=== PATIENT | male | born 1990 | race Caucasian/White ===

== ENCOUNTER 2017-03-17 19:24 | Inpatient (IN) | payer OTHER ==
[~2017-03-17] VITALS: Ht 170.2 cm; Wt 64.8 kg
[2017-03-17] MEDS ORDERED: SOD CHLORIDE 0.9% 1,000 ML IV STA (19:55)
[2017-03-17 20:19] LABS: ADD SCAN DIFF NO
[2017-03-17 20:21] LABS: BASOPHILS % 0.6 % (0.0-2.0); EOSINOPHILS # 0.1 10^3/ul (0.0-0.5); EOSINOPHILS % 1.8 % (0.0-7.0); HEMATOCRIT 44.1 % (42.0-52.0); HEMOGLOBIN 15.2 g/dl (14.0-18.0); LYMPHOCYTES # 1.7 10^3/ul (0.8-2.9); LYMPHOCYTES % 33.3 % (15.0-51.0); MEAN CORPUSCULAR HEMOGLOBIN 29.7 pg (29.0-33.0); MEAN CORPUSCULAR HGB CONC 34.5 g/dl (32.0-37.0); MEAN CORPUSCULAR VOLUME 86.3 fl (82.0-101.0); MEAN PLATELET VOLUME 9.4 fl (7.4-10.4); MONOCYTE # 0.4 10^3/ul (0.3-0.9); MONOCYTES % 6.8 % (0.0-11.0); NEUTROPHIL # 2.9 10^3/ul (1.6-7.5); NEUTROPHILS % 57.3 % (39.0-77.0); PLATELET COUNT 199 10^3/UL (140-415); RED BLOOD COUNT 5.11 10^6/ul (4.70-6.10); RED CELL DISTRIBUTION WIDTH 12.4 % (11.5-14.5); WHITE BLOOD COUNT 5.1 10^3/ul (4.8-10.8)
[2017-03-17 20:44] LABS: ALBUMIN/GLOBULIN RATIO 1.61; BILIRUBIN,INDIRECT 0.2 mg/dl (0-1.1); BILIRUBIN,TOTAL 0.2 mg/dl (0.2-1.3); CALCIUM 9.8 mg/dl (8.4-10.2); CREATININE 1.12 mg/dl (0.61-1.24); POTASSIUM 4.3 mmol/L (3.5-5.1); TOTAL PROTEIN 8.1 g/dl (6.1-8.1)
[2017-03-17] MEDS ORDERED: SOD CHLORIDE 0.9% 1,000 ML IV SCH (20:55)
[2017-03-17] MEDS ORDERED: ONDANSETRON 4 MG INJ IV PRN ×2 (21:00→21:30)
[2017-03-17] MEDS ORDERED: ACETAMINOPHEN 325 MG TAB PO PRN (21:00)
--- NOTE | 2017-03-17 21:05 | ERA ---
ER Documentation Chief Complaint Date/Time DATE: 03/17/17 TIME: 21:00 Chief Complaint unable to swallow foods x 3 days ago, constipated, paraplegic HPI History obtained from patient's aunt who is at bedside as patient is unable to give a history secondary to his medical condition. This is a very pleasant 26- year-old male with a history of an unknown progressively worsening muscle degrading disease who presents to the emergency room due to the fact that he was recently moved from his facility in [place] to an independent living facility. This patient is unable to ambulate and has not been eating or drinking at the independent living facility. The patient's family members were at bedside are concerned because they did not feel this patient should be moved to the independent living facility. At the living facility has not been eating. This patient is having genetic testing done at [facility] and the results of his genetic testing for evaluation of this unknown progressively worsening myopathy are not going to be back until the end of March. Family members were obviously concerned about his not being able to take care of himself and brought the patient in for evaluation per ROS All systems reviewed and are negative except as per history of present illness. Allergies Allergies: Coded Allergies: No Known Allergy (Unverified , 03/17/17) PMhx/Soc History of Surgery: No Anesthesia Reaction: No Hx Neurological Disorder: Yes (unknown progressive deteriorating neuromuscular disease) Hx Respiratory Disorders: No Hx Cardiac Disorders: No Hx Psychiatric Problems: No Hx Miscellaneous Medical Probl: No Hx Alcohol Use: No Hx Substance Use: No Hx Tobacco Use: No Smoking Status: Never smoker Physical Exam Vitals Vital Signs Date Time Temp Pulse Resp B/P Pulse Ox O2 Delivery O2 Flow Rate FiO2 03/17/17 19:28 98.2 74 20 116/60 100 Physical Exam Const: No acute distress, tolerating secretions Head: Atraumatic Eyes: Normal Conjunctiva ENT: Normal External Ears, Nose and Mouth. Neck: Full range of motion..~ No meningismus. Resp: Clear to auscultation bilaterally Cardio: Regular rate and rhythm, no murmurs Abd: Soft, non tender, non distended. Normal bowel sounds Skin: No petechiae or rashes Back: No midline or flank tenderness Ext: No cyanosis, or edema Neur: Awake and alert Psych: Normal Mood and Affect Result Diagram: 03/17/17200603/17/172006 Results 24 hrs Laboratory Tests Test 03/17/17 20:07 White Blood Count 5.110^3/ul Red Blood Count 5.1110^6/ul Hemoglobin 15.2g/dl Hematocrit 44.1% Mean Corpuscular Volume 86.3fl Mean Corpuscular Hemoglobin 29.7pg Mean Corpuscular Hemoglobin Concent 34.5g/dl Red Cell Distribution Width 12.4% Platelet Count 77374^3/UL Mean Platelet Volume 9.4fl Neutrophils % 57.3% Lymphocytes % 33.3% Monocytes % 6.8% Eosinophils % 1.8% Basophils % 0.6% Nucleated Red Blood Cells % 0.0/100WBC Neutrophils # 2.910^3/ul Lymphocytes # 1.710^3/ul Monocytes # 0.410^3/ul Eosinophils # 0.110^3/ul Basophils # 0.010^3/ul Nucleated Red Blood Cells # 0.010^3/ul Sodium Level 142mmol/L Potassium Level 4.3mmol/L Chloride Level 104mmol/L Carbon Dioxide Level 28mmol/L Anion Gap 14 Blood Urea Nitrogen 13mg/dl Creatinine 1.12mg/dl Glucose Level 70mg/dl Calcium Level 9.8mg/dl Total Bilirubin 0.2mg/dl Direct Bilirubin 0.00mg/dl Indirect Bilirubin 0.2mg/dl Aspartate Amino Transf (AST/SGOT) 27IU/L Alanine Aminotransferase (ALT/SGPT) 33IU/L Alkaline Phosphatase 73IU/L Total Protein 8.1g/dl Albumin 5.0g/dl Globulin 3.10g/dl Albumin/Globulin Ratio 1.61 Lipase 90U/L Current Medications Medications (Trade) Dose Ordered Sig/Xiomara Route PRN Reason Start Time Stop Time Status Last Admin Dose Admin Sodium Chloride 1,000 ml @ 1,000 mls/hr Q1H STAT IV 03/17/17 19:55 03/17/17 20:54 DC 03/17/17 20:46 Sodium Chloride (NS) 1,000 ml @ 80 mls/hr [id number] IV 03/17/17 20:55 03/18/17 09:24 Ondansetron HCl (Zofran Inj) 4 mg BRIDGE ORDER PRN IV NAUSEA AND/OR VOMITING 03/17/17 21:00 03/18/17 20:59 Acetaminophen (Tylenol Tab) 650 mg ER BRIDGE PRN PO MILD PAIN/FEVER 03/17/17 21:00 03/18/17 20:59 Procedures/MDM This 26-year-old male presents to the emergency room for evaluation and admission for placement for a nursing facility. 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 This patient's sister has from the same disease. They are unsure if this patient has ALS. This patient was transferred to an independent living facility for an unknown reason in this patient is not independent as he is not able to walk or feed himself. He has not been eating for the past 3 days. The patient's family members were concerned and brought the patient to the emergency room. In the emergency room this patient does appear well hydrated however given his severity of disease this patient will be placed in for admission and for proper placement in a facility which can meet his demands for care. This patient did have a swallow screen done in the emergency room and will be placed on a soft diet this time. I have contacted our admitting physician Dr. Sequeira and the patient will be placed on the [facility] floor Chest X-ray 1V Interpreted by me: Soft Tissue: No acute abnormalities Bones: No acute abnormalities Mediastinum/Cardiac Silhouette/Lungs: [No acute abnormalities] Departure Diagnosis: Primary Impression: Muscle wasting Additional Impression: Inability to perform activities of daily living Condition: Stable UCRT CASEY DO Mar 17, 2017 21:05
[2017-03-17] MEDS ORDERED: DEXTROSE 5%-0.45% NACL 1,000 ML IV SCH (21:22)
[2017-03-17] MEDS ORDERED: ACETAMINOPHEN 650 MG SUPP PR PRN (21:30)
[2017-03-17] MEDS ORDERED: NACL 0.9% 3 ML SYG IV SCH (21:30)
[2017-03-17] MEDS ORDERED: morphine 2 MG INJ IV PRN (21:30)
[2017-03-17 21:32] VITALS: TEMP 98.2
[2017-03-17] MEDS ORDERED: BACL10TA PO (21:36)
--- NOTE | 2017-03-17 21:47 | RADRPT ---
PROCEDURE: XR Chest. CLINICAL INDICATION: Shortness of breath TECHNIQUE: Single frontal view of the chest was obtained COMPARISON: None FINDINGS: The heart and mediastinum are within normal limits. The lungs are clear. There is no pleural effusion or pneumothorax. The bones and soft tissue show no acute change. IMPRESSION: No definite abnormalities are identified. RPTAT:AAJJ dE Granados Physician Date Time Electronically viewed and signed by Ed Granados Physician on 03/17/2017 21:47 /
[2017-03-17 22:30] VITALS: BP 128/72; RESP 18
[2017-03-17] MEDS ORDERED: DEXTROSE 5%-0.45% NACL 500 ML IV SCH (23:00)
--- NOTE | 2017-03-17 23:02 | HP ---
Date/Time of Note Date/Time of Note DATE: 03/17/17 TIME: 23:02 Assessment/Plan VTE Prophylaxis VTE Prophylaxis Intervention: LMWH Assessment/Plan Chief Complaint/Hosp Course This is a pleasant 26-year-old male in a very unfortunate situation being admitted to the [facility] floor for: #1 progressively worsening function/ambulatory dysfunction: At the current time patient's current etiology of his genetic/neurologic disorder/myopathy is not known at this time. He is being worked up currently at [facility] and the results are apparently back on April 042016. His mom as well as his sister also have been diagnosed with disorders, with his sister passing away recently. Patient at the current time was placed in an independent living facility however patient's family did not feel that this facility was providing the adequate care for him as it is an independent living facility and based on the patient's current state he is not able to perform his daily activities of living by himself. At the current time we will obtain an official speech/ swallow evaluation to determine what kind of diet will be adequate for him. We will also consult physical therapy. And we will also consult case management to help us with placement in a facility where the patient can be properly taken care of. He did pass a bedside swallow eval in the ED so at time he will be started on a clear liquid diet, though we still will obtain an official speech evaluation. #2 Genetic/neurologic disorder/myopathy: Underlying etiology of this patient's disorder is unknown at this time. Further workup is being done at [facility]. Patient will follow up with them as indicated. Continue home baclofen. #3 DVT and GI prophylaxis: Lovenox, Protonix. Further treatment strategy will be implemented as per the clinical course Problems: HPI/ROS Admit Date/Time Admit Date/Time Mar 17, 2017 at 20:57 Hx of Present Illness Chief complaint: Ambulatory dysfunction This is a very pleasant 26-year-old male with a history of an unknown progressively worsening muscle/neurologic degrading disease who presents to the emergency room due to the fact that he was recently moved from his facility in [place] to an independent living facility. The following history was obtained via the ED physician documentation who received from the patient's and as the patient himself has difficulty speaking secondary to his unknown disease at this time. This patient is unable to ambulate and has not been eating or drinking at the independent living facility. The patient's family members were at bedside are concerned because they did not feel this patient should be moved to the independent living facility. At the living facility has not been eating. This patient is having genetic testing done at [facility] and the results of his genetic testing for evaluation of this unknown progressively worsening myopathy are not going to be back until the end of March. Family members were obviously concerned about his not being able to take care of himself and brought the patient in for evaluation. Patient does reports that he is able to use a walker to ambulate to the bathroom however at his facility that he was at did not provide him with a walker. His mom apparently has a similar disorder and the patient had a sister who recently after being diagnosed with a disorder as well I was very similar. As per the ED physician patient did have a bedside swallow eval done and was able to tolerate possibly soft diet. Allergies: NKDA Indications: See ARAVIND BECERRA Subjective hx not possible: other (Patient's verbal ability is limited secondary to his unknown disease process at this time.) PMH/Family/Social Past Medical History Unknown progressively worsening genetic/muscular disorder which is being worked up at [facility] at the current time. Past Surgical History Past Surgical Hx: appendectomy Social History Alcohol Use: none Smoking Status: Never smoker Drug Use: none Exam/Review of Systems Vital Signs Vitals Vital Signs Date Time Temp Pulse Resp B/P Pulse Ox O2 Delivery O2 Flow Rate FiO2 03/17/17 22:30 98.8 85 18 128/72 99 03/17/17 21:32 Room Air Exam Exam General: Patient is a pleasant well-developed male lying in bed in no acute distress. He is very smiley and upbeat. He has difficulty enunciating his words though some of his words are understandable. HEENT: Atraumatic, normocephalic. The pupils are equal, round and reactive. Extraocular motor are intact Neck: Supple with full range of motion. No rigidity or meningismus Chest: Nontender Lungs: Clear to auscultation bilaterally no crackles rales or wheezing Heart: Normal S1-S2, Regular rhythm and rate. No murmur, S3, or S4 Abdomen: Soft , nontender, nondistended , bowel sounds are present. No guarding no rebound tenderness , No masses or organomegaly. No costovertebral temporal angle mass Extremities: Normal to inspection, no edema no cyanosis Neurologic: Normal mental status, speech impediment, cranial nerves II through XII are intact, motor and sensory are intact, strength is 5 out of 5 in bilateral upper and lower extremities while patient is lying down. An ambulatory exam was not performed. The patient states that he can ambulate with the use of a rolling walker. Additional Comments PROCEDURE: XR Chest. CLINICAL INDICATION: Shortness of breath TECHNIQUE: Single frontal view of the chest was obtained COMPARISON: None FINDINGS: The heart and mediastinum are within normal limits. The lungs are clear. There is no pleural effusion or pneumothorax. The bones and soft tissue show no acute change. IMPRESSION: No definite abnormalities are identified. RPTAT:AAJJ Ed Granados Physician Date Time Electronically viewed and signed by Ed Granados Physician on 03/17/2017 21:47 Labs Result Diagram: 03/17/17200603/17/172006 Medications Medications Current Medications Ondansetron HCl (Zofran Inj) 4 mg Q6H PRN IV NAUSEA AND/OR VOMITING; Start 03/17 at 21:30 Acetaminophen (Tylenol Supp) 650 mg Q6H PRN [place] PAIN LEVEL 1-3 OR FEVER; Start 03/17/17 at 21:30 Morphine Sulfate (morphine) 2 mg Q4H PRN IV SEVERE PAIN LEVEL 7-10; Start at 21:30 Pantoprazole (Protonix Iv) 40 mg DAILY@06 IV ; Start 03/18/17 at 06:00 Enoxaparin Sodium 40 mg 40 mg DAILY SC ; Start 03/18/17 at 09:00 Dextrose/Sodium Chloride (D5-1/2ns) 500 ml @ 75 mls/hr Q6H40M IV Last administered on 03/17/17t 22:47; Admin Dose 75 MLS/HR; Start 03/17/17 at 23:00 RAPHAEL SINGH Mar 17, 2017 23:02
[2017-03-17 23:14] VITALS: Ht 170.2 cm; Wt 64.8 kg
[2017-03-18] MEDS ORDERED: DIPHENHYDRAMINE 50 MG INJ IV ONE (00:30)
[2017-03-18 05:43] LABS: ADD SCAN DIFF NO
[2017-03-18 05:48] LABS: BASOPHILS % 0.4 % (0.0-2.0); EOSINOPHILS # 0.1 10^3/ul (0.0-0.5); EOSINOPHILS % 1.3 % (0.0-7.0); HEMATOCRIT 42.3 % (42.0-52.0); HEMOGLOBIN 14.3 g/dl (14.0-18.0); LYMPHOCYTES % 39.3 % (15.0-51.0); MEAN CORPUSCULAR HEMOGLOBIN 29.1 pg (29.0-33.0); MEAN CORPUSCULAR HGB CONC 33.8 g/dl (32.0-37.0); MEAN CORPUSCULAR VOLUME 86.2 fl (82.0-101.0); MEAN PLATELET VOLUME 9.8 fl (7.4-10.4); MONOCYTE # 0.4 10^3/ul (0.3-0.9); MONOCYTES % 6.9 % (0.0-11.0); NEUTROPHIL # 2.7 10^3/ul (1.6-7.5); NEUTROPHILS % 51.9 % (39.0-77.0); PLATELET COUNT 180 10^3/UL (140-415); RED BLOOD COUNT 4.91 10^6/ul (4.70-6.10); RED CELL DISTRIBUTION WIDTH 12.7 % (11.5-14.5); WHITE BLOOD COUNT 5.2 10^3/ul (4.8-10.8)
[2017-03-18] MEDS: PANTOPRAZOLE 40 MG INJ IV SCH (05:55)
[2017-03-18 07:59] VITALS: BP 112/73; RESP 20
[2017-03-18] MEDS: BACLOFEN 10 MG TAB PO SCH ×3 (08:24→20:42)
[2017-03-18] MEDS: ENOXAPARIN 40 MG/0.4 ML SYG SC SCH (08:33)
--- NOTE | 2017-03-18 11:28 | PN ---
Date/Time of Note Date/Time of Note DATE: 03/18/17 TIME: 11:26 Assessment/Plan VTE Prophylaxis VTE Prophylaxis Intervention: LMWH Lines/Catheters IV [facility] Saline Lock Assessment/Plan Chief Complaint/Hosp Course A/P: 26-year-old male in a very unfortunate situation being admitted to the [facility] floor for: #1 progressively worsening function/ambulatory dysfunction: At the current time patient's current etiology of his genetic/neurologic disorder/myopathy is not known at this time. He is being worked up currently at [facility] and the results are apparently back on April 042016. His mom as well as his sister also have been diagnosed with disorders, with his sister passing away recently. Patient at the current time was placed in an independent living facility however patient's family did not feel that this facility was providing the adequate care for him as it is an independent living facility and based on the patient's current state he is not able to perform his daily activities of living by himself. - obtain an official speech/swallow evaluation to determine what kind of diet will be adequate for him. - consult physical therapy. - consult case management to help us with placement in a facility where the patient can be properly taken care of. He did pass a bedside swallow eval in the ED so at time he will be started on a clear liquid diet, though we still will obtain an official speech evaluation. #2 Genetic/neurologic disorder/myopathy: Underlying etiology of this patient's disorder is unknown at this time. - Further workup is being done at [facility]. Patient will follow up with them as indicated. - Continue home baclofen. #3 DVT and GI prophylaxis: Lovenox, Protonix. Further treatment strategy will be implemented as per the clinical course Problems: Subjective 24 Hr Interval Summary Free Text/Dictation Pt had no acute events overnight. Exam/Review of Systems Vital Signs Vitals Vital Signs Date Time Temp Pulse Resp B/P Pulse Ox O2 Delivery O2 Flow Rate FiO2 03/18/17 07:59 98.9 75 20 112/73 99 03/17/17 21:32 Room Air Intake and Output 03/17/17 03/17/17 03/18/17 15:00 23:00 07:00 Intake Total 1000 ml 475 ml Output Total 1400 ml Balance 1000 ml -925 ml Exam General: Patient is a pleasant well-developed male lying in bed in no acute distress. He has difficulty enunciating his words though some of his words are understandable. HEENT: Atraumatic, normocephalic. The pupils are equal, round and reactive. Extraocular motor are intact Neck: Supple with full range of motion. No rigidity or meningismus Chest: Nontender Lungs: Clear to auscultation bilaterally no crackles rales or wheezing Heart: Normal S1-S2, Regular rhythm and rate. No murmur, S3, or S4 Abdomen: Soft , nontender, nondistended , bowel sounds are present. No guarding no rebound tenderness , No masses or organomegaly. No costovertebral temporal angle mass Extremities: Normal to inspection, no edema no cyanosis Neurologic: Normal mental status, speech impediment, cranial nerves II through XII are intact, motor and sensory are intact, strength is 5 out of 5 in bilateral upper and lower extremities while patient is lying down. An ambulatory exam was not performed. The patient states that he can ambulate with the use of a rolling walker. Results Result Diagram: 03/18/1727 03/17/172006 Results 24 hrs Laboratory Tests Test 03/17/17 20:07 03/18/17 05:27 03/18/17 07:45 White Blood Count 5.1 5.2 Red Blood Count 5.11 4.91 Hemoglobin 15.2 14.3 Hematocrit 44.1 42.3 Mean Corpuscular Volume 86.3 86.2 Mean Corpuscular Hemoglobin 29.7 29.1 Mean Corpuscular Hemoglobin Concent 34.5 33.8 Red Cell Distribution Width 12.4 12.7 Platelet Count 199 180 Mean Platelet Volume 9.4 9.8 Neutrophils % 57.3 51.9 Lymphocytes % 33.3 39.3 Monocytes % 6.8 6.9 Eosinophils % 1.8 1.3 Basophils % 0.6 0.4 Nucleated Red Blood Cells % 0.0 0.0 Neutrophils # 2.9 2.7 Lymphocytes # 1.7 2.0 Monocytes # 0.4 0.4 Eosinophils # 0.1 0.1 Basophils # 0.0 0.0 Nucleated Red Blood Cells # 0.0 0.0 Sodium Level 142 Potassium Level 4.3 Chloride Level 104 Carbon Dioxide Level 28 Anion Gap 14 Blood Urea Nitrogen 13 Creatinine 1.12 Glucose Level 70 Calcium Level 9.8 Total Bilirubin 0.2 Direct Bilirubin 0.00 Indirect Bilirubin 0.2 Aspartate Amino Transf (AST/SGOT) 27 Alanine Aminotransferase (ALT/SGPT) 33 Alkaline Phosphatase 73 Total Protein 8.1 Albumin 5.0 H Globulin 3.10 Albumin/Globulin Ratio 1.61 Lipase 90 Hemoglobin A1c 5.2 Bedside Glucose 78 Medications Medications Current Medications Ondansetron HCl (Zofran Inj) 4 mg Q6H PRN IV NAUSEA AND/OR VOMITING; Start 03/17 at 21:30 Acetaminophen (Tylenol Supp) 650 mg Q6H PRN [place] PAIN LEVEL 1-3 OR FEVER; Start 03/17/17 at 21:30 Morphine Sulfate (morphine) 2 mg Q4H PRN IV SEVERE PAIN LEVEL 7-10; Start at 21:30 Pantoprazole (Protonix Iv) 40 mg DAILY@06 IV Last administered on 03/18/17 05: 55; Admin Dose 40 MG; Start 03/18/17 at 06:00 Enoxaparin Sodium (Lovenox) 40 mg DAILY SC Last administered on 03/18/17 08:33 ; Admin Dose 40 MG; Start 03/18/17 at 09:00 Baclofen (Lioresal) 10 mg TID PO Last administered on 03/18/17 08:24; Admin Dose 10 MG; Start 03/18/17 at 09:00 PHANI ANDERSON Mar 18, 2017 11:28
[2017-03-18 12:05] LABS: ALBUMIN 4.1 g/dl (3.3-4.9); ALBUMIN/GLOBULIN RATIO 1.64; BILIRUBIN,INDIRECT 0.4 mg/dl (0-1.1); BILIRUBIN,TOTAL 0.4 mg/dl (0.2-1.3); CALCIUM 10.2 mg/dl (8.4-10.2); CREATININE 1.05 mg/dl (0.61-1.24); POTASSIUM 4.7 mmol/L (3.5-5.1); TOTAL PROTEIN 6.6 g/dl (6.1-8.1)
[2017-03-18 12:24] LABS: T3 UPTAKE 38.2 % (23.5-40.5)
[2017-03-18 14:09] LABS: ADD UMIC NO; UR ASCORBIC ACID NEGATIVE (NEGATIVE); UR BILIRUBIN (Dip) NEGATIVE (NEGATIVE); UR BLOOD (Dip) NEGATIVE (NEGATIVE); UR CLARITY CLEAR (CLEAR); UR COLOR STRAW (YELLOW); UR GLUCOSE (Dip) NEGATIVE (NEGATIVE); UR KETONES (Dip) NEGATIVE (NEGATIVE); UR LEUKOCYTE ESTERASE (Dip) NEGATIVE Leu/ul (NEGATIVE); UR NITRITE (Dip) NEGATIVE (NEGATIVE); UR SPECIFIC GRAVITY (Dip) 1.005 (1.003-1.030); UR TOTAL PROTEIN (Dip) NEGATIVE (NEGATIVE); UR UROBILINOGEN (Dip) NEGATIVE (NEGATIVE)
[2017-03-18 20:15] VITALS: BP 115/66; RESP 18
[2017-03-19] MEDS: PANTOPRAZOLE 40 MG INJ IV SCH (05:48)
[2017-03-19 07:53] VITALS: BP 127/71; RESP 18
[2017-03-19] MEDS: BACLOFEN 10 MG TAB PO SCH ×3 (08:30→20:51)
[2017-03-19] MEDS: ENOXAPARIN 40 MG/0.4 ML SYG SC SCH (08:35)
--- NOTE | 2017-03-19 10:59 | PN ---
Date/Time of Note Date/Time of Note DATE: 03/19/17 TIME: 10:53 Assessment/Plan VTE Prophylaxis VTE Prophylaxis Intervention: LMWH Lines/Catheters IV [facility] Type (from [facility] Saline Lock Urinary Cath still in place: No Assessment/Plan Chief Complaint/Hosp Course A/P: 26-year-old male in a very unfortunate situation being admitted to the [facility] floor for: #1 progressively worsening function/ambulatory dysfunction: At the current time patient's current etiology of his genetic/neurologic disorder/myopathy is not known at this time. He is being worked up currently at [facility] and the results are apparently back on April 042016. His mom as well as his sister also have been diagnosed with disorders, with his sister passing away recently. Patient at the current time was placed in an independent living facility however patient's family did not feel that this facility was providing the adequate care for him as it is an independent living facility and based on the patient's current state he is not able to perform his daily activities of living by himself. - continue current modified diet, f/u speech/swallow rec's - consult physical therapy - will order - consult case management to help us with placement in a facility where the patient can be properly taken care of. #2 Genetic/neurologic disorder/myopathy: Underlying etiology of this patient's disorder is unknown at this time. - Further workup is being done at [facility]. Patient will follow up with them as indicated. - Continue home baclofen. #3 DVT and GI prophylaxis: Lovenox, Protonix. Further treatment strategy will be implemented as per the clinical course, and placement. Problems: Subjective 24 Hr Interval Summary Free Text/Dictation Pt seen by ST, tolerating modified diet. Exam/Review of Systems Vital Signs Vitals Vital Signs Date Time Temp Pulse Resp B/P Pulse Ox O2 Delivery O2 Flow Rate FiO2 03/19/17 07:53 98.6 85 18 127/71 100 03/17/17 21:32 Room Air Intake and Output 03/18/17 03/18/17 03/19/17 15:00 23:00 07:00 Intake Total 1440 ml 420 ml Output Total 1350 ml 975 ml Balance 90 ml -555 ml Exam General: Patient is a pleasant well-developed male lying in bed in no acute distress. He has difficulty enunciating his words though some of his words are understandable. HEENT: Atraumatic, normocephalic. The pupils are equal, round and reactive. Extraocular motor are intact Neck: Supple with full range of motion. No rigidity or meningismus Chest: Nontender Lungs: Clear to auscultation bilaterally no crackles rales or wheezing Heart: Normal S1-S2, Regular rhythm and rate. No murmur, S3, or S4 Abdomen: Soft , nontender, nondistended , bowel sounds are present. No guarding no rebound tenderness , No masses or organomegaly. No costovertebral temporal angle mass Extremities: Normal to inspection, no edema no cyanosis Neurologic: Normal mental status, speech impediment, cranial nerves II through XII are intact, motor and sensory are intact, strength is 5 out of 5 in bilateral upper and lower extremities while patient is lying down. An ambulatory exam was not performed. The patient states that he can ambulate with the use of a rolling walker. Results Result Diagram: 03/18/1752603/18/17526 Medications Medications Current Medications Ondansetron HCl (Zofran Inj) 4 mg Q6H PRN IV NAUSEA AND/OR VOMITING; Start 03/17 at 21:30 Acetaminophen (Tylenol Supp) 650 mg Q6H PRN [place] PAIN LEVEL 1-3 OR FEVER; Start 03/17/17 at 21:30 Morphine Sulfate (morphine) 2 mg Q4H PRN IV SEVERE PAIN LEVEL 7-10; Start at 21:30 Pantoprazole (Protonix Iv) 40 mg DAILY@06 IV Last administered on 03/19/17 05: 48; Admin Dose 40 MG; Start 03/18/17 at 06:00 Enoxaparin Sodium (Lovenox) 40 mg DAILY SC Last administered on 03/19/17 08:35 ; Admin Dose 40 MG; Start 03/18/17 at 09:00 Baclofen (Lioresal) 10 mg TID PO Last administered on 03/19/17 08:30; Admin Dose 10 MG; Start 03/18/17 at 09:00 PHANI ANDERSON Mar 19, 2017 10:59
[2017-03-19 19:27] VITALS: BP 121/69; RESP 20
[2017-03-20] MEDS: PANTOPRAZOLE (EC) 40 MG TAB PO SCH (06:00)
[2017-03-20 07:42] VITALS: BP 121/72; RESP 18
[2017-03-20] MEDS: BACLOFEN 10 MG TAB PO SCH ×3 (09:21→21:37)
[2017-03-20] MEDS: ENOXAPARIN 40 MG/0.4 ML SYG SC SCH (09:28)
[2017-03-20] MEDS: MUPIROCIN 2% 22 GM OINT TOP SCH ×2 (10:06→21:38)
--- NOTE | 2017-03-20 10:54 | PN ---
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 He is being worked up currently at [facility] and the results are apparently back on April [id number]. His mom as well as his sister also have been diagnosed with disorders, with his sister passing away recently. Patient at the current time was placed in an independent living facility however patient's family did not feel that this facility was providing the adequate care for him as it is an independent living facility and based on the patient's current state he is not able to perform his daily activities of living by himself. - continue current modified diet, f/u speech/swallow rec's - consult physical therapy - will order - consult case management to help us with placement in a facility where the patient can be properly taken care of. #2 Genetic/neurologic disorder/myopathy: Underlying etiology of this patient's disorder is unknown at this time. - Further workup is being done at [facility]. Patient will follow up with them as indicated. - Continue home baclofen. #3 DVT and GI prophylaxis: Lovenox, Protonix. Further treatment strategy will be implemented as per the clinical course, and placement. -Follow-up with case management on this as they are actively looking for placement. Problems: Subjective 24 Hr Interval Summary Free Text/Dictation Worked with PT yesterday. No acute events overnight. Exam/Review of Systems Vital Signs Vitals Vital Signs Date Time Temp Pulse Resp B/P Pulse Ox O2 Delivery O2 Flow Rate FiO2 03/20/17 07:42 98.1 81 18 121/72 99 03/17/17 21:32 Room Air Intake and Output 03/19/17 03/19/17 03/20/17 15:00 23:00 07:00 Intake Total 1120 ml 240 ml Output Total 1300 ml 300 ml Balance -180 ml -60 ml Exam General: Patient is a pleasant well-developed male lying in bed in no acute distress. He has difficulty enunciating his words though some of his words are understandable. HEENT: Atraumatic, normocephalic. The pupils are equal, round and reactive. Extraocular motor are intact Neck: Supple with full range of motion. No rigidity or meningismus Chest: Nontender Lungs: Clear to auscultation bilaterally no crackles rales or wheezing Heart: Normal S1-S2, Regular rhythm and rate. No murmur, S3, or S4 Abdomen: Soft , nontender, nondistended , bowel sounds are present. No guarding no rebound tenderness , No masses or organomegaly. No costovertebral temporal angle mass Extremities: Normal to inspection, no edema no cyanosis Neurologic: Normal mental status, speech impediment, cranial nerves II through XII are intact, motor and sensory are intact, strength is 5 out of 5 in bilateral upper and lower extremities while patient is lying down. An ambulatory exam was not performed. The patient states that he can ambulate with the use of a rolling walker. Results Result Diagram: 03/18/1752603/18/17526 Medications Medications Current Medications Ondansetron HCl (Zofran Inj) 4 mg Q6H PRN IV NAUSEA AND/OR VOMITING Last administered on 03/20/17 06:00; Admin Dose 4 MG; Start 03/17/17 at 21:30 Acetaminophen (Tylenol Supp) 650 mg Q6H PRN [place] PAIN LEVEL 1-3 OR FEVER; Start 03/17/17 at 21:30 Morphine Sulfate (morphine) 2 mg Q4H PRN IV SEVERE PAIN LEVEL 7-10; Start at 21:30 Enoxaparin Sodium (Lovenox) 40 mg DAILY SC Last administered on 03/20/17 09:28 ; Admin Dose 40 MG; Start 03/18/17 at 09:00 Baclofen (Lioresal) 10 mg TID PO Last administered on 03/20/17 09:21; Admin Dose 10 MG; Start 03/18/17 at 09:00 Pantoprazole (Protonix Tab) 40 mg DAILY@06 PO Last administered on 03/20/17 06: 00; Admin Dose 40 MG; Start 03/20/17 at 06:00 Mupirocin (Bactroban) 1 applic BID TOP Last administered on 03/20/17 10:06; Admin Dose 1 APPLIC; Start 03/20/17 at 09:30 PHANI ANDERSON Mar 20, 2017 10:53
[2017-03-20 19:22] VITALS: BP 118/66; RESP 20
[2017-03-21 02:13] VITALS: BP 119/61; RESP 18
[2017-03-21] MEDS: PANTOPRAZOLE (EC) 40 MG TAB PO SCH (05:27)
[2017-03-21] MEDS: BACLOFEN 10 MG TAB PO SCH ×3 (08:13→21:30)
[2017-03-21] MEDS: MUPIROCIN 2% 22 GM OINT TOP SCH ×2 (08:13→23:46)
[2017-03-21 08:18] VITALS: BP 113/72; RESP 18
[2017-03-21] MEDS: ENOXAPARIN 40 MG/0.4 ML SYG SC SCH (08:21)
--- NOTE | 2017-03-21 10:28 | PN ---
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 He is being worked up currently at [facility] and the results are apparently back on April 042016. His mom as well as his sister also have been diagnosed with disorders, with his sister passing away recently. Patient at the current time was placed in an independent living facility however patient's family did not feel that this facility was providing the adequate care for him as it is an independent living facility and based on the patient's current state he is not able to perform his daily activities of living by himself. - continue current modified diet, f/u speech/swallow rec's - consult physical therapy - will order - consult case management to help us with placement in a facility where the patient can be properly taken care of. #2 Genetic/neurologic disorder/myopathy: Underlying etiology of this patient's disorder is unknown at this time. - Further workup is being done at [facility]. Patient will follow up with them as indicated. - Continue home baclofen. #3 DVT and GI prophylaxis: Lovenox, Protonix. Further treatment strategy will be implemented as per the clinical course, and placement. -Follow-up with case management on this as they are actively looking for placement. Problems: Subjective 24 Hr Interval Summary Free Text/Dictation No acute events overnight. Exam/Review of Systems Vital Signs Vitals Vital Signs Date Time Temp Pulse Resp B/P Pulse Ox O2 Delivery O2 Flow Rate FiO2 03/21/17 08:18 98.2 71 18 113/72 98 03/17/17 21:32 Room Air Intake and Output 03/20/17 03/20/17 03/21/17 15:00 23:00 07:00 Intake Total 200 ml Output Total 600 ml Balance -400 ml Exam General: Patient is a pleasant well-developed male lying in bed in no acute distress. He has difficulty enunciating his words though some of his words are understandable. HEENT: Atraumatic, normocephalic. The pupils are equal, round and reactive. Extraocular motor are intact Neck: Supple with full range of motion. No rigidity or meningismus Chest: Nontender Lungs: Clear to auscultation bilaterally no crackles rales or wheezing Heart: Normal S1-S2, Regular rhythm and rate. No murmur, S3, or S4 Abdomen: Soft , nontender, nondistended , bowel sounds are present. No guarding no rebound tenderness , No masses or organomegaly. No costovertebral temporal angle mass Extremities: Normal to inspection, no edema no cyanosis Neurologic: Normal mental status, speech impediment, cranial nerves II through XII are intact, motor and sensory are intact, strength is 5 out of 5 in bilateral upper and lower extremities while patient is lying down. An ambulatory exam was not performed. The patient states that he can ambulate with the use of a rolling walker. Results Result Diagram: 03/18/1752603/18/17526 Medications Medications Current Medications Ondansetron HCl (Zofran Inj) 4 mg Q6H PRN IV NAUSEA AND/OR VOMITING Last administered on 03/20/17 06:00; Admin Dose 4 MG; Start 03/17/17 at 21:30 Acetaminophen (Tylenol Supp) 650 mg Q6H PRN [place] PAIN LEVEL 1-3 OR FEVER; Start 03/17/17 at 21:30 Morphine Sulfate (morphine) 2 mg Q4H PRN IV SEVERE PAIN LEVEL 7-10; Start at 21:30 Enoxaparin Sodium (Lovenox) 40 mg DAILY SC Last administered on 03/21/17 08:21 ; Admin Dose 40 MG; Start 03/18/17 at 09:00 Baclofen (Lioresal) 10 mg TID PO Last administered on 03/21/17 08:13; Admin Dose 10 MG; Start 03/18/17 at 09:00 Pantoprazole (Protonix Tab) 40 mg DAILY@06 PO Last administered on 03/21/17 05: 27; Admin Dose 40 MG; Start 03/20/17 at 06:00 Mupirocin (Bactroban) 1 applic BID TOP Last administered on 03/21/17 08:13; Admin Dose 1 APPLIC; Start 03/20/17 at 09:30 PHANI ANDERSON Mar 21, 2017 10:27
[2017-03-21 19:53] VITALS: BP 109/64; RESP 20
[2017-03-22 02:18] VITALS: BP 114/65; RESP 20
[2017-03-22] MEDS: PANTOPRAZOLE (EC) 40 MG TAB PO SCH (05:56)
[2017-03-22 07:58] VITALS: BP 110/59; RESP 20
[2017-03-22] MEDS: MUPIROCIN 2% 22 GM OINT TOP SCH ×2 (08:51→21:36)
[2017-03-22] MEDS: BACLOFEN 10 MG TAB PO SCH ×3 (08:51→21:36)
[2017-03-22] MEDS: ENOXAPARIN 40 MG/0.4 ML SYG SC SCH (09:01)
--- NOTE | 2017-03-22 16:46 | PN ---
Date/Time of Note Date/Time of Note DATE: 03/22/17 TIME: 16:43 Assessment/Plan VTE Prophylaxis VTE Prophylaxis Intervention: LMWH Lines/Catheters IV C[facility] Type (from [facility]): Saline Lock Urinary Cath still in place: No Assessment/Plan Chief Complaint/Hosp Course Subjective: No distress. Runny nose. No blood loss. No fever dyspnea. Ambulating somewhat. Tolerating diet safely at this time. Family at bedside and updated. He does have some spasticity. Objective: Vital signs stable Physical examination No pallor adenopathy Regular Clear Benign No edema Neuro potentially some hypotonia generalized. Assessment and plan 1. Failure to thrive. Stable pending disposition to [facility] for assistance in ADLs. 2. Subacute myopathy? Sp genetic testing [facility]. Results pending. Calorie count/ ST therapy as needed. Continue PT. Problems: Exam/Review of Systems Vital Signs Vitals Vital Signs Date Time Temp Pulse Resp B/P Pulse Ox O2 Delivery O2 Flow Rate FiO2 03/22/17 07:58 98.8 73 20 110/59 98 Intake and Output 03/21/17 03/21/17 03/22/17 15:00 23:00 07:00 Intake Total 940 ml 240 ml Output Total 350 ml Balance 940 ml -110 ml Results Result Diagram: 03/18/1727 03/18/17526 Medications Medications Current Medications Ondansetron HCl (Zofran Inj) 4 mg Q6H PRN IV NAUSEA AND/OR VOMITING Last administered on 03/20/17 06:00; Admin Dose 4 MG; Start 03/17/17 at 21:30 Acetaminophen (Tylenol Supp) 650 mg Q6H PRN [place] PAIN LEVEL 1-3 OR FEVER; Start 03/17/17 at 21:30 Morphine Sulfate (morphine) 2 mg Q4H PRN IV SEVERE PAIN LEVEL 7-10; Start at 21:30 Enoxaparin Sodium (Lovenox) 40 mg DAILY SC Last administered on 03/22/17 09:01 ; Admin Dose 40 MG; Start 03/18/17 at 09:00 Baclofen (Lioresal) 10 mg TID PO Last administered on 03/22/17 13:31; Admin Dose 10 MG; Start 03/18/17 at 09:00 Pantoprazole (Protonix Tab) 40 mg DAILY@06 PO Last administered on 03/22/17 05: 56; Admin Dose 40 MG; Start 03/20/17 at 06:00 Mupirocin (Bactroban) 1 applic BID TOP Last administered on 03/22/17 08:51; Admin Dose 1 APPLIC; Start 03/20/17 at 09:30 ANGELO CARRERA MD Mar 22, 2017 16:46
[2017-03-22] MEDS: LORATADINE 10 MG TAB PO SCH (18:30)
[2017-03-22 20:05] VITALS: BP 113/65; RESP 18
[2017-03-23 04:01] VITALS: BP 98/61; RESP 18
[2017-03-23] MEDS: PANTOPRAZOLE (EC) 40 MG TAB PO SCH (06:07)
[2017-03-23 06:23] LABS: ADD SCAN DIFF NO
[2017-03-23 06:26] LABS: BASOPHILS % 0.4 % (0.0-2.0); EOSINOPHILS # 0.1 10^3/ul (0.0-0.5); EOSINOPHILS % 1.7 % (0.0-7.0); HEMATOCRIT 41.6 % (42.0-52.0); HEMOGLOBIN 14.4 g/dl (14.0-18.0); LYMPHOCYTES # 1.7 10^3/ul (0.8-2.9); LYMPHOCYTES % 37.4 % (15.0-51.0); MEAN CORPUSCULAR HEMOGLOBIN 29.4 pg (29.0-33.0); MEAN CORPUSCULAR HGB CONC 34.6 g/dl (32.0-37.0); MEAN CORPUSCULAR VOLUME 84.9 fl (82.0-101.0); MEAN PLATELET VOLUME 9.6 fl (7.4-10.4); MONOCYTE # 0.4 10^3/ul (0.3-0.9); MONOCYTES % 7.6 % (0.0-11.0); NEUTROPHIL # 2.5 10^3/ul (1.6-7.5); NEUTROPHILS % 52.9 % (39.0-77.0); PLATELET COUNT 193 10^3/UL (140-415); RED CELL DISTRIBUTION WIDTH 12.3 % (11.5-14.5); WHITE BLOOD COUNT 4.6 10^3/ul (4.8-10.8)
[2017-03-23 06:46] LABS: INR 1.03; PROTIME 13.5 Sec (12.2-14.2); PT RATIO 1.1
[2017-03-23 06:53] LABS: CALCIUM 10.3 mg/dl (8.4-10.2); CREATININE 1.09 mg/dl (0.61-1.24); POTASSIUM 4.2 mmol/L (3.5-5.1)
[2017-03-23 06:55] LABS: CREATINE KINASE 48 IU/L (23-200)
[2017-03-23 06:56] LABS: C-REACTIVE PROTEIN < 0.5 mg/dl (0.0-0.9)
[2017-03-23 07:23] LABS: THYROID STIMULATING HORMONE 1.13 MIU/L (0.465-4.680)
[2017-03-23 07:30] LABS: CREATININE 1.12 mg/dl (0.61-1.24)
[2017-03-23 08:49] VITALS: BP 111/56; RESP 20
[2017-03-23] MEDS: MUPIROCIN 2% 22 GM OINT TOP SCH ×2 (09:56→20:40)
[2017-03-23] MEDS: BACLOFEN 10 MG TAB PO SCH ×3 (09:56→20:40)
[2017-03-23] MEDS: LORATADINE 10 MG TAB PO SCH (09:56)
[2017-03-23] MEDS: ENOXAPARIN 40 MG/0.4 ML SYG SC SCH (10:04)
--- NOTE | 2017-03-23 11:37 | PN ---
Date/Time of Note Date/Time of Note DATE: 03/23/17 TIME: 11:35 Assessment/Plan VTE Prophylaxis VTE Prophylaxis Intervention: LMWH Lines/Catheters IV C[facility]ter Type (from [facility] Saline Lock Urinary Cath still in place: No Assessment/Plan Chief Complaint/Hosp Course S: 03/22 no distress. Runny nose. No blood loss. No fever dyspnea. Ambulating somewhat. Tolerating diet safely at this time. Family at bedside and updated. He does have some spasticity. 03/22: Less nasal discomfort. No dyspnea. Pending placement. O: Vss PE No pallor Reg Clear Benign No edema Neuro potentially some hypotonia generalized. A/P 1. Failure to thrive. Stable pending disposition to [facility] for assistance in ADLs. 2. Subacute myopathy? Sp genetic testing [facility]- Results pending. Calorie count/ ST therapy as needed. Cont PT. 3. MRSA nares; colonized 2 wks of Bactroban Problems: Exam/Review of Systems Vital Signs Vitals Vital Signs Date Time Temp Pulse Resp B/P Pulse Ox O2 Delivery O2 Flow Rate FiO2 03/23/17 08:49 98.3 75 20 111/56 99 Intake and Output 03/22/17 03/22/17 03/23/17 15:00 23:00 07:00 Intake Total 1440 ml 200 ml Output Total 1525 ml 250 ml Balance -85 ml -50 ml Results Result Diagram: 03/23/1752103/23/17 0522 Results 24 hrs Laboratory Tests Test 03/23/17 05:22 White Blood Count 4.6 L Red Blood Count 4.90 Hemoglobin 14.4 Hematocrit 41.6 L Mean Corpuscular Volume 84.9 Mean Corpuscular Hemoglobin 29.4 Mean Corpuscular Hemoglobin Concent 34.6 Red Cell Distribution Width 12.3 Platelet Count 193 Mean Platelet Volume 9.6 Neutrophils % 52.9 Lymphocytes % 37.4 Monocytes % 7.6 Eosinophils % 1.7 Basophils % 0.4 Nucleated Red Blood Cells % 0.0 Neutrophils # 2.5 Lymphocytes # 1.7 Monocytes # 0.4 Eosinophils # 0.1 Basophils # 0.0 Nucleated Red Blood Cells # 0.0 Erythrocyte Sedimentation Rate 2 Prothrombin Time 13.5 Prothrombin Time Ratio 1.1 INR International Normalized Ratio 1.03 Sodium Level 143 Potassium Level 4.2 Chloride Level 100 Carbon Dioxide Level 28 Anion Gap 19 H Blood Urea Nitrogen 16 Creatinine 1.09 Glucose Level 80 Lactic Acid Level 1.0 Calcium Level 10.3 H Creatine Kinase 48 C-Reactive Protein < 0.5 Thyroid Stimulating Hormone (TSH) 1.130 Medications Medications Current Medications Ondansetron HCl (Zofran Inj) 4 mg Q6H PRN IV NAUSEA AND/OR VOMITING Last administered on 03/20/17 06:00; Admin Dose 4 MG; Start 03/17/17 at 21:30 Acetaminophen (Tylenol Supp) 650 mg Q6H PRN [place] PAIN LEVEL 1-3 OR FEVER; Start 03/17/17 at 21:30 Morphine Sulfate (morphine) 2 mg Q4H PRN IV SEVERE PAIN LEVEL 7-10; Start at 21:30 Enoxaparin Sodium (Lovenox) 40 mg DAILY SC Last administered on 03/23/17 10:04 ; Admin Dose 40 MG; Start 03/18/17 at 09:00 Baclofen (Lioresal) 10 mg TID PO Last administered on 03/23/17 09:56; Admin Dose 10 MG; Start 03/18/17 at 09:00 Pantoprazole (Protonix Tab) 40 mg DAILY@06 PO Last administered on 03/23/17 06: 07; Admin Dose 40 MG; Start 03/20/17 at 06:00 Mupirocin (Bactroban) 1 applic BID TOP Last administered on 03/23/17 09:56; Admin Dose 1 APPLIC; Start 03/20/17 at 09:30 Loratadine (Claritin) 10 mg DAILY PO Last administered on 03/23/17 09:56; Admin Dose 10 MG; Start 03/22/17 at 18:30 ANGELO CARRERA MD Mar 23, 2017 11:37
[2017-03-23 19:26] VITALS: BP 115/65; RESP 18
[2017-03-24 02:00] VITALS: BP 104/59; RESP 16
[2017-03-24] MEDS: PANTOPRAZOLE (EC) 40 MG TAB PO SCH (06:16)
[2017-03-24 08:01] VITALS: BP 102/56; RESP 20
[2017-03-24] MEDS: BACLOFEN 10 MG TAB PO SCH ×3 (09:19→21:01)
[2017-03-24] MEDS: LACTOBACILLUS RHAMNOSUS CAP PO SCH ×2 (09:19→21:01)
[2017-03-24] MEDS: LORATADINE 10 MG TAB PO SCH (09:19)
[2017-03-24] MEDS: MUPIROCIN 2% 22 GM OINT TOP SCH ×2 (09:19→21:01)
[2017-03-24] MEDS: ENOXAPARIN 40 MG/0.4 ML SYG SC SCH (10:05)
--- NOTE | 2017-03-24 15:31 | PN ---
Date/Time of Note Date/Time of Note DATE: 03/24/17 TIME: 15:29 Assessment/Plan VTE Prophylaxis VTE Prophylaxis Intervention: LMWH Lines/Catheters IV C[facility]ter Type ([facility] Saline Lock Urinary Cath still in place: No Assessment/Plan Chief Complaint/Hosp Course 1. Failure to thrive. Continue supportive care. Continue physical therapy. Continue dietary supplements. Awaiting placement for further assistance with ADLs. 2. Muscular dystrophy/myopathy. Continue supportive care. Continue baclofen. 3. MRSA colonization of the nares. Continue Bactroban. 4. DVT prophylaxis. Subcutaneous Lovenox. 5. Gastrointestinal prophylaxis. Proton pump inhibitors. 6. Fluids, electrolytes, and nutrition. Mechanical soft diet. 7. Plan. Await placement. Will obtain a chest x-ray because he was complaining of vague dyspnea. Case discussed with Dr. Pepe. Problems: Subjective 24 Hr Interval Summary Free Text/Dictation Complains of dyspnea. Denies any pain. Exam/Review of Systems Vital Signs Vitals Vital Signs Date Time Temp Pulse Resp B/P Pulse Ox O2 Delivery O2 Flow Rate FiO2 03/24/17 08:01 97.9 73 20 102/56 98 Intake and Output 03/23/17 03/23/17 03/24/17 15:00 23:00 07:00 Intake Total 600 ml 360 ml Output Total 420 ml Balance 180 ml 360 ml Exam General: Adequately build 26 year-old male lying in bed in no apparent distress. HEENT: Normocephalic, atraumatic. Eyes: Anicteric sclerae, conjunctivae clear. ENT: Nasal septum midline, oral mucosa moist. Neck supple, no JVD noticed. Respiratory: Bilaterally diminished breath sounds. No use of accessory muscles of respiration. No adventitious breath sounds. Cardiovascular: S1, S2 heard. No murmurs or gallops. Abdomen: Soft, nontender, and nondistended. Bowel sounds positive in all 4 quadrants. Genitourinary: Deferred. Extremities: No cyanosis, no clubbing, no edema. Peripheral pulses palpable. Neurologic: Slurred speech. Poor motor strength of bilateral upper and bilateral lower extremities. The patient is awake, alert, and oriented. Skin: Normal skin turgor. No skin rashes. Results Result Diagram: 03/23/1752103/23/17521 Medications Medications Current Medications Ondansetron HCl (Zofran Inj) 4 mg Q6H PRN IV NAUSEA AND/OR VOMITING Last administered on 03/20/17 06:00; Admin Dose 4 MG; Start 03/17/17 at 21:30 Acetaminophen (Tylenol Supp) 650 mg Q6H PRN [place] PAIN LEVEL 1-3 OR FEVER; Start 03/17/17 at 21:30 Morphine Sulfate (morphine) 2 mg Q4H PRN IV SEVERE PAIN LEVEL 7-10; Start at 21:30 Enoxaparin Sodium (Lovenox) 40 mg DAILY SC Last administered on 03/24/17 10:05 ; Admin Dose 40 MG; Start 03/18/17 at 09:00 Baclofen (Lioresal) 10 mg TID PO Last administered on 03/24/17 12:56; Admin Dose 10 MG; Start 03/18/17 at 09:00 Pantoprazole (Protonix Tab) 40 mg DAILY@06 PO Last administered on 03/24/17 06 :16; Admin Dose 40 MG; Start 03/20/17 at 06:00 Mupirocin (Bactroban) 1 applic BID TOP Last administered on 03/24/17 09:19; Admin Dose 1 APPLIC; Start 03/20/17 at 09:30; Stop 04/03/17 at 23:00 Loratadine (Claritin) 10 mg DAILY PO Last administered on 03/24/17 09:19; Admin Dose 10 MG; Start 03/22/17 at 18:30 Lactobacillus Acidophilus/ Rhamnosus (Culturelle) 1 cap BID PO Last administered on 03/24/17 09:19; Admin Dose 1 CAP; Start 03/24/17 at 09:00 MELANIE NEFF NP Mar 24, 2017 15:31
--- NOTE | 2017-03-24 17:27 | RADRPT ---
PROCEDURE: XR Chest. CLINICAL INDICATION: Shortness of breath. TECHNIQUE: Single frontal view. COMPARISON: 03/17/2017. FINDINGS: The lungs are clear. The heart size is normal. There is no pleural effusion. There is no pneumothorax. IMPRESSION: 1. Normal chest radiograph. 2. No change from 03/17/2017. RPTAT: QQ .Wilfredo Mix MD, MD Date Time Electronically viewed and signed by .Wilfredo Mix MD, MD on 03/24/2017 17:26 .R/
[2017-03-24 20:00] VITALS: BP 118/63; RESP 18
[2017-03-25 02:26] VITALS: BP 105/73; RESP 16
[2017-03-25] MEDS: PANTOPRAZOLE (EC) 40 MG TAB PO SCH (05:26)
[2017-03-25 08:18] VITALS: BP 114/70; RESP 18
[2017-03-25] MEDS: LACTOBACILLUS RHAMNOSUS CAP PO SCH ×2 (08:59→20:35)
[2017-03-25] MEDS: BACLOFEN 10 MG TAB PO SCH ×3 (08:59→20:35)
[2017-03-25] MEDS: LORATADINE 10 MG TAB PO SCH (08:59)
[2017-03-25] MEDS: MUPIROCIN 2% 22 GM OINT TOP SCH ×2 (08:59→20:35)
[2017-03-25] MEDS: ENOXAPARIN 40 MG/0.4 ML SYG SC SCH (09:10)
--- NOTE | 2017-03-25 11:12 | PN ---
Date/Time of Note Date/Time of Note DATE: 03/25/17 TIME: 11:11 Assessment/Plan VTE Prophylaxis VTE Prophylaxis Intervention: LMWH Lines/Catheters IV [facility] Type (from [facility]): Saline Lock Urinary Cath still in place: No Assessment/Plan Chief Complaint/Hosp Course 1. Failure to thrive. Continue supportive care. Continue physical therapy. Continue dietary supplements. Awaiting placement for further assistance with ADLs. 2. Muscular dystrophy/myopathy. Continue supportive care. Continue baclofen. 3. MRSA colonization of the nares. Continue Bactroban. 4. DVT prophylaxis. Subcutaneous Lovenox. 5. Gastrointestinal prophylaxis. Proton pump inhibitors. 6. Fluids, electrolytes, and nutrition. Mechanical soft diet. 7. Plan. Await placement. Case discussed with Dr. Pepe. Problems: Subjective 24 Hr Interval Summary Free Text/Dictation Vital signs stable. No changes in status. Complains of toothache. Exam/Review of Systems Vital Signs Vitals Vital Signs Date Time Temp Pulse Resp B/P Pulse Ox O2 Delivery O2 Flow Rate FiO2 03/25/17 08:18 97.7 71 18 114/70 98 Intake and Output 03/24/17 03/24/17 03/25/17 15:00 23:00 07:00 Intake Total 1200 ml 980 ml Output Total 600 ml Balance 600 ml 980 ml Exam General: Adequately build 26 year-old male lying in bed in no apparent distress. HEENT: Normocephalic, atraumatic. Eyes: Anicteric sclerae, conjunctivae clear. ENT: Nasal septum midline, oral mucosa moist. Neck supple, no JVD noticed. Respiratory: Bilaterally diminished breath sounds. No use of accessory muscles of respiration. No adventitious breath sounds. Cardiovascular: S1, S2 heard. No murmurs or gallops. Abdomen: Soft, nontender, and nondistended. Bowel sounds positive in all 4 quadrants. Genitourinary: Deferred. Extremities: No cyanosis, no clubbing, no edema. Peripheral pulses palpable. Neurologic: Slurred speech. Poor motor strength of bilateral upper and bilateral lower extremities. The patient is awake, alert, and oriented. Skin: Normal skin turgor. No skin rashes. Results Result Diagram: 03/23/1752103/23/17521 Medications Medications Current Medications Ondansetron HCl (Zofran Inj) 4 mg Q6H PRN IV NAUSEA AND/OR VOMITING Last administered on 03/20/17 06:00; Admin Dose 4 MG; Start 03/17/17 at 21:30 Acetaminophen (Tylenol Supp) 650 mg Q6H PRN [place] PAIN LEVEL 1-3 OR FEVER; Start 03/17/17 at 21:30 Morphine Sulfate (morphine) 2 mg Q4H PRN IV SEVERE PAIN LEVEL 7-10; Start at 21:30 Enoxaparin Sodium (Lovenox) 40 mg DAILY SC Last administered on 03/25/17 09:10 ; Admin Dose 40 MG; Start 03/18/17 at 09:00 Baclofen (Lioresal) 10 mg TID PO Last administered on 03/25/17 08:59; Admin Dose 10 MG; Start 03/18/17 at 09:00 Pantoprazole (Protonix Tab) 40 mg DAILY@06 PO Last administered on 03/25/17 05 :26; Admin Dose 40 MG; Start 03/20/17 at 06:00 Mupirocin (Bactroban) 1 applic BID TOP Last administered on 03/25/17 08:59; Admin Dose 1 APPLIC; Start 03/20/17 at 09:30; Stop 04/03/17 at 23:00 Loratadine (Claritin) 10 mg DAILY PO Last administered on 03/25/17 08:59; Admin Dose 10 MG; Start 03/22/17 at 18:30 Lactobacillus Acidophilus/ Rhamnosus (Culturelle) 1 cap BID PO Last administered on 03/25/17 08:59; Admin Dose 1 CAP; Start 03/24/17 at 09:00 MELANIE NEFF NP Mar 25, 2017 11:12
[2017-03-25] MEDS: HYDROCODONE/APAP (5/325) TAB PO PRN (13:13)
[2017-03-25 19:48] VITALS: BP 110/56; RESP 18
[2017-03-26] MEDS: PANTOPRAZOLE (EC) 40 MG TAB PO SCH (05:52)
[2017-03-26 07:41] VITALS: BP 110/64; RESP 20
[2017-03-26] MEDS: LORATADINE 10 MG TAB PO SCH (08:38)
[2017-03-26] MEDS: LACTOBACILLUS RHAMNOSUS CAP PO SCH ×2 (08:38→20:34)
[2017-03-26] MEDS: MUPIROCIN 2% 22 GM OINT TOP SCH ×2 (08:38→20:35)
[2017-03-26] MEDS: BACLOFEN 10 MG TAB PO SCH ×3 (08:38→20:34)
[2017-03-26] MEDS: ENOXAPARIN 40 MG/0.4 ML SYG SC SCH (08:56)
--- NOTE | 2017-03-26 14:16 | PN ---
Date/Time of Note Date/Time of Note DATE: 03/26/17 TIME: 14:15 Assessment/Plan VTE Prophylaxis VTE Prophylaxis Intervention: LMWH Lines/Catheters IV Catheter Type (from [facility]): Saline Lock Urinary Cath still in place: No Assessment/Plan Chief Complaint/Hosp Course 1. Failure to thrive. Continue supportive care. Continue physical therapy. Continue dietary supplements. Awaiting placement for further assistance with ADLs. 2. Muscular dystrophy/myopathy. Continue supportive care. Continue baclofen. 3. MRSA colonization of the nares. Continue Bactroban. 4. DVT prophylaxis. Subcutaneous Lovenox. 5. Gastrointestinal prophylaxis. Proton pump inhibitors. 6. Fluids, electrolytes, and nutrition. Mechanical soft diet. 7. Plan. Await placement. Case discussed with Dr. Pepe. Problems: Subjective 24 Hr Interval Summary Free Text/Dictation No changes in status. Exam/Review of Systems Vital Signs Vitals Vital Signs Date Time Temp Pulse Resp B/P Pulse Ox O2 Delivery O2 Flow Rate FiO2 03/26/17 07:41 98.0 64 20 110/64 99 Intake and Output 03/25/17 03/25/17 03/26/17 15:00 23:00 07:00 Intake Total 560 ml 500 ml Output Total 250 ml Balance 560 ml 250 ml Exam General: Adequately build 26 year-old male lying in bed in no apparent distress. HEENT: Normocephalic, atraumatic. Eyes: Anicteric sclerae, conjunctivae clear. ENT: Nasal septum midline, oral mucosa moist. Neck supple, no JVD noticed. Respiratory: Bilaterally diminished breath sounds. No use of accessory muscles of respiration. No adventitious breath sounds. Cardiovascular: S1, S2 heard. No murmurs or gallops. Abdomen: Soft, nontender, and nondistended. Bowel sounds positive in all 4 quadrants. Genitourinary: Deferred. Extremities: No cyanosis, no clubbing, no edema. Peripheral pulses palpable. Neurologic: Slurred speech. Poor motor strength of bilateral upper and bilateral lower extremities. The patient is awake, alert, and oriented. Skin: Normal skin turgor. No skin rashes. Results Result Diagram: 03/23/1752103/23/17521 Medications Medications Current Medications Ondansetron HCl (Zofran Inj) 4 mg Q6H PRN IV NAUSEA AND/OR VOMITING Last administered on 03/20/17 06:00; Admin Dose 4 MG; Start 03/17/17 at 21:30 Acetaminophen (Tylenol Supp) 650 mg Q6H PRN [place] PAIN LEVEL 1-3 OR FEVER; Start 03/17/17 at 21:30 Morphine Sulfate (morphine) 2 mg Q4H PRN IV SEVERE PAIN LEVEL 7-10; Start at 21:30 Enoxaparin Sodium (Lovenox) 40 mg DAILY SC Last administered on 03/26/17 08:56 ; Admin Dose 40 MG; Start 03/18/17 at 09:00 Baclofen (Lioresal) 10 mg TID PO Last administered on 03/26/17 12:03; Admin Dose 10 MG; Start 03/18/17 at 09:00 Pantoprazole (Protonix Tab) 40 mg DAILY@06 PO Last administered on 03/26/17 05 :52; Admin Dose 40 MG; Start 03/20/17 at 06:00 Mupirocin (Bactroban) 1 applic BID TOP Last administered on 03/26/17 08:38; Admin Dose 1 APPLIC; Start 03/20/17 at 09:30; Stop 04/03/17 at 23:00 Loratadine (Claritin) 10 mg DAILY PO Last administered on 03/26/17 08:38; Admin Dose 10 MG; Start 03/22/17 at 18:30 Lactobacillus Acidophilus/ Rhamnosus (Culturelle) 1 cap BID PO Last administered on 03/26/17 08:38; Admin Dose 1 CAP; Start 03/24/17 at 09:00 Acetaminophen/ Hydrocodone Bitart ([place] (5/325)) 1 tab Q6H PRN PO Pain Last administered on 03/25/17 13:13; Admin Dose 1 TAB; Start 03/25/17 at 13:00 MELANIE NEFF NP Mar 26, 2017 14:16
[2017-03-26 20:34] VITALS: BP 130/72; RESP 18
[2017-03-27 03:53] VITALS: BP 110/65; RESP 18
[2017-03-27] MEDS: PANTOPRAZOLE (EC) 40 MG TAB PO SCH (06:11)
[2017-03-27 08:11] VITALS: BP 106/60; RESP 18
[2017-03-27] MEDS: LACTOBACILLUS RHAMNOSUS CAP PO SCH ×2 (08:20→20:43)
[2017-03-27] MEDS: MUPIROCIN 2% 22 GM OINT TOP SCH ×2 (08:20→20:48)
[2017-03-27] MEDS: LORATADINE 10 MG TAB PO SCH (08:20)
[2017-03-27] MEDS: BACLOFEN 10 MG TAB PO SCH ×3 (08:20→20:43)
[2017-03-27] MEDS: ENOXAPARIN 40 MG/0.4 ML SYG SC SCH (08:49)
[2017-03-27] MEDS: HYDROCODONE/APAP (5/325) TAB PO PRN (12:42)
[2017-03-27 14:47] VITALS: BP 122/71; RESP 18
--- NOTE | 2017-03-27 15:01 | PN ---
Date/Time of Note Date/Time of Note DATE: 03/27/17 TIME: 15:00 Assessment/Plan VTE Prophylaxis VTE Prophylaxis Intervention: LMWH Lines/Catheters IV Catheter Type (from [facility]): Saline Lock Urinary Cath still in place: No Assessment/Plan Chief Complaint/Hosp Course 1. Failure to thrive. Continue supportive care. Continue physical therapy. Continue dietary supplements. Awaiting placement for further assistance with ADLs. 2. Muscular dystrophy/myopathy. Continue supportive care. Continue baclofen. 3. MRSA colonization of the nares. Continue Bactroban. 4. DVT prophylaxis. Subcutaneous Lovenox. 5. Gastrointestinal prophylaxis. Proton pump inhibitors. 6. Fluids, electrolytes, and nutrition. Mechanical soft diet. 7. Plan. Await placement. Case discussed with Dr. Pepe. Problems: Subjective 24 Hr Interval Summary Free Text/Dictation No changes in status. Remains afebrile. Exam/Review of Systems Vital Signs Vitals Vital Signs Date Time Temp Pulse Resp B/P Pulse Ox O2 Delivery O2 Flow Rate FiO2 03/27/17 14:47 98.4 70 18 122/71 98 Intake and Output 03/26/17 03/26/17 03/27/17 15:00 23:00 07:00 Intake Total 1000 ml 600 ml Output Total 600 ml 200 ml Balance 400 ml 400 ml Exam General: Adequately build 26 year-old male lying in bed in no apparent distress. HEENT: Normocephalic, atraumatic. Eyes: Anicteric sclerae, conjunctivae clear. ENT: Nasal septum midline, oral mucosa moist. Neck supple, no JVD noticed. Respiratory: Bilaterally diminished breath sounds. No use of accessory muscles of respiration. No adventitious breath sounds. Cardiovascular: S1, S2 heard. No murmurs or gallops. Abdomen: Soft, nontender, and nondistended. Bowel sounds positive in all 4 quadrants. Genitourinary: Deferred. Extremities: No cyanosis, no clubbing, no edema. Peripheral pulses palpable. Neurologic: Slurred speech. Poor motor strength of bilateral upper and bilateral lower extremities. The patient is awake, alert, and oriented. Skin: Normal skin turgor. No skin rashes. Results Result Diagram: 03/23/1752103/23/17521 Medications Medications Current Medications Ondansetron HCl (Zofran Inj) 4 mg Q6H PRN IV NAUSEA AND/OR VOMITING Last administered on 03/20/17 06:00; Admin Dose 4 MG; Start 03/17/17 at 21:30 Acetaminophen (Tylenol Supp) 650 mg Q6H PRN [place] PAIN LEVEL 1-3 OR FEVER; Start 03/17/17 at 21:30 Morphine Sulfate (morphine) 2 mg Q4H PRN IV SEVERE PAIN LEVEL 7-10; Start at 21:30 Enoxaparin Sodium (Lovenox) 40 mg DAILY SC Last administered on 03/27/17 08:49 ; Admin Dose 40 MG; Start 03/18/17 at 09:00 Baclofen (Lioresal) 10 mg TID PO Last administered on 03/27/17 12:20; Admin Dose 10 MG; Start 03/18/17 at 09:00 Pantoprazole (Protonix Tab) 40 mg DAILY@06 PO Last administered on 03/27/17 06 :11; Admin Dose 40 MG; Start 03/20/17 at 06:00 Mupirocin (Bactroban) 1 applic BID TOP Last administered on 03/27/17 08:20; Admin Dose 1 APPLIC; Start 03/20/17 at 09:30; Stop 04/03/17 at 23:00 Loratadine (Claritin) 10 mg DAILY PO Last administered on 03/27/17 08:20; Admin Dose 10 MG; Start 03/22/17 at 18:30 Lactobacillus Acidophilus/ Rhamnosus (Culturelle) 1 cap BID PO Last administered on 03/27/17 08:20; Admin Dose 1 CAP; Start 03/24/17 at 09:00 Acetaminophen/ Hydrocodone Bitart ([place] (5/325)) 1 tab Q6H PRN PO Pain Last administered on 03/27/17 12:42; Admin Dose 1 TAB; Start 03/25/17 at 13:00 MELANIE NEFF NP Mar 27, 2017 15:01
[2017-03-27 20:14] VITALS: BP 140/67; RESP 18
[2017-03-28 02:43] VITALS: BP 117/57; RESP 18
[2017-03-28] MEDS: PANTOPRAZOLE (EC) 40 MG TAB PO SCH (06:09)
[2017-03-28 08:08] VITALS: BP 111/65; RESP 16
[2017-03-28] MEDS: LACTOBACILLUS RHAMNOSUS CAP PO SCH ×2 (09:35→21:03)
[2017-03-28] MEDS: MUPIROCIN 2% 22 GM OINT TOP SCH ×2 (09:35→21:03)
[2017-03-28] MEDS: LORATADINE 10 MG TAB PO SCH (09:35)
[2017-03-28] MEDS: BACLOFEN 10 MG TAB PO SCH ×3 (09:35→21:03)
[2017-03-28] MEDS: ENOXAPARIN 40 MG/0.4 ML SYG SC SCH (09:41)
--- NOTE | 2017-03-28 10:17 | PN ---
Date/Time of Note Date/Time of Note DATE: 03/28/17 TIME: 10:16 Assessment/Plan VTE Prophylaxis VTE Prophylaxis Intervention: LMWH Lines/Catheters IV C[facility] Type (from [facility]): Saline Lock Urinary Cath still in place: No Assessment/Plan Chief Complaint/Hosp Course 1. Failure to thrive. Continue supportive care. Continue physical therapy. Continue dietary supplements. Awaiting placement for further assistance with ADLs. 2. Muscular dystrophy/myopathy. Continue supportive care. Continue baclofen. 3. MRSA colonization of the nares. Continue Bactroban. 4. DVT prophylaxis. Subcutaneous Lovenox. 5. Gastrointestinal prophylaxis. Proton pump inhibitors. 6. Fluids, electrolytes, and nutrition. Mechanical soft diet. 7. Plan. Await placement. Case discussed with Dr. Pepe. Problems: Subjective 24 Hr Interval Summary Free Text/Dictation No changes in status. Vital signs stable. Exam/Review of Systems Vital Signs Vitals Vital Signs Date Time Temp Pulse Resp B/P Pulse Ox O2 Delivery O2 Flow Rate FiO2 03/28/17 08:08 98.3 61 16 111/65 99 Intake and Output 03/27/17 03/27/17 03/28/17 15:00 23:00 07:00 Intake Total 1220 ml 300 ml Output Total 900 ml 600 ml Balance 320 ml -300 ml Exam General: Adequately build 26 year-old male lying in bed in no apparent distress. HEENT: Normocephalic, atraumatic. Eyes: Anicteric sclerae, conjunctivae clear. ENT: Nasal septum midline, oral mucosa moist. Neck supple, no JVD noticed. Respiratory: Bilaterally diminished breath sounds. No use of accessory muscles of respiration. No adventitious breath sounds. Cardiovascular: S1, S2 heard. No murmurs or gallops. Abdomen: Soft, nontender, and nondistended. Bowel sounds positive in all 4 quadrants. Genitourinary: Deferred. Extremities: No cyanosis, no clubbing, no edema. Peripheral pulses palpable. Neurologic: Slurred speech. Poor motor strength of bilateral upper and bilateral lower extremities. The patient is awake, alert, and oriented. Skin: Normal skin turgor. No skin rashes. Medications Medications Current Medications Ondansetron HCl (Zofran Inj) 4 mg Q6H PRN IV NAUSEA AND/OR VOMITING Last administered on 03/20/17 06:00; Admin Dose 4 MG; Start 7/3/17 at 21:30 Acetaminophen (Tylenol Supp) 650 mg Q6H PRN [place] PAIN LEVEL 1-3 OR FEVER; Start 03/17/17 at 21:30 Morphine Sulfate (morphine) 2 mg Q4H PRN IV SEVERE PAIN LEVEL 7-10; Start at 21:30 Enoxaparin Sodium (Lovenox) 40 mg DAILY SC Last administered on 03/28/17 09:41 ; Admin Dose 40 MG; Start 03/18/17 at 09:00 Baclofen (Lioresal) 10 mg TID PO Last administered on 03/28/17 09:35; Admin Dose 10 MG; Start 03/18/17 at 09:00 Pantoprazole (Protonix Tab) 40 mg DAILY@06 PO Last administered on 03/28/17 06 :09; Admin Dose 40 MG; Start 03/20/17 at 06:00 Mupirocin (Bactroban) 1 applic BID TOP Last administered on 03/28/17 09:35; Admin Dose 1 APPLIC; Start 03/20/17 at 09:30; Stop 04/03/17 at 23:00 Loratadine (Claritin) 10 mg DAILY PO Last administered on 03/28/17 09:35; Admin Dose 10 MG; Start 03/22/17 at 18:30 Lactobacillus Acidophilus/ Rhamnosus (Culturelle) 1 cap BID PO Last administered on 03/28/17 09:35; Admin Dose 1 CAP; Start 03/24/17 at 09:00 Acetaminophen/ Hydrocodone Bitart ([place] (5/325)) 1 tab Q6H PRN PO Pain Last administered on 03/27/17 12:42; Admin Dose 1 TAB; Start 03/25/17 at 13:00 MELANIE NEFF NP Mar 28, 2017 10:17
[2017-03-28 15:22] VITALS: BP 115/73; RESP 16
[2017-03-28 20:31] VITALS: BP 113/69; RESP 17
[2017-03-29 02:00] VITALS: BP 113/64; RESP 20
[2017-03-29] MEDS: PANTOPRAZOLE (EC) 40 MG TAB PO SCH (06:22)
[2017-03-29 08:34] VITALS: BP 116/62; RESP 16
[2017-03-29] MEDS: MUPIROCIN 2% 22 GM OINT TOP SCH ×2 (09:16→20:29)
[2017-03-29] MEDS: LORATADINE 10 MG TAB PO SCH (09:16)
[2017-03-29] MEDS: BACLOFEN 10 MG TAB PO SCH ×3 (09:16→20:29)
[2017-03-29] MEDS: LACTOBACILLUS RHAMNOSUS CAP PO SCH ×2 (09:16→20:29)
[2017-03-29] MEDS: ENOXAPARIN 40 MG/0.4 ML SYG SC SCH (09:25)
--- NOTE | 2017-03-29 13:41 | PN ---
Date/Time of Note Date/Time of Note DATE: 03/29/17 TIME: 13:40 Assessment/Plan VTE Prophylaxis VTE Prophylaxis Intervention: LMWH Lines/Catheters IV Catheter Type (from [facility]): Saline Lock Urinary Cath still in place: No Assessment/Plan Chief Complaint/Hosp Course 1. Failure to thrive. Continue supportive care. Continue physical therapy. Continue dietary supplements. Awaiting placement for further assistance with ADLs. 2. Muscular dystrophy/myopathy. Continue supportive care. Continue baclofen. 3. MRSA colonization of the nares. Continue Bactroban. 4. DVT prophylaxis. Subcutaneous Lovenox. 5. Gastrointestinal prophylaxis. Proton pump inhibitors. 6. Fluids, electrolytes, and nutrition. Mechanical soft diet. 7. Plan. Await placement. Case discussed with Dr. Pepe. Problems: Subjective 24 Hr Interval Summary Free Text/Dictation No changes in status. Vital signs stable. Exam/Review of Systems Vital Signs Vitals Vital Signs Date Time Temp Pulse Resp B/P Pulse Ox O2 Delivery O2 Flow Rate FiO2 03/29/17 08:34 98.3 80 16 116/62 98 Intake and Output 03/28/17 03/28/17 03/29/17 15:00 23:00 07:00 Intake Total 1440 ml 1000 ml Output Total 850 ml 600 ml Balance 590 ml 400 ml Exam General: Adequately build 26 year-old male lying in bed in no apparent distress. HEENT: Normocephalic, atraumatic. Eyes: Anicteric sclerae, conjunctivae clear. ENT: Nasal septum midline, oral mucosa moist. Neck supple, no JVD noticed. Respiratory: Bilaterally diminished breath sounds. No use of accessory muscles of respiration. No adventitious breath sounds. Cardiovascular: S1, S2 heard. No murmurs or gallops. Abdomen: Soft, nontender, and nondistended. Bowel sounds positive in all 4 quadrants. Genitourinary: Deferred. Extremities: No cyanosis, no clubbing, no edema. Peripheral pulses palpable. Neurologic: Slurred speech. Poor motor strength of bilateral upper and bilateral lower extremities. The patient is awake, alert, and oriented. Skin: Normal skin turgor. No skin rashes. Medications Medications Current Medications Ondansetron HCl (Zofran Inj) 4 mg Q6H PRN IV NAUSEA AND/OR VOMITING Last administered on 03/20/17 06:00; Admin Dose 4 MG; Start 03/17/17 at 21:30 Acetaminophen (Tylenol Supp) 650 mg Q6H PRN [place] PAIN LEVEL 1-3 OR FEVER; Start 03/17/17 at 21:30 Morphine Sulfate (morphine) 2 mg Q4H PRN IV SEVERE PAIN LEVEL 7-10; Start at 21:30 Enoxaparin Sodium (Lovenox) 40 mg DAILY SC Last administered on 03/29/17 09:25 ; Admin Dose 40 MG; Start 03/18/17 at 09:00 Baclofen (Lioresal) 10 mg TID PO Last administered on 03/29/17 13:29; Admin Dose 10 MG; Start 03/18/17 at 09:00 Pantoprazole (Protonix Tab) 40 mg DAILY@06 PO Last administered on 03/29/17 06 :22; Admin Dose 40 MG; Start 03/20/17 at 06:00 Mupirocin (Bactroban) 1 applic BID TOP Last administered on 03/29/17 09:16; Admin Dose 1 APPLIC; Start 03/20/17 at 09:30; Stop 04/03/17 at 23:00 Loratadine (Claritin) 10 mg DAILY PO Last administered on 03/29/17 09:16; Admin Dose 10 MG; Start 03/22/17 at 18:30 Lactobacillus Acidophilus/ Rhamnosus (Culturelle) 1 cap BID PO Last administered on 03/29/17 09:16; Admin Dose 1 CAP; Start 03/24/17 at 09:00 Acetaminophen/ Hydrocodone Bitart ([place] (5/325)) 1 tab Q6H PRN PO Pain Last administered on 03/27/17 12:42; Admin Dose 1 TAB; Start 03/25/17 at 13:00 MELANIE NEFF NP Mar 29, 2017 13:41
[2017-03-29 16:38] VITALS: BP 114/71; RESP 16
[2017-03-29 20:10] VITALS: BP 113/61; RESP 16
[2017-03-30 02:41] VITALS: BP 110/63; RESP 16
[2017-03-30] MEDS: PANTOPRAZOLE (EC) 40 MG TAB PO SCH (05:27)
[2017-03-30 08:02] VITALS: BP 115/66; RESP 18
[2017-03-30] MEDS: LORATADINE 10 MG TAB PO SCH (09:01)
[2017-03-30] MEDS: BACLOFEN 10 MG TAB PO SCH ×3 (09:01→20:43)
[2017-03-30] MEDS: LACTOBACILLUS RHAMNOSUS CAP PO SCH ×2 (09:01→20:43)
[2017-03-30] MEDS: MUPIROCIN 2% 22 GM OINT TOP SCH ×2 (09:02→20:43)
[2017-03-30] MEDS: ENOXAPARIN 40 MG/0.4 ML SYG SC SCH (09:09)
--- NOTE | 2017-03-30 14:09 | PN ---
Date/Time of Note Date/Time of Note DATE: 03/30/17 TIME: 14:08 Assessment/Plan VTE Prophylaxis VTE Prophylaxis Intervention: LMWH Lines/Catheters IV Catheter Type (from [facility]): Saline Lock Urinary Cath still in place: No Assessment/Plan Chief Complaint/Hosp Course 1. Failure to thrive. Continue supportive care. Continue physical therapy. Continue dietary supplements. Awaiting placement for further assistance with ADLs. 2. Muscular dystrophy/myopathy. Continue supportive care. Continue baclofen. 3. MRSA colonization of the nares. Continue Bactroban. 4. DVT prophylaxis. Subcutaneous Lovenox. 5. Gastrointestinal prophylaxis. Proton pump inhibitors. 6. Fluids, electrolytes, and nutrition. Mechanical soft diet. 7. Plan. Await placement. Case discussed with Dr. Pepe. Problems: Subjective 24 Hr Interval Summary Free Text/Dictation No changes in status. Exam/Review of Systems Vital Signs Vitals Vital Signs Date Time Temp Pulse Resp B/P Pulse Ox O2 Delivery O2 Flow Rate FiO2 03/30/17 08:02 98.2 67 18 115/66 99 Intake and Output 03/29/17 03/29/17 03/30/17 15:00 23:00 07:00 Intake Total 1560 ml Output Total 750 ml Balance 810 ml Exam General: Adequately build 26 year-old male lying in bed in no apparent distress. HEENT: Normocephalic, atraumatic. Eyes: Anicteric sclerae, conjunctivae clear. ENT: Nasal septum midline, oral mucosa moist. Neck supple, no JVD noticed. Respiratory: Bilaterally diminished breath sounds. No use of accessory muscles of respiration. No adventitious breath sounds. Cardiovascular: S1, S2 heard. No murmurs or gallops. Abdomen: Soft, nontender, and nondistended. Bowel sounds positive in all 4 quadrants. Genitourinary: Deferred. Extremities: No cyanosis, no clubbing, no edema. Peripheral pulses palpable. Neurologic: Slurred speech. Poor motor strength of bilateral upper and bilateral lower extremities. The patient is awake, alert, and oriented. Skin: Normal skin turgor. No skin rashes. Medications Medications Current Medications Ondansetron HCl (Zofran Inj) 4 mg Q6H PRN IV NAUSEA AND/OR VOMITING Last administered on 03/20/17 06:00; Admin Dose 4 MG; Start 03/17/17 at 21:30 Acetaminophen (Tylenol Supp) 650 mg Q6H PRN [place] PAIN LEVEL 1-3 OR FEVER; Start 03/17/17 at 21:30 Morphine Sulfate (morphine) 2 mg Q4H PRN IV SEVERE PAIN LEVEL 7-10; Start at 21:30 Enoxaparin Sodium (Lovenox) 40 mg DAILY SC Last administered on 03/30/17 09:09 ; Admin Dose 40 MG; Start 03/18/17 at 09:00 Baclofen (Lioresal) 10 mg TID PO Last administered on 03/30/17 13:57; Admin Dose 10 MG; Start 03/18/17 at 09:00 Pantoprazole (Protonix Tab) 40 mg DAILY@06 PO Last administered on 03/30/17 05 :27; Admin Dose 40 MG; Start 03/20/17 at 06:00 Mupirocin (Bactroban) 1 applic BID TOP Last administered on 03/30/17 09:02; Admin Dose 1 APPLIC; Start 03/20/17 at 09:30; Stop 04/03/17 at 23:00 Loratadine (Claritin) 10 mg DAILY PO Last administered on 03/30/17 09:01; Admin Dose 10 MG; Start 03/22/17 at 18:30 Lactobacillus Acidophilus/ Rhamnosus (Culturelle) 1 cap BID PO Last administered on 03/30/17 09:01; Admin Dose 1 CAP; Start 03/24/17 at 09:00 Acetaminophen/ Hydrocodone Bitart ([place] (5/325)) 1 tab Q6H PRN PO Pain Last administered on 03/27/17 12:42; Admin Dose 1 TAB; Start 03/25/17 at 13:00 MELANIE NEFF NP Mar 30, 2017 14:08
[2017-03-30 14:38] VITALS: BP 118/67; RESP 20
[2017-03-30 19:35] VITALS: BP 118/65; RESP 20
[2017-03-31 02:00] VITALS: BP 109/62; RESP 20
[2017-03-31] MEDS: PANTOPRAZOLE (EC) 40 MG TAB PO SCH (05:58)
[2017-03-31 07:38] VITALS: BP 112/62; RESP 18
[2017-03-31] MEDS: MUPIROCIN 2% 22 GM OINT TOP SCH ×2 (08:12→21:55)
[2017-03-31] MEDS: BACLOFEN 10 MG TAB PO SCH ×3 (08:12→21:55)
[2017-03-31] MEDS: LACTOBACILLUS RHAMNOSUS CAP PO SCH ×2 (08:12→21:55)
[2017-03-31] MEDS: LORATADINE 10 MG TAB PO SCH (08:12)
[2017-03-31] MEDS: ENOXAPARIN 40 MG/0.4 ML SYG SC SCH (08:17)
--- NOTE | 2017-03-31 14:52 | PN ---
Date/Time of Note Date/Time of Note DATE: 03/31/17 TIME: 14:49 Assessment/Plan VTE Prophylaxis VTE Prophylaxis Intervention: LMWH Lines/Catheters IV Catheter Type (from [facility]): Saline Lock Urinary Cath still in place: No Assessment/Plan Chief Complaint/Hosp Course Assessment and plan 1. Failure to thrive. Continue with physical therapy. Continue with supplements. Awaiting for patient placement 2. Muscular dystrophy/myopathy. Continue on baclofen. Continue with physical therapy measures 3. MRSA colonization of the nares. Continue on Bactroban DVT prophylaxis: Lovenox Disposition and plan: Awaiting placement at this time. Continue with physical therapy Discussed plan of care with Dr. Recinos Problems: Subjective 24 Hr Interval Summary Free Text/Dictation Resting at this time. Blood present. RN at bedside Exam/Review of Systems Vital Signs Vitals Vital Signs Date Time Temp Pulse Resp B/P Pulse Ox O2 Delivery O2 Flow Rate FiO2 03/31/17 07:38 98.4 69 18 112/62 99 Intake and Output 03/30/17 03/30/17 03/31/17 15:00 23:00 07:00 Intake Total 1380 ml 240 ml Output Total 700 ml Balance 1380 ml -460 ml Exam Constitutional: alert, oriented Head: normocephalic Neck: supple, No jvd Musculoskeletal: No muscle tone, No nl extremities to inspection, No nl gait and stance Neurological: nl mental status, No nl speech Medications Medications Current Medications Ondansetron HCl (Zofran Inj) 4 mg Q6H PRN IV NAUSEA AND/OR VOMITING Last administered on 03/20/17 06:00; Admin Dose 4 MG; Start 03/17/17 at 21:30 Acetaminophen (Tylenol Supp) 650 mg Q6H PRN [place] PAIN LEVEL 1-3 OR FEVER; Start 03/17/17 at 21:30 Morphine Sulfate (morphine) 2 mg Q4H PRN IV SEVERE PAIN LEVEL 7-10; Start at 21:30 Enoxaparin Sodium (Lovenox) 40 mg DAILY SC Last administered on 03/31/17 08:17 ; Admin Dose 40 MG; Start 03/18/17 at 09:00 Baclofen (Lioresal) 10 mg TID PO Last administered on 03/31/17 13:10; Admin Dose 10 MG; Start 03/18/17 at 09:00 Pantoprazole (Protonix Tab) 40 mg DAILY@06 PO Last administered on 03/31/17 05 :58; Admin Dose 40 MG; Start 03/20/17 at 06:00 Mupirocin (Bactroban) 1 applic BID TOP Last administered on 03/31/17 08:12; Admin Dose 1 APPLIC; Start 03/20/17 at 09:30; Stop 04/03/17 at 23:00 Loratadine (Claritin) 10 mg DAILY PO Last administered on 03/31/17 08:12; Admin Dose 10 MG; Start 03/22/17 at 18:30 Lactobacillus Acidophilus/ Rhamnosus (Culturelle) 1 cap BID PO Last administered on 03/31/17 08:12; Admin Dose 1 CAP; Start 03/24/17 at 09:00 Acetaminophen/ Hydrocodone Bitart ([place] (5/325)) 1 tab Q6H PRN PO Pain Last administered on 03/27/17 12:42; Admin Dose 1 TAB; Start 03/25/17 at 13:00 RICH MCCARTY Mar 31, 2017 14:52
[2017-03-31 19:43] VITALS: BP 117/64; RESP 18
[2017-04-01 02:00] VITALS: BP 111/58; RESP 18
[2017-04-01 06:23] LABS: ADD SCAN DIFF NO
[2017-04-01 06:35] LABS: BASOPHILS % 0.5 % (0.0-2.0); EOSINOPHILS # 0.2 10^3/ul (0.0-0.5); EOSINOPHILS % 2.7 % (0.0-7.0); HEMATOCRIT 42.5 % (42.0-52.0); HEMOGLOBIN 14.1 g/dl (14.0-18.0); LYMPHOCYTES # 1.5 10^3/ul (0.8-2.9); MEAN CORPUSCULAR HEMOGLOBIN 28.8 pg (29.0-33.0); MEAN CORPUSCULAR HGB CONC 33.2 g/dl (32.0-37.0); MEAN CORPUSCULAR VOLUME 86.7 fl (82.0-101.0); MEAN PLATELET VOLUME 9.3 fl (7.4-10.4); MONOCYTE # 0.5 10^3/ul (0.3-0.9); NEUTROPHIL # 4.1 10^3/ul (1.6-7.5); NEUTROPHILS % 64.6 % (39.0-77.0); PLATELET COUNT 197 10^3/UL (140-415); RED CELL DISTRIBUTION WIDTH 12.4 % (11.5-14.5); WHITE BLOOD COUNT 6.4 10^3/ul (4.8-10.8)
[2017-04-01 06:56] LABS: CALCIUM 9.9 mg/dl (8.4-10.2); CREATININE 1.26 mg/dl (0.61-1.24); POTASSIUM 4.6 mmol/L (3.5-5.1)
[2017-04-01] MEDS: PANTOPRAZOLE (EC) 40 MG TAB PO SCH (06:58)
[2017-04-01] MEDS: BACLOFEN 10 MG TAB PO SCH ×3 (08:06→21:24)
[2017-04-01] MEDS: LACTOBACILLUS RHAMNOSUS CAP PO SCH ×2 (08:06→21:24)
[2017-04-01] MEDS: MUPIROCIN 2% 22 GM OINT TOP SCH ×2 (08:06→21:25)
[2017-04-01] MEDS: LORATADINE 10 MG TAB PO SCH (08:06)
[2017-04-01 08:07] VITALS: BP 109/57; RESP 16
[2017-04-01] MEDS: ENOXAPARIN 40 MG/0.4 ML SYG SC SCH (08:12)
--- NOTE | 2017-04-01 10:14 | PN ---
Date/Time of Note Date/Time of Note DATE: 04/01/17 TIME: 10:11 Assessment/Plan VTE Prophylaxis VTE Prophylaxis Intervention: LMWH Lines/Catheters IV C[facility]ter Type (from [facility]): Saline Lock Urinary Cath still in place: No Assessment/Plan Chief Complaint/Hosp Course Assessment and plan 1. Failure to thrive. Continue with physical therapy. Continue with supplements. Awaiting for patient placement 2. Muscular dystrophy/myopathy. Continue on baclofen. Continue with physical therapy measures. continue with aspiration precautions 3. MRSA colonization of the nares. Continue on Bactroban DVT prophylaxis: Lovenox Disposition and plan: Awaiting placement at this time. Continue with physical therapy. continue supportive care Discussed plan of care with Dr. Recinos Problems: Subjective 24 Hr Interval Summary Free Text/Dictation no s/s of distress. resting at this time. Exam/Review of Systems Vital Signs Vitals Vital Signs Date Time Temp Pulse Resp B/P Pulse Ox O2 Delivery O2 Flow Rate FiO2 04/01/17 08:07 98.5 70 16 109/57 99 Intake and Output 03/31/17 03/31/17 04/01/17 15:00 23:00 07:00 Intake Total 1080 ml 200 ml Output Total 1100 ml 200 ml Balance -20 ml 0 ml Exam Constitutional: alert Psych: No anxiety Head: normocephalic Respiratory: clear to auscultation Cardiovascular: other (regular rate ) Gastrointestinal: non-tender, soft Musculoskeletal: muscle weakness, No nl gait and stance Neurological: nl mental status, No nl speech Results Result Diagram: 04/01/17 0549 04/01/17 0549 Results 24 hrs Laboratory Tests Test 04/01/17 05:49 White Blood Count 6.4 # Red Blood Count 4.90 Hemoglobin 14.1 Hematocrit 42.5 Mean Corpuscular Volume 86.7 Mean Corpuscular Hemoglobin 28.8 L Mean Corpuscular Hemoglobin Concent 33.2 Red Cell Distribution Width 12.4 Platelet Count 197 Mean Platelet Volume 9.3 Neutrophils % 64.6 Lymphocytes % 24.0 Monocytes % 8.0 Eosinophils % 2.7 Basophils % 0.5 Nucleated Red Blood Cells % 0.0 Neutrophils # 4.1 Lymphocytes # 1.5 Monocytes # 0.5 Eosinophils # 0.2 Basophils # 0.0 Nucleated Red Blood Cells # 0.0 Sodium Level 147 H Potassium Level 4.6 Chloride Level 104 Carbon Dioxide Level 28 Anion Gap 20 H Blood Urea Nitrogen 15 Creatinine 1.26 H Glucose Level 89 Calcium Level 9.9 Medications Medications Current Medications Ondansetron HCl (Zofran Inj) 4 mg Q6H PRN IV NAUSEA AND/OR VOMITING Last administered on 03/20/17 06:00; Admin Dose 4 MG; Start 03/17/17 at 21:30 Acetaminophen (Tylenol Supp) 650 mg Q6H PRN [place] PAIN LEVEL 1-3 OR FEVER; Start 03/17/17 at 21:30 Morphine Sulfate (morphine) 2 mg Q4H PRN IV SEVERE PAIN LEVEL 7-10; Start at 21:30 Enoxaparin Sodium (Lovenox) 40 mg DAILY SC Last administered on 04/01/17 08:12 ; Admin Dose 40 MG; Start 03/18/17 at 09:00 Baclofen (Lioresal) 10 mg TID PO Last administered on 04/01/17 08:06; Admin Dose 10 MG; Start 03/18/17 at 09:00 Pantoprazole (Protonix Tab) 40 mg DAILY@06 PO Last administered on 04/01/17 06 :58; Admin Dose 40 MG; Start 03/20/17 at 06:00 Mupirocin (Bactroban) 1 applic BID TOP Last administered on 04/01/17 08:06; Admin Dose 1 APPLIC; Start 03/20/17 at 09:30; Stop 04/03/17 at 23:00 Loratadine (Claritin) 10 mg DAILY PO Last administered on 04/01/17 08:06; Admin Dose 10 MG; Start 03/22/17 at 18:30 Lactobacillus Acidophilus/ Rhamnosus (Culturelle) 1 cap BID PO Last administered on 04/01/17 08:06; Admin Dose 1 CAP; Start 03/24/17 at 09:00 Acetaminophen/ Hydrocodone Bitart ([place] (5/325)) 1 tab Q6H PRN PO Pain Last administered on 03/27/17 12:42; Admin Dose 1 TAB; Start 03/25/17 at 13:00 RICH MCCARTY Apr 01, 2017 10:14
[2017-04-01] MEDS: HYDROCODONE/APAP (5/325) TAB PO PRN (12:28)
[2017-04-01 14:14] VITALS: BP 114/56; RESP 16
[2017-04-01 20:00] VITALS: BP 113/65; RESP 18
[2017-04-02 02:00] VITALS: BP 108/57; RESP 20
[2017-04-02] MEDS: PANTOPRAZOLE (EC) 40 MG TAB PO SCH (05:44)
[2017-04-02] MEDS: HYDROCODONE/APAP (5/325) TAB PO PRN (05:59)
[2017-04-02 08:27] VITALS: BP 97/53; RESP 16
[2017-04-02] MEDS: LORATADINE 10 MG TAB PO SCH (10:08)
[2017-04-02] MEDS: BACLOFEN 10 MG TAB PO SCH ×3 (10:08→20:21)
[2017-04-02] MEDS: LACTOBACILLUS RHAMNOSUS CAP PO SCH ×2 (10:08→20:21)
[2017-04-02] MEDS: ENOXAPARIN 40 MG/0.4 ML SYG SC SCH (10:16)
[2017-04-02] MEDS: MUPIROCIN 2% 22 GM OINT TOP SCH ×2 (10:27→20:22)
--- NOTE | 2017-04-02 16:53 | PN ---
Date/Time of Note Date/Time of Note DATE: 04/02/17 TIME: 16:51 Assessment/Plan VTE Prophylaxis VTE Prophylaxis Intervention: LMWH Lines/Catheters IV Catheter Type (from [facility]): Saline Lock Urinary Cath still in place: No Assessment/Plan Chief Complaint/Hosp Course Assessment and plan 1. Failure to thrive. Continue with physical therapy. Continue with supplements. Awaiting for patient placement 2. Muscular dystrophy/myopathy. Continue on baclofen. Continue with physical therapy measures. continue with aspiration precautions 3. MRSA colonization of the nares. Continue on Bactroban DVT prophylaxis: Lovenox Disposition and plan: Continue with physical therapy. continue supportive care . still awaiting placement Discussed plan of care with Dr. Recinos Problems: Subjective 24 Hr Interval Summary Free Text/Dictation No apparent distress seen. Comfortable at present. Exam/Review of Systems Vital Signs Vitals Vital Signs Date Time Temp Pulse Resp B/P Pulse Ox O2 Delivery O2 Flow Rate FiO2 04/02/17 08:27 98.3 73 16 97/53 97 Intake and Output 04/01/17 04/01/17 04/02/17 14:59 22:59 06:59 Intake Total 1080 ml 400 ml Output Total 750 ml 350 ml Balance 330 ml 50 ml Exam Constitutional: alert, oriented Psych: no complaints Neck: supple, No jvd Respiratory: clear to auscultation Cardiovascular: regular rate and rhythm Gastrointestinal: non-tender, soft Musculoskeletal: No nl gait and stance Neurological: nl mental status, No nl speech Results Result Diagram: 04/01/17 0549 04/01/17 0549 Medications Medications Current Medications Ondansetron HCl (Zofran Inj) 4 mg Q6H PRN IV NAUSEA AND/OR VOMITING Last administered on 03/20/17 06:00; Admin Dose 4 MG; Start 03/17/17 at 21:30 Acetaminophen (Tylenol Supp) 650 mg Q6H PRN [place] PAIN LEVEL 1-3 OR FEVER; Start 03/17/17 at 21:30 Morphine Sulfate (morphine) 2 mg Q4H PRN IV SEVERE PAIN LEVEL 7-10; Start at 21:30 Enoxaparin Sodium (Lovenox) 40 mg DAILY SC Last administered on 04/02/17 10:16 ; Admin Dose 40 MG; Start 03/18/17 at 09:00 Baclofen (Lioresal) 10 mg TID PO Last administered on 04/02/17 13:24; Admin Dose 10 MG; Start 03/18/17 at 09:00 Pantoprazole (Protonix Tab) 40 mg DAILY@06 PO Last administered on 04/02/17 05 :44; Admin Dose 40 MG; Start 03/20/17 at 06:00 Mupirocin (Bactroban) 1 applic BID TOP Last administered on 04/02/17 10:27; Admin Dose 1 APPLIC; Start 03/20/17 at 09:30; Stop 04/03/17 at 23:00 Loratadine (Claritin) 10 mg DAILY PO Last administered on 04/02/17 10:08; Admin Dose 10 MG; Start 03/22/17 at 18:30 Lactobacillus Acidophilus/ Rhamnosus (Culturelle) 1 cap BID PO Last administered on 04/02/17 10:08; Admin Dose 1 CAP; Start 03/24/17 at 09:00 Acetaminophen/ Hydrocodone Bitart ([place] (5/325)) 1 tab Q6H PRN PO Pain Last administered on 04/02/17 05:59; Admin Dose 1 TAB; Start 03/25/17 at 13:00 RICH MCCARTY Apr 02, 2017 16:53
[2017-04-02 20:21] VITALS: BP 102/54; RESP 16
[2017-04-03 02:51] VITALS: BP 97/65; RESP 16
[2017-04-03] MEDS: PANTOPRAZOLE (EC) 40 MG TAB PO SCH (05:56)
[2017-04-03 07:24] VITALS: BP 111/65; RESP 20
[2017-04-03] MEDS: LORATADINE 10 MG TAB PO SCH (08:53)
[2017-04-03] MEDS: LACTOBACILLUS RHAMNOSUS CAP PO SCH ×2 (08:53→21:02)
[2017-04-03] MEDS: BACLOFEN 10 MG TAB PO SCH ×3 (08:53→21:02)
[2017-04-03] MEDS: MUPIROCIN 2% 22 GM OINT TOP SCH ×2 (08:53→21:02)
[2017-04-03] MEDS: ENOXAPARIN 40 MG/0.4 ML SYG SC SCH (08:58)
[2017-04-03 12:54] LABS: CALCIUM 9.9 mg/dl (8.4-10.2); CREATININE 1.14 mg/dl (0.61-1.24); POTASSIUM 4.1 mmol/L (3.5-5.1)
[2017-04-03 13:08] VITALS: BP 109/59; RESP 18
--- NOTE | 2017-04-03 18:06 | PN ---
Date/Time of Note Date/Time of Note DATE: 04/03/17 TIME: 18:04 Assessment/Plan VTE Prophylaxis VTE Prophylaxis Intervention: LMWH Lines/Catheters IV Catheter Type (from Nrs): Saline Lock Urinary Cath still in place: No Assessment/Plan Chief Complaint/Hosp Course Assessment and plan 1. Failure to thrive. Continue with physical therapy. Continue with supplements. Awaiting for patient placement 2. Muscular dystrophy/myopathy. Continue on baclofen. Continue with physical therapy measures. continue with aspiration precautions 3. MRSA colonization of the nares. Continue on Bactroban DVT prophylaxis: Lovenox Disposition and plan: cont ot/pt. awaiting patient placement still. f/u case management Discussed plan of care with Dr. Recinos Problems: Subjective 24 Hr Interval Summary Free Text/Dictation no s/s of distress. no specific complaints Exam/Review of Systems Vital Signs Vitals Vital Signs Date Time Temp Pulse Resp B/P Pulse Ox O2 Delivery O2 Flow Rate FiO2 04/03/17 13:08 98.2 80 18 109/59 98 Intake and Output 04/02/17 04/02/17 04/03/17 14:59 22:59 06:59 Intake Total 1240 ml 220 ml Output Total 975 ml Balance 265 ml 220 ml Exam Constitutional: alert, oriented Psych: no complaints Neck: supple, No jvd Respiratory: clear to auscultation Cardiovascular: regular rate and rhythm Gastrointestinal: non-tender, soft Musculoskeletal: No nl gait and stance Neurological: nl mental status, No nl speech Results Result Diagram: 04/01/17 0549 04/03/17 1224 Results 24 hrs Laboratory Tests Test 04/03/17 12:24 Sodium Level 144 Potassium Level 4.1 Chloride Level 101 Carbon Dioxide Level 26 Anion Gap 21 H Blood Urea Nitrogen 13 Creatinine 1.14 Glucose Level 84 Calcium Level 9.9 Medications Medications Current Medications Ondansetron HCl (Zofran Inj) 4 mg Q6H PRN IV NAUSEA AND/OR VOMITING Last administered on 03/20/17t 06:00; Admin Dose 4 MG; Start 03/17/17 at 21:30 Acetaminophen (Tylenol Supp) 650 mg Q6H PRN [place] PAIN LEVEL 1-3 OR FEVER; Start 03/17/17 at 21:30 Morphine Sulfate (morphine) 2 mg Q4H PRN IV SEVERE PAIN LEVEL 7-10; Start at 21:30 Enoxaparin Sodium (Lovenox) 40 mg DAILY SC Last administered on 04/03/17 08:58 ; Admin Dose 40 MG; Start 03/18/17 at 09:00 Baclofen (Lioresal) 10 mg TID PO Last administered on 04/03/17 12:59; Admin Dose 10 MG; Start 03/18/17 at 09:00 Pantoprazole (Protonix Tab) 40 mg DAILY@06 PO Last administered on 04/03/17 05 :56; Admin Dose 40 MG; Start 03/20/17 at 06:00 Mupirocin (Bactroban) 1 applic BID TOP Last administered on 04/03/17 08:53; Admin Dose 1 APPLIC; Start 03/20/17 at 09:30; Stop 04/03/17 at 23:00 Loratadine (Claritin) 10 mg DAILY PO Last administered on 04/03/17 08:53; Admin Dose 10 MG; Start 03/22/17 at 18:30 Lactobacillus Acidophilus/ Rhamnosus (Culturelle) 1 cap BID PO Last administered on 04/03/17 08:53; Admin Dose 1 CAP; Start 03/24/17 at 09:00 Acetaminophen/ Hydrocodone Bitart ([place] (5/325)) 1 tab Q6H PRN PO Pain Last administered on 04/02/17 05:59; Admin Dose 1 TAB; Start 03/25/17 at 13:00 RICH MCCARTY Apr 03, 2017 18:06
[2017-04-03 20:38] VITALS: BP 114/61; RESP 20
[2017-04-04 02:00] VITALS: BP 116/68; RESP 20
[2017-04-04] MEDS: PANTOPRAZOLE (EC) 40 MG TAB PO SCH (06:31)
[2017-04-04 07:32] VITALS: BP 103/65; RESP 16
[2017-04-04] MEDS: LACTOBACILLUS RHAMNOSUS CAP PO SCH ×2 (08:53→21:27)
[2017-04-04] MEDS: BACLOFEN 10 MG TAB PO SCH ×3 (08:53→21:27)
[2017-04-04] MEDS: LORATADINE 10 MG TAB PO SCH (08:53)
[2017-04-04] MEDS: ENOXAPARIN 40 MG/0.4 ML SYG SC SCH (08:59)
--- NOTE | 2017-04-04 09:26 | PN ---
Date/Time of Note Date/Time of Note DATE: 04/04/17 TIME: 09:23 Assessment/Plan VTE Prophylaxis VTE Prophylaxis Intervention: LMWH Lines/Catheters IV Catheter Type (from Nrs): Saline Lock Urinary Cath still in place: No Assessment/Plan Chief Complaint/Hosp Course Assessment and plan 1. Failure to thrive. Continue with physical therapy. Continue with supplements. Awaiting for patient placement stable at present 2. Muscular dystrophy/myopathy. Continue on baclofen. Continue with physical therapy measures. continue with aspiration precautions 3. MRSA colonization of the nares. Continue on Bactroban DVT prophylaxis: Lovenox Disposition and plan: Still awaiting accepting facility. Is difficult placement due to patient age/insurance. Will follow up. Continue supportive measures and physical therapy Discussed plan of care with Dr. Recinos Problems: Subjective 24 Hr Interval Summary Free Text/Dictation Comfortable at present. No specific complaints. Exam/Review of Systems Vital Signs Vitals Vital Signs Date Time Temp Pulse Resp B/P Pulse Ox O2 Delivery O2 Flow Rate FiO2 04/04/17 07:32 98.1 77 16 103/65 97 Intake and Output 04/03/17 04/03/17 04/04/17 15:00 23:00 07:00 Intake Total 960 ml Output Total 275 ml Balance 685 ml Exam Constitutional: alert, oriented Psych: no complaints Head: normocephalic Respiratory: normal air movement Gastrointestinal: non-tender, soft Musculoskeletal: muscle weakness, No nl gait and stance Neurological: nl mental status, No nl speech Results Result Diagram: 04/01/17 0549 04/03/17 1224 Results 24 hrs Laboratory Tests Test 04/03/17 12:24 Sodium Level 144 Potassium Level 4.1 Chloride Level 101 Carbon Dioxide Level 26 Anion Gap 21 H Blood Urea Nitrogen 13 Creatinine 1.14 Glucose Level 84 Calcium Level 9.9 Medications Medications Current Medications Ondansetron HCl (Zofran Inj) 4 mg Q6H PRN IV NAUSEA AND/OR VOMITING Last administered on 03/20/17 06:00; Admin Dose 4 MG; Start 03/17/17 at 21:30 Acetaminophen (Tylenol Supp) 650 mg Q6H PRN [place] PAIN LEVEL 1-3 OR FEVER; Start 03/17/17 at 21:30 Morphine Sulfate (morphine) 2 mg Q4H PRN IV SEVERE PAIN LEVEL 7-10; Start at 21:30 Enoxaparin Sodium (Lovenox) 40 mg DAILY SC Last administered on 04/04/17 08:59 ; Admin Dose 40 MG; Start 03/18/17 at 09:00 Baclofen (Lioresal) 10 mg TID PO Last administered on 04/04/17 08:53; Admin Dose 10 MG; Start 03/18/17 at 09:00 Pantoprazole (Protonix Tab) 40 mg DAILY@06 PO Last administered on 04/04/17 06 :31; Admin Dose 40 MG; Start 03/20/17 at 06:00 Loratadine (Claritin) 10 mg DAILY PO Last administered on 04/04/17 08:53; Admin Dose 10 MG; Start 03/22/17 at 18:30 Lactobacillus Acidophilus/ Rhamnosus (Culturelle) 1 cap BID PO Last administered on 04/04/17 08:53; Admin Dose 1 CAP; Start 03/24/17 at 09:00 Acetaminophen/ Hydrocodone Bitart ([place] (5/325)) 1 tab Q6H PRN PO Pain Last administered on 04/02/17 05:59; Admin Dose 1 TAB; Start 03/25/17 at 13:00 RICH MCCARTY Apr 04, 2017 09:25
[2017-04-04 19:23] VITALS: BP 113/68; RESP 18
[2017-04-05] MEDS: PANTOPRAZOLE (EC) 40 MG TAB PO SCH (06:15)
[2017-04-05 08:10] VITALS: BP 123/62; RESP 18
[2017-04-05] MEDS: LORATADINE 10 MG TAB PO SCH (09:28)
[2017-04-05] MEDS: LACTOBACILLUS RHAMNOSUS CAP PO SCH ×2 (09:28→22:02)
[2017-04-05] MEDS: BACLOFEN 10 MG TAB PO SCH ×3 (09:28→22:03)
[2017-04-05] MEDS: ENOXAPARIN 40 MG/0.4 ML SYG SC SCH (10:32)
--- NOTE | 2017-04-05 13:25 | PN ---
Date/Time of Note Date/Time of Note DATE: 04/05/17 TIME: 13:21 Assessment/Plan VTE Prophylaxis VTE Prophylaxis Intervention: LMWH Lines/Catheters IV Catheter Type (from Nrs): Saline Lock Urinary Cath still in place: No Assessment/Plan Chief Complaint/Hosp Course Assessment and plan 1. Failure to thrive. Continue with physical therapy. Continue with supplements. Awaiting for patient placement . remains stable at present 2. Muscular dystrophy/myopathy. Continue on baclofen. Continue with physical therapy measures. continue with aspiration precautions 3. MRSA colonization of the nares. Continue on Bactroban DVT prophylaxis: Lovenox Disposition and plan: Still awaiting accepting facility. Is difficult placement due to patient age/insurance. continue PT Discussed plan of care with Dr. Recinos Problems: Subjective 24 Hr Interval Summary Free Text/Dictation Resting at this time. No specific complaints. Exam/Review of Systems Vital Signs Vitals Vital Signs Date Time Temp Pulse Resp B/P Pulse Ox O2 Delivery O2 Flow Rate FiO2 04/05/17 08:10 97.9 67 18 123/62 97 Intake and Output 04/04/17 04/04/17 04/05/17 14:59 22:59 06:59 Intake Total 800 ml 1620 ml 200 ml Output Total 875 ml 1200 ml 400 ml Balance -75 ml 420 ml -200 ml Exam Constitutional: alert, oriented Psych: no complaints Head: normocephalic Respiratory: normal air movement Gastrointestinal: non-tender, soft Musculoskeletal: muscle weakness, No nl gait and stance Neurological: nl mental status, No nl speech Results Result Diagram: 04/01/17 0549 04/03/17 1224 Medications Medications Current Medications Ondansetron HCl (Zofran Inj) 4 mg Q6H PRN IV NAUSEA AND/OR VOMITING Last administered on 03/20/17 06:00; Admin Dose 4 MG; Start 03/17/17 at 21:30 Acetaminophen (Tylenol Supp) 650 mg Q6H PRN [place] PAIN LEVEL 1-3 OR FEVER; Start 03/17/17 at 21:30 Morphine Sulfate (morphine) 2 mg Q4H PRN IV SEVERE PAIN LEVEL 7-10; Start at 21:30 Enoxaparin Sodium (Lovenox) 40 mg DAILY SC Last administered on 04/05/17 10:32 ; Admin Dose 40 MG; Start 03/18/17 at 09:00 Baclofen (Lioresal) 10 mg TID PO Last administered on 04/05/17 09:28; Admin Dose 10 MG; Start 03/18/17 at 09:00 Pantoprazole (Protonix Tab) 40 mg DAILY@06 PO Last administered on 04/05/17 06 :15; Admin Dose 40 MG; Start 03/20/17 at 06:00 Loratadine (Claritin) 10 mg DAILY PO Last administered on 04/05/17 09:28; Admin Dose 10 MG; Start 03/22/17 at 18:30 Lactobacillus Acidophilus/ Rhamnosus (Culturelle) 1 cap BID PO Last administered on 04/05/17 09:28; Admin Dose 1 CAP; Start 03/24/17 at 09:00 Acetaminophen/ Hydrocodone Bitart ([place] (5/325)) 1 tab Q6H PRN PO Pain Last administered on 04/02/17 05:59; Admin Dose 1 TAB; Start 03/25/17 at 13:00 RICH MCCARTY Apr 05, 2017 13:25
[2017-04-05 13:38] VITALS: BP 110/61; RESP 18
[2017-04-05 19:57] VITALS: BP 107/70; RESP 18
[2017-04-06 01:59] VITALS: BP 104/56; RESP 18
[2017-04-06] MEDS: PANTOPRAZOLE (EC) 40 MG TAB PO SCH (06:18)
[2017-04-06 07:52] VITALS: BP 115/68; RESP 20
[2017-04-06] MEDS: LACTOBACILLUS RHAMNOSUS CAP PO SCH ×2 (09:22→21:28)
[2017-04-06] MEDS: BACLOFEN 10 MG TAB PO SCH ×3 (09:22→21:28)
[2017-04-06] MEDS: LORATADINE 10 MG TAB PO SCH (09:22)
[2017-04-06] MEDS: ENOXAPARIN 40 MG/0.4 ML SYG SC SCH (09:27)
--- NOTE | 2017-04-06 14:10 | PN ---
Date/Time of Note Date/Time of Note DATE: 04/06/17 TIME: 14:08 Assessment/Plan VTE Prophylaxis VTE Prophylaxis Intervention: SCD's Lines/Catheters IV Catheter Type (from Nrs): Saline Lock Urinary Cath still in place: No Assessment/Plan Chief Complaint/Hosp Course Assessment and plan 1. Failure to thrive. Continue with physical therapy. Continue with supplements. Awaiting for patient placement . remains stable at present 2. Muscular dystrophy/myopathy. Continue on baclofen. Continue with physical therapy measures. continue with aspiration precautions 3. MRSA colonization of the nares. Continue on Bactroban DVT prophylaxis: Lovenox Disposition and plan: Still awaiting accepting facility. Is difficult placement due to patient age/insurance. continue PT. Awaiting follow up with case management Discussed plan of care with Dr. Recinos Problems: Subjective 24 Hr Interval Summary Free Text/Dictation No specific complaints at this time. Comfortable at present. Exam/Review of Systems Vital Signs Vitals Vital Signs Date Time Temp Pulse Resp B/P Pulse Ox O2 Delivery O2 Flow Rate FiO2 04/06/17 07:52 98.0 67 20 115/68 98 Intake and Output 04/05/17 04/05/17 04/06/17 15:00 23:00 07:00 Intake Total 460 ml Balance 460 ml Exam Constitutional: alert, oriented Psych: no complaints Head: normocephalic Respiratory: normal air movement Gastrointestinal: non-tender, soft Musculoskeletal: muscle weakness, No nl gait and stance Neurological: nl mental status, No nl speech Results Result Diagram: 04/03/17 1224 Medications Medications Current Medications Ondansetron HCl (Zofran Inj) 4 mg Q6H PRN IV NAUSEA AND/OR VOMITING Last administered on 03/20/17 06:00; Admin Dose 4 MG; Start 03/17/17 at 21:30 Acetaminophen (Tylenol Supp) 650 mg Q6H PRN [place] PAIN LEVEL 1-3 OR FEVER; Start 03/17/17 at 21:30 Morphine Sulfate (morphine) 2 mg Q4H PRN IV SEVERE PAIN LEVEL 7-10; Start at 21:30 Enoxaparin Sodium (Lovenox) 40 mg DAILY SC Last administered on 04/06/17 09:27 ; Admin Dose 40 MG; Start 03/18/17 at 09:00 Baclofen (Lioresal) 10 mg TID PO Last administered on 04/06/17 13:22; Admin Dose 10 MG; Start 03/18/17 at 09:00 Pantoprazole (Protonix Tab) 40 mg DAILY@06 PO Last administered on 04/06/17 06 :18; Admin Dose 40 MG; Start 03/20/17 at 06:00 Loratadine (Claritin) 10 mg DAILY PO Last administered on 04/06/17 09:22; Admin Dose 10 MG; Start 03/22/17 at 18:30 Lactobacillus Acidophilus/ Rhamnosus (Culturelle) 1 cap BID PO Last administered on 04/06/17 09:22; Admin Dose 1 CAP; Start 03/24/17 at 09:00 Acetaminophen/ Hydrocodone Bitart ([place] (5/325)) 1 tab Q6H PRN PO Pain Last administered on 04/02/17 05:59; Admin Dose 1 TAB; Start 03/25/17 at 13:00 RICH MCCARTY Apr 06, 2017 14:10
[2017-04-06 14:39] VITALS: BP 121/71; RESP 20
[2017-04-06 14:44] VITALS: BP 109/55; RESP 20
[2017-04-06 19:18] VITALS: BP 114/64; RESP 18
[2017-04-07] MEDS: PANTOPRAZOLE (EC) 40 MG TAB PO SCH (05:59)
[2017-04-07 07:50] VITALS: BP 107/67; RESP 20
[2017-04-07] MEDS: BACLOFEN 10 MG TAB PO SCH ×3 (09:02→21:00)
[2017-04-07] MEDS: LACTOBACILLUS RHAMNOSUS CAP PO SCH ×2 (09:02→21:00)
[2017-04-07] MEDS: LORATADINE 10 MG TAB PO SCH (09:02)
[2017-04-07] MEDS: ENOXAPARIN 40 MG/0.4 ML SYG SC SCH (09:13)
[2017-04-07 14:45] VITALS: BP 123/80; RESP 20
--- NOTE | 2017-04-07 14:58 | PN ---
Date/Time of Note Date/Time of Note DATE: 04/07/17 TIME: 14:57 Assessment/Plan VTE Prophylaxis VTE Prophylaxis Intervention: LMWH Lines/Catheters IV Catheter Type (from Nrs): Saline Lock Urinary Cath still in place: No Assessment/Plan Chief Complaint/Hosp Course Assessment and plan 1. Failure to thrive. Continue with physical therapy. Continue with supplements. Awaiting for patient placement . remains stable at present 2. Muscular dystrophy/myopathy. Continue on baclofen. Continue with physical therapy measures. continue with aspiration precautions 3. MRSA colonization of the nares. Continue on Bactroban DVT prophylaxis: Lovenox Disposition and plan: Still awaiting accepting facility. Is difficult placement due to patient age/insurance. continue PT/ot Discussed plan of care with Dr. Mackenzie Problems: Subjective 24 Hr Interval Summary Free Text/Dictation No apparent distress. Comfortable at present. Exam/Review of Systems Vital Signs Vitals Vital Signs Date Time Temp Pulse Resp B/P Pulse Ox O2 Delivery O2 Flow Rate FiO2 04/07/17 14:45 98.0 64 20 123/80 98 Intake and Output 04/06/17 04/06/17 04/07/17 15:00 23:00 07:00 Intake Total 1140 ml 360 ml Output Total 1300 ml 600 ml Balance -160 ml -240 ml Exam Constitutional: alert, oriented Psych: no complaints Head: normocephalic Respiratory: normal air movement Gastrointestinal: non-tender, soft Musculoskeletal: muscle weakness, No nl gait and stance Neurological: nl mental status, No nl speech Results Result Diagram: 04/03/17 1224 Medications Medications Current Medications Ondansetron HCl (Zofran Inj) 4 mg Q6H PRN IV NAUSEA AND/OR VOMITING Last administered on 03/20/17 06:00; Admin Dose 4 MG; Start 03/17/17 at 21:30 Acetaminophen (Tylenol Supp) 650 mg Q6H PRN [place] PAIN LEVEL 1-3 OR FEVER; Start 03/17/17 at 21:30 Morphine Sulfate (morphine) 2 mg Q4H PRN IV SEVERE PAIN LEVEL 7-10; Start at 21:30 Enoxaparin Sodium (Lovenox) 40 mg DAILY SC Last administered on 04/07/17 09:13 ; Admin Dose 40 MG; Start 03/18/17 at 09:00 Baclofen (Lioresal) 10 mg TID PO Last administered on 04/07/17 12:28; Admin Dose 10 MG; Start 03/18/17 at 09:00 Pantoprazole (Protonix Tab) 40 mg DAILY@06 PO Last administered on 04/07/17 05 :59; Admin Dose 40 MG; Start 03/20/17 at 06:00 Loratadine (Claritin) 10 mg DAILY PO Last administered on 04/07/17 09:02; Admin Dose 10 MG; Start 03/22/17 at 18:30 Lactobacillus Acidophilus/ Rhamnosus (Culturelle) 1 cap BID PO Last administered on 04/07/17 09:02; Admin Dose 1 CAP; Start 03/24/17 at 09:00 Acetaminophen/ Hydrocodone Bitart ([place] (5/325)) 1 tab Q6H PRN PO Pain Last administered on 04/02/17 05:59; Admin Dose 1 TAB; Start 03/25/17 at 13:00 RICH MCCARTY Apr 07, 2017 14:58
[2017-04-07 19:39] VITALS: BP 112/65; RESP 20
[2017-04-08 02:00] VITALS: BP 110/63; RESP 18
[2017-04-08] MEDS: PANTOPRAZOLE (EC) 40 MG TAB PO SCH (06:00)
[2017-04-08 07:46] VITALS: BP 116/66; RESP 20
[2017-04-08] MEDS: LACTOBACILLUS RHAMNOSUS CAP PO SCH ×2 (10:25→21:09)
[2017-04-08] MEDS: BACLOFEN 10 MG TAB PO SCH ×3 (10:25→21:09)
[2017-04-08] MEDS: LORATADINE 10 MG TAB PO SCH (10:25)
[2017-04-08] MEDS: ENOXAPARIN 40 MG/0.4 ML SYG SC SCH (10:55)
[2017-04-08 14:28] VITALS: BP 107/56; RESP 20
--- NOTE | 2017-04-08 15:37 | PN ---
Date/Time of Note Date/Time of Note DATE: 04/08/17 TIME: 15:35 Assessment/Plan VTE Prophylaxis VTE Prophylaxis Intervention: SCD's Lines/Catheters IV [facility] Type [facility] Saline Lock Urinary Cath still in place: No Assessment/Plan Assessment/Plan 1. Failure to thrive. Continue with physical therapy. Continue with supplements. Awaiting for patient placement . remains stable at present 2. Muscular dystrophy/myopathy. Continue on baclofen. Continue with physical therapy measures. continue with aspiration precautions 3. MRSA colonization of the nares. Continue on Bactroban DVT prophylaxis: Lovenox Subjective 24 Hr Interval Summary Free Text/Dictation no event Exam/Review of Systems Vital Signs Vitals Vital Signs Date Time Temp Pulse Resp B/P Pulse Ox O2 Delivery O2 Flow Rate FiO2 04/08/17 14:28 98.5 69 20 107/56 98 Intake and Output 04/07/17 04/07/17 04/08/17 15:00 23:00 07:00 Intake Total 1200 ml 720 ml Output Total 1600 ml 800 ml Balance -400 ml -80 ml Exam Constitutional: alert, well developed Head: atraumatic, normocephalic Eyes: EOMI, nl conjunctiva, nl lids ENMT: nl external ears & nose, nl lips & teeth, nl nasal mucosa & septum Neck: non-tender, supple Respiratory: clear to auscultation, normal air movement, No congested cough, No crackles/rales, No diminished breath sounds, No intercostal retraction, No labored breathing, No other, No respirations, No tactile fremitus, No wheezing Cardiovascular: nl pulses, regular rate and rhythm, No S3, No S4, No bruits, No diastolic murmur, No edema, No gallop, No irregular rhythm, No jugular venous distention (JVD), No murmurs/extra sounds, No other, No rub, No systolic murmur Gastrointestinal: nl liver, spleen, non-tender, soft Musculoskeletal: nl extremities to inspection Extremities: normal pulses, No calf tenderness, No clubbing, No cyanosis, No edema, No other, No palpable cord, No pitting pedal edema, No tenderness Neurological: ENGAGEMENT MGR II-XII intact Skin: nl turgor Medications Medications Current Medications Ondansetron HCl (Zofran Inj) 4 mg Q6H PRN IV NAUSEA AND/OR VOMITING Last administered on 7/6/17at 06:00; Admin Dose 4 MG; Start 03/17/17 at 21:30 Acetaminophen (Tylenol Supp) 650 mg Q6H PRN [place] PAIN LEVEL 1-3 OR FEVER; Start 03/17/17 at 21:30 Morphine Sulfate (morphine) 2 mg Q4H PRN IV SEVERE PAIN LEVEL 7-10; Start at 21:30 Enoxaparin Sodium (Lovenox) 40 mg DAILY SC Last administered on 04/08/17 10:55 ; Admin Dose 40 MG; Start 03/18/17 at 09:00 Baclofen (Lioresal) 10 mg TID PO Last administered on 04/08/17 14:38; Admin Dose 10 MG; Start 03/18/17 at 09:00 Pantoprazole (Protonix Tab) 40 mg DAILY@06 PO Last administered on 04/08/17 06 :00; Admin Dose 40 MG; Start 03/20/17 at 06:00 Loratadine (Claritin) 10 mg DAILY PO Last administered on 04/08/17 10:25; Admin Dose 10 MG; Start 03/22/17 at 18:30 Lactobacillus Acidophilus/ Rhamnosus (Culturelle) 1 cap BID PO Last administered on 04/08/17 10:25; Admin Dose 1 CAP; Start 03/24/17 at 09:00 Acetaminophen/ Hydrocodone Bitart ([place] (5/325)) 1 tab Q6H PRN PO Pain Last administered on 04/02/17 05:59; Admin Dose 1 TAB; Start 03/25/17 at 13:00 KASIA QURESHI MD Apr 08, 2017 15:37
[2017-04-09 02:25] VITALS: BP 106/67; RESP 16
[2017-04-09] MEDS: PANTOPRAZOLE (EC) 40 MG TAB PO SCH (06:36)
[2017-04-09 07:52] VITALS: BP 109/64; RESP 18
[2017-04-09] MEDS: BACLOFEN 10 MG TAB PO SCH ×3 (08:37→22:25)
[2017-04-09] MEDS: LACTOBACILLUS RHAMNOSUS CAP PO SCH ×2 (08:37→22:25)
[2017-04-09] MEDS: LORATADINE 10 MG TAB PO SCH (08:37)
[2017-04-09] MEDS: ENOXAPARIN 40 MG/0.4 ML SYG SC SCH (08:42)
[2017-04-09 13:49] VITALS: BP 129/69; RESP 18
--- NOTE | 2017-04-09 15:34 | PN ---
Date/Time of Note Date/Time of Note DATE: 04/09/17 TIME: 15:32 Assessment/Plan VTE Prophylaxis VTE Prophylaxis Intervention: LMWH Lines/Catheters [facility] Saline Lock Urinary Cath still in place: No Assessment/Plan Assessment/Plan 1. Failure to thrive. Continue with physical therapy. Continue with supplements. Awaiting for patient placement . remains stable at present 2. Muscular dystrophy/myopathy. Continue on baclofen. Continue with physical therapy measures. continue with aspiration precautions 3. MRSA colonization of the nares. Continue on Bactroban DVT prophylaxis: Lovenox Subjective 24 Hr Interval Summary Free Text/Dictation sitting in the chair Exam/Review of Systems Vital Signs Vitals Vital Signs Date Time Temp Pulse Resp B/P Pulse Ox O2 Delivery O2 Flow Rate FiO2 04/09/17 13:49 97.9 85 18 129/69 98 Intake and Output 04/08/17 04/08/17 04/09/17 15:00 23:00 07:00 Intake Total 1480 ml Output Total 1650 ml Balance -170 ml Exam Constitutional: alert, oriented Head: atraumatic, normocephalic Eyes: EOMI, PERRL, nl conjunctiva, nl lids, nl sclera ENMT: nl external ears & nose, nl lips & teeth, nl nasal mucosa & septum Neck: non-tender, supple Respiratory: clear to auscultation, No congested cough, No crackles/rales, No diminished breath sounds, No intercostal retraction, No labored breathing, No normal air movement, No other, No respirations, No tactile fremitus, No wheezing Cardiovascular: nl pulses, regular rate and rhythm, No S3, No S4, No bruits, No diastolic murmur, No edema, No gallop, No irregular rhythm, No jugular venous distention (JVD), No murmurs/extra sounds, No other, No rub, No systolic murmur Gastrointestinal: nl liver, spleen, non-tender, soft, No ascites, No bowel sounds, No distended, No firm, No hepatomegaly, No mass , No other, No rebound or guarding, No splenomegaly, No surgical scars, No tender Musculoskeletal: nl extremities to inspection Extremities: normal pulses, No calf tenderness, No clubbing, No cyanosis, No edema, No other, No palpable cord, No pitting pedal edema, No tenderness Neurological: PLEAT PATTERNMAKER II-XII intact, nl mental status, other (generalized muscle weakness and stiffness) Medications Medications Current Medications Ondansetron HCl (Zofran Inj) 4 mg Q6H PRN IV NAUSEA AND/OR VOMITING Last administered on 03/20/17 06:00; Admin Dose 4 MG; Start 03/17/17 at 21:30 Acetaminophen (Tylenol Supp) 650 mg Q6H PRN [place] PAIN LEVEL 1-3 OR FEVER; Start 03/17/17 at 21:30 Morphine Sulfate (morphine) 2 mg Q4H PRN [place] SEVERE PAIN LEVEL 7-10; Start at 21:30 Enoxaparin Sodium (Lovenox) 40 mg DAILY SC Last administered on 04/09/17 08:42 ; Admin Dose 40 MG; Start 03/18/17 at 09:00 Baclofen (Lioresal) 10 mg TID PO Last administered on 04/09/17 13:00; Admin Dose 10 MG; Start 03/18/17 at 09:00 Pantoprazole (Protonix Tab) 40 mg DAILY@06 PO Last administered on 04/09/17 06 :36; Admin Dose 40 MG; Start 03/20/17 at 06:00 Loratadine (Claritin) 10 mg DAILY PO Last administered on 04/09/17 08:37; Admin Dose 10 MG; Start 03/22/17 at 18:30 Lactobacillus Acidophilus/ Rhamnosus (Culturelle) 1 cap BID PO Last administered on 04/09/17 08:37; Admin Dose 1 CAP; Start 03/24/17 at 09:00 Acetaminophen/ Hydrocodone Bitart ([place] (5/325)) 1 tab Q6H PRN PO Pain Last administered on 04/02/17 05:59; Admin Dose 1 TAB; Start 03/25/17 at 13:00 KASIA QURESHI MD Apr 09, 2017 15:34
[2017-04-09 20:02] VITALS: BP 116/71; RESP 18
[2017-04-10 01:57] VITALS: BP 109/60; RESP 16
[2017-04-10] MEDS: PANTOPRAZOLE (EC) 40 MG TAB PO SCH (06:34)
[2017-04-10 08:24] VITALS: BP 101/58; RESP 16
[2017-04-10] MEDS: LORATADINE 10 MG TAB PO SCH (08:45)
[2017-04-10] MEDS: LACTOBACILLUS RHAMNOSUS CAP PO SCH ×2 (08:45→21:05)
[2017-04-10] MEDS: BACLOFEN 10 MG TAB PO SCH ×3 (08:46→21:05)
[2017-04-10] MEDS: ENOXAPARIN 40 MG/0.4 ML SYG SC SCH (08:50)
[2017-04-10 15:03] VITALS: BP 104/58; RESP 16
--- NOTE | 2017-04-10 17:16 | PN ---
Date/Time of Note Date/Time of Note DATE: 04/10/17 TIME: 17:15 Assessment/Plan VTE Prophylaxis VTE Prophylaxis Intervention: LMWH Lines/Catheters IV C[facility] Type ([facility] Saline Lock Urinary Cath still in place: No Assessment/Plan Chief Complaint/Hosp Course 1. Failure to thrive. Continue with physical therapy. Continue with supplements. Awaiting for patient placement . remains stable at present 2. Muscular dystrophy/myopathy. Continue on baclofen. Continue with physical therapy measures. continue with aspiration precautions 3. MRSA colonization of the nares. Continue on Bactroban DVT prophylaxis: Lovenox Problems: Subjective 24 Hr Interval Summary Free Text/Dictation workign wtih PT appears very happy, jovial Exam/Review of Systems Vital Signs Vitals Vital Signs Date Time Temp Pulse Resp B/P Pulse Ox O2 Delivery O2 Flow Rate FiO2 04/10/17 15:03 98.8 75 16 104/58 98 Intake and Output 04/09/17 04/09/17 04/10/17 15:00 23:00 07:00 Intake Total 200 ml 240 ml Output Total 500 ml Balance -300 ml 240 ml Medications Medications Current Medications Ondansetron HCl (Zofran Inj) 4 mg Q6H PRN IV NAUSEA AND/OR VOMITING Last administered on 03/20/17 06:00; Admin Dose 4 MG; Start 03/17/17 at 21:30 Acetaminophen (Tylenol Supp) 650 mg Q6H PRN [place] PAIN LEVEL 1-3 OR FEVER; Start 03/17/17 at 21:30 Morphine Sulfate (morphine) 2 mg Q4H PRN IV SEVERE PAIN LEVEL 7-10; Start at 21:30 Enoxaparin Sodium (Lovenox) 40 mg DAILY SC Last administered on 04/10/17 08:50 ; Admin Dose 40 MG; Start 03/18/17 at 09:00 Baclofen (Lioresal) 10 mg TID PO Last administered on 04/10/17 12:42; Admin Dose 10 MG; Start 03/18/17 at 09:00 Pantoprazole (Protonix Tab) 40 mg DAILY@06 PO Last administered on 04/10/17 06 :34; Admin Dose 40 MG; Start 03/20/17 at 06:00 Loratadine (Claritin) 10 mg DAILY PO Last administered on 04/10/17 08:45; Admin Dose 10 MG; Start 03/22/17 at 18:30 Lactobacillus Acidophilus/ Rhamnosus (Culturelle) 1 cap BID PO Last administered on 04/10/17 08:45; Admin Dose 1 CAP; Start 03/24/17 at 09:00 Acetaminophen/ Hydrocodone Bitart ([place] (5/325)) 1 tab Q6H PRN PO Pain Last administered on 04/02/17 05:59; Admin Dose 1 TAB; Start 03/25/17 at 13:00 PEG PEPE MD Apr 10, 2017 17:16
[2017-04-10 20:11] VITALS: BP 115/66; RESP 16
[2017-04-11 02:00] VITALS: BP 110/60; RESP 16
[2017-04-11] MEDS: PANTOPRAZOLE (EC) 40 MG TAB PO SCH (05:33)
[2017-04-11 07:56] VITALS: BP 101/55; RESP 18
[2017-04-11] MEDS: LACTOBACILLUS RHAMNOSUS CAP PO SCH ×2 (08:41→20:55)
[2017-04-11] MEDS: LORATADINE 10 MG TAB PO SCH (08:41)
[2017-04-11] MEDS: BACLOFEN 10 MG TAB PO SCH ×3 (08:41→20:55)
[2017-04-11] MEDS: ENOXAPARIN 40 MG/0.4 ML SYG SC SCH (08:49)
[2017-04-11 15:02] VITALS: BP 121/70; RESP 16
--- NOTE | 2017-04-11 17:42 | PN ---
Date/Time of Note Date/Time of Note DATE: 04/11/17 TIME: 17:41 Assessment/Plan VTE Prophylaxis VTE Prophylaxis Intervention: LMWH Lines/Catheters IV Catheter Type (from Nrs): Saline Lock Urinary Cath still in place: No Assessment/Plan Chief Complaint/Hosp Course 26 yo male wtih diffuse weakness 2/2 unclear muscular disorder admitted for inability to care for self 1. Failure to thrive. Continue with physical therapy. Continue with supplements. Awaiting for patient placement . remains stable at present 2. Muscular dystrophy/myopathy. Continue on baclofen. Continue with physical therapy measures. continue with aspiration precautions 3. MRSA colonization of the nares. Continue on Bactroban DVT prophylaxis: Lovenox Problems: Subjective 24 Hr Interval Summary Free Text/Dictation No events Working with PT Exam/Review of Systems Vital Signs Vitals Vital Signs Date Time Temp Pulse Resp B/P Pulse Ox O2 Delivery O2 Flow Rate FiO2 04/11/17 15:02 97.5 76 16 121/70 100 Intake and Output 04/10/17 04/10/17 04/11/17 15:00 23:00 07:00 Intake Total 1320 ml 350 ml Output Total 900 ml Balance 420 ml 350 ml Medications Medications Current Medications Ondansetron HCl (Zofran Inj) 4 mg Q6H PRN IV NAUSEA AND/OR VOMITING Last administered on 03/20/17 06:00; Admin Dose 4 MG; Start 03/17/17 at 21:30 Acetaminophen (Tylenol Supp) 650 mg Q6H PRN [place] PAIN LEVEL 1-3 OR FEVER; Start 03/17/17 at 21:30 Morphine Sulfate (morphine) 2 mg Q4H PRN IV SEVERE PAIN LEVEL 7-10; Start at 21:30 Enoxaparin Sodium (Lovenox) 40 mg DAILY SC Last administered on 04/11/17 08:49 ; Admin Dose 40 MG; Start 03/18/17 at 09:00 Baclofen (Lioresal) 10 mg TID PO Last administered on 04/11/17 12:14; Admin Dose 10 MG; Start 03/18/17 at 09:00 Pantoprazole (Protonix Tab) 40 mg DAILY@06 PO Last administered on 04/11/17 05 :33; Admin Dose 40 MG; Start 03/20/17 at 06:00 Loratadine (Claritin) 10 mg DAILY PO Last administered on 04/11/17 08:41; Admin Dose 10 MG; Start 03/22/17 at 18:30 Lactobacillus Acidophilus/ Rhamnosus (Culturelle) 1 cap BID PO Last administered on 04/11/17 08:41; Admin Dose 1 CAP; Start 03/24/17 at 09:00 Acetaminophen/ Hydrocodone Bitart ([place] (5/325)) 1 tab Q6H PRN PO Pain Last administered on 04/02/17 05:59; Admin Dose 1 TAB; Start 03/25/17 at 13:00 PEG PEPE MD Apr 11, 2017 17:42
[2017-04-11 20:18] VITALS: BP 119/69; RESP 18
[2017-04-12 02:00] VITALS: BP 106/61; RESP 20
[2017-04-12] MEDS: PANTOPRAZOLE (EC) 40 MG TAB PO SCH (05:38)
[2017-04-12 08:05] VITALS: BP 110/55; RESP 18
[2017-04-12] MEDS: LORATADINE 10 MG TAB PO SCH (08:50)
[2017-04-12] MEDS: LACTOBACILLUS RHAMNOSUS CAP PO SCH (08:50)
[2017-04-12] MEDS: BACLOFEN 10 MG TAB PO SCH ×3 (08:50→21:07)
[2017-04-12] MEDS: ENOXAPARIN 40 MG/0.4 ML SYG SC SCH (09:29)
--- NOTE | 2017-04-12 13:26 | PN ---
Date/Time of Note Date/Time of Note DATE: 04/12/17 TIME: 13:25 Assessment/Plan VTE Prophylaxis VTE Prophylaxis Intervention: LMWH Lines/Catheters IV Catheter Type (from Nrs): Saline Lock Urinary Cath still in place: No Assessment/Plan Chief Complaint/Hosp Course 26 yo male wtih diffuse weakness 2/2 unclear muscular disorder admitted for inability to care for self 1. Failure to thrive. Continue with physical therapy. Continue with supplements. Awaiting for patient placement . remains stable at present 2. Muscular dystrophy/myopathy. Continue on baclofen. Continue with physical therapy measures. continue with aspiration precautions DVT prophylaxis: Lovenox Problems: Subjective 24 Hr Interval Summary Free Text/Dictation No change to clinical status Comfortable, no complaints Working with PT/OT Exam/Review of Systems Vital Signs Vitals Vital Signs Date Time Temp Pulse Resp B/P Pulse Ox O2 Delivery O2 Flow Rate FiO2 04/12/17 08:05 97.9 67 18 110/55 100 Intake and Output 04/11/17 04/11/17 04/12/17 15:00 23:00 07:00 Intake Total 1420 ml 370 ml Output Total 900 ml 400 ml Balance 520 ml -30 ml Medications Medications Current Medications Ondansetron HCl (Zofran Inj) 4 mg Q6H PRN IV NAUSEA AND/OR VOMITING Last administered on 03/20/17 06:00; Admin Dose 4 MG; Start 03/17/17 at 21:30 Acetaminophen (Tylenol Supp) 650 mg Q6H PRN [place] PAIN LEVEL 1-3 OR FEVER; Start 03/17/17 at 21:30 Morphine Sulfate (morphine) 2 mg Q4H PRN IV SEVERE PAIN LEVEL 7-10; Start at 21:30 Enoxaparin Sodium (Lovenox) 40 mg DAILY SC Last administered on 04/12/17 09:29 ; Admin Dose 40 MG; Start 03/18/17 at 09:00 Baclofen (Lioresal) 10 mg TID PO Last administered on 04/12/17 12:56; Admin Dose 10 MG; Start 03/18/17 at 09:00 Pantoprazole (Protonix Tab) 40 mg DAILY@06 PO Last administered on 04/12/17 05 :38; Admin Dose 40 MG; Start 03/20/17 at 06:00 Loratadine (Claritin) 10 mg DAILY PO Last administered on 04/12/17 08:50; Admin Dose 10 MG; Start 03/22/17 at 18:30 Lactobacillus Acidophilus/ Rhamnosus (Culturelle) 1 cap BID PO Last administered on 04/12/17 08:50; Admin Dose 1 CAP; Start 03/24/17 at 09:00 Acetaminophen/ Hydrocodone Bitart ([place] (5/325)) 1 tab Q6H PRN PO Pain Last administered on 04/02/17 05:59; Admin Dose 1 TAB; Start 03/25/17 at 13:00 PEG PEPE MD Apr 12, 2017 13:26
[2017-04-12 13:35] VITALS: BP 112/57; RESP 19
[2017-04-12 19:49] VITALS: BP 121/75; RESP 20
[2017-04-13 02:22] VITALS: BP 104/64; RESP 20
[2017-04-13 07:47] VITALS: BP 116/60; RESP 18
[2017-04-13] MEDS: BACLOFEN 10 MG TAB PO SCH ×3 (09:30→21:26)
[2017-04-13] MEDS: ENOXAPARIN 40 MG/0.4 ML SYG SC SCH (09:38)
[2017-04-13 14:39] VITALS: BP 111/71; RESP 16
--- NOTE | 2017-04-13 15:33 | PN ---
Date/Time of Note Date/Time of Note DATE: 04/13/17 TIME: 15:32 Assessment/Plan VTE Prophylaxis VTE Prophylaxis Intervention: LMWH Lines/Catheters IV Catheter Type (from Nrsg): Saline Lock Urinary Cath still in place: No Assessment/Plan Chief Complaint/Hosp Course 26 yo male wtih diffuse weakness 2/2 unclear systemic muscular disorder leading to diffuse weakness, dysarthria chronically who has been admitted for inability to care for self - Continue with physical therapy. - Awaiting for patient placement . remains stable at present DVT prophylaxis: Lovenox Problems: Subjective 24 Hr Interval Summary Free Text/Dictation No change to status Happy, feels well Excited to be working w PT Awaiting placement Exam/Review of Systems Vital Signs Vitals Vital Signs Date Time Temp Pulse Resp B/P Pulse Ox O2 Delivery O2 Flow Rate FiO2 04/13/17 14:39 97.6 81 16 111/71 99 Medications Medications Current Medications Ondansetron HCl (Zofran Inj) 4 mg Q6H PRN IV NAUSEA AND/OR VOMITING Last administered on 03/20/17 06:00; Admin Dose 4 MG; Start 03/17/17 at 21:30 Acetaminophen (Tylenol Supp) 650 mg Q6H PRN [place] PAIN LEVEL 1-3 OR FEVER; Start 03/17/17 at 21:30 Morphine Sulfate (morphine) 2 mg Q4H PRN IV SEVERE PAIN LEVEL 7-10; Start at 21:30 Enoxaparin Sodium (Lovenox) 40 mg DAILY SC Last administered on 04/13/17 09:38 ; Admin Dose 40 MG; Start 03/18/17 at 09:00 Baclofen (Lioresal) 10 mg TID PO Last administered on 04/13/17 13:46; Admin Dose 10 MG; Start 03/18/17 at 09:00 Acetaminophen/ Hydrocodone Bitart ([place] (5/325)) 1 tab Q6H PRN PO Pain Last administered on 04/02/17 05:59; Admin Dose 1 TAB; Start 03/25/17 at 13:00 PEG PEPE MD Apr 13, 2017 15:33
[2017-04-13] MEDS: DOCUSATE SODIUM 100 MG CAP PO PRN (18:05)
[2017-04-13 19:43] VITALS: BP 114/66; RESP 20
[2017-04-14 02:00] VITALS: BP 94/52; RESP 18
[2017-04-14] MEDS: DOCUSATE SODIUM 100 MG CAP PO PRN (05:28)
[2017-04-14 08:25] VITALS: BP 112/64; RESP 16
[2017-04-14] MEDS: BACLOFEN 10 MG TAB PO SCH ×3 (08:28→21:47)
[2017-04-14] MEDS: ENOXAPARIN 40 MG/0.4 ML SYG SC SCH (08:33)
[2017-04-14] MEDS ORDERED: morphine 4 MG/ML VIAL IV PRN (14:00)
[2017-04-14 14:21] VITALS: BP 108/67; RESP 16
--- NOTE | 2017-04-14 14:51 | PN ---
Date/Time of Note Date/Time of Note DATE: 04/14/17 TIME: 14:50 Assessment/Plan VTE Prophylaxis VTE Prophylaxis Intervention: LMWH Lines/Catheters IV [facility] Type (from [facility]): Saline Lock Urinary Cath still in place: No Assessment/Plan Chief Complaint/Hosp Course 1. Diffuse weakness 2/2 unclear systemic muscular disorder leading to diffuse weakness, dysarthria chronically who has been admitted for inability to care for self - Continue with physical therapy. - Awaiting for patient placement . remains stable at present DVT prophylaxis: Lovenox Problems: Subjective 24 Hr Interval Summary Constitutional: no complaints Exam/Review of Systems Vital Signs Vitals Vital Signs Date Time Temp Pulse Resp B/P Pulse Ox O2 Delivery O2 Flow Rate FiO2 04/14/17 14:21 97.3 74 16 108/67 98 Intake and Output 04/13/17 04/13/17 04/14/17 15:00 23:00 07:00 Intake Total 600 ml 1060 ml 120 ml Output Total 1300 ml 1100 ml 750 ml Balance -700 ml -40 ml -630 ml Exam Constitutional: alert, oriented Respiratory: clear to auscultation Cardiovascular: regular rate and rhythm Gastrointestinal: soft, No distended Musculoskeletal: nl extremities to inspection Medications Medications Current Medications Ondansetron HCl (Zofran Inj) 4 mg Q6H PRN IV NAUSEA AND/OR VOMITING Last administered on 03/20/17 06:00; Admin Dose 4 MG; Start 03/17/17 at 21:30 Acetaminophen (Tylenol Supp) 650 mg Q6H PRN [place] PAIN LEVEL 1-3 OR FEVER; Start 03/17/17 at 21:30 Enoxaparin Sodium (Lovenox) 40 mg DAILY SC Last administered on 04/14/17 08:33 ; Admin Dose 40 MG; Start 03/18/17 at 09:00 Baclofen (Lioresal) 10 mg TID PO Last administered on 04/14/17 12:37; Admin Dose 10 MG; Start 03/18/17 at 09:00 Acetaminophen/ Hydrocodone Bitart ([place] (5/325)) 1 tab Q6H PRN PO Pain Last administered on 04/02/17 05:59; Admin Dose 1 TAB; Start 03/25/17 at 13:00 Docusate Sodium (Colace) 100 mg TID PRN PO CONSTIPATION Last administered on 7/ 31/17at 05:28; Admin Dose 100 MG; Start 04/13/17 at 17:30 Morphine Sulfate (morphine) 2 mg Q4H PRN IV SEVERE PAIN LEVEL 7-10; Start 04/14 at 14:00 GEORGINA ZEPEDA Apr 14, 2017 14:50
[2017-04-14 20:00] VITALS: BP 126/85; PULSE 74; RESP 22
[2017-04-15 02:00] VITALS: BP 104/50; PULSE 59; RESP 18
[2017-04-15 07:37] VITALS: BP 105/64; RESP 16
[2017-04-15] MEDS: BACLOFEN 10 MG TAB PO SCH ×3 (09:40→20:37)
[2017-04-15] MEDS: ENOXAPARIN 40 MG/0.4 ML SYG SC SCH (09:47)
[2017-04-15 13:53] VITALS: BP 119/67; RESP 18
--- NOTE | 2017-04-15 16:17 | PN ---
Date/Time of Note Date/Time of Note DATE: 04/15/17 TIME: 16:16 Assessment/Plan VTE Prophylaxis VTE Prophylaxis Intervention: LMWH Lines/Catheters IV Catheter Type (from Nrs): Saline Lock Urinary Cath still in place: No Assessment/Plan Chief Complaint/Hosp Course 1. Diffuse weakness 2/2 unclear systemic muscular disorder leading to diffuse weakness, dysarthria chronically who has been admitted for inability to care for self - Continue with physical therapy. - Awaiting for patient placement . remains stable at present DVT prophylaxis: Lovenox Problems: Subjective 24 Hr Interval Summary Constitutional: no complaints Exam/Review of Systems Vital Signs Vitals Vital Signs Date Time Temp Pulse Resp B/P Pulse Ox O2 Delivery O2 Flow Rate FiO2 04/15/17 13:53 98.0 80 18 119/67 98 04/15/17 02:00 Room Air Intake and Output 04/14/17 04/14/17 04/15/17 15:00 23:00 07:00 Intake Total 1260 ml 300 ml Output Total 700 ml 400 ml Balance 560 ml -100 ml Exam Constitutional: alert Respiratory: clear to auscultation Cardiovascular: regular rate and rhythm Gastrointestinal: soft, No distended Musculoskeletal: nl extremities to inspection Medications Medications Current Medications Ondansetron HCl (Zofran Inj) 4 mg Q6H PRN IV NAUSEA AND/OR VOMITING Last administered on 03/20/17 06:00; Admin Dose 4 MG; Start 03/17/17 at 21:30 Acetaminophen (Tylenol Supp) 650 mg Q6H PRN [place] PAIN LEVEL 1-3 OR FEVER; Start 03/17/17 at 21:30 Enoxaparin Sodium (Lovenox) 40 mg DAILY SC Last administered on 04/15/17 09:47 ; Admin Dose 40 MG; Start 03/18/17 at 09:00 Baclofen (Lioresal) 10 mg TID PO Last administered on 04/15/17 14:05; Admin Dose 10 MG; Start 03/18/17 at 09:00 Acetaminophen/ Hydrocodone Bitart ([place] (5/325)) 1 tab Q6H PRN PO Pain Last administered on 04/02/17 05:59; Admin Dose 1 TAB; Start 03/25/17 at 13:00 Docusate Sodium (Colace) 100 mg TID PRN PO CONSTIPATION Last administered on 7/ 31/17at 05:28; Admin Dose 100 MG; Start 04/13/17 at 17:30 Morphine Sulfate (morphine) 2 mg Q4H PRN IV SEVERE PAIN LEVEL 7-10; Start 04/14 at 14:00 GEORGINA ZEPEDA Apr 15, 2017 16:17
[2017-04-15] MEDS: HYDROCODONE/APAP (5/325) TAB PO PRN (18:28)
[2017-04-15 20:28] VITALS: BP 121/64; RESP 18
[2017-04-16 02:00] VITALS: BP 116/62; RESP 20
[2017-04-16 07:46] VITALS: BP 116/65; RESP 18
[2017-04-16] MEDS: BACLOFEN 10 MG TAB PO SCH ×3 (09:37→21:07)
[2017-04-16] MEDS: ENOXAPARIN 40 MG/0.4 ML SYG SC SCH (10:32)
[2017-04-16 13:56] VITALS: BP 113/64; RESP 18
--- NOTE | 2017-04-16 14:34 | PN ---
Date/Time of Note Date/Time of Note DATE: 04/16/17 TIME: 14:34 Assessment/Plan VTE Prophylaxis VTE Prophylaxis Intervention: LMWH Lines/Catheters IV Catheter Type (from Nrs): Saline Lock Urinary Cath still in place: No Assessment/Plan Chief Complaint/Hosp Course 1. Diffuse weakness 2/2 unclear systemic muscular disorder leading to diffuse weakness, dysarthria chronically who has been admitted for inability to care for self - Continue with physical therapy. - Awaiting for patient placement . remains stable at present DVT prophylaxis: Lovenox Problems: Subjective 24 Hr Interval Summary Constitutional: no complaints Exam/Review of Systems Vital Signs Vitals Vital Signs Date Time Temp Pulse Resp B/P Pulse Ox O2 Delivery O2 Flow Rate FiO2 04/16/17 13:56 98.3 73 18 113/64 98 04/15/17 02:00 Room Air Intake and Output 04/15/17 04/15/17 04/16/17 15:00 23:00 07:00 Intake Total 1040 ml 400 ml Output Total 700 ml Balance 1040 ml -300 ml Exam Constitutional: alert, oriented Respiratory: clear to auscultation Cardiovascular: regular rate and rhythm Gastrointestinal: soft, No distended Musculoskeletal: nl extremities to inspection Medications Medications Current Medications Ondansetron HCl (Zofran Inj) 4 mg Q6H PRN IV NAUSEA AND/OR VOMITING Last administered on 03/20/17 06:00; Admin Dose 4 MG; Start 03/17/17 at 21:30 Acetaminophen (Tylenol Supp) 650 mg Q6H PRN [place] PAIN LEVEL 1-3 OR FEVER; Start 03/17/17 at 21:30 Enoxaparin Sodium (Lovenox) 40 mg DAILY SC Last administered on 04/16/17 10:32 ; Admin Dose 40 MG; Start 03/18/17 at 09:00 Baclofen (Lioresal) 10 mg TID PO Last administered on 04/16/17 14:20; Admin Dose 10 MG; Start 03/18/17 at 09:00 Acetaminophen/ Hydrocodone Bitart ([place] (5/325)) 1 tab Q6H PRN PO Pain Last administered on 04/15/17 18:28; Admin Dose 1 TAB; Start 03/25/17 at 13:00 Docusate Sodium (Colace) 100 mg TID PRN PO CONSTIPATION Last administered on 7/ 31/17at 05:28; Admin Dose 100 MG; Start 04/13/17 at 17:30 Morphine Sulfate (morphine) 2 mg Q4H PRN IV SEVERE PAIN LEVEL 7-10; Start 04/14 at 14:00 GEORGINA ZEPEDA Apr 16, 2017 14:34
[2017-04-16] MEDS: LIDOCAINE 2% VISC 15 ML CUP PO PRN (18:45)
[2017-04-16] MEDS: HYDROCODONE/APAP (5/325) TAB PO PRN (18:49)
[2017-04-16 19:23] VITALS: BP 129/82; RESP 18
[2017-04-17] MEDS: HYDROCODONE/APAP (5/325) TAB PO PRN (04:54)
[2017-04-17 07:52] VITALS: BP 128/80; RESP 18
[2017-04-17] MEDS: BACLOFEN 10 MG TAB PO SCH ×3 (08:46→20:29)
[2017-04-17] MEDS: ENOXAPARIN 40 MG/0.4 ML SYG SC SCH (08:56)
[2017-04-17] MEDS: LIDOCAINE 2% VISC 15 ML CUP PO PRN (08:58)
[2017-04-17] MEDS ORDERED: MAGNESIUM HYDROXIDE 30ML CUP PO PRN (14:00)
[2017-04-17] MEDS: SENNA TAB PO SCH ×2 (14:20→20:29)
[2017-04-17 15:04] VITALS: BP 134/88; RESP 18
--- NOTE | 2017-04-17 15:06 | PN ---
Date/Time of Note Date/Time of Note DATE: 04/17/17 TIME: 15:06 Assessment/Plan VTE Prophylaxis VTE Prophylaxis Intervention: LMWH Lines/Catheters IV Catheter Type (from Nrs): Saline Lock Urinary Cath still in place: No Assessment/Plan Chief Complaint/Hosp Course 1. Diffuse weakness 2/2 unclear systemic muscular disorder leading to diffuse weakness, dysarthria chronically who has been admitted for inability to care for self - Continue with physical therapy. - Awaiting for patient placement . remains stable at present DVT prophylaxis: Lovenox Problems: Subjective 24 Hr Interval Summary Constitutional: no complaints Exam/Review of Systems Vital Signs Vitals Vital Signs Date Time Temp Pulse Resp B/P Pulse Ox O2 Delivery O2 Flow Rate FiO2 04/17/17 15:04 98.0 74 18 134/88 98 04/15/17 02:00 Room Air Intake and Output 04/16/17 04/16/17 04/17/17 15:00 23:00 07:00 Intake Total 840 ml Output Total 400 ml Balance 440 ml Exam Constitutional: alert Respiratory: clear to auscultation Cardiovascular: regular rate and rhythm Gastrointestinal: soft, No distended Musculoskeletal: nl extremities to inspection Medications Medications Current Medications Ondansetron HCl (Zofran Inj) 4 mg Q6H PRN IV NAUSEA AND/OR VOMITING Last administered on 03/20/17 06:00; Admin Dose 4 MG; Start 03/17/17 at 21:30 Acetaminophen (Tylenol Supp) 650 mg Q6H PRN [place] PAIN LEVEL 1-3 OR FEVER; Start 03/17/17 at 21:30 Enoxaparin Sodium (Lovenox) 40 mg DAILY SC Last administered on 04/17/17 08:56 ; Admin Dose 40 MG; Start 03/18/17 at 09:00 Baclofen (Lioresal) 10 mg TID PO Last administered on 04/17/17 14:21; Admin Dose 10 MG; Start 03/18/17 at 09:00 Acetaminophen/ Hydrocodone Bitart ([place] (5/325)) 1 tab Q6H PRN PO Pain Last administered on 04/17/17 04:54; Admin Dose 1 TAB; Start 03/25/17 at 13:00 Docusate Sodium (Colace) 100 mg TID PRN PO CONSTIPATION Last administered on 7/ 31/17at 05:28; Admin Dose 100 MG; Start 04/13/17 at 17:30 Morphine Sulfate (morphine) 2 mg Q4H PRN IV SEVERE PAIN LEVEL 7-10; Start 04/14 at 14:00 Lidocaine (Xylocaine (Viscous)) 15 ml QID PRN PO PAIN AND/OR INFLAMMATION Last administered on 04/17/17 08:58; Admin Dose 15 ML; Start 04/16/17 at 18:00 Senna (Senokot) 1 tab BID PO Last administered on 04/17/17 14:20; Admin Dose 1 TAB; Start 04/17/17 at 14:00 Magnesium Hydroxide (Milk Of Mag) 30 ml DAILY PRN PO CONSTIPATION; Start at 14:00 GEORGINA ZEPEDA Apr 17, 2017 15:06
[2017-04-17 20:15] VITALS: BP 119/75; RESP 18
[2017-04-18 02:02] VITALS: BP 146/85; RESP 18
[2017-04-18 08:17] VITALS: BP 132/81; RESP 18
[2017-04-18] MEDS: BACLOFEN 10 MG TAB PO SCH ×3 (08:31→20:27)
[2017-04-18] MEDS: SENNA TAB PO SCH ×2 (08:31→20:27)
[2017-04-18] MEDS: ENOXAPARIN 40 MG/0.4 ML SYG SC SCH (08:48)
[2017-04-18 16:04] VITALS: BP 124/79; RESP 20
--- NOTE | 2017-04-18 18:33 | PN ---
Date/Time of Note Date/Time of Note DATE: 04/18/17 TIME: 18:32 Assessment/Plan VTE Prophylaxis VTE Prophylaxis Intervention: LMWH Lines/Catheters IV Catheter Type (from Nrs): Saline Lock Urinary Cath still in place: No Assessment/Plan Chief Complaint/Hosp Course 1. Diffuse weakness 2/2 unclear systemic muscular disorder leading to diffuse weakness, dysarthria chronically who has been admitted for inability to care for self - Continue with physical therapy. - Awaiting for patient placement . remains stable at present DVT prophylaxis: Lovenox Problems: Subjective 24 Hr Interval Summary Constitutional: no complaints Exam/Review of Systems Vital Signs Vitals Vital Signs Date Time Temp Pulse Resp B/P Pulse Ox O2 Delivery O2 Flow Rate FiO2 04/18/17 16:04 98.4 88 20 124/79 97 04/15/17 02:00 Room Air Intake and Output 04/17/17 04/17/17 04/18/17 15:00 23:00 07:00 Intake Total 720 ml 400 ml Output Total 600 ml 600 ml Balance 120 ml -200 ml Exam Constitutional: alert Respiratory: clear to auscultation Cardiovascular: regular rate and rhythm Gastrointestinal: soft, No distended Musculoskeletal: nl extremities to inspection Medications Medications Current Medications Ondansetron HCl (Zofran Inj) 4 mg Q6H PRN IV NAUSEA AND/OR VOMITING Last administered on 03/20/17 06:00; Admin Dose 4 MG; Start 03/17/17 at 21:30 Acetaminophen (Tylenol Supp) 650 mg Q6H PRN [place] PAIN LEVEL 1-3 OR FEVER; Start 03/17/17 at 21:30 Enoxaparin Sodium (Lovenox) 40 mg DAILY SC Last administered on 04/18/17 08:48 ; Admin Dose 40 MG; Start 03/18/17 at 09:00 Baclofen (Lioresal) 10 mg TID PO Last administered on 04/18/17 13:18; Admin Dose 10 MG; Start 03/18/17 at 09:00 Acetaminophen/ Hydrocodone Bitart ([place] (5/325)) 1 tab Q6H PRN PO Pain Last administered on 04/17/17 04:54; Admin Dose 1 TAB; Start 03/25/17 at 13:00 Docusate Sodium (Colace) 100 mg TID PRN PO CONSTIPATION Last administered on 05:28; Admin Dose 100 MG; Start 04/13/17 at 17:30 Morphine Sulfate (morphine) 2 mg Q4H PRN IV SEVERE PAIN LEVEL 7-10; Start 04/14 at 14:00 Lidocaine (Xylocaine (Viscous)) 15 ml QID PRN PO PAIN AND/OR INFLAMMATION Last administered on 04/17/17 08:58; Admin Dose 15 ML; Start 04/16/17 at 18:00 Senna (Senokot) 1 tab BID PO Last administered on 04/18/17 08:31; Admin Dose 1 TAB; Start 04/17/17 at 14:00 Magnesium Hydroxide (Milk Of Mag) 30 ml DAILY PRN PO CONSTIPATION Last administered on 04/17/17 20:29; Admin Dose 30 ML; Start 04/17/17 at 14:00 GEORGINA ZEPEDA Apr 18, 2017 18:33
[2017-04-18 20:19] VITALS: BP 124/89; RESP 18
[2017-04-19 03:07] VITALS: BP 128/76; RESP 19
[2017-04-19 07:54] VITALS: BP 121/79; RESP 18
[2017-04-19] MEDS: BACLOFEN 10 MG TAB PO SCH ×3 (09:00→21:03)
[2017-04-19] MEDS: SENNA TAB PO SCH ×2 (09:00→21:03)
[2017-04-19] MEDS: ENOXAPARIN 40 MG/0.4 ML SYG SC SCH (09:28)
[2017-04-19] MEDS ORDERED: morphine 2 MG INJ IV PRN (10:30)
--- NOTE | 2017-04-19 13:26 | PN ---
Date/Time of Note Date/Time of Note DATE: 04/19/17 TIME: 13:25 Assessment/Plan VTE Prophylaxis VTE Prophylaxis Intervention: LMWH Lines/Catheters IV Catheter Type (from Nrs): Saline Lock Urinary Cath still in place: No Assessment/Plan Chief Complaint/Hosp Course 1. Diffuse weakness 2/2 unclear systemic muscular disorder leading to diffuse weakness, dysarthria chronically who has been admitted for inability to care for self - Continue with physical therapy. - Awaiting for patient placement . remains stable at present DVT prophylaxis: Lovenox Problems: Subjective 24 Hr Interval Summary Constitutional: no complaints Exam/Review of Systems Vital Signs Vitals Vital Signs Date Time Temp Pulse Resp B/P Pulse Ox O2 Delivery O2 Flow Rate FiO2 04/19/17 07:54 98.5 92 18 121/79 97 Intake and Output 04/18/17 04/18/17 04/19/17 15:00 23:00 07:00 Intake Total 720 ml 480 ml Output Total 900 ml 800 ml Balance -180 ml -320 ml Exam Constitutional: alert, oriented Respiratory: clear to auscultation Cardiovascular: regular rate and rhythm Gastrointestinal: soft, No distended Musculoskeletal: nl extremities to inspection Medications Medications Current Medications Ondansetron HCl (Zofran Inj) 4 mg Q6H PRN IV NAUSEA AND/OR VOMITING Last administered on 03/20/17 06:00; Admin Dose 4 MG; Start 03/17/17 at 21:30 Acetaminophen (Tylenol Supp) 650 mg Q6H PRN [place] PAIN LEVEL 1-3 OR FEVER; Start 03/17/17 at 21:30 Enoxaparin Sodium (Lovenox) 40 mg DAILY SC Last administered on 04/19/17 09:28 ; Admin Dose 40 MG; Start 03/18/17 at 09:00 Baclofen (Lioresal) 10 mg TID PO Last administered on 04/19/17 12:47; Admin Dose 10 MG; Start 03/18/17 at 09:00 Acetaminophen/ Hydrocodone Bitart ([place] (5/325)) 1 tab Q6H PRN PO Pain Last administered on 04/17/17 04:54; Admin Dose 1 TAB; Start 03/25/17 at 13:00 Docusate Sodium (Colace) 100 mg TID PRN PO CONSTIPATION Last administered on 05:28; Admin Dose 100 MG; Start 04/13/17 at 17:30 Lidocaine (Xylocaine (Viscous)) 15 ml QID PRN PO PAIN AND/OR INFLAMMATION Last administered on 04/17/17 08:58; Admin Dose 15 ML; Start 04/16/17 at 18:00 Senna (Senokot) 1 tab BID PO Last administered on 04/19/17 09:00; Admin Dose 1 TAB; Start 04/17/17 at 14:00 Magnesium Hydroxide (Milk Of Mag) 30 ml DAILY PRN PO CONSTIPATION Last administered on 04/17/17 20:29; Admin Dose 30 ML; Start 04/17/17 at 14:00 Morphine Sulfate (morphine) 2 mg Q4H PRN IV SEVERE PAIN LEVEL 7-10; Start at 10:30 GEORGINA ZEPEDA Apr 19, 2017 13:26
[2017-04-19 14:00] VITALS: BP 117/69; RESP 18
[2017-04-19 20:01] VITALS: BP 115/70; RESP 18
[2017-04-20 02:00] VITALS: BP 118/58; RESP 18
[2017-04-20 08:35] VITALS: BP 120/83; RESP 16
[2017-04-20] MEDS: BACLOFEN 10 MG TAB PO SCH ×3 (09:00→20:57)
[2017-04-20] MEDS: DOCUSATE SODIUM 100 MG CAP PO PRN (09:00)
[2017-04-20] MEDS: SENNA TAB PO SCH ×2 (09:00→20:57)
[2017-04-20] MEDS: ENOXAPARIN 40 MG/0.4 ML SYG SC SCH (09:15)
--- NOTE | 2017-04-20 12:18 | PN ---
Date/Time of Note Date/Time of Note DATE: 04/20/17 TIME: :17 Assessment/Plan VTE Prophylaxis VTE Prophylaxis Intervention: LMWH Lines/Catheters IV Catheter Type (from Nrs): Saline Lock Urinary Cath still in place: No Assessment/Plan Chief Complaint/Hosp Course 1. Diffuse weakness 2/2 unclear systemic muscular disorder leading to diffuse weakness, dysarthria chronically who has been admitted for inability to care for self - Continue with physical therapy. - Awaiting for patient placement . remains stable at present DVT prophylaxis: Lovenox Problems: Subjective 24 Hr Interval Summary Constitutional: no complaints Exam/Review of Systems Vital Signs Vitals Vital Signs Date Time Temp Pulse Resp B/P Pulse Ox O2 Delivery O2 Flow Rate FiO2 04/20/17 08:35 98.2 71 16 120/83 97 Intake and Output 04/19/17 04/19/17 04/20/17 15:00 23:00 07:00 Intake Total 800 ml 450 ml Output Total 500 ml 600 ml Balance 300 ml -150 ml Exam Constitutional: alert, oriented Respiratory: clear to auscultation Cardiovascular: regular rate and rhythm Gastrointestinal: soft, No distended Musculoskeletal: nl extremities to inspection Medications Medications Current Medications Ondansetron HCl (Zofran Inj) 4 mg Q6H PRN IV NAUSEA AND/OR VOMITING Last administered on 03/20/17 06:00; Admin Dose 4 MG; Start 03/17/17 at 21:30 Acetaminophen (Tylenol Supp) 650 mg Q6H PRN [place] PAIN LEVEL 1-3 OR FEVER; Start 03/17/17 at 21:30 Enoxaparin Sodium (Lovenox) 40 mg DAILY SC Last administered on 04/20/17 09:15 ; Admin Dose 40 MG; Start 03/18/17 at 09:00 Baclofen (Lioresal) 10 mg TID PO Last administered on 04/20/17 09:00; Admin Dose 10 MG; Start 03/18/17 at 09:00 Acetaminophen/ Hydrocodone Bitart ([place] (5/325)) 1 tab Q6H PRN PO Pain Last administered on 04/17/17 04:54; Admin Dose 1 TAB; Start 03/25/17 at 13:00 Docusate Sodium (Colace) 100 mg TID PRN PO CONSTIPATION Last administered on 09:00; Admin Dose 100 MG; Start 04/13/17 at 17:30 Lidocaine (Xylocaine (Viscous)) 15 ml QID PRN PO PAIN AND/OR INFLAMMATION Last administered on 04/17/17 08:58; Admin Dose 15 ML; Start 04/16/17 at 18:00 Senna (Senokot) 1 tab BID PO Last administered on 04/20/17 09:00; Admin Dose 1 TAB; Start 04/17/17 at 14:00 Magnesium Hydroxide (Milk Of Mag) 30 ml DAILY PRN PO CONSTIPATION Last administered on 04/17/17 20:29; Admin Dose 30 ML; Start 04/17/17 at 14:00 Morphine Sulfate (morphine) 2 mg Q4H PRN IV SEVERE PAIN LEVEL 7-10; Start at 10:30 GEORGINA ZEPEDA Apr 20, 2017 12:18
[2017-04-20 14:00] VITALS: BP 122/78; RESP 18
[2017-04-20 20:00] VITALS: BP 125/78; RESP 18
[2017-04-21 02:45] VITALS: BP 110/67; RESP 16
[2017-04-21 08:01] VITALS: BP 132/82; RESP 18
[2017-04-21] MEDS: SENNA TAB PO SCH ×2 (08:40→20:47)
[2017-04-21] MEDS: BACLOFEN 10 MG TAB PO SCH ×3 (08:40→20:47)
[2017-04-21] MEDS: ENOXAPARIN 40 MG/0.4 ML SYG SC SCH (08:44)
[2017-04-21] MEDS: HYDROCODONE/APAP (5/325) TAB PO PRN (11:59)
[2017-04-21] MEDS: LIDOCAINE 2% VISC 15 ML CUP PO PRN (11:59)
[2017-04-21 13:51] VITALS: BP 136/85; RESP 18
--- NOTE | 2017-04-21 18:16 | PN ---
Date/Time of Note Date/Time of Note DATE: 04/21/17 TIME: 18:15 Assessment/Plan VTE Prophylaxis VTE Prophylaxis Intervention: LMWH Lines/Catheters IV Catheter Type (from Nrsg): Saline Lock Urinary Cath still in place: No Assessment/Plan Chief Complaint/Hosp Course 26 yo male wtih diffuse weakness 2/2 unclear systemic muscular disorder leading to diffuse weakness, dysarthria chronically who has been admitted for inability to care for self - Continue with physical therapy - Will try to have dentist evaluate pt for his tooth pain. Nothing visible there on exam beside old filling - Awaiting for patient placement . remains stable at present DVT prophylaxis: Lovenox Problems: Subjective 24 Hr Interval Summary Free Text/Dictation Complains of pain in L lower molars, seems to have been present for weeks Exam/Review of Systems Vital Signs Vitals Vital Signs Date Time Temp Pulse Resp B/P Pulse Ox O2 Delivery O2 Flow Rate FiO2 04/21/17 13:51 97.5 94 18 136/85 97 Intake and Output 04/20/17 04/20/17 04/21/17 15:00 23:00 07:00 Intake Total 480 ml Balance 480 ml Exam Well appearing Dysarthria No localizing lesion or signs of infection at site of oral pain Medications Medications Current Medications Ondansetron HCl (Zofran Inj) 4 mg Q6H PRN IV NAUSEA AND/OR VOMITING Last administered on 03/20/17 06:00; Admin Dose 4 MG; Start 03/17/17 at 21:30 Acetaminophen (Tylenol Supp) 650 mg Q6H PRN [place] PAIN LEVEL 1-3 OR FEVER; Start 03/17/17 at 21:30 Enoxaparin Sodium (Lovenox) 40 mg DAILY SC Last administered on 04/21/17 08:44 ; Admin Dose 40 MG; Start 03/18/17 at 09:00 Baclofen (Lioresal) 10 mg TID PO Last administered on 04/21/17 12:25; Admin Dose 10 MG; Start 03/18/17 at 09:00 Acetaminophen/ Hydrocodone Bitart ([place] (5/325)) 1 tab Q6H PRN PO Pain Last administered on 04/21/17 11:59; Admin Dose 1 TAB; Start 03/25/17 at 13:00 Docusate Sodium (Colace) 100 mg TID PRN PO CONSTIPATION Last administered on 09:00; Admin Dose 100 MG; Start 04/13/17 at 17:30 Lidocaine (Xylocaine (Viscous)) 15 ml QID PRN PO PAIN AND/OR INFLAMMATION Last administered on 04/21/17 11:59; Admin Dose 15 ML; Start 04/16/17 at 18:00 Senna (Senokot) 1 tab BID PO Last administered on 04/21/17 08:40; Admin Dose 1 TAB; Start 04/17/17 at 14:00 Magnesium Hydroxide (Milk Of Mag) 30 ml DAILY PRN PO CONSTIPATION Last administered on 04/17/17 20:29; Admin Dose 30 ML; Start 04/17/17 at 14:00 Morphine Sulfate (morphine) 2 mg Q4H PRN IV SEVERE PAIN LEVEL 7-10; Start at 10:30 PEG PEPE MD Apr 21, 2017 18:16
[2017-04-21 20:20] VITALS: BP 133/88; RESP 20
[2017-04-22 02:36] VITALS: BP 135/84; RESP 18
[2017-04-22 07:52] VITALS: BP 116/85; RESP 19
[2017-04-22] MEDS: SENNA TAB PO SCH ×2 (09:20→21:05)
[2017-04-22] MEDS: BACLOFEN 10 MG TAB PO SCH ×3 (09:21→21:05)
[2017-04-22] MEDS: ENOXAPARIN 40 MG/0.4 ML SYG SC SCH (09:28)
[2017-04-22 14:05] VITALS: BP 124/73; RESP 18
--- NOTE | 2017-04-22 18:44 | PN ---
Date/Time of Note Date/Time of Note DATE: 04/22/17 TIME: 18:43 Assessment/Plan VTE Prophylaxis VTE Prophylaxis Intervention: LMWH Lines/Catheters IV Catheter Type (from Nrsg): Saline Lock Urinary Cath still in place: No Assessment/Plan Chief Complaint/Hosp Course 26 yo male wtih diffuse weakness 2/2 unclear systemic muscular disorder leading to diffuse weakness, dysarthria chronically who has been admitted for inability to care for self - Continue with physical therapy - Will try to have dentist evaluate pt for his tooth pain. Nothing visible there on exam beside old filling - Awaiting for patient placement . remains stable at present DVT prophylaxis: Lovenox Problems: Subjective 24 Hr Interval Summary Free Text/Dictation Feels well, no complaints Exam/Review of Systems Vital Signs Vitals Vital Signs Date Time Temp Pulse Resp B/P Pulse Ox O2 Delivery O2 Flow Rate FiO2 04/22/17 14:05 98.2 86 18 124/73 99 Intake and Output 04/21/17 04/21/17 04/22/17 14:59 22:59 06:59 Intake Total 480 ml Output Total 550 ml Balance -70 ml Medications Medications Current Medications Ondansetron HCl (Zofran Inj) 4 mg Q6H PRN IV NAUSEA AND/OR VOMITING Last administered on 03/20/17 06:00; Admin Dose 4 MG; Start 03/17/17 at 21:30 Acetaminophen (Tylenol Supp) 650 mg Q6H PRN [place] PAIN LEVEL 1-3 OR FEVER; Start 03/17/17 at 21:30 Enoxaparin Sodium (Lovenox) 40 mg DAILY SC Last administered on 04/22/17 09:28 ; Admin Dose 40 MG; Start 03/18/17 at 09:00 Baclofen (Lioresal) 10 mg TID PO Last administered on 04/22/17 14:02; Admin Dose 10 MG; Start 03/18/17 at 09:00 Acetaminophen/ Hydrocodone Bitart ([place] (5/325)) 1 tab Q6H PRN PO Pain Last administered on 04/21/17 11:59; Admin Dose 1 TAB; Start 03/25/17 at 13:00 Docusate Sodium (Colace) 100 mg TID PRN PO CONSTIPATION Last administered on 09:00; Admin Dose 100 MG; Start 04/13/17 at 17:30 Lidocaine (Xylocaine (Viscous)) 15 ml QID PRN PO PAIN AND/OR INFLAMMATION Last administered on 04/21/17 11:59; Admin Dose 15 ML; Start 04/16/17 at 18:00 Senna (Senokot) 1 tab BID PO Last administered on 04/22/17 09:20; Admin Dose 1 TAB; Start 04/17/17 at 14:00 Magnesium Hydroxide (Milk Of Mag) 30 ml DAILY PRN PO CONSTIPATION Last administered on 04/17/17 20:29; Admin Dose 30 ML; Start 04/17/17 at 14:00 Morphine Sulfate (morphine) 2 mg Q4H PRN IV SEVERE PAIN LEVEL 7-10; Start at 10:30 PEG PEPE MD Apr 22, 2017 18:44
[2017-04-22 20:26] VITALS: BP 127/79; RESP 20
[2017-04-23 02:33] VITALS: BP 132/76; RESP 20
[2017-04-23 08:03] VITALS: BP 121/76; RESP 18
[2017-04-23] MEDS: BACLOFEN 10 MG TAB PO SCH ×3 (08:55→20:58)
[2017-04-23] MEDS: SENNA TAB PO SCH ×2 (08:56→20:58)
[2017-04-23] MEDS: ENOXAPARIN 40 MG/0.4 ML SYG SC SCH (09:00)
[2017-04-23 14:19] VITALS: BP 129/73; RESP 18
--- NOTE | 2017-04-23 17:35 | PN ---
Date/Time of Note Date/Time of Note DATE: 04/23/17 TIME: 17:35 Assessment/Plan VTE Prophylaxis VTE Prophylaxis Intervention: LMWH Lines/Catheters IV Catheter Type (from Nrsg): Saline Lock Urinary Cath still in place: No Assessment/Plan Chief Complaint/Hosp Course 26 yo male wtih diffuse weakness 2/2 unclear systemic muscular disorder leading to diffuse weakness, dysarthria chronically who has been admitted for inability to care for self - Continue with physical therapy - Awaiting patient placement - No acute medical issues DVT prophylaxis: Lovenox Problems: Subjective 24 Hr Interval Summary Free Text/Dictation Tooth pain seems to have resolved happy, no complaints Exam/Review of Systems Vital Signs Vitals Vital Signs Date Time Temp Pulse Resp B/P Pulse Ox O2 Delivery O2 Flow Rate FiO2 04/23/17 14:19 98.5 83 18 129/73 98 Intake and Output 04/22/17 04/22/17 04/23/17 15:00 23:00 07:00 Intake Total 300 ml 840 ml 800 ml Output Total 600 ml 100 ml Balance -300 ml 840 ml 700 ml Medications Medications Current Medications Ondansetron HCl (Zofran Inj) 4 mg Q6H PRN IV NAUSEA AND/OR VOMITING Last administered on 03/20/17 06:00; Admin Dose 4 MG; Start 03/17/17 at 21:30 Acetaminophen (Tylenol Supp) 650 mg Q6H PRN [place] PAIN LEVEL 1-3 OR FEVER; Start 03/17/17 at 21:30 Enoxaparin Sodium (Lovenox) 40 mg DAILY SC Last administered on 04/23/17 09:00 ; Admin Dose 40 MG; Start 03/18/17 at 09:00 Baclofen (Lioresal) 10 mg TID PO Last administered on 04/23/17 13:32; Admin Dose 10 MG; Start 03/18/17 at 09:00 Acetaminophen/ Hydrocodone Bitart ([place] (5/325)) 1 tab Q6H PRN PO Pain Last administered on 04/21/17 11:59; Admin Dose 1 TAB; Start 03/25/17 at 13:00 Docusate Sodium (Colace) 100 mg TID PRN PO CONSTIPATION Last administered on 09:00; Admin Dose 100 MG; Start 04/13/17 at 17:30 Lidocaine (Xylocaine (Viscous)) 15 ml QID PRN PO PAIN AND/OR INFLAMMATION Last administered on 04/21/17 11:59; Admin Dose 15 ML; Start 04/16/17 at 18:00 Senna (Senokot) 1 tab BID PO Last administered on 04/23/17 08:56; Admin Dose 1 TAB; Start 04/17/17 at 14:00 Magnesium Hydroxide (Milk Of Mag) 30 ml DAILY PRN PO CONSTIPATION Last administered on 04/17/17 20:29; Admin Dose 30 ML; Start 04/17/17 at 14:00 Morphine Sulfate (morphine) 2 mg Q4H PRN IV SEVERE PAIN LEVEL 7-10; Start at 10:30 PEG PEPE MD Apr 23, 2017 17:35
[2017-04-23 19:56] VITALS: BP 137/78; RESP 18
[2017-04-24 02:49] VITALS: BP 118/76; RESP 16
[2017-04-24 08:42] VITALS: BP 113/68; RESP 16
[2017-04-24] MEDS: BACLOFEN 10 MG TAB PO SCH ×3 (09:22→21:13)
[2017-04-24] MEDS: SENNA TAB PO SCH ×2 (09:22→21:13)
[2017-04-24] MEDS: ENOXAPARIN 40 MG/0.4 ML SYG SC SCH (09:29)
[2017-04-24 14:00] VITALS: BP 114/70; RESP 16
--- NOTE | 2017-04-24 15:46 | PN ---
Date/Time of Note Date/Time of Note DATE: 04/24/17 TIME: 15:46 Assessment/Plan VTE Prophylaxis VTE Prophylaxis Intervention: LMWH Lines/Catheters IV Catheter Type (from Nrsg): Saline Lock Urinary Cath still in place: No Assessment/Plan Chief Complaint/Hosp Course 26 yo male wtih diffuse weakness 2/2 unclear systemic muscular disorder leading to diffuse weakness, dysarthria chronically who has been admitted for inability to care for self - Continue with physical therapy - Awaiting patient placement - No acute medical issues DVT prophylaxis: Lovenox Problems: Subjective 24 Hr Interval Summary Free Text/Dictation No change to clinical status or plan Exam/Review of Systems Vital Signs Vitals Vital Signs Date Time Temp Pulse Resp B/P Pulse Ox O2 Delivery O2 Flow Rate FiO2 04/24/17 08:42 98.0 69 16 113/68 97 Intake and Output 04/23/17 04/23/17 04/24/17 15:00 23:00 07:00 Intake Total 1040 ml Output Total 1100 ml Balance -60 ml Medications Medications Current Medications Ondansetron HCl (Zofran Inj) 4 mg Q6H PRN IV NAUSEA AND/OR VOMITING Last administered on 03/20/17 06:00; Admin Dose 4 MG; Start 03/17/17 at 21:30 Acetaminophen (Tylenol Supp) 650 mg Q6H PRN [place] PAIN LEVEL 1-3 OR FEVER; Start 03/17/17 at 21:30 Enoxaparin Sodium (Lovenox) 40 mg DAILY SC Last administered on 04/24/17 09:29 ; Admin Dose 40 MG; Start 03/18/17 at 09:00 Baclofen (Lioresal) 10 mg TID PO Last administered on 04/24/17 13:33; Admin Dose 10 MG; Start 03/18/17 at 09:00 Acetaminophen/ Hydrocodone Bitart ([place] (5/325)) 1 tab Q6H PRN PO Pain Last administered on 04/21/17 11:59; Admin Dose 1 TAB; Start 03/25/17 at 13:00 Docusate Sodium (Colace) 100 mg TID PRN PO CONSTIPATION Last administered on 09:00; Admin Dose 100 MG; Start 04/13/17 at 17:30 Lidocaine (Xylocaine (Viscous)) 15 ml QID PRN PO PAIN AND/OR INFLAMMATION Last administered on 04/21/17 11:59; Admin Dose 15 ML; Start 04/16/17 at 18:00 Senna (Senokot) 1 tab BID PO Last administered on 04/24/17 09:22; Admin Dose 1 TAB; Start 04/17/17 at 14:00 Magnesium Hydroxide (Milk Of Mag) 30 ml DAILY PRN PO CONSTIPATION Last administered on 04/17/17 20:29; Admin Dose 30 ML; Start 04/17/17 at 14:00 Morphine Sulfate (morphine) 2 mg Q4H PRN IV SEVERE PAIN LEVEL 7-10; Start at 10:30 PEG PEPE MD Apr 24, 2017 15:46
[2017-04-24 21:20] VITALS: BP 118/74; RESP 18
[2017-04-25 02:10] VITALS: BP 116/56; RESP 16
[2017-04-25 08:06] VITALS: BP 109/73; RESP 18
[2017-04-25] MEDS: SENNA TAB PO SCH ×2 (08:44→21:17)
[2017-04-25] MEDS: BACLOFEN 10 MG TAB PO SCH ×3 (08:44→21:17)
[2017-04-25] MEDS: ENOXAPARIN 40 MG/0.4 ML SYG SC SCH (08:51)
--- NOTE | 2017-04-25 15:58 | PN ---
Date/Time of Note Date/Time of Note DATE: 04/25/17 TIME: 15:58 Assessment/Plan VTE Prophylaxis VTE Prophylaxis Intervention: LMWH Lines/Catheters IV Catheter Type (from Nrsg): Saline Lock Urinary Cath still in place: No Assessment/Plan Chief Complaint/Hosp Course 26 yo male wtih diffuse weakness 2/2 unclear systemic muscular disorder leading to diffuse weakness, dysarthria chronically who has been admitted for inability to care for self - Continue with physical therapy - Awaiting patient placement - No acute medical issues DVT prophylaxis: Lovenox Problems: Subjective 24 Hr Interval Summary Free Text/Dictation Working with PT No change to clinical status Exam/Review of Systems Vital Signs Vitals Vital Signs Date Time Temp Pulse Resp B/P Pulse Ox O2 Delivery O2 Flow Rate FiO2 04/25/17 08:06 97.6 67 18 109/73 99 Intake and Output 04/24/17 04/24/17 04/25/17 15:00 23:00 07:00 Intake Total 500 ml 1200 ml 320 ml Output Total 600 ml 200 ml Balance -100 ml 1000 ml 320 ml Medications Medications Current Medications Ondansetron HCl (Zofran Inj) 4 mg Q6H PRN IV NAUSEA AND/OR VOMITING Last administered on 03/20/17 06:00; Admin Dose 4 MG; Start 03/17/17 at 21:30 Acetaminophen (Tylenol Supp) 650 mg Q6H PRN [place] PAIN LEVEL 1-3 OR FEVER; Start 03/17/17 at 21:30 Enoxaparin Sodium (Lovenox) 40 mg DAILY SC Last administered on 04/25/17 08:51 ; Admin Dose 40 MG; Start 03/18/17 at 09:00 Baclofen (Lioresal) 10 mg TID PO Last administered on 04/25/17 13:23; Admin Dose 10 MG; Start 03/18/17 at 09:00 Acetaminophen/ Hydrocodone Bitart ([place] (5/325)) 1 tab Q6H PRN PO Pain Last administered on 04/21/17 11:59; Admin Dose 1 TAB; Start 03/25/17 at 13:00 Docusate Sodium (Colace) 100 mg TID PRN PO CONSTIPATION Last administered on 09:00; Admin Dose 100 MG; Start 04/13/17 at 17:30 Lidocaine (Xylocaine (Viscous)) 15 ml QID PRN PO PAIN AND/OR INFLAMMATION Last administered on 04/21/17 11:59; Admin Dose 15 ML; Start 04/16/17 at 18:00 Senna (Senokot) 1 tab BID PO Last administered on 04/25/17 08:44; Admin Dose 1 TAB; Start 04/17/17 at 14:00 Magnesium Hydroxide (Milk Of Mag) 30 ml DAILY PRN PO CONSTIPATION Last administered on 04/17/17 20:29; Admin Dose 30 ML; Start 04/17/17 at 14:00 Morphine Sulfate (morphine) 2 mg Q4H PRN IV SEVERE PAIN LEVEL 7-10; Start at 10:30 PEG PEPE MD Apr 25, 2017 15:58
[2017-04-25 20:21] VITALS: BP 131/78; RESP 20
[2017-04-26 02:15] VITALS: BP 112/59; RESP 20
[2017-04-26 07:23] VITALS: BP 124/69; RESP 18
[2017-04-26] MEDS: SENNA TAB PO SCH ×2 (09:19→20:41)
[2017-04-26] MEDS: BACLOFEN 10 MG TAB PO SCH ×3 (09:19→20:41)
[2017-04-26] MEDS: ENOXAPARIN 40 MG/0.4 ML SYG SC SCH (09:27)
[2017-04-26 14:00] VITALS: BP 119/61; RESP 18
--- NOTE | 2017-04-26 18:37 | PN ---
Date/Time of Note Date/Time of Note DATE: 04/26/17 TIME: 18:37 Assessment/Plan VTE Prophylaxis VTE Prophylaxis Intervention: LMWH Lines/Catheters IV Catheter Type (from Nrsg): Saline Lock Urinary Cath still in place: No Assessment/Plan Chief Complaint/Hosp Course 26 yo male wtih diffuse weakness 2/2 unclear systemic muscular disorder leading to diffuse weakness, dysarthria chronically who has been admitted for inability to care for self - Continue with physical therapy - Awaiting patient placement - No acute medical issues DVT prophylaxis: Lovenox Problems: Subjective 24 Hr Interval Summary Free Text/Dictation Working with PT/OT Went outside today for therapy, happy about it Exam/Review of Systems Vital Signs Vitals Vital Signs Date Time Temp Pulse Resp B/P Pulse Ox O2 Delivery O2 Flow Rate FiO2 04/26/17 14:00 98.4 85 18 119/61 98 Intake and Output 04/25/17 04/25/17 04/26/17 15:00 23:00 07:00 Intake Total 360 ml Output Total 200 ml Balance 160 ml Medications Medications Current Medications Ondansetron HCl (Zofran Inj) 4 mg Q6H PRN IV NAUSEA AND/OR VOMITING Last administered on 03/20/17 06:00; Admin Dose 4 MG; Start 03/17/17 at 21:30 Acetaminophen (Tylenol Supp) 650 mg Q6H PRN [place] PAIN LEVEL 1-3 OR FEVER; Start 03/17/17 at 21:30 Enoxaparin Sodium (Lovenox) 40 mg DAILY SC Last administered on 04/26/17 09:27 ; Admin Dose 40 MG; Start 03/18/17 at 09:00 Baclofen (Lioresal) 10 mg TID PO Last administered on 04/26/17 13:23; Admin Dose 10 MG; Start 03/18/17 at 09:00 Acetaminophen/ Hydrocodone Bitart ([place] (5/325)) 1 tab Q6H PRN PO Pain Last administered on 04/21/17 11:59; Admin Dose 1 TAB; Start 03/25/17 at 13:00 Docusate Sodium (Colace) 100 mg TID PRN PO CONSTIPATION Last administered on 09:00; Admin Dose 100 MG; Start 04/13/17 at 17:30 Lidocaine (Xylocaine (Viscous)) 15 ml QID PRN PO PAIN AND/OR INFLAMMATION Last administered on 04/21/17 11:59; Admin Dose 15 ML; Start 04/16/17 at 18:00 Senna (Senokot) 1 tab BID PO Last administered on 04/26/17 09:19; Admin Dose 1 TAB; Start 04/17/17 at 14:00 Magnesium Hydroxide (Milk Of Mag) 30 ml DAILY PRN PO CONSTIPATION Last administered on 04/17/17 20:29; Admin Dose 30 ML; Start 04/17/17 at 14:00 Morphine Sulfate (morphine) 2 mg Q4H PRN IV SEVERE PAIN LEVEL 7-10; Start at 10:30 PEG PEPE MD Apr 26, 2017 18:37
[2017-04-26 20:14] VITALS: BP 118/67; RESP 18
[2017-04-27 02:02] VITALS: BP 114/64; RESP 18
[2017-04-27 08:08] VITALS: BP 103/64; RESP 18
[2017-04-27] MEDS: BACLOFEN 10 MG TAB PO SCH ×3 (09:47→20:19)
[2017-04-27] MEDS: SENNA TAB PO SCH ×2 (09:47→20:19)
[2017-04-27] MEDS: ENOXAPARIN 40 MG/0.4 ML SYG SC SCH (09:52)
[2017-04-27 15:32] VITALS: BP 108/62; PULSE 60; RESP 18
--- NOTE | 2017-04-27 17:50 | PN ---
Date/Time of Note Date/Time of Note DATE: 04/27/17 TIME: 17:50 Assessment/Plan VTE Prophylaxis VTE Prophylaxis Intervention: LMWH Lines/Catheters IV Catheter Type (from Nrsg): Saline Lock Urinary Cath still in place: No Assessment/Plan Chief Complaint/Hosp Course 26 yo male wtih diffuse weakness 2/2 unclear systemic muscular disorder leading to diffuse weakness, dysarthria chronically who has been admitted for inability to care for self - Continue with physical therapy - Awaiting patient placement - No acute medical issues DVT prophylaxis: Lovenox Problems: Subjective 24 Hr Interval Summary Free Text/Dictation No interval change to patient's status Exam/Review of Systems Vital Signs Vitals Vital Signs Date Time Temp Pulse Resp B/P Pulse Ox O2 Delivery O2 Flow Rate FiO2 04/27/17 15:32 98.1 60 18 108/62 98 Room Air Intake and Output 04/26/17 04/26/17 04/27/17 15:00 23:00 07:00 Intake Total 1220 ml 800 ml Output Total 1400 ml Balance -180 ml 800 ml Medications Medications Current Medications Ondansetron HCl (Zofran Inj) 4 mg Q6H PRN IV NAUSEA AND/OR VOMITING Last administered on 03/20/17 06:00; Admin Dose 4 MG; Start 03/17/17 at 21:30 Acetaminophen (Tylenol Supp) 650 mg Q6H PRN [place] PAIN LEVEL 1-3 OR FEVER; Start 03/17/17 at 21:30 Enoxaparin Sodium (Lovenox) 40 mg DAILY SC Last administered on 04/27/17 09:52 ; Admin Dose 40 MG; Start 03/18/17 at 09:00 Baclofen (Lioresal) 10 mg TID PO Last administered on 04/27/17 12:11; Admin Dose 10 MG; Start 03/18/17 at 09:00 Acetaminophen/ Hydrocodone Bitart ([place] (5/325)) 1 tab Q6H PRN PO Pain Last administered on 04/21/17 11:59; Admin Dose 1 TAB; Start 03/25/17 at 13:00 Docusate Sodium (Colace) 100 mg TID PRN PO CONSTIPATION Last administered on 09:00; Admin Dose 100 MG; Start 04/13/17 at 17:30 Lidocaine (Xylocaine (Viscous)) 15 ml QID PRN PO PAIN AND/OR INFLAMMATION Last administered on 04/21/17 11:59; Admin Dose 15 ML; Start 04/16/17 at 18:00 Senna (Senokot) 1 tab BID PO Last administered on 04/27/17 09:47; Admin Dose 1 TAB; Start 04/17/17 at 14:00 Magnesium Hydroxide (Milk Of Mag) 30 ml DAILY PRN PO CONSTIPATION Last administered on 04/17/17 20:29; Admin Dose 30 ML; Start 04/17/17 at 14:00 Morphine Sulfate (morphine) 2 mg Q4H PRN IV SEVERE PAIN LEVEL 7-10; Start at 10:30 PEG PEPE MD Apr 27, 2017 17:50
[2017-04-27 20:00] VITALS: BP 125/80; PULSE 73; RESP 18
[2017-04-28] MEDS: SENNA TAB PO SCH ×2 (08:21→20:38)
[2017-04-28] MEDS: BACLOFEN 10 MG TAB PO SCH ×3 (08:21→20:38)
[2017-04-28 08:27] VITALS: BP 103/64; RESP 16
[2017-04-28] MEDS: ENOXAPARIN 40 MG/0.4 ML SYG SC SCH (08:28)
[2017-04-28 14:49] VITALS: BP 105/60; RESP 16
--- NOTE | 2017-04-28 15:03 | PN ---
Date/Time of Note Date/Time of Note DATE: 04/28/17 TIME: 15:02 Assessment/Plan VTE Prophylaxis VTE Prophylaxis Intervention: LMWH Lines/Catheters IV Catheter Type (from Nrsg): Saline Lock Urinary Cath still in place: No Assessment/Plan Chief Complaint/Hosp Course 26 yo male wtih diffuse weakness 2/2 unclear systemic muscular disorder leading to diffuse weakness, dysarthria chronically who has been admitted for inability to care for self - Continue with physical therapy - Awaiting patient placement - No acute medical issues DVT prophylaxis: Lovenox Problems: Subjective 24 Hr Interval Summary Constitutional: no complaints Exam/Review of Systems Vital Signs Vitals Vital Signs Date Time Temp Pulse Resp B/P Pulse Ox O2 Delivery O2 Flow Rate FiO2 04/28/17 14:49 97.5 65 16 105/60 98 04/27/17 20:00 Room Air Intake and Output 04/27/17 04/27/17 04/28/17 15:00 23:00 07:00 Intake Total 210 ml Output Total 400 ml 380 ml Balance -190 ml -380 ml Exam Constitutional: alert Respiratory: clear to auscultation Cardiovascular: regular rate and rhythm Gastrointestinal: soft, No distended Musculoskeletal: nl extremities to inspection Medications Medications Current Medications Ondansetron HCl (Zofran Inj) 4 mg Q6H PRN IV NAUSEA AND/OR VOMITING Last administered on 03/20/17 06:00; Admin Dose 4 MG; Start 03/17/17 at 21:30 Acetaminophen (Tylenol Supp) 650 mg Q6H PRN [place] PAIN LEVEL 1-3 OR FEVER; Start 03/17/17 at 21:30 Enoxaparin Sodium (Lovenox) 40 mg DAILY SC Last administered on 04/28/17 08:28 ; Admin Dose 40 MG; Start 03/18/17 at 09:00 Baclofen (Lioresal) 10 mg TID PO Last administered on 04/28/17 08:21; Admin Dose 10 MG; Start 03/18/17 at 09:00 Acetaminophen/ Hydrocodone Bitart ([place] (5/325)) 1 tab Q6H PRN PO Pain Last administered on 04/21/17 11:59; Admin Dose 1 TAB; Start 03/25/17 at 13:00 Docusate Sodium (Colace) 100 mg TID PRN PO CONSTIPATION Last administered on 09:00; Admin Dose 100 MG; Start 04/13/17 at 17:30 Lidocaine (Xylocaine (Viscous)) 15 ml QID PRN PO PAIN AND/OR INFLAMMATION Last administered on 04/21/17 11:59; Admin Dose 15 ML; Start 04/16/17 at 18:00 Senna (Senokot) 1 tab BID PO Last administered on 04/28/17 08:21; Admin Dose 1 TAB; Start 04/17/17 at 14:00 Magnesium Hydroxide (Milk Of Mag) 30 ml DAILY PRN PO CONSTIPATION Last administered on 04/17/17 20:29; Admin Dose 30 ML; Start 04/17/17 at 14:00 Morphine Sulfate (morphine) 2 mg Q4H PRN IV SEVERE PAIN LEVEL 7-10; Start at 10:30 GEORGINA ZEPEDA Apr 28, 2017 15:03
[2017-04-28 19:49] VITALS: BP 116/71; RESP 18
[2017-04-29 02:25] VITALS: BP 114/76; RESP 16
[2017-04-29 07:28] VITALS: BP 102/62; RESP 16
[2017-04-29] MEDS: SENNA TAB PO SCH ×2 (09:08→22:49)
[2017-04-29] MEDS: BACLOFEN 10 MG TAB PO SCH ×3 (09:08→22:49)
[2017-04-29] MEDS: ENOXAPARIN 40 MG/0.4 ML SYG SC SCH (09:30)
[2017-04-29 14:19] VITALS: BP 111/62; RESP 16
--- NOTE | 2017-04-29 15:42 | PN ---
Date/Time of Note Date/Time of Note DATE: 04/29/17 TIME: 15:41 Assessment/Plan VTE Prophylaxis VTE Prophylaxis Intervention: LMWH Lines/Catheters IV Catheter Type (from Nrsg): Saline Lock Urinary Cath still in place: No Assessment/Plan Chief Complaint/Hosp Course 26 yo male wtih diffuse weakness 2/2 unclear systemic muscular disorder leading to diffuse weakness, dysarthria chronically who has been admitted for inability to care for self - Continue with physical therapy - Awaiting patient placement - No acute medical issues DVT prophylaxis: Lovenox Problems: Subjective 24 Hr Interval Summary Constitutional: no complaints Exam/Review of Systems Vital Signs Vitals Vital Signs Date Time Temp Pulse Resp B/P Pulse Ox O2 Delivery O2 Flow Rate FiO2 04/29/17 14:19 98.2 75 16 111/62 100 04/27/17 20:00 Room Air Intake and Output 04/28/17 04/28/17 04/29/17 15:00 23:00 07:00 Intake Total 920 ml 680 ml Output Total 550 ml 200 ml Balance 370 ml 480 ml Exam Constitutional: alert Respiratory: clear to auscultation Cardiovascular: regular rate and rhythm Gastrointestinal: soft, No distended Musculoskeletal: nl extremities to inspection Medications Medications Current Medications Ondansetron HCl (Zofran Inj) 4 mg Q6H PRN IV NAUSEA AND/OR VOMITING Last administered on 03/20/17 06:00; Admin Dose 4 MG; Start 03/17/17 at 21:30 Acetaminophen (Tylenol Supp) 650 mg Q6H PRN [place] PAIN LEVEL 1-3 OR FEVER; Start 03/17/17 at 21:30 Enoxaparin Sodium (Lovenox) 40 mg DAILY SC Last administered on 04/29/17 09:30 ; Admin Dose 40 MG; Start 03/18/17 at 09:00 Baclofen (Lioresal) 10 mg TID PO Last administered on 04/29/17 13:55; Admin Dose 10 MG; Start 03/18/17 at 09:00 Acetaminophen/ Hydrocodone Bitart ([place] (5/325)) 1 tab Q6H PRN PO Pain Last administered on 04/21/17 11:59; Admin Dose 1 TAB; Start 03/25/17 at 13:00 Docusate Sodium (Colace) 100 mg TID PRN PO CONSTIPATION Last administered on 09:00; Admin Dose 100 MG; Start 04/13/17 at 17:30 Lidocaine (Xylocaine (Viscous)) 15 ml QID PRN PO PAIN AND/OR INFLAMMATION Last administered on 04/21/17 11:59; Admin Dose 15 ML; Start 04/16/17 at 18:00 Senna (Senokot) 1 tab BID PO Last administered on 04/29/17 09:08; Admin Dose 1 TAB; Start 04/17/17 at 14:00 Magnesium Hydroxide (Milk Of Mag) 30 ml DAILY PRN PO CONSTIPATION Last administered on 04/17/17 20:29; Admin Dose 30 ML; Start 04/17/17 at 14:00 Morphine Sulfate (morphine) 2 mg Q4H PRN IV SEVERE PAIN LEVEL 7-10; Start at 10:30 GEORGINA ZEPEDA Apr 29, 2017 15:41
[2017-04-29 20:00] VITALS: BP 120/76; RESP 18
[2017-04-30] MEDS: HYDROCODONE/APAP (5/325) TAB PO PRN ×2 (00:09→14:53)
[2017-04-30] MEDS: LIDOCAINE 2% VISC 15 ML CUP PO PRN (01:04)
[2017-04-30 02:02] VITALS: BP 140/80; RESP 20
[2017-04-30 08:30] VITALS: BP 108/63; RESP 18
[2017-04-30] MEDS: BACLOFEN 10 MG TAB PO SCH ×3 (08:41→21:18)
[2017-04-30] MEDS: SENNA TAB PO SCH ×2 (08:42→21:18)
[2017-04-30] MEDS: ENOXAPARIN 40 MG/0.4 ML SYG SC SCH (08:58)
[2017-04-30 13:44] VITALS: BP 128/77; RESP 18
--- NOTE | 2017-04-30 19:20 | PN ---
Date/Time of Note Date/Time of Note DATE: 04/30/17 TIME: 19:20 Assessment/Plan VTE Prophylaxis VTE Prophylaxis Intervention: LMWH Lines/Catheters IV Catheter Type (from Nrsg): Saline Lock Urinary Cath still in place: No Assessment/Plan Chief Complaint/Hosp Course 26 yo male wtih diffuse weakness 2/2 unclear systemic muscular disorder leading to diffuse weakness, dysarthria chronically who has been admitted for inability to care for self - Continue with physical therapy - Awaiting patient placement - No acute medical issues, increased pain regimen as patient states that he still having pain DVT prophylaxis: Lovenox Problems: Subjective 24 Hr Interval Summary Musculoskeletal: bone/joint pain Exam/Review of Systems Vital Signs Vitals Vital Signs Date Time Temp Pulse Resp B/P Pulse Ox O2 Delivery O2 Flow Rate FiO2 04/30/17 13:44 98.0 92 18 128/77 99 04/29/17 20:00 Room Air Intake and Output 04/29/17 04/29/17 04/30/17 15:00 23:00 07:00 Intake Total 1140 ml Output Total 501 ml Balance 639 ml Exam Constitutional: alert Respiratory: clear to auscultation Cardiovascular: regular rate and rhythm Gastrointestinal: soft, No distended Musculoskeletal: nl extremities to inspection Medications Medications Current Medications Ondansetron HCl (Zofran Inj) 4 mg Q6H PRN IV NAUSEA AND/OR VOMITING Last administered on 03/20/17 06:00; Admin Dose 4 MG; Start 03/17/17 at 21:30 Acetaminophen (Tylenol Supp) 650 mg Q6H PRN [place] PAIN LEVEL 1-3 OR FEVER; Start 03/17/17 at 21:30 Enoxaparin Sodium (Lovenox) 40 mg DAILY SC Last administered on 04/30/17 08:58 ; Admin Dose 40 MG; Start 03/18/17 at 09:00 Baclofen (Lioresal) 10 mg TID PO Last administered on 04/30/17 12:24; Admin Dose 10 MG; Start 03/18/17 at 09:00 Docusate Sodium (Colace) 100 mg TID PRN PO CONSTIPATION Last administered on 09:00; Admin Dose 100 MG; Start 04/13/17 at 17:30 Lidocaine (Xylocaine (Viscous)) 15 ml QID PRN PO PAIN AND/OR INFLAMMATION Last administered on 04/30/17 01:04; Admin Dose 15 ML; Start 04/16/17 at 18:00 Senna (Senokot) 1 tab BID PO Last administered on 04/30/17 08:42; Admin Dose 1 TAB; Start 04/17/17 at 14:00 Magnesium Hydroxide (Milk Of Mag) 30 ml DAILY PRN PO CONSTIPATION Last administered on 04/17/17 20:29; Admin Dose 30 ML; Start 04/17/17 at 14:00 Morphine Sulfate (morphine) 2 mg Q4H PRN IV SEVERE PAIN LEVEL 7-10; Start at 10:30 Acetaminophen/ Hydrocodone Bitart ([place] (7.5-325)) 1 tab Q6H PRN PO pain; Start 04/30/17 at 16:00 GEORGINA ZEPEDA Apr 30, 2017 19:20
[2017-04-30 20:17] VITALS: BP 137/85; RESP 20
[2017-05-01 02:00] VITALS: BP_SYST 135; BP_SYST 140; BP_DIAS 60; BP_DIAS 80; RESP 20
[2017-05-01 07:18] VITALS: BP 125/76; RESP 16
[2017-05-01] MEDS: BACLOFEN 10 MG TAB PO SCH ×3 (09:26→21:27)
[2017-05-01] MEDS: SENNA TAB PO SCH ×2 (09:26→21:27)
[2017-05-01] MEDS: ENOXAPARIN 40 MG/0.4 ML SYG SC SCH (09:32)
--- NOTE | 2017-05-01 14:10 | PN ---
Date/Time of Note Date/Time of Note DATE: 05/01/17 TIME: 14:09 Assessment/Plan VTE Prophylaxis VTE Prophylaxis Intervention: LMWH Lines/Catheters IV Catheter Type (from Nrsg): Saline Lock Urinary Cath still in place: No Assessment/Plan Chief Complaint/Hosp Course 26 yo male wtih diffuse weakness 2/2 unclear systemic muscular disorder leading to diffuse weakness, dysarthria chronically who has been admitted for inability to care for self - Continue with physical therapy - Awaiting patient placement - No acute medical issues, increased pain regimen as patient states that he was having pain, pain now controlled DVT prophylaxis: Lovenox Problems: Subjective 24 Hr Interval Summary Constitutional: no complaints Exam/Review of Systems Vital Signs Vitals Vital Signs Date Time Temp Pulse Resp B/P Pulse Ox O2 Delivery O2 Flow Rate FiO2 05/01/17 07:18 98.3 72 16 125/76 100 04/29/17 20:00 Room Air Intake and Output 04/30/17 04/30/17 05/01/17 15:00 23:00 07:00 Intake Total 720 ml Output Total 800 ml Balance -80 ml Exam Constitutional: alert Respiratory: clear to auscultation Cardiovascular: regular rate and rhythm Gastrointestinal: soft, No distended Musculoskeletal: nl extremities to inspection Medications Medications Current Medications Ondansetron HCl (Zofran Inj) 4 mg Q6H PRN IV NAUSEA AND/OR VOMITING Last administered on 03/20/17 06:00; Admin Dose 4 MG; Start 03/17/17 at 21:30 Acetaminophen (Tylenol Supp) 650 mg Q6H PRN [place] PAIN LEVEL 1-3 OR FEVER; Start 03/17/17 at 21:30 Enoxaparin Sodium (Lovenox) 40 mg DAILY SC Last administered on 05/01/17 09:32 ; Admin Dose 40 MG; Start 03/18/17 at 09:00 Baclofen (Lioresal) 10 mg TID PO Last administered on 05/01/17 12:36; Admin Dose 10 MG; Start 03/18/17 at 09:00 Docusate Sodium (Colace) 100 mg TID PRN PO CONSTIPATION Last administered on 09:00; Admin Dose 100 MG; Start 04/13/17 at 17:30 Lidocaine (Xylocaine (Viscous)) 15 ml QID PRN PO PAIN AND/OR INFLAMMATION Last administered on 04/30/17 01:04; Admin Dose 15 ML; Start 04/16/17 at 18:00 Senna (Senokot) 1 tab BID PO Last administered on 05/01/17 09:26; Admin Dose 1 TAB; Start 04/17/17 at 14:00 Magnesium Hydroxide (Milk Of Mag) 30 ml DAILY PRN PO CONSTIPATION Last administered on 04/17/17 20:29; Admin Dose 30 ML; Start 04/17/17 at 14:00 Morphine Sulfate (morphine) 2 mg Q4H PRN IV SEVERE PAIN LEVEL 7-10; Start at 10:30 Acetaminophen/ Hydrocodone Bitart ([place] (7.5-325)) 1 tab Q6H PRN PO pain; Start 04/30/17 at 16:00 GEORGINA ZEPEDA May 01, 2017 14:10
[2017-05-01 20:00] VITALS: BP 110/65; RESP 18
[2017-05-02 02:12] VITALS: BP 130/56; RESP 18
[2017-05-02 08:19] VITALS: BP 108/68; RESP 18
[2017-05-02] MEDS: SENNA TAB PO SCH ×2 (08:42→20:46)
[2017-05-02] MEDS: BACLOFEN 10 MG TAB PO SCH ×3 (08:42→20:46)
[2017-05-02] MEDS: ENOXAPARIN 40 MG/0.4 ML SYG SC SCH (08:58)
--- NOTE | 2017-05-02 15:58 | PN ---
Date/Time of Note Date/Time of Note DATE: 05/02/17 TIME: 15:58 Assessment/Plan VTE Prophylaxis VTE Prophylaxis Intervention: LMWH Lines/Catheters IV Catheter Type (from Nrsg): Saline Lock Urinary Cath still in place: No Assessment/Plan Chief Complaint/Hosp Course 26 yo male wtih diffuse weakness 2/2 unclear systemic muscular disorder leading to diffuse weakness, dysarthria chronically who has been admitted for inability to care for self - Continue with physical therapy - Awaiting patient placement - No acute medical issues, increased pain regimen as patient states that he was having pain, pain now controlled DVT prophylaxis: Lovenox Problems: Subjective 24 Hr Interval Summary Constitutional: no complaints Exam/Review of Systems Vital Signs Vitals Vital Signs Date Time Temp Pulse Resp B/P Pulse Ox O2 Delivery O2 Flow Rate FiO2 05/02/17 08:19 98.0 65 18 108/68 97 04/29/17 20:00 Room Air Intake and Output 05/01/17 05/01/17 05/02/17 15:00 23:00 07:00 Intake Total 240 ml 600 ml 240 ml Output Total 800 ml 600 ml Balance 240 ml -200 ml -360 ml Exam Constitutional: alert Respiratory: clear to auscultation Cardiovascular: regular rate and rhythm Gastrointestinal: soft, No distended Musculoskeletal: nl extremities to inspection Medications Medications Current Medications Ondansetron HCl (Zofran Inj) 4 mg Q6H PRN IV NAUSEA AND/OR VOMITING Last administered on 03/20/17 06:00; Admin Dose 4 MG; Start 03/17/17 at 21:30 Acetaminophen (Tylenol Supp) 650 mg Q6H PRN [place] PAIN LEVEL 1-3 OR FEVER; Start 03/17/17 at 21:30 Enoxaparin Sodium (Lovenox) 40 mg DAILY SC Last administered on 05/02/17 08:58 ; Admin Dose 40 MG; Start 03/18/17 at 09:00 Baclofen (Lioresal) 10 mg TID PO Last administered on 05/02/17 12:21; Admin Dose 10 MG; Start 03/18/17 at 09:00 Docusate Sodium (Colace) 100 mg TID PRN PO CONSTIPATION Last administered on 09:00; Admin Dose 100 MG; Start 04/13/17 at 17:30 Lidocaine (Xylocaine (Viscous)) 15 ml QID PRN PO PAIN AND/OR INFLAMMATION Last administered on 04/30/17 01:04; Admin Dose 15 ML; Start 04/16/17 at 18:00 Senna (Senokot) 1 tab BID PO Last administered on 05/02/17 08:42; Admin Dose 1 TAB; Start 04/17/17 at 14:00 Magnesium Hydroxide (Milk Of Mag) 30 ml DAILY PRN PO CONSTIPATION Last administered on 04/17/17 20:29; Admin Dose 30 ML; Start 04/17/17 at 14:00 Morphine Sulfate (morphine) 2 mg Q4H PRN IV SEVERE PAIN LEVEL 7-10; Start at 10:30 Acetaminophen/ Hydrocodone Bitart ([place] (7.5-325)) 1 tab Q6H PRN PO pain; Start 04/30/17 at 16:00 GEORGINA ZEPEDA May 02, 2017 15:58
[2017-05-02 16:18] VITALS: BP 112/67; RESP 20
[2017-05-02 19:32] VITALS: BP 135/78; RESP 20
[2017-05-03 02:00] VITALS: BP 112/59; RESP 20
[2017-05-03 08:28] VITALS: BP 119/71; RESP 16
[2017-05-03] MEDS: BACLOFEN 10 MG TAB PO SCH ×3 (09:06→20:15)
[2017-05-03] MEDS: SENNA TAB PO SCH ×2 (09:06→20:15)
[2017-05-03] MEDS: ENOXAPARIN 40 MG/0.4 ML SYG SC SCH (09:14)
--- NOTE | 2017-05-03 11:10 | PN ---
Date/Time of Note Date/Time of Note DATE: 05/03/17 TIME: 11:10 Assessment/Plan VTE Prophylaxis VTE Prophylaxis Intervention: LMWH Lines/Catheters IV Catheter Type (from Nrsg): Saline Lock Urinary Cath still in place: No Assessment/Plan Chief Complaint/Hosp Course 26 yo male wtih diffuse weakness 2/2 unclear systemic muscular disorder leading to diffuse weakness, dysarthria chronically who has been admitted for inability to care for self - Continue with physical therapy - Awaiting patient placement - No acute medical issues, increased pain regimen as patient states that he was having pain, pain now controlled DVT prophylaxis: Lovenox Problems: Subjective 24 Hr Interval Summary Constitutional: no complaints Exam/Review of Systems Vital Signs Vitals Vital Signs Date Time Temp Pulse Resp B/P Pulse Ox O2 Delivery O2 Flow Rate FiO2 05/03/17 08:28 97.6 64 16 119/71 98 04/29/17 20:00 Room Air Intake and Output 05/02/17 05/02/17 05/03/17 15:00 23:00 07:00 Intake Total 1080 ml 120 ml Output Total 450 ml 500 ml Balance 630 ml -380 ml Exam Constitutional: alert, oriented Respiratory: clear to auscultation Cardiovascular: regular rate and rhythm Gastrointestinal: soft, No distended Musculoskeletal: nl extremities to inspection Medications Medications Current Medications Ondansetron HCl (Zofran Inj) 4 mg Q6H PRN IV NAUSEA AND/OR VOMITING Last administered on 03/20/17 06:00; Admin Dose 4 MG; Start 03/17/17 at 21:30 Acetaminophen (Tylenol Supp) 650 mg Q6H PRN [place] PAIN LEVEL 1-3 OR FEVER; Start 03/17/17 at 21:30 Enoxaparin Sodium (Lovenox) 40 mg DAILY SC Last administered on 05/03/17 09:14 ; Admin Dose 40 MG; Start 03/18/17 at 09:00 Baclofen (Lioresal) 10 mg TID PO Last administered on 05/03/17 09:06; Admin Dose 10 MG; Start 03/18/17 at 09:00 Docusate Sodium (Colace) 100 mg TID PRN PO CONSTIPATION Last administered on 09:00; Admin Dose 100 MG; Start 04/13/17 at 17:30 Lidocaine (Xylocaine (Viscous)) 15 ml QID PRN PO PAIN AND/OR INFLAMMATION Last administered on 04/30/17 01:04; Admin Dose 15 ML; Start 04/16/17 at 18:00 Senna (Senokot) 1 tab BID PO Last administered on 05/03/17 09:06; Admin Dose 1 TAB; Start 04/17/17 at 14:00 Magnesium Hydroxide (Milk Of Mag) 30 ml DAILY PRN PO CONSTIPATION Last administered on 04/17/17 20:29; Admin Dose 30 ML; Start 04/17/17 at 14:00 Morphine Sulfate (morphine) 2 mg Q4H PRN IV SEVERE PAIN LEVEL 7-10; Start at 10:30 Acetaminophen/ Hydrocodone Bitart ([place] (7.5-325)) 1 tab Q6H PRN PO pain; Start 04/30/17 at 16:00 GEORGINA ZEPEDA May 03, 2017 11:10
[2017-05-03 14:00] VITALS: BP 120/79; RESP 18
[2017-05-03 20:00] VITALS: BP 104/53; RESP 16
[2017-05-04 02:03] VITALS: BP 116/61; RESP 16
[2017-05-04 07:37] VITALS: BP 110/56; RESP 17
[2017-05-04] MEDS: SENNA TAB PO SCH ×2 (10:06→21:29)
[2017-05-04] MEDS: BACLOFEN 10 MG TAB PO SCH ×3 (10:06→21:28)
[2017-05-04] MEDS: ENOXAPARIN 40 MG/0.4 ML SYG SC SCH (10:07)
[2017-05-04 13:02] VITALS: BP 113/67; RESP 18
--- NOTE | 2017-05-04 18:40 | PN ---
Date/Time of Note Date/Time of Note DATE: 05/04/17 TIME: 18:39 Assessment/Plan VTE Prophylaxis VTE Prophylaxis Intervention: LMWH Lines/Catheters IV Catheter Type (from Nrsg): Saline Lock Urinary Cath still in place: No Assessment/Plan Chief Complaint/Hosp Course 26 yo male wtih diffuse weakness 2/2 unclear systemic muscular disorder leading to diffuse weakness, dysarthria chronically who has been admitted for inability to care for self - Continue with physical therapy - Awaiting patient placement - No acute medical issues, increased pain regimen as patient states that he was having pain, pain now controlled DVT prophylaxis: Lovenox Problems: Subjective 24 Hr Interval Summary Constitutional: no complaints Exam/Review of Systems Vital Signs Vitals Vital Signs Date Time Temp Pulse Resp B/P Pulse Ox O2 Delivery O2 Flow Rate FiO2 05/04/17 13:02 98.2 69 18 113/67 99 Intake and Output 05/03/17 05/03/17 05/04/17 15:00 23:00 07:00 Intake Total 1220 ml 480 ml Output Total 500 ml 400 ml Balance 720 ml 80 ml Exam Constitutional: alert, oriented Respiratory: clear to auscultation Cardiovascular: regular rate and rhythm Gastrointestinal: soft, No distended Musculoskeletal: nl extremities to inspection Medications Medications Current Medications Ondansetron HCl (Zofran Inj) 4 mg Q6H PRN IV NAUSEA AND/OR VOMITING Last administered on 03/20/17 06:00; Admin Dose 4 MG; Start 03/17/17 at 21:30 Acetaminophen (Tylenol Supp) 650 mg Q6H PRN [place] PAIN LEVEL 1-3 OR FEVER; Start 03/17/17 at 21:30 Enoxaparin Sodium (Lovenox) 40 mg DAILY SC Last administered on 05/04/17 10:07 ; Admin Dose 40 MG; Start 03/18/17 at 09:00 Baclofen (Lioresal) 10 mg TID PO Last administered on 05/04/17 10:06; Admin Dose 10 MG; Start 03/18/17 at 09:00 Docusate Sodium (Colace) 100 mg TID PRN PO CONSTIPATION Last administered on 09:00; Admin Dose 100 MG; Start 04/13/17 at 17:30 Lidocaine (Xylocaine (Viscous)) 15 ml QID PRN PO PAIN AND/OR INFLAMMATION Last administered on 04/30/17 01:04; Admin Dose 15 ML; Start 04/16/17 at 18:00 Senna (Senokot) 1 tab BID PO Last administered on 05/04/17 10:06; Admin Dose 1 TAB; Start 04/17/17 at 14:00 Magnesium Hydroxide (Milk Of Mag) 30 ml DAILY PRN PO CONSTIPATION Last administered on 04/17/17 20:29; Admin Dose 30 ML; Start 04/17/17 at 14:00 Morphine Sulfate (morphine) 2 mg Q4H PRN IV SEVERE PAIN LEVEL 7-10; Start at 10:30 Acetaminophen/ Hydrocodone Bitart ([place] (7.5-325)) 1 tab Q6H PRN PO pain; Start 04/30/17 at 16:00 GEORGINA ZEPEDA May 04, 2017 18:40
[2017-05-04 19:59] VITALS: BP 108/78; RESP 20
[2017-05-05 02:10] VITALS: BP 100/57; RESP 20
[2017-05-05 08:10] VITALS: BP 106/65; RESP 18
[2017-05-05] MEDS: SENNA TAB PO SCH ×2 (08:53→20:55)
[2017-05-05] MEDS: BACLOFEN 10 MG TAB PO SCH ×3 (08:53→20:55)
[2017-05-05] MEDS: ENOXAPARIN 40 MG/0.4 ML SYG SC SCH (09:02)
[2017-05-05 14:03] VITALS: BP 108/64; RESP 18
--- NOTE | 2017-05-05 18:25 | PN ---
Date/Time of Note Date/Time of Note DATE: 05/05/17 TIME: 18:25 Assessment/Plan VTE Prophylaxis VTE Prophylaxis Intervention: LMWH Lines/Catheters IV Catheter Type (from Nrs): Saline Lock Urinary Cath still in place: No Assessment/Plan Chief Complaint/Hosp Course 26 yo male wtih diffuse weakness 2/2 unclear systemic muscular disorder leading to diffuse weakness, dysarthria chronically who has been admitted for inability to care for self - Continue with physical therapy - Awaiting patient placement - No acute medical issues DVT prophylaxis: Lovenox Problems: Subjective 24 Hr Interval Summary Free Text/Dictation No change to clincial status Exam/Review of Systems Vital Signs Vitals Vital Signs Date Time Temp Pulse Resp B/P Pulse Ox O2 Delivery O2 Flow Rate FiO2 05/05/17 14:03 97.9 75 18 108/64 99 Intake and Output 05/04/17 05/04/17 05/05/17 15:00 23:00 07:00 Intake Total 600 ml 240 ml Output Total 200 ml Balance 600 ml 40 ml Medications Medications Current Medications Ondansetron HCl (Zofran Inj) 4 mg Q6H PRN IV NAUSEA AND/OR VOMITING Last administered on 03/20/17 06:00; Admin Dose 4 MG; Start 03/17/17 at 21:30 Acetaminophen (Tylenol Supp) 650 mg Q6H PRN [place] PAIN LEVEL 1-3 OR FEVER; Start 03/17/17 at 21:30 Enoxaparin Sodium (Lovenox) 40 mg DAILY SC Last administered on 05/05/17 09:02 ; Admin Dose 40 MG; Start 03/18/17 at 09:00 Baclofen (Lioresal) 10 mg TID PO Last administered on 05/05/17 13:38; Admin Dose 10 MG; Start 03/18/17 at 09:00 Docusate Sodium (Colace) 100 mg TID PRN PO CONSTIPATION Last administered on 09:00; Admin Dose 100 MG; Start 04/13/17 at 17:30 Lidocaine (Xylocaine (Viscous)) 15 ml QID PRN PO PAIN AND/OR INFLAMMATION Last administered on 04/30/17 01:04; Admin Dose 15 ML; Start 04/16/17 at 18:00 Senna (Senokot) 1 tab BID PO Last administered on 05/05/17 08:53; Admin Dose 1 TAB; Start 04/17/17 at 14:00 Magnesium Hydroxide (Milk Of Mag) 30 ml DAILY PRN PO CONSTIPATION Last administered on 04/17/17 20:29; Admin Dose 30 ML; Start 04/17/17 at 14:00 Morphine Sulfate (morphine) 2 mg Q4H PRN IV SEVERE PAIN LEVEL 7-10; Start at 10:30 Acetaminophen/ Hydrocodone Bitart ([place] (7.5-325)) 1 tab Q6H PRN PO pain; Start 04/30/17 at 16:00 PEG PEPE MD May 05, 2017 18:25
[2017-05-05 20:00] VITALS: BP 117/73; RESP 18
[2017-05-05] MEDS: HYDROCODONE/APAP (7.5/325) TAB PO PRN (22:29)
[2017-05-06 02:00] VITALS: BP 137/72; RESP 18
[2017-05-06 08:10] VITALS: BP 109/67; RESP 18
[2017-05-06] MEDS: SENNA TAB PO SCH ×2 (08:23→20:14)
[2017-05-06] MEDS: BACLOFEN 10 MG TAB PO SCH ×3 (08:24→20:14)
[2017-05-06] MEDS: ENOXAPARIN 40 MG/0.4 ML SYG SC SCH (08:33)
[2017-05-06 13:16] VITALS: BP 119/68; RESP 19
--- NOTE | 2017-05-06 16:30 | PN ---
Date/Time of Note Date/Time of Note DATE: 05/06/17 TIME: 16:30 Assessment/Plan VTE Prophylaxis VTE Prophylaxis Intervention: LMWH Lines/Catheters IV Catheter Type (from Nrsg): Saline Lock Urinary Cath still in place: No Assessment/Plan Chief Complaint/Hosp Course 26 yo male wtih diffuse weakness 2/2 unclear systemic muscular disorder leading to diffuse weakness, dysarthria chronically who has been admitted for inability to care for self - Continue with physical therapy - Awaiting patient placement - No acute medical issues DVT prophylaxis: Lovenox Problems: Subjective 24 Hr Interval Summary Free Text/Dictation No change to patien'ts clinical status Awaiting SNF placement Exam/Review of Systems Vital Signs Vitals Vital Signs Date Time Temp Pulse Resp B/P Pulse Ox O2 Delivery O2 Flow Rate FiO2 05/06/17 13:16 98.4 89 19 119/68 99 Intake and Output 05/05/17 05/05/17 05/06/17 15:00 23:00 07:00 Intake Total 640 ml 100 ml Output Total 500 ml Balance 140 ml 100 ml Medications Medications Current Medications Ondansetron HCl (Zofran Inj) 4 mg Q6H PRN IV NAUSEA AND/OR VOMITING Last administered on 03/20/17 06:00; Admin Dose 4 MG; Start 03/17/17 at 21:30 Acetaminophen (Tylenol Supp) 650 mg Q6H PRN [place] PAIN LEVEL 1-3 OR FEVER; Start 03/17/17 at 21:30 Enoxaparin Sodium (Lovenox) 40 mg DAILY SC Last administered on 05/06/17 08:33 ; Admin Dose 40 MG; Start 03/18/17 at 09:00 Baclofen (Lioresal) 10 mg TID PO Last administered on 05/06/17 14:26; Admin Dose 10 MG; Start 03/18/17 at 09:00 Docusate Sodium (Colace) 100 mg TID PRN PO CONSTIPATION Last administered on 09:00; Admin Dose 100 MG; Start 04/13/17 at 17:30 Lidocaine (Xylocaine (Viscous)) 15 ml QID PRN PO PAIN AND/OR INFLAMMATION Last administered on 04/30/17 01:04; Admin Dose 15 ML; Start 04/16/17 at 18:00 Senna (Senokot) 1 tab BID PO Last administered on 05/06/17 08:23; Admin Dose 1 TAB; Start 04/17/17 at 14:00 Magnesium Hydroxide (Milk Of Mag) 30 ml DAILY PRN PO CONSTIPATION Last administered on 04/17/17 20:29; Admin Dose 30 ML; Start 04/17/17 at 14:00 Morphine Sulfate (morphine) 2 mg Q4H PRN IV SEVERE PAIN LEVEL 7-10; Start at 10:30 Acetaminophen/ Hydrocodone Bitart ([place] (7.5-325)) 1 tab Q6H PRN PO pain Last administered on 05/05/17 22:29; Admin Dose 1 TAB; Start 04/30/17 at 16:00 PEG PEPE MD May 06, 2017 16:30
[2017-05-06 19:25] VITALS: BP 117/69; RESP 20
[2017-05-07 02:00] VITALS: BP 122/77; RESP 20
[2017-05-07 07:29] VITALS: BP 107/64; RESP 16
[2017-05-07] MEDS: BACLOFEN 10 MG TAB PO SCH ×3 (09:29→21:27)
[2017-05-07] MEDS: SENNA TAB PO SCH ×2 (09:29→21:28)
[2017-05-07] MEDS: ENOXAPARIN 40 MG/0.4 ML SYG SC SCH (09:46)
--- NOTE | 2017-05-07 12:03 | PN ---
Date/Time of Note Date/Time of Note DATE: 05/07/17 TIME: 12:02 Assessment/Plan VTE Prophylaxis VTE Prophylaxis Intervention: SCD's Lines/Catheters [facility] Saline Lock Urinary Cath still in place: No Assessment/Plan Assessment/Plan 1. Failure to thrive. Continue with physical therapy. Continue with supplements. Awaiting for patient placement . remains stable at present 2. Muscular dystrophy/myopathy. Continue on baclofen. Continue with physical therapy measures. continue with aspiration precautions Subjective 24 Hr Interval Summary Free Text/Dictation no event. Exam/Review of Systems Vital Signs Vitals Vital Signs Date Time Temp Pulse Resp B/P Pulse Ox O2 Delivery O2 Flow Rate FiO2 05/07/17 07:29 97.6 70 16 107/64 99 Intake and Output 05/06/17 05/06/17 05/07/17 15:00 23:00 07:00 Intake Total 560 ml Output Total 975 ml Balance -415 ml Exam Constitutional: alert, oriented, well developed Psych: nl mood/affect, no complaints Head: atraumatic, normocephalic Eyes: EOMI, PERRL, nl conjunctiva, nl lids ENMT: mucosa pink and moist, nl external ears & nose, nl lips & teeth, nl nasal mucosa & septum Neck: supple Respiratory: clear to auscultation, normal air movement, No congested cough, No crackles/rales, No diminished breath sounds, No intercostal retraction, No labored breathing, No other, No respirations, No tactile fremitus, No wheezing Cardiovascular: regular rate and rhythm, No S3, No S4, No bruits, No diastolic murmur, No edema, No gallop, No irregular rhythm, No jugular venous distention (JVD), No murmurs/extra sounds, No nl pulses, No other, No rub, No systolic murmur Gastrointestinal: nl liver, spleen, non-tender, soft, No ascites, No bowel sounds, No distended, No firm, No hepatomegaly, No mass , No other, No rebound or guarding, No splenomegaly, No surgical scars, No tender Musculoskeletal: nl extremities to inspection Extremities: normal pulses, No calf tenderness, No clubbing, No cyanosis, No edema, No other, No palpable cord, No pitting pedal edema, No tenderness Neurological: STUNT PERSON II-XII intact, nl mental status Medications Medications Current Medications Ondansetron HCl (Zofran Inj) 4 mg Q6H PRN IV NAUSEA AND/OR VOMITING Last administered on 03/20/17 06:00; Admin Dose 4 MG; Start 03/17/17 at 21:30 Acetaminophen (Tylenol Supp) 650 mg Q6H PRN [place] PAIN LEVEL 1-3 OR FEVER; Start 03/17/17 at 21:30 Enoxaparin Sodium (Lovenox) 40 mg DAILY SC Last administered on 05/07/17 09:46 ; Admin Dose 40 MG; Start 03/18/17 at 09:00 Baclofen (Lioresal) 10 mg TID PO Last administered on 05/07/17 09:29; Admin Dose 10 MG; Start 03/18/17 at 09:00 Docusate Sodium (Colace) 100 mg TID PRN PO CONSTIPATION Last administered on 09:00; Admin Dose 100 MG; Start 04/13/17 at 17:30 Lidocaine (Xylocaine (Viscous)) 15 ml QID PRN PO PAIN AND/OR INFLAMMATION Last administered on 04/30/17 01:04; Admin Dose 15 ML; Start 04/16/17 at 18:00 Senna (Senokot) 1 tab BID PO Last administered on 05/07/17 09:29; Admin Dose 1 TAB; Start 04/17/17 at 14:00 Magnesium Hydroxide (Milk Of Mag) 30 ml DAILY PRN PO CONSTIPATION Last administered on 04/17/17 20:29; Admin Dose 30 ML; Start 04/17/17 at 14:00 Morphine Sulfate (morphine) 2 mg Q4H PRN IV SEVERE PAIN LEVEL 7-10; Start at 10:30 Acetaminophen/ Hydrocodone Bitart ([place] (7.5-325)) 1 tab Q6H PRN PO pain Last administered on 05/05/17 22:29; Admin Dose 1 TAB; Start 04/30/17 at 16:00 KASIA QURESHI MD May 07, 2017 12:03
[2017-05-07 13:19] VITALS: BP 136/67; RESP 16
[2017-05-07] MEDS: HYDROCODONE/APAP (7.5/325) TAB PO PRN (14:32)
[2017-05-07 19:39] VITALS: BP 126/84; RESP 20
[2017-05-08 02:38] VITALS: BP 117/59; RESP 20
[2017-05-08 08:15] VITALS: BP 130/84; RESP 18
[2017-05-08] MEDS: SENNA TAB PO SCH ×2 (08:15→21:08)
[2017-05-08] MEDS: BACLOFEN 10 MG TAB PO SCH ×3 (08:15→21:08)
[2017-05-08] MEDS: ENOXAPARIN 40 MG/0.4 ML SYG SC SCH (08:20)
--- NOTE | 2017-05-08 14:05 | PN ---
Date/Time of Note Date/Time of Note DATE: 05/08/17 TIME: 14:03 Assessment/Plan VTE Prophylaxis VTE Prophylaxis Intervention: SCD's Lines/Catheters IV Catheter Type (from [facility]): [facility] [facility] Urinary Cath still in place: No Assessment/Plan Assessment/Plan 1. Failure to thrive. Continue with physical therapy. Continue with supplements. Awaiting for patient placement . remains stable at present 2. Muscular dystrophy/myopathy. Continue on baclofen. Continue with physical therapy measures. continue with aspiration precautions Subjective 24 Hr Interval Summary Free Text/Dictation working with PT. no event Exam/Review of Systems Vital Signs Vitals Vital Signs Date Time Temp Pulse Resp B/P Pulse Ox O2 Delivery O2 Flow Rate FiO2 05/08/17 08:15 97.9 76 18 130/84 97 Intake and Output 05/07/17 05/07/17 05/08/17 15:00 23:00 07:00 Intake Total 560 ml Output Total 400 ml Balance 160 ml Exam Constitutional: alert, oriented, well developed Psych: nl mood/affect, no complaints Head: atraumatic, normocephalic Eyes: EOMI, PERRL, nl conjunctiva, nl lids ENMT: nl external ears & nose, nl lips & teeth, nl nasal mucosa & septum Neck: non-tender, supple Respiratory: clear to auscultation, normal air movement, No congested cough, No crackles/rales, No diminished breath sounds, No intercostal retraction, No labored breathing, No other, No respirations, No tactile fremitus, No wheezing Cardiovascular: nl pulses, regular rate and rhythm, No S3, No S4, No bruits, No diastolic murmur, No edema, No gallop, No irregular rhythm, No jugular venous distention (JVD), No murmurs/extra sounds, No other, No rub, No systolic murmur Gastrointestinal: nl liver, spleen, non-tender, soft, No ascites, No bowel sounds, No distended, No firm, No hepatomegaly, No mass , No other, No rebound or guarding, No splenomegaly, No surgical scars, No tender Musculoskeletal: nl extremities to inspection Extremities: normal pulses, No calf tenderness, No clubbing, No cyanosis, No edema, No other, No palpable cord, No pitting pedal edema, No tenderness Neurological: 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, nl mental status, nl speech Skin: nl turgor Lymph: nl lymph nodes Medications Medications Current Medications Ondansetron HCl (Zofran Inj) 4 mg Q6H PRN IV NAUSEA AND/OR VOMITING Last administered on 03/20/17 06:00; Admin Dose 4 MG; Start 03/17/17 at 21:30 Acetaminophen (Tylenol Supp) 650 mg Q6H PRN [place] PAIN LEVEL 1-3 OR FEVER; Start 03/17/17 at 21:30 Enoxaparin Sodium (Lovenox) 40 mg DAILY SC Last administered on 05/08/17 08:20 ; Admin Dose 40 MG; Start 03/18/17 at 09:00 Baclofen (Lioresal) 10 mg TID PO Last administered on 05/08/17 13:08; Admin Dose 10 MG; Start 03/18/17 at 09:00 Docusate Sodium (Colace) 100 mg TID PRN PO CONSTIPATION Last administered on 09:00; Admin Dose 100 MG; Start 04/13/17 at 17:30 Lidocaine (Xylocaine (Viscous)) 15 ml QID PRN PO PAIN AND/OR INFLAMMATION Last administered on 04/30/17 01:04; Admin Dose 15 ML; Start 04/16/17 at 18:00 Senna (Senokot) 1 tab BID PO Last administered on 05/08/17 08:15; Admin Dose 1 TAB; Start 04/17/17 at 14:00 Magnesium Hydroxide (Milk Of Mag) 30 ml DAILY PRN PO CONSTIPATION Last administered on 04/17/17 20:29; Admin Dose 30 ML; Start 04/17/17 at 14:00 Morphine Sulfate (morphine) 2 mg Q4H PRN IV SEVERE PAIN LEVEL 7-10; Start at 10:30 Acetaminophen/ Hydrocodone Bitart ([place] (7.5-325)) 1 tab Q6H PRN PO pain Last administered on 05/07/17 14:32; Admin Dose 1 TAB; Start 04/30/17 at 16:00 KASIA QURESHI MD May 08, 2017 14:04
[2017-05-08 14:29] VITALS: BP 129/79; RESP 20
[2017-05-08 19:35] VITALS: BP 120/78; RESP 20
[2017-05-09 02:00] VITALS: BP 115/72; RESP 20
[2017-05-09 07:21] VITALS: BP 121/68; RESP 18
[2017-05-09] MEDS: SENNA TAB PO SCH ×2 (08:49→21:09)
[2017-05-09] MEDS: BACLOFEN 10 MG TAB PO SCH ×3 (08:49→21:10)
[2017-05-09] MEDS: ENOXAPARIN 40 MG/0.4 ML SYG SC SCH (08:56)
--- NOTE | 2017-05-09 13:48 | PN ---
Date/Time of Note Date/Time of Note DATE: 05/09/17 TIME: 13:46 Assessment/Plan VTE Prophylaxis VTE Prophylaxis Intervention: SCD's Lines/Catheters IV Catheter Type (from Nrs): NONE. Urinary Cath still in place: No Assessment/Plan Assessment/Plan 1. Muscular dystrophy/myopathy. Continue on baclofen. Continue with physical therapy measures. awaiting for placement Subjective 24 Hr Interval Summary Free Text/Dictation no event. no distress Exam/Review of Systems Vital Signs Vitals Vital Signs Date Time Temp Pulse Resp B/P Pulse Ox O2 Delivery O2 Flow Rate FiO2 05/09/17 07:21 98.6 63 18 121/68 96 Intake and Output 05/08/17 05/08/17 05/09/17 15:00 23:00 07:00 Intake Total 600 ml 1240 ml 120 ml Output Total 300 ml 1600 ml Balance 300 ml -360 ml 120 ml Exam Constitutional: alert, oriented, well developed Psych: nl mood/affect, no complaints Head: atraumatic, normocephalic Eyes: EOMI, PERRL, nl conjunctiva, nl lids ENMT: mucosa pink and moist, nl external ears & nose, nl lips & teeth, nl nasal mucosa & septum Neck: non-tender, supple Respiratory: clear to auscultation, normal air movement, No congested cough, No crackles/rales, No diminished breath sounds, No intercostal retraction, No labored breathing, No other, No respirations, No tactile fremitus, No wheezing Cardiovascular: nl pulses, regular rate and rhythm, No S3, No S4, No bruits, No diastolic murmur, No edema, No gallop, No irregular rhythm, No jugular venous distention (JVD), No murmurs/extra sounds, No other, No rub, No systolic murmur Gastrointestinal: nl liver, spleen, non-tender, soft, No ascites, No bowel sounds, No distended, No firm, No hepatomegaly, No mass , No other, No rebound or guarding, No splenomegaly, No surgical scars, No tender Musculoskeletal: nl extremities to inspection Extremities: normal pulses, No calf tenderness, No clubbing, No cyanosis, No edema, No other, No palpable cord, No pitting pedal edema, No tenderness 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, nl mental status Skin: nl turgor Lymph: nl lymph nodes Medications Medications Current Medications Ondansetron HCl (Zofran Inj) 4 mg Q6H PRN IV NAUSEA AND/OR VOMITING Last administered on 03/20/17 06:00; Admin Dose 4 MG; Start 03/17/17 at 21:30 Acetaminophen (Tylenol Supp) 650 mg Q6H PRN [place] PAIN LEVEL 1-3 OR FEVER; Start 03/17/17 at 21:30 Enoxaparin Sodium (Lovenox) 40 mg DAILY SC Last administered on 05/09/17 08:56 ; Admin Dose 40 MG; Start 03/18/17 at 09:00 Baclofen (Lioresal) 10 mg TID PO Last administered on 05/09/17 12:56; Admin Dose 10 MG; Start 03/18/17 at 09:00 Docusate Sodium (Colace) 100 mg TID PRN PO CONSTIPATION Last administered on 09:00; Admin Dose 100 MG; Start 04/13/17 at 17:30 Lidocaine (Xylocaine (Viscous)) 15 ml QID PRN PO PAIN AND/OR INFLAMMATION Last administered on 04/30/17 01:04; Admin Dose 15 ML; Start 04/16/17 at 18:00 Senna (Senokot) 1 tab BID PO Last administered on 05/09/17 08:49; Admin Dose 1 TAB; Start 04/17/17 at 14:00 Magnesium Hydroxide (Milk Of Mag) 30 ml DAILY PRN PO CONSTIPATION Last administered on 04/17/17 20:29; Admin Dose 30 ML; Start 04/17/17 at 14:00 Morphine Sulfate (morphine) 2 mg Q4H PRN IV SEVERE PAIN LEVEL 7-10; Start at 10:30 Acetaminophen/ Hydrocodone Bitart ([place] (7.5-325)) 1 tab Q6H PRN PO pain Last administered on 05/07/17 14:32; Admin Dose 1 TAB; Start 04/30/17 at 16:00 KASIA QURESHI MD May 09, 2017 13:48
[2017-05-09 14:23] VITALS: BP 112/69; RESP 18
[2017-05-09 19:18] VITALS: BP 116/69; RESP 20
[2017-05-10 06:19] VITALS: BP 107/58; RESP 19
[2017-05-10 08:45] VITALS: BP 126/71; RESP 16
[2017-05-10] MEDS: SENNA TAB PO SCH ×2 (09:27→21:28)
[2017-05-10] MEDS: BACLOFEN 10 MG TAB PO SCH ×3 (09:27→21:28)
[2017-05-10] MEDS: ENOXAPARIN 40 MG/0.4 ML SYG SC SCH (09:32)
[2017-05-10 14:49] VITALS: BP 129/70; RESP 22
--- NOTE | 2017-05-10 16:16 | PN ---
Date/Time of Note Date/Time of Note DATE: 05/10/17 TIME: 16:16 Assessment/Plan VTE Prophylaxis VTE Prophylaxis Intervention: LMWH Lines/Catheters IV Catheter Type (from Nrsg): none Urinary Cath still in place: No Assessment/Plan Chief Complaint/Hosp Course 26 yo male wtih diffuse weakness 2/2 unclear systemic muscular disorder leading to diffuse weakness, dysarthria chronically who has been admitted for inability to care for self - Continue with physical therapy - Awaiting patient placement - No acute medical issues DVT prophylaxis: Lovenox Problems: Subjective 24 Hr Interval Summary Free Text/Dictation Enrolled in [facility] genetic study No change to status Very happy No complaints Exam/Review of Systems Vital Signs Vitals Vital Signs Date Time Temp Pulse Resp B/P Pulse Ox O2 Delivery O2 Flow Rate FiO2 05/10/17 14:49 97.9 91 22 129/70 99 Intake and Output 05/09/17 05/09/17 05/10/17 15:00 23:00 07:00 Intake Total 980 ml Output Total 600 ml Balance 380 ml Medications Medications Current Medications Ondansetron HCl (Zofran Inj) 4 mg Q6H PRN IV NAUSEA AND/OR VOMITING Last administered on 03/20/17 06:00; Admin Dose 4 MG; Start 03/17/17 at 21:30 Acetaminophen (Tylenol Supp) 650 mg Q6H PRN [place] PAIN LEVEL 1-3 OR FEVER; Start 03/17/17 at 21:30 Enoxaparin Sodium (Lovenox) 40 mg DAILY SC Last administered on 05/10/17 09:32 ; Admin Dose 40 MG; Start 03/18/17 at 09:00 Baclofen (Lioresal) 10 mg TID PO Last administered on 05/10/17 12:38; Admin Dose 10 MG; Start 03/18/17 at 09:00 Docusate Sodium (Colace) 100 mg TID PRN PO CONSTIPATION Last administered on 09:00; Admin Dose 100 MG; Start 04/13/17 at 17:30 Lidocaine (Xylocaine (Viscous)) 15 ml QID PRN PO PAIN AND/OR INFLAMMATION Last administered on 04/30/17 01:04; Admin Dose 15 ML; Start 04/16/17 at 18:00 Senna (Senokot) 1 tab BID PO Last administered on 05/10/17 09:27; Admin Dose 1 TAB; Start 04/17/17 at 14:00 Magnesium Hydroxide (Milk Of Mag) 30 ml DAILY PRN PO CONSTIPATION Last administered on 04/17/17 20:29; Admin Dose 30 ML; Start 04/17/17 at 14:00 Morphine Sulfate (morphine) 2 mg Q4H PRN IV SEVERE PAIN LEVEL 7-10; Start at 10:30 Acetaminophen/ Hydrocodone Bitart ([place] (7.5-325)) 1 tab Q6H PRN PO pain Last administered on 05/07/17 14:32; Admin Dose 1 TAB; Start 04/30/17 at 16:00 PEG PEPE MD May 10, 2017 16:16
[2017-05-10 19:43] VITALS: BP 124/66; RESP 18
[2017-05-11 02:42] VITALS: BP 102/62; RESP 18
[2017-05-11 07:29] VITALS: BP 119/77; RESP 16
[2017-05-11] MEDS: SENNA TAB PO SCH ×2 (08:59→20:30)
[2017-05-11] MEDS: BACLOFEN 10 MG TAB PO SCH ×3 (08:59→20:30)
[2017-05-11] MEDS: ENOXAPARIN 40 MG/0.4 ML SYG SC SCH (09:02)
--- NOTE | 2017-05-11 11:14 | PN ---
Date/Time of Note Date/Time of Note DATE: 05/11/17 TIME: 11:12 Assessment/Plan VTE Prophylaxis VTE Prophylaxis Intervention: LMWH Lines/Catheters IV Catheter Type (from Nrsg): none Urinary Cath still in place: No Assessment/Plan Assessment/Plan 26 yo male wtih diffuse weakness 2/2 unclear systemic muscular disorder leading to diffuse weakness, dysarthria chronically who has been admitted for inability to care for self - Continue with physical therapy - Awaiting patient placement - No acute medical issues DVT prophylaxis: Lovenox Exam/Review of Systems Vital Signs Vitals Vital Signs Date Time Temp Pulse Resp B/P Pulse Ox O2 Delivery O2 Flow Rate FiO2 05/11/17 07:29 98.1 74 16 119/77 100 Intake and Output 05/10/17 05/10/17 05/11/17 15:00 23:00 07:00 Intake Total 480 ml 400 ml Output Total 600 ml 1200 ml Balance -120 ml -800 ml Exam Constitutional: alert Psych: no complaints Head: normocephalic Eyes: nl conjunctiva ENMT: nl external ears & nose Neck: supple Respiratory: clear to auscultation, diminished breath sounds, normal air movement Cardiovascular: nl pulses, regular rate and rhythm Gastrointestinal: non-tender, soft Musculoskeletal: nl extremities to inspection Neurological: 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-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 intact Medications Medications Current Medications Ondansetron HCl (Zofran Inj) 4 mg Q6H PRN IV NAUSEA AND/OR VOMITING Last administered on 03/20/17 06:00; Admin Dose 4 MG; Start 03/17/17 at 21:30 Acetaminophen (Tylenol Supp) 650 mg Q6H PRN [place] PAIN LEVEL 1-3 OR FEVER; Start 03/17/17 at 21:30 Enoxaparin Sodium (Lovenox) 40 mg DAILY SC Last administered on 05/11/17 09:02 ; Admin Dose 40 MG; Start 03/18/17 at 09:00 Baclofen (Lioresal) 10 mg TID PO Last administered on 05/11/17 08:59; Admin Dose 10 MG; Start 03/18/17 at 09:00 Docusate Sodium (Colace) 100 mg TID PRN PO CONSTIPATION Last administered on 09:00; Admin Dose 100 MG; Start 04/13/17 at 17:30 Lidocaine (Xylocaine (Viscous)) 15 ml QID PRN PO PAIN AND/OR INFLAMMATION Last administered on 04/30/17 01:04; Admin Dose 15 ML; Start 04/16/17 at 18:00 Senna (Senokot) 1 tab BID PO Last administered on 05/11/17 08:59; Admin Dose 1 TAB; Start 04/17/17 at 14:00 Magnesium Hydroxide (Milk Of Mag) 30 ml DAILY PRN PO CONSTIPATION Last administered on 04/17/17 20:29; Admin Dose 30 ML; Start 04/17/17 at 14:00 Morphine Sulfate (morphine) 2 mg Q4H PRN IV SEVERE PAIN LEVEL 7-10; Start at 10:30 Acetaminophen/ Hydrocodone Bitart ([place] (7.5-325)) 1 tab Q6H PRN PO pain Last administered on 05/07/17 14:32; Admin Dose 1 TAB; Start 04/30/17 at 16:00 DARION WILSON MD May 11, 2017 11:14
[2017-05-11 14:00] VITALS: BP 114/70; RESP 16
[2017-05-11 20:00] VITALS: BP 114/75; RESP 18
[2017-05-12 02:17] VITALS: BP 101/61; RESP 18
[2017-05-12 05:37] LABS: BASOPHILS % 0.6 % (0.0-2.0); EOSINOPHILS # 0.1 10^3/ul (0.0-0.5); EOSINOPHILS % 2.1 % (0.0-7.0); HEMATOCRIT 39.4 % (42.0-52.0); HEMOGLOBIN 13.7 g/dl (14.0-18.0); LYMPHOCYTES # 2.4 10^3/ul (0.8-2.9); LYMPHOCYTES % 45.5 % (15.0-51.0); MEAN CORPUSCULAR HGB CONC 34.8 g/dl (32.0-37.0); MEAN CORPUSCULAR VOLUME 83.5 fl (82.0-101.0); MEAN PLATELET VOLUME 9.1 fl (7.4-10.4); MONOCYTE # 0.4 10^3/ul (0.3-0.9); MONOCYTES % 7.3 % (0.0-11.0); NEUTROPHILS % 44.3 % (39.0-77.0); PLATELET COUNT 231 10^3/UL (140-415); RED BLOOD COUNT 4.72 10^6/ul (4.70-6.10); RED CELL DISTRIBUTION WIDTH 12.6 % (11.5-14.5); WHITE BLOOD COUNT 5.2 10^3/ul (4.8-10.8)
[2017-05-12 06:19] LABS: CALCIUM 9.6 mg/dl (8.4-10.2); CREATININE 1.01 mg/dl (0.61-1.24)
[2017-05-12 07:53] VITALS: BP 120/61; RESP 20
[2017-05-12] MEDS: BACLOFEN 10 MG TAB PO SCH ×3 (08:37→22:11)
[2017-05-12] MEDS: SENNA TAB PO SCH ×2 (08:38→22:11)
[2017-05-12] MEDS: ENOXAPARIN 40 MG/0.4 ML SYG SC SCH (08:45)
--- NOTE | 2017-05-12 12:31 | PN ---
Date/Time of Note Date/Time of Note DATE: 05/12/17 TIME: 12:29 Assessment/Plan VTE Prophylaxis VTE Prophylaxis Intervention: LMWH Lines/Catheters IV Catheter Type (from Nrs): none Urinary Cath still in place: No Assessment/Plan Chief Complaint/Hosp Course S: 05/12: No events feels fine. No pain no dyspnea in chair. Awaiting placement O: Vss PE No pallor Reg Clear Benign No edema Neuro: potentially some hypotonia generalized. A/P 1. Failure to thrive. Stable pending disposition to snf for assistance in ADLs. 2. Subacute myopathy? Sp genetic testing [facility]- Results pending. Calorie count/ ST therapy as needed. Cont PT. 3. MRSA nares; colonized 2 wks of Bactroban. Discontinue isolation? 4. Vitamin D deficiency. Problems: Subjective 24 Hr Interval Summary Free Text/Dictation 05/12 Exam/Review of Systems Vital Signs Vitals Vital Signs Date Time Temp Pulse Resp B/P Pulse Ox O2 Delivery O2 Flow Rate FiO2 05/12/17 07:53 98.1 67 20 120/61 100 Intake and Output 05/11/17 05/11/17 05/12/17 15:00 23:00 07:00 Intake Total 840 ml 350 ml Output Total 1000 ml 500 ml Balance -160 ml -150 ml Results Result Diagram: 05/12/170 05/12/17 0450 Results 24 hrs Laboratory Tests Test 05/12/17 04:50 White Blood Count 5.2 Red Blood Count 4.72 Hemoglobin 13.7 L Hematocrit 39.4 L Mean Corpuscular Volume 83.5 Mean Corpuscular Hemoglobin 29.0 Mean Corpuscular Hemoglobin Concent 34.8 Red Cell Distribution Width 12.6 Platelet Count 231 Mean Platelet Volume 9.1 Neutrophils % 44.3 Lymphocytes % 45.5 Monocytes % 7.3 Eosinophils % 2.1 Basophils % 0.6 Nucleated Red Blood Cells % 0.0 Neutrophils # (Manual) 2.3 Lymphocytes # 2.4 Monocytes # 0.4 Eosinophils # 0.1 Basophils # 0.0 Nucleated Red Blood Cells # 0.0 Sodium Level 144 Potassium Level 4.0 Chloride Level 104 Carbon Dioxide Level 26 Anion Gap 18 H Blood Urea Nitrogen 12 Creatinine 1.01 Glucose Level 85 Calcium Level 9.6 Medications Medications Current Medications Ondansetron HCl (Zofran Inj) 4 mg Q6H PRN IV NAUSEA AND/OR VOMITING Last administered on 03/20/17 06:00; Admin Dose 4 MG; Start 03/17/17 at 21:30 Acetaminophen (Tylenol Supp) 650 mg Q6H PRN [place] PAIN LEVEL 1-3 OR FEVER; Start 03/17/17 at 21:30 Enoxaparin Sodium (Lovenox) 40 mg DAILY SC Last administered on 05/12/17 08:45 ; Admin Dose 40 MG; Start 03/18/17 at 09:00 Baclofen (Lioresal) 10 mg TID PO Last administered on 05/12/17 08:37; Admin Dose 10 MG; Start 03/18/17 at 09:00 Docusate Sodium (Colace) 100 mg TID PRN PO CONSTIPATION Last administered on 09:00; Admin Dose 100 MG; Start 04/13/17 at 17:30 Lidocaine (Xylocaine (Viscous)) 15 ml QID PRN PO PAIN AND/OR INFLAMMATION Last administered on 04/30/17 01:04; Admin Dose 15 ML; Start 04/16/17 at 18:00 Senna (Senokot) 1 tab BID PO Last administered on 05/12/17 08:38; Admin Dose 1 TAB; Start 04/17/17 at 14:00 Magnesium Hydroxide (Milk Of Mag) 30 ml DAILY PRN PO CONSTIPATION Last administered on 04/17/17 20:29; Admin Dose 30 ML; Start 04/17/17 at 14:00 Morphine Sulfate (morphine) 2 mg Q4H PRN IV SEVERE PAIN LEVEL 7-10; Start at 10:30 Acetaminophen/ Hydrocodone Bitart ([place] (7.5-325)) 1 tab Q6H PRN PO pain Last administered on 05/07/17 14:32; Admin Dose 1 TAB; Start 04/30/17 at 16:00 ANGELO CARRERA MD May 12, 2017 12:31
[2017-05-12] MEDS: CHOLECALCIFEROL 2,000 UNIT CAP PO SCH (13:04)
[2017-05-12 13:35] VITALS: BP 114/62; RESP 20
[2017-05-12 19:00] VITALS: BP 111/71; RESP 19
[2017-05-13 03:32] VITALS: BP 107/68; RESP 20
[2017-05-13 07:48] VITALS: BP 108/58; RESP 20
[2017-05-13] MEDS: BACLOFEN 10 MG TAB PO SCH ×3 (09:32→23:39)
[2017-05-13] MEDS: SENNA TAB PO SCH ×2 (09:32→23:39)
[2017-05-13] MEDS: CHOLECALCIFEROL 2,000 UNIT CAP PO SCH (09:32)
[2017-05-13] MEDS: ENOXAPARIN 40 MG/0.4 ML SYG SC SCH (09:45)
--- NOTE | 2017-05-13 10:57 | PN ---
Date/Time of Note Date/Time of Note DATE: 05/13/17 TIME: 10:56 Assessment/Plan VTE Prophylaxis VTE Prophylaxis Intervention: LMWH Lines/Catheters IV Catheter Type (from Nrsg): none Urinary Cath still in place: No Assessment/Plan Chief Complaint/Hosp Course S: 05/12: No events feels fine. No pain no dyspnea in chair. Awaiting placement 05/13: no events O: Vss PE No pallor Reg Clear Benign No edema Neuro: potentially some hypotonia generalized. A/P 1. Failure to thrive. Stable; pending disposition to snf for ADLs. 2. Subacute myopathy? Sp genetic testing [facility]- Results pending. Calorie count/ ST therapy as needed. Cont PT. 3. MRSA nares; colonized 2 wks of Bactroban. Dc isolation if repeat testing is neg. 4. Vitamin D deficiency. Problems: Exam/Review of Systems Vital Signs Vitals Vital Signs Date Time Temp Pulse Resp B/P Pulse Ox O2 Delivery O2 Flow Rate FiO2 05/13/17 07:48 98.1 74 20 108/58 100 Intake and Output 05/12/17 05/12/17 05/13/17 15:00 23:00 07:00 Intake Total 1260 ml 400 ml Output Total 1100 ml 1000 ml Balance 160 ml -600 ml Results Result Diagram: 05/12/17 0450 05/12/17 0450 Medications Medications Current Medications Ondansetron HCl (Zofran Inj) 4 mg Q6H PRN IV NAUSEA AND/OR VOMITING Last administered on 03/20/17 06:00; Admin Dose 4 MG; Start 03/17/17 at 21:30 Acetaminophen (Tylenol Supp) 650 mg Q6H PRN [place] PAIN LEVEL 1-3 OR FEVER; Start 03/17/17 at 21:30 Enoxaparin Sodium (Lovenox) 40 mg DAILY SC Last administered on 05/13/17 09:45 ; Admin Dose 40 MG; Start 03/18/17 at 09:00 Baclofen (Lioresal) 10 mg TID PO Last administered on 05/13/17 09:32; Admin Dose 10 MG; Start 03/18/17 at 09:00 Docusate Sodium (Colace) 100 mg TID PRN PO CONSTIPATION Last administered on 09:00; Admin Dose 100 MG; Start 04/13/17 at 17:30 Lidocaine (Xylocaine (Viscous)) 15 ml QID PRN PO PAIN AND/OR INFLAMMATION Last administered on 04/30/17 01:04; Admin Dose 15 ML; Start 04/16/17 at 18:00 Senna (Senokot) 1 tab BID PO Last administered on 05/13/17 09:32; Admin Dose 1 TAB; Start 04/17/17 at 14:00 Magnesium Hydroxide (Milk Of Mag) 30 ml DAILY PRN PO CONSTIPATION Last administered on 04/17/17 20:29; Admin Dose 30 ML; Start 04/17/17 at 14:00 Morphine Sulfate (morphine) 2 mg Q4H PRN IV SEVERE PAIN LEVEL 7-10; Start at 10:30 Acetaminophen/ Hydrocodone Bitart ([place] (7.5-325)) 1 tab Q6H PRN PO pain Last administered on 05/07/17 14:32; Admin Dose 1 TAB; Start 04/30/17 at 16:00 Cholecalciferol (Vitamin D) 2,000 unit DAILY PO Last administered on 05/13/17 09:32; Admin Dose 2,000 UNIT; Start 05/12/17 at 13:00 ANGELO CARRERA MD May 13, 2017 10:57
[2017-05-13 14:19] VITALS: BP 134/74; RESP 20
[2017-05-13 20:22] VITALS: BP 124/73; RESP 20
[2017-05-14 02:12] VITALS: BP 124/66; RESP 20
[2017-05-14 08:06] VITALS: BP 103/58; RESP 16
[2017-05-14] MEDS: CHOLECALCIFEROL 2,000 UNIT CAP PO SCH (08:34)
[2017-05-14] MEDS: BACLOFEN 10 MG TAB PO SCH ×3 (08:34→20:49)
[2017-05-14] MEDS: SENNA TAB PO SCH ×2 (08:34→20:49)
[2017-05-14] MEDS: ENOXAPARIN 40 MG/0.4 ML SYG SC SCH (08:39)
--- NOTE | 2017-05-14 13:05 | PN ---
Date/Time of Note Date/Time of Note DATE: 05/14/17 TIME: 13:05 Assessment/Plan VTE Prophylaxis VTE Prophylaxis Intervention: LMWH Lines/Catheters IV Catheter Type (from Nrsg): none Urinary Cath still in place: No Assessment/Plan Chief Complaint/Hosp Course S: 05/12: No events feels fine. No pain no dyspnea in chair. Awaiting placement 05/13: no events 05/14: No events. O: Vss PE No pallor Reg Clear Benign No edema Neuro: potentially some hypotonia generalized. A/P 1. Failure to thrive. Stable; pending disposition to snf for ADLs. 2. Subacute myopathy? Sp genetic testing [facility]- Results pending. Calorie count/ ST therapy as needed. Cont PT. 3. MRSA nares; colonized 2 wks of Bactroban. Dc isolation as repeat testing is neg. 4. Vitamin D def. Problems: Exam/Review of Systems Vital Signs Vitals Vital Signs Date Time Temp Pulse Resp B/P Pulse Ox O2 Delivery O2 Flow Rate FiO2 05/14/17 08:06 97.9 65 16 103/58 96 Intake and Output 05/13/17 05/13/17 05/14/17 15:00 23:00 07:00 Intake Total 1300 ml Output Total 1500 ml 400 ml Balance -200 ml -400 ml Results Result Diagram: 05/12/1744905/12/17 045 Medications Medications Current Medications Ondansetron HCl (Zofran Inj) 4 mg Q6H PRN IV NAUSEA AND/OR VOMITING Last administered on 03/20/17 06:00; Admin Dose 4 MG; Start 03/17/17 at 21:30 Acetaminophen (Tylenol Supp) 650 mg Q6H PRN [place] PAIN LEVEL 1-3 OR FEVER; Start 03/17/17 at 21:30 Enoxaparin Sodium (Lovenox) 40 mg DAILY SC Last administered on 05/14/17 08:39 ; Admin Dose 40 MG; Start 03/18/17 at 09:00 Baclofen (Lioresal) 10 mg TID PO Last administered on 05/14/17 12:38; Admin Dose 10 MG; Start 03/18/17 at 09:00 Docusate Sodium (Colace) 100 mg TID PRN PO CONSTIPATION Last administered on 09:00; Admin Dose 100 MG; Start 04/13/17 at 17:30 Lidocaine (Xylocaine (Viscous)) 15 ml QID PRN PO PAIN AND/OR INFLAMMATION Last administered on 04/30/17 01:04; Admin Dose 15 ML; Start 04/16/17 at 18:00 Senna (Senokot) 1 tab BID PO Last administered on 05/14/17 08:34; Admin Dose 1 TAB; Start 04/17/17 at 14:00 Magnesium Hydroxide (Milk Of Mag) 30 ml DAILY PRN PO CONSTIPATION Last administered on 04/17/17 20:29; Admin Dose 30 ML; Start 04/17/17 at 14:00 Morphine Sulfate (morphine) 2 mg Q4H PRN IV SEVERE PAIN LEVEL 7-10; Start at 10:30 Acetaminophen/ Hydrocodone Bitart ([place] (7.5-325)) 1 tab Q6H PRN PO pain Last administered on 05/07/17 14:32; Admin Dose 1 TAB; Start 04/30/17 at 16:00 Cholecalciferol (Vitamin D) 2,000 unit DAILY PO Last administered on 05/14/17 08:34; Admin Dose 2,000 UNIT; Start 05/12/17 at 13:00 ANGELO CARRERA MD May 14, 2017 13:05
[2017-05-14 13:37] VITALS: BP 115/70; RESP 20
[2017-05-14 19:23] VITALS: BP 114/71; RESP 20
[2017-05-15 07:25] VITALS: BP 97/55; RESP 18
[2017-05-15] MEDS: CHOLECALCIFEROL 2,000 UNIT CAP PO SCH (08:55)
[2017-05-15] MEDS: SENNA TAB PO SCH ×2 (08:55→20:43)
[2017-05-15] MEDS: BACLOFEN 10 MG TAB PO SCH ×3 (08:55→20:43)
[2017-05-15] MEDS: ENOXAPARIN 40 MG/0.4 ML SYG SC SCH (09:02)
[2017-05-15 14:00] VITALS: BP 118/64; RESP 18
--- NOTE | 2017-05-15 15:36 | PN ---
Date/Time of Note Date/Time of Note DATE: 05/15/17 TIME: 15:35 Assessment/Plan VTE Prophylaxis VTE Prophylaxis Intervention: LMWH Lines/Catheters IV Catheter Type (from Nrsg): none Urinary Cath still in place: No Assessment/Plan Chief Complaint/Hosp Course S: 05/12: No events feels fine. No pain no dyspnea in chair. Awaiting placement 05/13: no events 05/14: No events. 05/15: No events O: Vss PE No pallor Reg Clear Benign No edema Neuro: potentially some hypotonia generalized. A/P 1. Failure to thrive. Stable; pending disposition to snf for ADLs. 2. Subacute myopathy? Sp genetic testing [facility]- Results pending. Calorie count/ ST therapy as needed. Cont PT. 3. MRSA nares; colonized 2 wks of Bactroban. Dced isolation as repeat testing is neg. 4. Vitamin D def. Problems: Exam/Review of Systems Vital Signs Vitals Vital Signs Date Time Temp Pulse Resp B/P Pulse Ox O2 Delivery O2 Flow Rate FiO2 05/15/17 07:25 97.5 63 18 97/55 97 Intake and Output 05/14/17 05/14/17 05/15/17 15:00 23:00 07:00 Intake Total 240 ml 600 ml 240 ml Output Total 400 ml 300 ml Balance 240 ml 200 ml -60 ml Results Result Diagram: 05/12/17 0450 05/12/17 0450 Medications Medications Current Medications Ondansetron HCl (Zofran Inj) 4 mg Q6H PRN IV NAUSEA AND/OR VOMITING Last administered on 03/20/17 06:00; Admin Dose 4 MG; Start 03/17/17 at 21:30 Acetaminophen (Tylenol Supp) 650 mg Q6H PRN [place] PAIN LEVEL 1-3 OR FEVER; Start 03/17/17 at 21:30 Enoxaparin Sodium (Lovenox) 40 mg DAILY SC Last administered on 05/15/17 09:02 ; Admin Dose 40 MG; Start 03/18/17 at 09:00 Baclofen (Lioresal) 10 mg TID PO Last administered on 05/15/17 12:38; Admin Dose 10 MG; Start 03/18/17 at 09:00 Docusate Sodium (Colace) 100 mg TID PRN PO CONSTIPATION Last administered on 09:00; Admin Dose 100 MG; Start 04/13/17 at 17:30 Lidocaine (Xylocaine (Viscous)) 15 ml QID PRN PO PAIN AND/OR INFLAMMATION Last administered on 04/30/17 01:04; Admin Dose 15 ML; Start 04/16/17 at 18:00 Senna (Senokot) 1 tab BID PO Last administered on 05/15/17 08:55; Admin Dose 1 TAB; Start 04/17/17 at 14:00 Magnesium Hydroxide (Milk Of Mag) 30 ml DAILY PRN PO CONSTIPATION Last administered on 04/17/17 20:29; Admin Dose 30 ML; Start 04/17/17 at 14:00 Morphine Sulfate (morphine) 2 mg Q4H PRN [place] SEVERE PAIN LEVEL 7-10; Start at 10:30 Acetaminophen/ Hydrocodone Bitart ([place] (7.5-325)) 1 tab Q6H PRN PO pain Last administered on 05/07/17 14:32; Admin Dose 1 TAB; Start 04/30/17 at 16:00 Cholecalciferol (Vitamin D) 2,000 unit DAILY PO Last administered on 05/15/17 08:55; Admin Dose 2,000 UNIT; Start 05/12/17 at 13:00 ANGELO CARRERA MD May 15, 2017 15:36
[2017-05-15 21:12] VITALS: BP 114/62; RESP 18
[2017-05-16 01:32] VITALS: BP 107/57; RESP 18
[2017-05-16 07:47] VITALS: BP 109/55; RESP 18
[2017-05-16] MEDS: CHOLECALCIFEROL 2,000 UNIT CAP PO SCH (08:19)
[2017-05-16] MEDS: BACLOFEN 10 MG TAB PO SCH ×3 (08:19→21:12)
[2017-05-16] MEDS: SENNA TAB PO SCH ×2 (08:20→21:12)
[2017-05-16] MEDS: ENOXAPARIN 40 MG/0.4 ML SYG SC SCH (08:27)
[2017-05-16 15:59] VITALS: BP 108/65; RESP 18
--- NOTE | 2017-05-16 18:39 | PN ---
Date/Time of Note Date/Time of Note DATE: 05/16/17 TIME: 18:38 Assessment/Plan VTE Prophylaxis VTE Prophylaxis Intervention: LMWH Lines/Catheters IV Catheter Type (from Nrsg): none Urinary Cath still in place: No Assessment/Plan Chief Complaint/Hosp Course S: 05/12: No events feels fine. No pain no dyspnea in chair. Awaiting placement 05/13: no events 05/14: No events. 05/15: No events 05/16: No events. O: Vss PE No pallor Reg Clear Benign No edema Neuro: potentially some hypotonia generalized. A/P 1. Failure to thrive. Stable; possible dc to snf for ADLs. 2. Subacute myopathy? Sp genetic testing [facility]- Results pending. Calorie count/ ST therapy as needed. Cont PT. 3. MRSA nares; colonized 2 wks of Bactroban. Dced isolation as repeat testing is neg. 4. Vitamin D def. Problems: Exam/Review of Systems Vital Signs Vitals Vital Signs Date Time Temp Pulse Resp B/P Pulse Ox O2 Delivery O2 Flow Rate FiO2 05/16/17 15:59 98.3 77 18 108/65 98 05/15/17 14:00 Room Air Intake and Output 05/15/17 05/15/17 05/16/17 14:59 22:59 06:59 Intake Total 440 ml 400 ml Output Total 550 ml 820 ml Balance -110 ml -420 ml Results Result Diagram: 05/12/17 0450 05/12/17 0450 Medications Medications Current Medications Ondansetron HCl (Zofran Inj) 4 mg Q6H PRN IV NAUSEA AND/OR VOMITING Last administered on 03/20/17 06:00; Admin Dose 4 MG; Start 03/17/17 at 21:30 Acetaminophen (Tylenol Supp) 650 mg Q6H PRN [place] PAIN LEVEL 1-3 OR FEVER; Start 03/17/17 at 21:30 Enoxaparin Sodium (Lovenox) 40 mg DAILY SC Last administered on 05/16/17 08:27 ; Admin Dose 40 MG; Start 03/18/17 at 09:00 Baclofen (Lioresal) 10 mg TID PO Last administered on 05/16/17 14:55; Admin Dose 10 MG; Start 03/18/17 at 09:00 Docusate Sodium (Colace) 100 mg TID PRN PO CONSTIPATION Last administered on 09:00; Admin Dose 100 MG; Start 04/13/17 at 17:30 Lidocaine (Xylocaine (Viscous)) 15 ml QID PRN PO PAIN AND/OR INFLAMMATION Last administered on 04/30/17 01:04; Admin Dose 15 ML; Start 04/16/17 at 18:00 Senna (Senokot) 1 tab BID PO Last administered on 05/16/17 08:20; Admin Dose 1 TAB; Start 04/17/17 at 14:00 Magnesium Hydroxide (Milk Of Mag) 30 ml DAILY PRN PO CONSTIPATION Last administered on 04/17/17 20:29; Admin Dose 30 ML; Start 04/17/17 at 14:00 Morphine Sulfate (morphine) 2 mg Q4H PRN [place] SEVERE PAIN LEVEL 7-10; Start at 10:30 Acetaminophen/ Hydrocodone Bitart ([place] (7.5-325)) 1 tab Q6H PRN PO pain Last administered on 05/07/17 14:32; Admin Dose 1 TAB; Start 04/30/17 at 16:00 Cholecalciferol (Vitamin D) 2,000 unit DAILY PO Last administered on 05/16/17 08:19; Admin Dose 2,000 UNIT; Start 05/12/17 at 13:00 ANGELO CARRERA MD May 16, 2017 18:39
[2017-05-16 20:00] VITALS: BP 114/67; RESP 18
[2017-05-16 21:17] VITALS: BP 114/57; PULSE 83; RESP 18
[2017-05-17 02:00] VITALS: BP 122/66; RESP 18
[2017-05-17 08:02] VITALS: BP 111/60; RESP 20
[2017-05-17] MEDS: CHOLECALCIFEROL 2,000 UNIT CAP PO SCH (08:48)
[2017-05-17] MEDS: BACLOFEN 10 MG TAB PO SCH ×3 (08:48→20:37)
[2017-05-17] MEDS: SENNA TAB PO SCH ×2 (08:48→20:37)
[2017-05-17] MEDS: ENOXAPARIN 40 MG/0.4 ML SYG SC SCH (09:19)
--- NOTE | 2017-05-17 12:58 | PN ---
Date/Time of Note Date/Time of Note DATE: 05/17/17 TIME: 12:58 Assessment/Plan VTE Prophylaxis VTE Prophylaxis Intervention: LMWH Lines/Catheters IV Catheter Type (from Nrsg): none Urinary Cath still in place: No Assessment/Plan Chief Complaint/Hosp Course S: 05/12: No events feels fine. No pain no dyspnea in chair. Awaiting placement 05/13: no events 05/14: No events. 05/15: No events 05/16: No events. 05/17: No events. In good spirits no distress dyspnea; watching a movie. O: Vss PE No pallor Reg Clear Benign No edema Neuro: potentially some hypotonia generalized. A/P 1. Failure to thrive. Stable; possible dc to snf for ADLs. 2. Subacute myopathy? Sp genetic testing [facility]- Results pending. Calorie count/ ST therapy as needed. Cont PT. 3. MRSA nares; colonized 2 wks of Bactroban. Dced isolation as repeat testing is neg. 4. Vitamin D def. Problems: Exam/Review of Systems Vital Signs Vitals Vital Signs Date Time Temp Pulse Resp B/P Pulse Ox O2 Delivery O2 Flow Rate FiO2 05/17/17 08:02 98.9 20 111/60 98 05/17/17 02:00 67 05/16/17 21:17 Room Air Intake and Output 05/16/17 05/16/17 05/17/17 15:00 23:00 07:00 Intake Total 1000 ml 600 ml Output Total 850 ml 800 ml Balance 150 ml -200 ml Medications Medications Current Medications Ondansetron HCl (Zofran Inj) 4 mg Q6H PRN IV NAUSEA AND/OR VOMITING Last administered on 03/20/17 06:00; Admin Dose 4 MG; Start 03/17/17 at 21:30 Acetaminophen (Tylenol Supp) 650 mg Q6H PRN [place] PAIN LEVEL 1-3 OR FEVER; Start 03/17/17 at 21:30 Enoxaparin Sodium (Lovenox) 40 mg DAILY SC Last administered on 05/17/17 09:19 ; Admin Dose 40 MG; Start 03/18/17 at 09:00 Baclofen (Lioresal) 10 mg TID PO Last administered on 05/17/17 08:48; Admin Dose 10 MG; Start 03/18/17 at 09:00 Docusate Sodium (Colace) 100 mg TID PRN PO CONSTIPATION Last administered on 09:00; Admin Dose 100 MG; Start 04/13/17 at 17:30 Lidocaine (Xylocaine (Viscous)) 15 ml QID PRN PO PAIN AND/OR INFLAMMATION Last administered on 04/30/17 01:04; Admin Dose 15 ML; Start 04/16/17 at 18:00 Senna (Senokot) 1 tab BID PO Last administered on 05/17/17 08:48; Admin Dose 1 TAB; Start 04/17/17 at 14:00 Magnesium Hydroxide (Milk Of Mag) 30 ml DAILY PRN PO CONSTIPATION Last administered on 04/17/17 20:29; Admin Dose 30 ML; Start 04/17/17 at 14:00 Morphine Sulfate (morphine) 2 mg Q4H PRN IV SEVERE PAIN LEVEL 7-10; Start at 10:30 Acetaminophen/ Hydrocodone Bitart ([place] (7.5-325)) 1 tab Q6H PRN PO pain Last administered on 05/07/17 14:32; Admin Dose 1 TAB; Start 04/30/17 at 16:00 Cholecalciferol (Vitamin D) 2,000 unit DAILY PO Last administered on 05/17/17 08:48; Admin Dose 2,000 UNIT; Start 05/12/17 at 13:00 ANGELO CARRERA MD May 17, 2017 12:58
[2017-05-17 13:42] VITALS: BP 110/61; RESP 20
[2017-05-17 19:55] VITALS: BP 115/64; RESP 18
[2017-05-18 02:07] VITALS: BP 109/59; RESP 18
[2017-05-18 08:19] VITALS: BP 98/57; RESP 20
[2017-05-18] MEDS: BACLOFEN 10 MG TAB PO SCH ×3 (09:01→21:29)
[2017-05-18] MEDS: CHOLECALCIFEROL 2,000 UNIT CAP PO SCH (09:01)
[2017-05-18] MEDS: SENNA TAB PO SCH ×2 (09:01→21:29)
[2017-05-18] MEDS: ENOXAPARIN 40 MG/0.4 ML SYG SC SCH (09:07)
--- NOTE | 2017-05-18 13:13 | PN ---
Date/Time of Note Date/Time of Note DATE: 05/18/17 TIME: 13:11 Assessment/Plan VTE Prophylaxis VTE Prophylaxis Intervention: LMWH Lines/Catheters IV Catheter Type (from Nrsg): none Urinary Cath still in place: No Assessment/Plan Chief Complaint/Hosp Course S: 05/12: No events feels fine. No pain no dyspnea in chair. Awaiting placement 05/13: no events 05/14: No events. 05/15: No events 05/16: No events. 05/17: No events. In good spirits no distress dyspnea; watching a movie. 05/18: Again, no events. Ambulating/ eating. No placement yet. Consider home w caregiver or even palliative care support. O: Vss PE No pallor Reg Clear Benign No edema Neuro: potentially some hypotonia- generalized. A/P 1. Failure to thrive. Stable; possible dc to snf for ADLs. 2. Subacute myopathy? Sp genetic testing [facility]- Results pending. Calorie count/ ST therapy as needed. Cont PT. 3. MRSA nares; colonized 2 wks of Bactroban. Dced isolation as repeat testing is neg. 4. Vitamin D def. Problems: Exam/Review of Systems Vital Signs Vitals Vital Signs Date Time Temp Pulse Resp B/P Pulse Ox O2 Delivery O2 Flow Rate FiO2 05/18/17 08:19 97.1 91 20 98/57 99 05/16/17 21:17 Room Air Intake and Output 05/17/17 05/17/17 05/18/17 15:00 23:00 07:00 Intake Total 720 ml 600 ml Output Total 600 ml 620 ml Balance 120 ml -20 ml Medications Medications Current Medications Ondansetron HCl (Zofran Inj) 4 mg Q6H PRN IV NAUSEA AND/OR VOMITING Last administered on 03/20/17 06:00; Admin Dose 4 MG; Start 03/17/17 at 21:30 Acetaminophen (Tylenol Supp) 650 mg Q6H PRN [place] PAIN LEVEL 1-3 OR FEVER; Start 03/17/17 at 21:30 Enoxaparin Sodium (Lovenox) 40 mg DAILY SC Last administered on 05/18/17 09:07 ; Admin Dose 40 MG; Start 03/18/17 at 09:00 Baclofen (Lioresal) 10 mg TID PO Last administered on 05/18/17 12:57; Admin Dose 10 MG; Start 03/18/17 at 09:00 Docusate Sodium (Colace) 100 mg TID PRN PO CONSTIPATION Last administered on 09:00; Admin Dose 100 MG; Start 04/13/17 at 17:30 Lidocaine (Xylocaine (Viscous)) 15 ml QID PRN PO PAIN AND/OR INFLAMMATION Last administered on 04/30/17 01:04; Admin Dose 15 ML; Start 04/16/17 at 18:00 Senna (Senokot) 1 tab BID PO Last administered on 05/18/17 09:01; Admin Dose 1 TAB; Start 04/17/17 at 14:00 Magnesium Hydroxide (Milk Of Mag) 30 ml DAILY PRN PO CONSTIPATION Last administered on 04/17/17 20:29; Admin Dose 30 ML; Start 04/17/17 at 14:00 Morphine Sulfate (morphine) 2 mg Q4H PRN IV SEVERE PAIN LEVEL 7-10; Start at 10:30 Acetaminophen/ Hydrocodone Bitart ([place] (7.5-325)) 1 tab Q6H PRN PO pain Last administered on 05/07/17 14:32; Admin Dose 1 TAB; Start 04/30/17 at 16:00 Cholecalciferol (Vitamin D) 2,000 unit DAILY PO Last administered on 05/18/17 09:01; Admin Dose 2,000 UNIT; Start 05/12/17 at 13:00 ANGELO CARRERA MD May 18, 2017 13:13
[2017-05-18 13:43] VITALS: BP 122/67; RESP 20
--- NOTE | 2017-05-18 16:20 | PN ---
Date/Time of Note Date/Time of Note DATE: 04/12/17 TIME: 16:20 Assessment/Plan VTE Prophylaxis VTE Prophylaxis Intervention: LMWH Lines/Catheters IV Catheter Type (from Nrsg): none Urinary Cath still in place: No Assessment/Plan Chief Complaint/Hosp Course 26 yo male wtih diffuse weakness 2/2 unclear systemic muscular disorder leading to diffuse weakness, dysarthria chronically who has been admitted for inability to care for self - Continue with physical therapy - Awaiting patient placement - No acute medical issues DVT prophylaxis: Lovenox Problems: Subjective 24 Hr Interval Summary Free Text/Dictation No change to clinical status Awaiting placement Working w PT Exam/Review of Systems Vital Signs Vitals Vital Signs Date Time Temp Pulse Resp B/P Pulse Ox O2 Delivery O2 Flow Rate FiO2 05/18/17 13:43 98.5 66 20 122/67 100 05/16/17 21:17 Room Air Intake and Output 05/17/17 05/17/17 05/18/17 15:00 23:00 07:00 Intake Total 720 ml 600 ml Output Total 600 ml 620 ml Balance 120 ml -20 ml Exam Constitutional: alert, oriented, well developed Psych: nl mood/affect, no complaints Head: atraumatic, normocephalic Eyes: EOMI, PERRL, nl conjunctiva, nl lids, nl sclera ENMT: nl external ears & nose, nl lips & teeth, nl nasal mucosa & septum Neck: non-tender, supple Respiratory: clear to auscultation, normal air movement Cardiovascular: nl pulses, regular rate and rhythm Gastrointestinal: nl liver, spleen, non-tender, soft Musculoskeletal: nl extremities to inspection, nl gait and stance Extremities: normal pulses Neurological: 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 intact, nl mental status, nl speech, nl strength Skin: nl turgor, No rash or lesions Lymph: nl lymph nodes Medications Medications Current Medications Ondansetron HCl (Zofran Inj) 4 mg Q6H PRN IV NAUSEA AND/OR VOMITING Last administered on 03/20/17 06:00; Admin Dose 4 MG; Start 03/17/17 at 21:30 Acetaminophen (Tylenol Supp) 650 mg Q6H PRN [place] PAIN LEVEL 1-3 OR FEVER; Start 03/17/17 at 21:30 Enoxaparin Sodium (Lovenox) 40 mg DAILY SC Last administered on 05/18/17 09:07 ; Admin Dose 40 MG; Start 03/18/17 at 09:00 Baclofen (Lioresal) 10 mg TID PO Last administered on 05/18/17 12:57; Admin Dose 10 MG; Start 03/18/17 at 09:00 Docusate Sodium (Colace) 100 mg TID PRN PO CONSTIPATION Last administered on 09:00; Admin Dose 100 MG; Start 04/13/17 at 17:30 Lidocaine (Xylocaine (Viscous)) 15 ml QID PRN PO PAIN AND/OR INFLAMMATION Last administered on 04/30/17 01:04; Admin Dose 15 ML; Start 04/16/17 at 18:00 Senna (Senokot) 1 tab BID PO Last administered on 05/18/17 09:01; Admin Dose 1 TAB; Start 04/17/17 at 14:00 Magnesium Hydroxide (Milk Of Mag) 30 ml DAILY PRN PO CONSTIPATION Last administered on 04/17/17 20:29; Admin Dose 30 ML; Start 04/17/17 at 14:00 Morphine Sulfate (morphine) 2 mg Q4H PRN IV SEVERE PAIN LEVEL 7-10; Start at 10:30 Acetaminophen/ Hydrocodone Bitart ([place] (7.5-325)) 1 tab Q6H PRN PO pain Last administered on 05/07/17 14:32; Admin Dose 1 TAB; Start 04/30/17 at 16:00 Cholecalciferol (Vitamin D) 2,000 unit DAILY PO Last administered on 05/18/17 09:01; Admin Dose 2,000 UNIT; Start 05/12/17 at 13:00 PEG PEPE MD May 18, 2017 16:20
--- NOTE | 2017-05-18 16:20 | PN ---
Date/Time of Note Date/Time of Note DATE: 04/11/17 TIME: 16:19 Assessment/Plan VTE Prophylaxis VTE Prophylaxis Intervention: LMWH Lines/Catheters IV Catheter Type (from Nrsg): none Urinary Cath still in place: No Assessment/Plan Chief Complaint/Hosp Course 26 yo male wtih diffuse weakness 2/2 unclear systemic muscular disorder leading to diffuse weakness, dysarthria chronically who has been admitted for inability to care for self - Continue with physical therapy - Awaiting patient placement - No acute medical issues DVT prophylaxis: Lovenox Problems: Subjective 24 Hr Interval Summary Free Text/Dictation No change to clinical status Awaiting placement Exam/Review of Systems Vital Signs Vitals Vital Signs Date Time Temp Pulse Resp B/P Pulse Ox O2 Delivery O2 Flow Rate FiO2 05/18/17 13:43 98.5 66 20 122/67 100 05/16/17 21:17 Room Air Intake and Output 05/17/17 05/17/17 05/18/17 15:00 23:00 07:00 Intake Total 720 ml 600 ml Output Total 600 ml 620 ml Balance 120 ml -20 ml Exam Constitutional: alert, oriented, well developed Psych: nl mood/affect, no complaints Head: atraumatic, normocephalic Eyes: EOMI, PERRL, nl conjunctiva, nl lids, nl sclera ENMT: nl external ears & nose, nl lips & teeth, nl nasal mucosa & septum Neck: non-tender, supple Respiratory: clear to auscultation, normal air movement Cardiovascular: nl pulses, regular rate and rhythm Gastrointestinal: nl liver, spleen, non-tender, soft Musculoskeletal: nl extremities to inspection, nl gait and stance Extremities: normal pulses 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, nl mental status, nl speech, nl strength Skin: nl turgor, No rash or lesions Lymph: nl lymph nodes Medications Medications Current Medications Ondansetron HCl (Zofran Inj) 4 mg Q6H PRN IV NAUSEA AND/OR VOMITING Last administered on 03/20/17 06:00; Admin Dose 4 MG; Start 03/17/17 at 21:30 Acetaminophen (Tylenol Supp) 650 mg Q6H PRN [place] PAIN LEVEL 1-3 OR FEVER; Start 03/17/17 at 21:30 Enoxaparin Sodium (Lovenox) 40 mg DAILY SC Last administered on 05/18/17 09:07 ; Admin Dose 40 MG; Start 03/18/17 at 09:00 Baclofen (Lioresal) 10 mg TID PO Last administered on 05/18/17 12:57; Admin Dose 10 MG; Start 03/18/17 at 09:00 Docusate Sodium (Colace) 100 mg TID PRN PO CONSTIPATION Last administered on 09:00; Admin Dose 100 MG; Start 04/13/17 at 17:30 Lidocaine (Xylocaine (Viscous)) 15 ml QID PRN PO PAIN AND/OR INFLAMMATION Last administered on 04/30/17 01:04; Admin Dose 15 ML; Start 04/16/17 at 18:00 Senna (Senokot) 1 tab BID PO Last administered on 05/18/17 09:01; Admin Dose 1 TAB; Start 04/17/17 at 14:00 Magnesium Hydroxide (Milk Of Mag) 30 ml DAILY PRN PO CONSTIPATION Last administered on 04/17/17 20:29; Admin Dose 30 ML; Start 04/17/17 at 14:00 Morphine Sulfate (morphine) 2 mg Q4H PRN IV SEVERE PAIN LEVEL 7-10; Start at 10:30 Acetaminophen/ Hydrocodone Bitart ([place] (7.5-325)) 1 tab Q6H PRN PO pain Last administered on 05/07/17 14:32; Admin Dose 1 TAB; Start 04/30/17 at 16:00 Cholecalciferol (Vitamin D) 2,000 unit DAILY PO Last administered on 05/18/17 09:01; Admin Dose 2,000 UNIT; Start 05/12/17 at 13:00 PEG PEPE MD May 18, 2017 16:20
--- NOTE | 2017-05-18 16:21 | PN ---
Date/Time of Note Date/Time of Note DATE: 04/13/17 TIME: 16:20 Assessment/Plan VTE Prophylaxis VTE Prophylaxis Intervention: LMWH Lines/Catheters IV Catheter Type (from Nrsg): none Urinary Cath still in place: No Assessment/Plan Chief Complaint/Hosp Course 26 yo male wtih diffuse weakness 2/2 unclear systemic muscular disorder leading to diffuse weakness, dysarthria chronically who has been admitted for inability to care for self - Continue with physical therapy - Awaiting patient placement - No acute medical issues DVT prophylaxis: Lovenox Problems: Subjective 24 Hr Interval Summary Free Text/Dictation No change to clinical status Awaiting placement Exam/Review of Systems Vital Signs Vitals Vital Signs Date Time Temp Pulse Resp B/P Pulse Ox O2 Delivery O2 Flow Rate FiO2 05/18/17 13:43 98.5 66 20 122/67 100 05/16/17 21:17 Room Air Intake and Output 05/17/17 05/17/17 05/18/17 15:00 23:00 07:00 Intake Total 720 ml 600 ml Output Total 600 ml 620 ml Balance 120 ml -20 ml Exam Constitutional: alert, oriented, well developed Psych: nl mood/affect, no complaints Head: atraumatic, normocephalic Eyes: EOMI, PERRL, nl conjunctiva, nl lids, nl sclera ENMT: nl external ears & nose, nl lips & teeth, nl nasal mucosa & septum Neck: non-tender, supple Respiratory: clear to auscultation, normal air movement Cardiovascular: nl pulses, regular rate and rhythm Gastrointestinal: nl liver, spleen, non-tender, soft Musculoskeletal: nl extremities to inspection, nl gait and stance Extremities: normal pulses Neurological: DIRECTOR OF ASSESSMENT II-XII intact, nl mental status, nl speech, nl strength Skin: nl turgor, No rash or lesions Lymph: nl lymph nodes Medications Medications Current Medications Ondansetron HCl (Zofran Inj) 4 mg Q6H PRN IV NAUSEA AND/OR VOMITING Last administered on 03/20/17 06:00; Admin Dose 4 MG; Start 03/17/17 at 21:30 Acetaminophen (Tylenol Supp) 650 mg Q6H PRN [place] PAIN LEVEL 1-3 OR FEVER; Start 03/17/17 at 21:30 Enoxaparin Sodium (Lovenox) 40 mg DAILY SC Last administered on 05/18/17 09:07 ; Admin Dose 40 MG; Start 03/18/17 at 09:00 Baclofen (Lioresal) 10 mg TID PO Last administered on 05/18/17 12:57; Admin Dose 10 MG; Start 03/18/17 at 09:00 Docusate Sodium (Colace) 100 mg TID PRN PO CONSTIPATION Last administered on 09:00; Admin Dose 100 MG; Start 04/13/17 at 17:30 Lidocaine (Xylocaine (Viscous)) 15 ml QID PRN PO PAIN AND/OR INFLAMMATION Last administered on 04/30/17 01:04; Admin Dose 15 ML; Start 04/16/17 at 18:00 Senna (Senokot) 1 tab BID PO Last administered on 05/18/17 09:01; Admin Dose 1 TAB; Start 04/17/17 at 14:00 Magnesium Hydroxide (Milk Of Mag) 30 ml DAILY PRN PO CONSTIPATION Last administered on 04/17/17 20:29; Admin Dose 30 ML; Start 04/17/17 at 14:00 Morphine Sulfate (morphine) 2 mg Q4H PRN IV SEVERE PAIN LEVEL 7-10; Start at 10:30 Acetaminophen/ Hydrocodone Bitart ([place] (7.5-325)) 1 tab Q6H PRN PO pain Last administered on 05/07/17 14:32; Admin Dose 1 TAB; Start 04/30/17 at 16:00 Cholecalciferol (Vitamin D) 2,000 unit DAILY PO Last administered on 05/18/17 09:01; Admin Dose 2,000 UNIT; Start 05/12/17 at 13:00 PEG PEPE MD May 18, 2017 16:21
[2017-05-18 20:11] VITALS: BP 115/58; RESP 18
[2017-05-19 02:00] VITALS: BP 97/53; RESP 18
[2017-05-19 07:34] VITALS: BP 119/63; RESP 18
[2017-05-19] MEDS: BACLOFEN 10 MG TAB PO SCH ×3 (08:39→20:57)
[2017-05-19] MEDS: CHOLECALCIFEROL 2,000 UNIT CAP PO SCH (08:39)
[2017-05-19] MEDS: SENNA TAB PO SCH ×2 (08:39→20:57)
[2017-05-19] MEDS: ENOXAPARIN 40 MG/0.4 ML SYG SC SCH (08:48)
--- NOTE | 2017-05-19 11:04 | PN ---
Date/Time of Note Date/Time of Note DATE: 05/19/17 TIME: 11:03 Assessment/Plan VTE Prophylaxis VTE Prophylaxis Intervention: SCD's Lines/Catheters IV Catheter Type (from Nrs): none Urinary Cath still in place: No Assessment/Plan Assessment/Plan 1. Muscular dystrophy/myopathy. Continue on baclofen. Continue with physical therapy measures. awaiting for placement Subjective 24 Hr Interval Summary Free Text/Dictation no event Exam/Review of Systems Vital Signs Vitals Vital Signs Date Time Temp Pulse Resp B/P Pulse Ox O2 Delivery O2 Flow Rate FiO2 05/19/17 07:34 97.7 61 18 119/63 100 05/16/17 21:17 Room Air Intake and Output 05/18/17 05/18/17 05/19/17 15:00 23:00 07:00 Intake Total 1200 ml 800 ml Output Total 950 ml 400 ml Balance 250 ml 400 ml Exam Constitutional: alert, oriented, well developed Psych: nl mood/affect, no complaints Head: atraumatic, normocephalic Eyes: EOMI, PERRL, nl conjunctiva, nl lids ENMT: mucosa pink and moist, nl external ears & nose, nl lips & teeth, nl nasal mucosa & septum Neck: non-tender, supple Respiratory: clear to auscultation, normal air movement, No congested cough, No crackles/rales, No diminished breath sounds, No intercostal retraction, No labored breathing, No other, No respirations, No tactile fremitus, No wheezing Cardiovascular: nl pulses, regular rate and rhythm, No S3, No S4, No bruits, No diastolic murmur, No edema, No gallop, No irregular rhythm, No jugular venous distention (JVD), No murmurs/extra sounds, No other, No rub, No systolic murmur Gastrointestinal: nl liver, spleen, non-tender, soft, No ascites, No bowel sounds, No distended, No firm, No hepatomegaly, No mass , No other, No rebound or guarding, No splenomegaly, No surgical scars, No tender Musculoskeletal: nl extremities to inspection Extremities: normal pulses, No calf tenderness, No clubbing, No cyanosis, No edema, No other, No palpable cord, No pitting pedal edema, No tenderness 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, nl mental status Skin: nl turgor Lymph: nl lymph nodes Medications Medications Current Medications Ondansetron HCl (Zofran Inj) 4 mg Q6H PRN IV NAUSEA AND/OR VOMITING Last administered on 03/20/17 06:00; Admin Dose 4 MG; Start 03/17/17 at 21:30 Acetaminophen (Tylenol Supp) 650 mg Q6H PRN [place] PAIN LEVEL 1-3 OR FEVER; Start 03/17/17 at 21:30 Enoxaparin Sodium (Lovenox) 40 mg DAILY SC Last administered on 05/19/17 08:48 ; Admin Dose 40 MG; Start 03/18/17 at 09:00 Baclofen (Lioresal) 10 mg TID PO Last administered on 05/19/17 08:39; Admin Dose 10 MG; Start 03/18/17 at 09:00 Docusate Sodium (Colace) 100 mg TID PRN PO CONSTIPATION Last administered on 09:00; Admin Dose 100 MG; Start 04/13/17 at 17:30 Lidocaine (Xylocaine (Viscous)) 15 ml QID PRN PO PAIN AND/OR INFLAMMATION Last administered on 04/30/17 01:04; Admin Dose 15 ML; Start 04/16/17 at 18:00 Senna (Senokot) 1 tab BID PO Last administered on 05/19/17 08:39; Admin Dose 1 TAB; Start 04/17/17 at 14:00 Magnesium Hydroxide (Milk Of Mag) 30 ml DAILY PRN PO CONSTIPATION Last administered on 04/17/17 20:29; Admin Dose 30 ML; Start 04/17/17 at 14:00 Morphine Sulfate (morphine) 2 mg Q4H PRN [place] SEVERE PAIN LEVEL 7-10; Start at 10:30 Acetaminophen/ Hydrocodone Bitart ([place] (7.5-325)) 1 tab Q6H PRN PO pain Last administered on 05/07/17 14:32; Admin Dose 1 TAB; Start 04/30/17 at 16:00 Cholecalciferol (Vitamin D) 2,000 unit DAILY PO Last administered on 05/19/17 08:39; Admin Dose 2,000 UNIT; Start 05/12/17 at 13:00 KASIA QURESHI MD May 19, 2017 11:04
[2017-05-19 14:20] VITALS: BP 101/74; RESP 18
[2017-05-19 20:02] VITALS: BP 119/73; RESP 18
[2017-05-20 02:00] VITALS: BP 113/64; RESP 18
[2017-05-20 07:57] VITALS: BP 96/63; RESP 18
[2017-05-20] MEDS: BACLOFEN 10 MG TAB PO SCH ×3 (08:50→21:12)
[2017-05-20] MEDS: SENNA TAB PO SCH ×2 (08:50→21:12)
[2017-05-20] MEDS: CHOLECALCIFEROL 2,000 UNIT CAP PO SCH (08:50)
[2017-05-20] MEDS: ENOXAPARIN 40 MG/0.4 ML SYG SC SCH (08:58)
--- NOTE | 2017-05-20 10:17 | PN ---
Date/Time of Note Date/Time of Note DATE: 05/20/17 TIME: 10:12 Assessment/Plan VTE Prophylaxis VTE Prophylaxis Intervention: LMWH Lines/Catheters IV Catheter Type (from Nrs): none Urinary Cath still in place: No Assessment/Plan Chief Complaint/Hosp Course 1.Impairment in self-care with diffuse muscular weakness/Dysarthria 2/2 unclear systemic muscular disorder - Continue with physical therapy - Awaiting placement DVT prophylaxis: Lovenox Patient needs placement assistance. Case management working on sending patient to congregate living place. Case discussed with Problems: Subjective 24 Hr Interval Summary Free Text/Dictation No Acute overnight episodes. Pending placement. Exam/Review of Systems Vital Signs Vitals Vital Signs Date Time Temp Pulse Resp B/P Pulse Ox O2 Delivery O2 Flow Rate FiO2 05/20/17 07:57 98.1 78 18 96/63 98 05/16/17 21:17 Room Air Intake and Output 05/19/17 05/19/17 05/20/17 14:59 22:59 06:59 Intake Total 890 ml 800 ml Output Total 600 ml 650 ml Balance 290 ml 150 ml Exam Constitutional: frail, other (cachectic,wasted) Head: normocephalic Eyes: PERRL ENMT: mucosa pink and moist Neck: non-tender, supple Respiratory: clear to auscultation, normal air movement Cardiovascular: nl pulses, regular rate and rhythm Gastrointestinal: non-tender, soft Genitourinary - Male: other (deferred) Musculoskeletal: muscle weakness Extremities: normal pulses Neurological: nl mental status, other (Dysarthria) Medications Medications Current Medications Ondansetron HCl (Zofran Inj) 4 mg Q6H PRN IV NAUSEA AND/OR VOMITING Last administered on 03/20/17 06:00; Admin Dose 4 MG; Start 03/17/17 at 21:30 Acetaminophen (Tylenol Supp) 650 mg Q6H PRN [place] PAIN LEVEL 1-3 OR FEVER; Start 03/17/17 at 21:30 Enoxaparin Sodium (Lovenox) 40 mg DAILY SC Last administered on 05/20/17 08:58 ; Admin Dose 40 MG; Start 03/18/17 at 09:00 Baclofen (Lioresal) 10 mg TID PO Last administered on 05/20/17 08:50; Admin Dose 10 MG; Start 03/18/17 at 09:00 Docusate Sodium (Colace) 100 mg TID PRN PO CONSTIPATION Last administered on 09:00; Admin Dose 100 MG; Start 04/13/17 at 17:30 Lidocaine (Xylocaine (Viscous)) 15 ml QID PRN PO PAIN AND/OR INFLAMMATION Last administered on 04/30/17 01:04; Admin Dose 15 ML; Start 04/16/17 at 18:00 Senna (Senokot) 1 tab BID PO Last administered on 05/20/17 08:50; Admin Dose 1 TAB; Start 04/17/17 at 14:00 Magnesium Hydroxide (Milk Of Mag) 30 ml DAILY PRN PO CONSTIPATION Last administered on 04/17/17 20:29; Admin Dose 30 ML; Start 04/17/17 at 14:00 Morphine Sulfate (morphine) 2 mg Q4H PRN IV SEVERE PAIN LEVEL 7-10; Start at 10:30 Acetaminophen/ Hydrocodone Bitart ([place] (7.5-325)) 1 tab Q6H PRN PO pain Last administered on 05/07/17 14:32; Admin Dose 1 TAB; Start 04/30/17 at 16:00 Cholecalciferol (Vitamin D) 2,000 unit DAILY PO Last administered on 05/20/17 08:50; Admin Dose 2,000 UNIT; Start 05/12/17 at 13:00 CLARA CHERRY NP May 20, 2017 10:17
[2017-05-20 15:48] VITALS: BP 114/64; RESP 18
[2017-05-20 19:44] VITALS: BP 139/73; RESP 20
[2017-05-21 02:10] VITALS: BP 104/58; RESP 20
[2017-05-21 07:44] VITALS: BP 118/65; RESP 20
[2017-05-21] MEDS: CHOLECALCIFEROL 2,000 UNIT CAP PO SCH (09:09)
[2017-05-21] MEDS: BACLOFEN 10 MG TAB PO SCH ×3 (09:09→21:21)
[2017-05-21] MEDS: SENNA TAB PO SCH ×2 (09:09→21:21)
[2017-05-21] MEDS: ENOXAPARIN 40 MG/0.4 ML SYG SC SCH (09:19)
--- NOTE | 2017-05-21 09:25 | PN ---
Date/Time of Note Date/Time of Note DATE: 05/21/17 TIME: 09:23 Assessment/Plan VTE Prophylaxis VTE Prophylaxis Intervention: LMWH Lines/Catheters IV Catheter Type (from Nrs): none Urinary Cath still in place: No Assessment/Plan Chief Complaint/Hosp Course 1.Impairment in self-care with diffuse muscular weakness/Dysarthria 2/2 unclear systemic muscular disorder - Continue with physical therapy - Awaiting placement DVT prophylaxis: Lovenox Patient needs placement assistance. Case management working on sending patient to congregate living place. Will f/u with family decision regarding goals of care. Case discussed with Problems: Subjective 24 Hr Interval Summary Free Text/Dictation No acute distress. Exam/Review of Systems Vital Signs Vitals Vital Signs Date Time Temp Pulse Resp B/P Pulse Ox O2 Delivery O2 Flow Rate FiO2 05/21/17 07:44 98.3 64 20 118/65 97 Intake and Output 05/20/17 05/20/17 05/21/17 15:00 23:00 07:00 Intake Total 1080 ml 400 ml Output Total 950 ml 500 ml Balance 130 ml -100 ml Exam Constitutional: frail, other (cachectic,wasted) Head: normocephalic Eyes: PERRL ENMT: mucosa pink and moist Neck: non-tender, supple Respiratory: clear to auscultation, normal air movement Cardiovascular: nl pulses, regular rate and rhythm Gastrointestinal: non-tender, soft Genitourinary - Male: other (deferred) Musculoskeletal: muscle weakness Extremities: normal pulses Neurological: nl mental status, other (Dysarthria) Medications Medications Current Medications Ondansetron HCl (Zofran Inj) 4 mg Q6H PRN IV NAUSEA AND/OR VOMITING Last administered on 03/20/17 06:00; Admin Dose 4 MG; Start 03/17/17 at 21:30 Acetaminophen (Tylenol Supp) 650 mg Q6H PRN [place] PAIN LEVEL 1-3 OR FEVER; Start 03/17/17 at 21:30 Enoxaparin Sodium (Lovenox) 40 mg DAILY SC Last administered on 05/20/17 08:58 ; Admin Dose 40 MG; Start 03/18/17 at 09:00 Baclofen (Lioresal) 10 mg TID PO Last administered on 05/20/17 21:12; Admin Dose 10 MG; Start 03/18/17 at 09:00 Docusate Sodium (Colace) 100 mg TID PRN PO CONSTIPATION Last administered on 09:00; Admin Dose 100 MG; Start 04/13/17 at 17:30 Lidocaine (Xylocaine (Viscous)) 15 ml QID PRN PO PAIN AND/OR INFLAMMATION Last administered on 04/30/17 01:04; Admin Dose 15 ML; Start 04/16/17 at 18:00 Senna (Senokot) 1 tab BID PO Last administered on 05/20/17 21:12; Admin Dose 1 TAB; Start 04/17/17 at 14:00 Magnesium Hydroxide (Milk Of Mag) 30 ml DAILY PRN PO CONSTIPATION Last administered on 04/17/17 20:29; Admin Dose 30 ML; Start 04/17/17 at 14:00 Morphine Sulfate (morphine) 2 mg Q4H PRN IV SEVERE PAIN LEVEL 7-10; Start at 10:30 Acetaminophen/ Hydrocodone Bitart ([place] (7.5-325)) 1 tab Q6H PRN PO pain Last administered on 05/07/17 14:32; Admin Dose 1 TAB; Start 04/30/17 at 16:00 Cholecalciferol (Vitamin D) 2,000 unit DAILY PO Last administered on 05/20/17 08:50; Admin Dose 2,000 UNIT; Start 05/12/17 at 13:00 CLARA CHERRY NP May 21, 2017 09:25
[2017-05-21 15:50] VITALS: BP 108/69; RESP 20
[2017-05-21 19:54] VITALS: BP 126/79; RESP 18
[2017-05-22 02:00] VITALS: BP 111/63; RESP 18
[2017-05-22 08:21] VITALS: BP 98/59; RESP 16
[2017-05-22] MEDS: BACLOFEN 10 MG TAB PO SCH ×3 (08:48→21:18)
[2017-05-22] MEDS: CHOLECALCIFEROL 2,000 UNIT CAP PO SCH (08:49)
[2017-05-22] MEDS: SENNA TAB PO SCH ×2 (08:49→21:18)
[2017-05-22] MEDS: ENOXAPARIN 40 MG/0.4 ML SYG SC SCH (09:06)
--- NOTE | 2017-05-22 09:12 | PN ---
Date/Time of Note Date/Time of Note DATE: 05/22/17 TIME: 09:10 Assessment/Plan VTE Prophylaxis VTE Prophylaxis Intervention: SCD's Lines/Catheters IV Catheter Type (from Nrsg): none Urinary Cath still in place: No Assessment/Plan Chief Complaint/Hosp Course 1.Impairment in self-care with diffuse muscular weakness/Dysarthria 2/2 unclear systemic muscular disorder - Continue with physical therapy - Awaiting placement DVT prophylaxis: Lovenox Patient needs placement assistance. Case management working on sending patient to congregate living place. Will f/u with family decision regarding goals of care. Case discussed with Problems: Subjective 24 Hr Interval Summary Free Text/Dictation No acute distress. Exam/Review of Systems Vital Signs Vitals Vital Signs Date Time Temp Pulse Resp B/P Pulse Ox O2 Delivery O2 Flow Rate FiO2 05/22/17 08:21 97.9 76 16 98/59 97 Intake and Output 05/21/17 05/21/17 05/22/17 15:00 23:00 07:00 Intake Total 1000 ml 900 ml Output Total 1050 ml Balance -50 ml 900 ml Exam Constitutional: frail, other (cachectic,wasted) Head: normocephalic Eyes: PERRL ENMT: mucosa pink and moist Neck: non-tender, supple Respiratory: clear to auscultation, normal air movement Cardiovascular: nl pulses, regular rate and rhythm Gastrointestinal: non-tender, soft Genitourinary - Male: other (deferred) Musculoskeletal: muscle weakness Extremities: normal pulses Neurological: nl mental status, other (Dysarthria) Medications Medications Current Medications Ondansetron HCl (Zofran Inj) 4 mg Q6H PRN IV NAUSEA AND/OR VOMITING Last administered on 03/20/17 06:00; Admin Dose 4 MG; Start 03/17/17 at 21:30 Acetaminophen (Tylenol Supp) 650 mg Q6H PRN [place] PAIN LEVEL 1-3 OR FEVER; Start 03/17/17 at 21:30 Enoxaparin Sodium (Lovenox) 40 mg DAILY SC Last administered on 05/22/17 09:06 ; Admin Dose 40 MG; Start 03/18/17 at 09:00 Baclofen (Lioresal) 10 mg TID PO Last administered on 05/22/17 08:48; Admin Dose 10 MG; Start 03/18/17 at 09:00 Docusate Sodium (Colace) 100 mg TID PRN PO CONSTIPATION Last administered on 09:00; Admin Dose 100 MG; Start 04/13/17 at 17:30 Lidocaine (Xylocaine (Viscous)) 15 ml QID PRN PO PAIN AND/OR INFLAMMATION Last administered on 04/30/17 01:04; Admin Dose 15 ML; Start 04/16/17 at 18:00 Senna (Senokot) 1 tab BID PO Last administered on 05/22/17 08:49; Admin Dose 1 TAB; Start 04/17/17 at 14:00 Magnesium Hydroxide (Milk Of Mag) 30 ml DAILY PRN PO CONSTIPATION Last administered on 04/17/17 20:29; Admin Dose 30 ML; Start 04/17/17 at 14:00 Morphine Sulfate (morphine) 2 mg Q4H PRN IV SEVERE PAIN LEVEL 7-10; Start at 10:30 Acetaminophen/ Hydrocodone Bitart ([place] (7.5-325)) 1 tab Q6H PRN PO pain Last administered on 05/07/17 14:32; Admin Dose 1 TAB; Start 04/30/17 at 16:00 Cholecalciferol (Vitamin D) 2,000 unit DAILY PO Last administered on 05/22/17 08:49; Admin Dose 2,000 UNIT; Start 05/12/17 at 13:00 CLARA CHERRY NP May 22, 2017 09:12
[2017-05-22 19:56] VITALS: BP 119/76; RESP 20
[2017-05-23 01:36] VITALS: BP 96/56; RESP 20
[2017-05-23 07:51] VITALS: BP 108/59; RESP 16
--- NOTE | 2017-05-23 08:34 | PN ---
Date/Time of Note Date/Time of Note DATE: 05/23/17 TIME: 08:33 Assessment/Plan VTE Prophylaxis VTE Prophylaxis Intervention: LMWH Lines/Catheters IV Catheter Type (from Nrs): none Urinary Cath still in place: No Assessment/Plan Chief Complaint/Hosp Course 1.Impairment in self-care with diffuse muscular weakness/Dysarthria 2/2 unclear systemic muscular disorder - Continue with physical therapy - Awaiting placement DVT prophylaxis: Lovenox Patient needs placement assistance. Case management working on sending patient to congregate living place. Will f/u with family decision regarding goals of care. Case discussed with Problems: Cont'd Hospitalization Reason: Placement issue Subjective 24 Hr Interval Summary Free Text/Dictation No acute overnight episodes. Exam/Review of Systems Vital Signs Vitals Vital Signs Date Time Temp Pulse Resp B/P Pulse Ox O2 Delivery O2 Flow Rate FiO2 05/23/17 07:51 97.7 72 16 108/59 98 Intake and Output 05/22/17 05/22/17 05/23/17 15:00 23:00 07:00 Intake Total 1320 ml 240 ml Balance 1320 ml 240 ml Exam Constitutional: frail, other (cachectic,wasted) Head: normocephalic Eyes: PERRL ENMT: mucosa pink and moist Neck: non-tender, supple Respiratory: clear to auscultation, normal air movement Cardiovascular: nl pulses, regular rate and rhythm Gastrointestinal: non-tender, soft Genitourinary - Male: other (deferred) Musculoskeletal: muscle weakness Extremities: normal pulses Neurological: nl mental status, other (Dysarthria) Medications Medications Current Medications Ondansetron HCl (Zofran Inj) 4 mg Q6H PRN IV NAUSEA AND/OR VOMITING Last administered on 03/20/17 06:00; Admin Dose 4 MG; Start 03/17/17 at 21:30 Acetaminophen (Tylenol Supp) 650 mg Q6H PRN [place] PAIN LEVEL 1-3 OR FEVER; Start 03/17/17 at 21:30 Enoxaparin Sodium (Lovenox) 40 mg DAILY SC Last administered on 05/22/17 09:06 ; Admin Dose 40 MG; Start 03/18/17 at 09:00 Baclofen (Lioresal) 10 mg TID PO Last administered on 05/22/17 21:18; Admin Dose 10 MG; Start 03/18/17 at 09:00 Docusate Sodium (Colace) 100 mg TID PRN PO CONSTIPATION Last administered on 09:00; Admin Dose 100 MG; Start 04/13/17 at 17:30 Lidocaine (Xylocaine (Viscous)) 15 ml QID PRN PO PAIN AND/OR INFLAMMATION Last administered on 04/30/17 01:04; Admin Dose 15 ML; Start 04/16/17 at 18:00 Senna (Senokot) 1 tab BID PO Last administered on 05/22/17 21:18; Admin Dose 1 TAB; Start 04/17/17 at 14:00 Magnesium Hydroxide (Milk Of Mag) 30 ml DAILY PRN PO CONSTIPATION Last administered on 04/17/17 20:29; Admin Dose 30 ML; Start 04/17/17 at 14:00 Morphine Sulfate (morphine) 2 mg Q4H PRN IV SEVERE PAIN LEVEL 7-10; Start at 10:30 Acetaminophen/ Hydrocodone Bitart ([place] (7.5-325)) 1 tab Q6H PRN PO pain Last administered on 05/07/17 14:32; Admin Dose 1 TAB; Start 04/30/17 at 16:00 Cholecalciferol (Vitamin D) 2,000 unit DAILY PO Last administered on 05/22/17 08:49; Admin Dose 2,000 UNIT; Start 05/12/17 at 13:00 CLARA CHERRY NP May 23, 2017 08:34
[2017-05-23] MEDS: SENNA TAB PO SCH (09:09)
[2017-05-23] MEDS: CHOLECALCIFEROL 2,000 UNIT CAP PO SCH (09:09)
[2017-05-23] MEDS: BACLOFEN 10 MG TAB PO SCH ×2 (09:09→12:41)
[2017-05-23] MEDS: ENOXAPARIN 40 MG/0.4 ML SYG SC SCH (09:20)
[2017-05-23 14:08] VITALS: BP 110/76; RESP 16
[2017-05-23 20:44] VITALS: BP 127/66; RESP 20
[2017-05-24] MEDS: BACLOFEN 10 MG TAB PO SCH ×4 (00:10→20:21)
[2017-05-24] MEDS: SENNA TAB PO SCH ×3 (00:10→20:21)
[2017-05-24 03:04] VITALS: BP 112/69; RESP 18
[2017-05-24 06:28] LABS: BASOPHILS % 0.4 % (0.0-2.0); EOSINOPHILS # 0.1 10^3/ul (0.0-0.5); EOSINOPHILS % 1.4 % (0.0-7.0); HEMOGLOBIN 13.2 g/dl (14.0-18.0); LYMPHOCYTES # 2.4 10^3/ul (0.8-2.9); LYMPHOCYTES % 34.6 % (15.0-51.0); MEAN CORPUSCULAR HEMOGLOBIN 28.3 pg (29.0-33.0); MEAN CORPUSCULAR VOLUME 85.8 fl (82.0-101.0); MEAN PLATELET VOLUME 9.3 fl (7.4-10.4); MONOCYTE # 0.6 10^3/ul (0.3-0.9); MONOCYTES % 8.4 % (0.0-11.0); NEUTROPHILS % 55.1 % (39.0-77.0); PLATELET COUNT 222 10^3/UL (140-415); RED BLOOD COUNT 4.66 10^6/ul (4.70-6.10); RED CELL DISTRIBUTION WIDTH 13.1 % (11.5-14.5); WHITE BLOOD COUNT 6.9 10^3/ul (4.8-10.8)
[2017-05-24 07:01] LABS: CALCIUM 9.6 mg/dl (8.4-10.2); CREATININE 1.11 mg/dl (0.61-1.24); MAGNESIUM 2.2 mg/dl (1.7-2.5); POTASSIUM 3.9 mmol/L (3.5-5.1)
[2017-05-24 07:30] VITALS: BP 102/56; RESP 16
--- NOTE | 2017-05-24 08:29 | PN ---
Date/Time of Note Date/Time of Note DATE: 05/24/17 TIME: 08:28 Assessment/Plan VTE Prophylaxis VTE Prophylaxis Intervention: SCD's Lines/Catheters IV [facility]ter Type [facility]from [facility] none Urinary Cath still in place: No Assessment/Plan Chief Complaint/Hosp Course 1.Impairment in self-care with diffuse muscular weakness/Dysarthria 2/2 unclear systemic muscular disorder - Continue with physical therapy - Awaiting placement DVT prophylaxis: Lovenox Patient needs placement assistance. Case management working on sending patient to congregate living place. Case discussed with Problems: Subjective 24 Hr Interval Summary Free Text/Dictation No acute events.Patient remains comfortable. Exam/Review of Systems Vital Signs Vitals Vital Signs Date Time Temp Pulse Resp B/P Pulse Ox O2 Delivery O2 Flow Rate FiO2 05/24/17 07:30 97.6 54 16 102/56 98 Intake and Output 05/23/17 05/23/17 05/24/17 14:59 22:59 06:59 Intake Total 960 ml Output Total 300 ml Balance 660 ml Exam Constitutional: frail, other (cachectic,wasted) Head: normocephalic Eyes: PERRL ENMT: mucosa pink and moist Neck: non-tender, supple Respiratory: clear to auscultation, normal air movement Cardiovascular: nl pulses, regular rate and rhythm Gastrointestinal: non-tender, soft Genitourinary - Male: other (deferred) Musculoskeletal: muscle weakness Extremities: normal pulses Neurological: nl mental status, other (Dysarthria) Results Result Diagram: 05/24/17 0529 05/24/17 0529 Results 24 hrs Laboratory Tests Test 05/24/17 05:29 White Blood Count 6.9 # Red Blood Count 4.66 L Hemoglobin 13.2 L Hematocrit 40.0 L Mean Corpuscular Volume 85.8 Mean Corpuscular Hemoglobin 28.3 L Mean Corpuscular Hemoglobin Concent 33.0 Red Cell Distribution Width 13.1 Platelet Count 222 Mean Platelet Volume 9.3 Neutrophils % 55.1 Lymphocytes % 34.6 Monocytes % 8.4 Eosinophils % 1.4 Basophils % 0.4 Nucleated Red Blood Cells % 0.0 Neutrophils # (Manual) 3.8 Lymphocytes # 2.4 Monocytes # 0.6 Eosinophils # 0.1 Basophils # 0.0 Nucleated Red Blood Cells # 0.0 Sodium Level 143 Potassium Level 3.9 Chloride Level 107 Carbon Dioxide Level 29 Anion Gap 11 Blood Urea Nitrogen 13 Creatinine 1.11 Glucose Level 82 Calcium Level 9.6 Magnesium Level 2.2 Medications Medications Current Medications Ondansetron HCl (Zofran Inj) 4 mg Q6H PRN IV NAUSEA AND/OR VOMITING Last administered on 03/20/17 06:00; Admin Dose 4 MG; Start 03/17/17 at 21:30 Acetaminophen (Tylenol Supp) 650 mg Q6H PRN [place] PAIN LEVEL 1-3 OR FEVER; Start 03/17/17 at 21:30 Enoxaparin Sodium (Lovenox) 40 mg DAILY SC Last administered on 05/23/17 09:20 ; Admin Dose 40 MG; Start 03/18/17 at 09:00 Baclofen (Lioresal) 10 mg TID PO Last administered on 05/24/17 00:10; Admin Dose 10 MG; Start 03/18/17 at 09:00 Docusate Sodium (Colace) 100 mg TID PRN PO CONSTIPATION Last administered on 09:00; Admin Dose 100 MG; Start 04/13/17 at 17:30 Lidocaine (Xylocaine (Viscous)) 15 ml QID PRN PO PAIN AND/OR INFLAMMATION Last administered on 04/30/17 01:04; Admin Dose 15 ML; Start 04/16/17 at 18:00 Senna (Senokot) 1 tab BID PO Last administered on 05/24/17 00:10; Admin Dose 1 TAB; Start 04/17/17 at 14:00 Magnesium Hydroxide (Milk Of Mag) 30 ml DAILY PRN PO CONSTIPATION Last administered on 04/17/17 20:29; Admin Dose 30 ML; Start 04/17/17 at 14:00 Morphine Sulfate (morphine) 2 mg Q4H PRN IV SEVERE PAIN LEVEL 7-10; Start at 10:30 Acetaminophen/ Hydrocodone Bitart ([place] (7.5-325)) 1 tab Q6H PRN PO pain Last administered on 05/07/17 14:32; Admin Dose 1 TAB; Start 04/30/17 at 16:00 Cholecalciferol (Vitamin D) 2,000 unit DAILY PO Last administered on 05/23/17 09:09; Admin Dose 2,000 UNIT; Start 05/12/17 at 13:00 CLARA CHERRY NP May 24, 2017 08:29
[2017-05-24] MEDS: CHOLECALCIFEROL 2,000 UNIT CAP PO SCH (11:12)
[2017-05-24] MEDS: ENOXAPARIN 40 MG/0.4 ML SYG SC SCH (11:14)
[2017-05-24 14:26] VITALS: BP 96/69; RESP 18
[2017-05-24 19:40] VITALS: BP 112/67; RESP 20
[2017-05-25 01:27] VITALS: BP 108/57; RESP 18
[2017-05-25 07:42] VITALS: BP 109/62; RESP 18
--- NOTE | 2017-05-25 09:13 | PN ---
Date/Time of Note Date/Time of Note DATE: 05/25/17 TIME: 09:13 Assessment/Plan VTE Prophylaxis VTE Prophylaxis Intervention: ambulation, SCD's Lines/Catheters IV Catheter Type (from Nrsg): none Urinary Cath still in place: No Assessment/Plan Chief Complaint/Hosp Course 1.Impairment in self-care with diffuse muscular weakness/Dysarthria 2/2 unclear systemic muscular disorder - Continue with physical therapy - Awaiting placement DVT prophylaxis: Lovenox Patient needs placement assistance. Case management working on sending patient to congregate living place. Case discussed with Problems: Subjective 24 Hr Interval Summary Free Text/Dictation Remains comfortable. Exam/Review of Systems Vital Signs Vitals Vital Signs Date Time Temp Pulse Resp B/P Pulse Ox O2 Delivery O2 Flow Rate FiO2 05/25/17 07:42 98.3 60 18 109/62 98 Intake and Output 05/24/17 05/24/17 05/25/17 15:00 23:00 07:00 Intake Total 300 ml 800 ml Output Total 600 ml Balance 300 ml 200 ml Exam Constitutional: frail, other (cachectic,wasted) Head: normocephalic Eyes: PERRL ENMT: mucosa pink and moist Neck: non-tender, supple Respiratory: clear to auscultation, normal air movement Cardiovascular: nl pulses, regular rate and rhythm Gastrointestinal: non-tender, soft Genitourinary - Male: other (deferred) Musculoskeletal: muscle weakness Extremities: normal pulses Neurological: nl mental status, other (Dysarthria) Results Result Diagram: 05/24/1752805/24/17528 Medications Medications Current Medications Ondansetron HCl (Zofran Inj) 4 mg Q6H PRN IV NAUSEA AND/OR VOMITING Last administered on 03/20/17 06:00; Admin Dose 4 MG; Start 03/17/17 at 21:30 Acetaminophen (Tylenol Supp) 650 mg Q6H PRN [place] PAIN LEVEL 1-3 OR FEVER; Start 03/17/17 at 21:30 Enoxaparin Sodium (Lovenox) 40 mg DAILY SC Last administered on 05/24/17 11:14 ; Admin Dose 40 MG; Start 03/18/17 at 09:00 Baclofen (Lioresal) 10 mg TID PO Last administered on 05/24/17 20:21; Admin Dose 10 MG; Start 03/18/17 at 09:00 Docusate Sodium (Colace) 100 mg TID PRN PO CONSTIPATION Last administered on 09:00; Admin Dose 100 MG; Start 04/13/17 at 17:30 Lidocaine (Xylocaine (Viscous)) 15 ml QID PRN PO PAIN AND/OR INFLAMMATION Last administered on 04/30/17 01:04; Admin Dose 15 ML; Start 04/16/17 at 18:00 Senna (Senokot) 1 tab BID PO Last administered on 05/24/17 20:21; Admin Dose 1 TAB; Start 04/17/17 at 14:00 Magnesium Hydroxide (Milk Of Mag) 30 ml DAILY PRN PO CONSTIPATION Last administered on 04/17/17 20:29; Admin Dose 30 ML; Start 04/17/17 at 14:00 Morphine Sulfate (morphine) 2 mg Q4H PRN IV SEVERE PAIN LEVEL 7-10; Start at 10:30 Acetaminophen/ Hydrocodone Bitart ([place] (7.5-325)) 1 tab Q6H PRN PO pain Last administered on 05/07/17 14:32; Admin Dose 1 TAB; Start 04/30/17 at 16:00 Cholecalciferol (Vitamin D) 2,000 unit DAILY PO Last administered on 05/24/17 11:12; Admin Dose 2,000 UNIT; Start 05/12/17 at 13:00 CLARA CHERRY NP May 25, 2017 09:13
[2017-05-25] MEDS: SENNA TAB PO SCH ×2 (09:54→20:42)
[2017-05-25] MEDS: CHOLECALCIFEROL 2,000 UNIT CAP PO SCH (09:54)
[2017-05-25] MEDS: BACLOFEN 10 MG TAB PO SCH ×3 (09:54→20:42)
[2017-05-25] MEDS: ENOXAPARIN 40 MG/0.4 ML SYG SC SCH (10:02)
[2017-05-25 14:47] VITALS: BP 125/68; RESP 18
[2017-05-25 20:00] VITALS: BP 136/79; RESP 20
[2017-05-26 01:37] VITALS: BP 84/48; RESP 20
[2017-05-26 02:26] VITALS: BP 98/50
[2017-05-26 06:45] LABS: CALCIUM 9.8 mg/dl (8.4-10.2); CREATININE 1.07 mg/dl (0.61-1.24); POTASSIUM 3.9 mmol/L (3.5-5.1)
[2017-05-26 07:50] VITALS: BP 99/60; RESP 18
[2017-05-26] MEDS: CHOLECALCIFEROL 2,000 UNIT CAP PO SCH (09:06)
[2017-05-26] MEDS: SENNA TAB PO SCH ×2 (09:06→20:35)
[2017-05-26] MEDS: BACLOFEN 10 MG TAB PO SCH ×3 (09:06→20:35)
[2017-05-26] MEDS: ENOXAPARIN 40 MG/0.4 ML SYG SC SCH (09:39)
--- NOTE | 2017-05-26 12:01 | PN ---
Date/Time of Note Date/Time of Note DATE: 05/26/17 TIME: 11:58 Assessment/Plan VTE Prophylaxis VTE Prophylaxis Intervention: LMWH Lines/Catheters IV Catheter Type (from Nrs): none Urinary Cath still in place: No Assessment/Plan Chief Complaint/Hosp Course 1.Impairment in self-care with diffuse muscular weakness/Dysarthria 2/2 unclear systemic muscular disorder - Continue with physical therapy - Awaiting placement DVT prophylaxis: Lovenox Patient needs placement assistance. Case management working on sending patient to congregate living place. Case discussed with Dr. Recinos. Problems: Subjective 24 Hr Interval Summary Free Text/Dictation No acute events. Pending placement. Exam/Review of Systems Vital Signs Vitals Vital Signs Date Time Temp Pulse Resp B/P Pulse Ox O2 Delivery O2 Flow Rate FiO2 05/26/17 07:50 98.0 55 18 99/60 97 Intake and Output 05/25/17 05/25/17 05/26/17 15:00 23:00 07:00 Intake Total 500 ml 240 ml Output Total 400 ml Balance 100 ml 240 ml Exam Constitutional: frail, other (cachectic,wasted) Head: normocephalic Eyes: PERRL ENMT: mucosa pink and moist Neck: non-tender, supple Respiratory: clear to auscultation, normal air movement Cardiovascular: nl pulses, regular rate and rhythm Gastrointestinal: non-tender, soft Genitourinary - Male: other (deferred) Musculoskeletal: muscle weakness Extremities: normal pulses Neurological: nl mental status, other (Dysarthria) Results Result Diagram: 05/24/17 0529 05/26/17 0531 Results 24 hrs Laboratory Tests Test 05/26/17 05:31 Sodium Level 144 Potassium Level 3.9 Chloride Level 108 Carbon Dioxide Level 27 Anion Gap 13 Blood Urea Nitrogen 11 Creatinine 1.07 Glucose Level 82 Calcium Level 9.8 Vitamin D 1,25-Dihydroxy 34.4 Medications Medications Current Medications Ondansetron HCl (Zofran Inj) 4 mg Q6H PRN IV NAUSEA AND/OR VOMITING Last administered on 03/20/17 06:00; Admin Dose 4 MG; Start 03/17/17 at 21:30 Acetaminophen (Tylenol Supp) 650 mg Q6H PRN [place] PAIN LEVEL 1-3 OR FEVER; Start 03/17/17 at 21:30 Enoxaparin Sodium (Lovenox) 40 mg DAILY SC Last administered on 05/26/17 09:39 ; Admin Dose 40 MG; Start 03/18/17 at 09:00 Baclofen (Lioresal) 10 mg TID PO Last administered on 05/26/17 09:06; Admin Dose 10 MG; Start 03/18/17 at 09:00 Docusate Sodium (Colace) 100 mg TID PRN PO CONSTIPATION Last administered on 09:00; Admin Dose 100 MG; Start 04/13/17 at 17:30 Lidocaine (Xylocaine (Viscous)) 15 ml QID PRN PO PAIN AND/OR INFLAMMATION Last administered on 04/30/17 01:04; Admin Dose 15 ML; Start 04/16/17 at 18:00 Senna (Senokot) 1 tab BID PO Last administered on 05/26/17 09:06; Admin Dose 1 TAB; Start 04/17/17 at 14:00 Magnesium Hydroxide (Milk Of Mag) 30 ml DAILY PRN PO CONSTIPATION Last administered on 04/17/17 20:29; Admin Dose 30 ML; Start 04/17/17 at 14:00 Morphine Sulfate (morphine) 2 mg Q4H PRN IV SEVERE PAIN LEVEL 7-10; Start at 10:30 Acetaminophen/ Hydrocodone Bitart ([place] (7.5-325)) 1 tab Q6H PRN PO pain Last administered on 05/07/17 14:32; Admin Dose 1 TAB; Start 04/30/17 at 16:00 Cholecalciferol (Vitamin D) 2,000 unit DAILY PO Last administered on 05/26/17 09:06; Admin Dose 2,000 UNIT; Start 05/12/17 at 13:00 CLARA CHERRY NP May 26, 2017 12:01
[2017-05-26 13:58] VITALS: BP 117/79; RESP 16
[2017-05-26 20:09] VITALS: BP 110/64; RESP 20
[2017-05-27 02:29] VITALS: BP 108/69; RESP 18
[2017-05-27 07:18] VITALS: BP 108/66; RESP 18
[2017-05-27] MEDS: BACLOFEN 10 MG TAB PO SCH ×3 (10:29→20:20)
[2017-05-27] MEDS: CHOLECALCIFEROL 2,000 UNIT CAP PO SCH (10:29)
[2017-05-27] MEDS: SENNA TAB PO SCH ×2 (10:29→20:20)
[2017-05-27] MEDS: ENOXAPARIN 40 MG/0.4 ML SYG SC SCH (10:37)
--- NOTE | 2017-05-27 11:10 | PN ---
Date/Time of Note Date/Time of Note DATE: 05/27/17 TIME: 11:09 Assessment/Plan VTE Prophylaxis VTE Prophylaxis Intervention: LMWH Lines/Catheters IV Catheter Type (from Nrs): none Urinary Cath still in place: No Assessment/Plan Chief Complaint/Hosp Course 1.Impairment in self-care with diffuse muscular weakness/Dysarthria 2/2 unclear systemic muscular disorder - Continue with physical therapy - Awaiting placement DVT prophylaxis: [facility] social problems specialist note, patient has been accepted to hospice. He remains full code. Case management working on [facility]. Case discussed with Dr. Recinos. Problems: Subjective 24 Hr Interval Summary Free Text/Dictation No acute distress. Pending placement. Exam/Review of Systems Vital Signs Vitals Vital Signs Date Time Temp Pulse Resp B/P Pulse Ox O2 Delivery O2 Flow Rate FiO2 05/27/17 07:18 97.4 72 18 108/66 98 Intake and Output 05/26/17 05/26/17 05/27/17 15:00 23:00 07:00 Intake Total 1020 ml Output Total 600 ml Balance 420 ml Exam Constitutional: frail, other (cachectic,wasted) Head: normocephalic Eyes: PERRL ENMT: mucosa pink and moist Neck: non-tender, supple Respiratory: clear to auscultation, normal air movement Cardiovascular: nl pulses, regular rate and rhythm Gastrointestinal: non-tender, soft Genitourinary - Male: other (deferred) Musculoskeletal: muscle weakness Extremities: normal pulses Neurological: nl mental status, other (Dysarthria) Results Result Diagram: 05/24/17 0529 05/26/17 0531 Medications Medications Current Medications Ondansetron HCl (Zofran Inj) 4 mg Q6H PRN IV NAUSEA AND/OR VOMITING Last administered on 03/20/17 06:00; Admin Dose 4 MG; Start 03/17/17 at 21:30 Acetaminophen (Tylenol Supp) 650 mg Q6H PRN [place] PAIN LEVEL 1-3 OR FEVER; Start 03/17/17 at 21:30 Enoxaparin Sodium (Lovenox) 40 mg DAILY SC Last administered on 05/27/17 10:37 ; Admin Dose 40 MG; Start 03/18/17 at 09:00 Baclofen (Lioresal) 10 mg TID PO Last administered on 05/27/17 10:29; Admin Dose 10 MG; Start 03/18/17 at 09:00 Docusate Sodium (Colace) 100 mg TID PRN PO CONSTIPATION Last administered on 09:00; Admin Dose 100 MG; Start 04/13/17 at 17:30 Lidocaine (Xylocaine (Viscous)) 15 ml QID PRN PO PAIN AND/OR INFLAMMATION Last administered on 04/30/17 01:04; Admin Dose 15 ML; Start 04/16/17 at 18:00 Senna (Senokot) 1 tab BID PO Last administered on 05/27/17 10:29; Admin Dose 1 TAB; Start 04/17/17 at 14:00 Magnesium Hydroxide (Milk Of Mag) 30 ml DAILY PRN PO CONSTIPATION Last administered on 04/17/17 20:29; Admin Dose 30 ML; Start 04/17/17 at 14:00 Morphine Sulfate (morphine) 2 mg Q4H PRN IV SEVERE PAIN LEVEL 7-10; Start at 10:30 Acetaminophen/ Hydrocodone Bitart ([place] (7.5-325)) 1 tab Q6H PRN PO pain Last administered on 05/07/17 14:32; Admin Dose 1 TAB; Start 04/30/17 at 16:00 Cholecalciferol (Vitamin D) 2,000 unit DAILY PO Last administered on 05/27/17 10:29; Admin Dose 2,000 UNIT; Start 05/12/17 at 13:00 CLARA CHERRY NP May 27, 2017 11:10
[2017-05-27 14:10] VITALS: BP 127/74; RESP 18
[2017-05-27 19:43] VITALS: BP 118/63; RESP 20
[2017-05-28 02:00] VITALS: BP 92/53; RESP 20
[2017-05-28 08:35] VITALS: BP 108/61; RESP 16
[2017-05-28] MEDS: CHOLECALCIFEROL 2,000 UNIT CAP PO SCH (09:04)
[2017-05-28] MEDS: SENNA TAB PO SCH ×2 (09:04→20:37)
[2017-05-28] MEDS: BACLOFEN 10 MG TAB PO SCH ×3 (09:04→20:37)
[2017-05-28] MEDS: ENOXAPARIN 40 MG/0.4 ML SYG SC SCH (09:12)
--- NOTE | 2017-05-28 09:48 | PN ---
Date/Time of Note Date/Time of Note DATE: 05/28/17 TIME: 09:47 Assessment/Plan VTE Prophylaxis VTE Prophylaxis Intervention: LMWH Lines/Catheters IV Catheter Type (from Nrs): none Urinary Cath still in place: No Assessment/Plan Chief Complaint/Hosp Course 1.Impairment in self-care with diffuse muscular weakness/Dysarthria 2/2 unclear systemic muscular disorder - Continue with physical therapy - Awaiting placement DVT prophylaxis: Lovenox Patient has been accepted to hospice. He remains full code. Case management working on sending patient to SNF vs congregate living place. Case discussed with Dr. Recinos. Problems: Subjective 24 Hr Interval Summary Free Text/Dictation No acute overnight episodes. Exam/Review of Systems Vital Signs Vitals Vital Signs Date Time Temp Pulse Resp B/P Pulse Ox O2 Delivery O2 Flow Rate FiO2 05/28/17 08:35 98.2 61 16 108/61 99 Intake and Output 05/27/17 05/27/17 05/28/17 15:00 23:00 07:00 Intake Total 500 ml 1080 ml 240 ml Output Total 700 ml 700 ml Balance -200 ml 380 ml 240 ml Exam Constitutional: frail, other (cachectic,wasted) Head: normocephalic Eyes: PERRL ENMT: mucosa pink and moist Neck: non-tender, supple Respiratory: clear to auscultation, normal air movement Cardiovascular: nl pulses, regular rate and rhythm Gastrointestinal: non-tender, soft Genitourinary - Male: other (deferred) Musculoskeletal: muscle weakness Extremities: normal pulses Neurological: nl mental status, other (Dysarthria) Results Result Diagram: 05/24/17 0529 05/26/17 0531 Medications Medications Current Medications Ondansetron HCl (Zofran Inj) 4 mg Q6H PRN IV NAUSEA AND/OR VOMITING Last administered on 03/20/17 06:00; Admin Dose 4 MG; Start 03/17/17 at 21:30 Acetaminophen (Tylenol Supp) 650 mg Q6H PRN [place] PAIN LEVEL 1-3 OR FEVER; Start 03/17/17 at 21:30 Enoxaparin Sodium (Lovenox) 40 mg DAILY SC Last administered on 05/28/17 09:12 ; Admin Dose 40 MG; Start 03/18/17 at 09:00 Baclofen (Lioresal) 10 mg TID PO Last administered on 05/28/17 09:04; Admin Dose 10 MG; Start 03/18/17 at 09:00 Docusate Sodium (Colace) 100 mg TID PRN PO CONSTIPATION Last administered on 09:00; Admin Dose 100 MG; Start 04/13/17 at 17:30 Lidocaine (Xylocaine (Viscous)) 15 ml QID PRN PO PAIN AND/OR INFLAMMATION Last administered on 04/30/17 01:04; Admin Dose 15 ML; Start 04/16/17 at 18:00 Senna (Senokot) 1 tab BID PO Last administered on 05/28/17 09:04; Admin Dose 1 TAB; Start 04/17/17 at 14:00 Magnesium Hydroxide (Milk Of Mag) 30 ml DAILY PRN PO CONSTIPATION Last administered on 04/17/17 20:29; Admin Dose 30 ML; Start 04/17/17 at 14:00 Morphine Sulfate (morphine) 2 mg Q4H PRN IV SEVERE PAIN LEVEL 7-10; Start at 10:30 Acetaminophen/ Hydrocodone Bitart ([place] (7.5-325)) 1 tab Q6H PRN PO pain Last administered on 05/07/17 14:32; Admin Dose 1 TAB; Start 04/30/17 at 16:00 Cholecalciferol (Vitamin D) 2,000 unit DAILY PO Last administered on 05/28/17 09:04; Admin Dose 2,000 UNIT; Start 05/12/17 at 13:00 CLARA CHERRY NP May 28, 2017 09:48
[2017-05-28 14:15] VITALS: BP 120/63; RESP 18
[2017-05-28 20:36] VITALS: BP 132/87; RESP 20
[2017-05-29 01:17] VITALS: BP 132/88; RESP 20
[2017-05-29 07:19] VITALS: BP 108/67; RESP 18
--- NOTE | 2017-05-29 08:31 | PN ---
Date/Time of Note Date/Time of Note DATE: 05/29/17 TIME: 08:31 Assessment/Plan VTE Prophylaxis VTE Prophylaxis Intervention: LMWH Lines/Catheters IV Catheter Type (from Nrs): none Urinary Cath still in place: No Assessment/Plan Chief Complaint/Hosp Course 1.Impairment in self-care with diffuse muscular weakness/Dysarthria 2/2 unclear systemic muscular disorder - Continue with physical therapy - Awaiting placement DVT prophylaxis: Lovenox Patient has been accepted to hospice. He remains full code. Case management working on sending patient to SNF vs congregate living place. Case discussed with Dr. Recinos. Problems: Subjective 24 Hr Interval Summary Free Text/Dictation No acute episodes.Pending placement. Exam/Review of Systems Vital Signs Vitals Vital Signs Date Time Temp Pulse Resp B/P Pulse Ox O2 Delivery O2 Flow Rate FiO2 05/29/17 07:19 98.2 74 18 108/67 99 Intake and Output 05/28/17 05/28/17 05/29/17 15:00 23:00 07:00 Intake Total 820 ml Output Total 500 ml Balance 320 ml Exam Constitutional: frail, other (cachectic,wasted) Head: normocephalic Eyes: PERRL ENMT: mucosa pink and moist Neck: non-tender, supple Respiratory: clear to auscultation, normal air movement Cardiovascular: nl pulses, regular rate and rhythm Gastrointestinal: non-tender, soft Genitourinary - Male: other (deferred) Musculoskeletal: muscle weakness Extremities: normal pulses Neurological: nl mental status, other (Dysarthria) Results Result Diagram: 05/26/17 0531 Medications Medications Current Medications Ondansetron HCl (Zofran Inj) 4 mg Q6H PRN IV NAUSEA AND/OR VOMITING Last administered on 03/20/17 06:00; Admin Dose 4 MG; Start 03/17/17 at 21:30 Acetaminophen (Tylenol Supp) 650 mg Q6H PRN [place] PAIN LEVEL 1-3 OR FEVER; Start 03/17/17 at 21:30 Enoxaparin Sodium (Lovenox) 40 mg DAILY SC Last administered on 05/28/17 09:12 ; Admin Dose 40 MG; Start 03/18/17 at 09:00 Baclofen (Lioresal) 10 mg TID PO Last administered on 05/28/17 20:37; Admin Dose 10 MG; Start 03/18/17 at 09:00 Docusate Sodium (Colace) 100 mg TID PRN PO CONSTIPATION Last administered on 09:00; Admin Dose 100 MG; Start 04/13/17 at 17:30 Lidocaine (Xylocaine (Viscous)) 15 ml QID PRN PO PAIN AND/OR INFLAMMATION Last administered on 04/30/17 01:04; Admin Dose 15 ML; Start 04/16/17 at 18:00 Senna (Senokot) 1 tab BID PO Last administered on 05/28/17 20:37; Admin Dose 1 TAB; Start 04/17/17 at 14:00 Magnesium Hydroxide (Milk Of Mag) 30 ml DAILY PRN PO CONSTIPATION Last administered on 04/17/17 20:29; Admin Dose 30 ML; Start 04/17/17 at 14:00 Morphine Sulfate (morphine) 2 mg Q4H PRN IV SEVERE PAIN LEVEL 7-10; Start at 10:30 Acetaminophen/ Hydrocodone Bitart ([place] (7.5-325)) 1 tab Q6H PRN PO pain Last administered on 05/07/17 14:32; Admin Dose 1 TAB; Start 04/30/17 at 16:00 Cholecalciferol (Vitamin D) 2,000 unit DAILY PO Last administered on 05/28/17 09:04; Admin Dose 2,000 UNIT; Start 05/12/17 at 13:00 CLARA CHERRY NP May 29, 2017 08:31
[2017-05-29] MEDS: CHOLECALCIFEROL 2,000 UNIT CAP PO SCH (09:33)
[2017-05-29] MEDS: BACLOFEN 10 MG TAB PO SCH ×3 (09:33→21:13)
[2017-05-29] MEDS: SENNA TAB PO SCH ×2 (09:33→21:13)
[2017-05-29] MEDS: ENOXAPARIN 40 MG/0.4 ML SYG SC SCH (09:36)
[2017-05-29 13:45] VITALS: BP 120/64; RESP 18
[2017-05-29 20:14] VITALS: BP 115/77; RESP 18
[2017-05-30 02:00] VITALS: BP 100/56; RESP 18
[2017-05-30 07:43] VITALS: BP 107/57; RESP 18
[2017-05-30] MEDS: CHOLECALCIFEROL 2,000 UNIT CAP PO SCH (08:44)
[2017-05-30] MEDS: BACLOFEN 10 MG TAB PO SCH ×3 (08:44→23:33)
[2017-05-30] MEDS: SENNA TAB PO SCH ×2 (08:44→21:00)
[2017-05-30] MEDS: ENOXAPARIN 40 MG/0.4 ML SYG SC SCH (08:53)
--- NOTE | 2017-05-30 09:15 | PN ---
Date/Time of Note Date/Time of Note DATE: 05/30/17 TIME: 09:14 Assessment/Plan VTE Prophylaxis VTE Prophylaxis Intervention: LMWH Lines/Catheters IV Catheter Type (from Nrs): none Urinary Cath still in place: No Assessment/Plan Chief Complaint/Hosp Course 1.Impairment in self-care with diffuse muscular weakness/Dysarthria 2/2 unclear systemic muscular disorder - Continue with physical therapy - Awaiting placement DVT prophylaxis: Lovenox Patient has been accepted to hospice. He remains full code. Case management working on sending patient to SNF vs congregate living place. Case discussed with Dr. Recinos. Problems: Cont'd Hospitalization Reason: Needs placement Subjective 24 Hr Interval Summary Free Text/Dictation No acute overnight episodes. Pending placement. Exam/Review of Systems Vital Signs Vitals Vital Signs Date Time Temp Pulse Resp B/P Pulse Ox O2 Delivery O2 Flow Rate FiO2 05/30/17 07:43 98.0 73 18 107/57 98 Intake and Output 05/29/17 05/29/17 05/30/17 15:00 23:00 07:00 Intake Total 420 ml 780 ml 400 ml Output Total 400 ml 400 ml Balance 20 ml 380 ml 400 ml Exam Constitutional: frail, other (cachectic,wasted) Head: normocephalic Eyes: PERRL ENMT: mucosa pink and moist Neck: non-tender, supple Respiratory: clear to auscultation, normal air movement Cardiovascular: nl pulses, regular rate and rhythm Gastrointestinal: non-tender, soft Genitourinary - Male: other (deferred) Musculoskeletal: muscle weakness Extremities: normal pulses Neurological: nl mental status, other (Dysarthria) Results Result Diagram: 05/26/17 0531 Medications Medications Current Medications Ondansetron HCl (Zofran Inj) 4 mg Q6H PRN IV NAUSEA AND/OR VOMITING Last administered on 03/20/17 06:00; Admin Dose 4 MG; Start 03/17/17 at 21:30 Acetaminophen (Tylenol Supp) 650 mg Q6H PRN [place] PAIN LEVEL 1-3 OR FEVER; Start 03/17/17 at 21:30 Enoxaparin Sodium (Lovenox) 40 mg DAILY SC Last administered on 05/30/17 08:53 ; Admin Dose 40 MG; Start 03/18/17 at 09:00 Baclofen (Lioresal) 10 mg TID PO Last administered on 05/30/17 08:44; Admin Dose 10 MG; Start 03/18/17 at 09:00 Docusate Sodium (Colace) 100 mg TID PRN PO CONSTIPATION Last administered on 09:00; Admin Dose 100 MG; Start 04/13/17 at 17:30 Lidocaine (Xylocaine (Viscous)) 15 ml QID PRN PO PAIN AND/OR INFLAMMATION Last administered on 04/30/17 01:04; Admin Dose 15 ML; Start 04/16/17 at 18:00 Senna (Senokot) 1 tab BID PO Last administered on 05/30/17 08:44; Admin Dose 1 TAB; Start 04/17/17 at 14:00 Magnesium Hydroxide (Milk Of Mag) 30 ml DAILY PRN PO CONSTIPATION Last administered on 04/17/17 20:29; Admin Dose 30 ML; Start 04/17/17 at 14:00 Morphine Sulfate (morphine) 2 mg Q4H PRN IV SEVERE PAIN LEVEL 7-10; Start at 10:30 Acetaminophen/ Hydrocodone Bitart ([place] (7.5-325)) 1 tab Q6H PRN PO pain Last administered on 05/07/17 14:32; Admin Dose 1 TAB; Start 04/30/17 at 16:00 Cholecalciferol (Vitamin D) 2,000 unit DAILY PO Last administered on 05/30/17 08:44; Admin Dose 2,000 UNIT; Start 05/12/17 at 13:00 CLARA CHERRY NP May 30, 2017 09:15
[2017-05-30 14:24] VITALS: BP 115/72; RESP 18
[2017-05-30 20:55] VITALS: BP 141/79; RESP 20
[2017-05-30] MEDS: DIAZEPAM 2 MG TAB PO SCH (23:33)
[2017-05-31 02:01] VITALS: BP 105/54; RESP 20
[2017-05-31 06:26] LABS: BASOPHILS % 0.3 % (0.0-2.0); EOSINOPHILS # 0.1 10^3/ul (0.0-0.5); EOSINOPHILS % 2.1 % (0.0-7.0); HEMATOCRIT 40.4 % (42.0-52.0); HEMOGLOBIN 13.8 g/dl (14.0-18.0); LYMPHOCYTES # 2.4 10^3/ul (0.8-2.9); LYMPHOCYTES % 38.9 % (15.0-51.0); MEAN CORPUSCULAR HEMOGLOBIN 28.9 pg (29.0-33.0); MEAN CORPUSCULAR HGB CONC 34.2 g/dl (32.0-37.0); MEAN CORPUSCULAR VOLUME 84.7 fl (82.0-101.0); MEAN PLATELET VOLUME 9.2 fl (7.4-10.4); MONOCYTE # 0.6 10^3/ul (0.3-0.9); MONOCYTES % 10.2 % (0.0-11.0); NEUTROPHIL # 2.9 10^3/ul (1.6-7.5); NEUTROPHILS % 48.3 % (39.0-77.0); PLATELET COUNT 199 10^3/UL (140-415); RED BLOOD COUNT 4.77 10^6/ul (4.70-6.10); RED CELL DISTRIBUTION WIDTH 12.6 % (11.5-14.5); WHITE BLOOD COUNT 6.1 10^3/ul (4.8-10.8)
[2017-05-31 06:51] LABS: CALCIUM 9.9 mg/dl (8.4-10.2); CREATININE 1.1 mg/dl (0.61-1.24); MAGNESIUM 2.2 mg/dl (1.7-2.5); POTASSIUM 3.7 mmol/L (3.5-5.1)
[2017-05-31 07:34] VITALS: BP 109/67; RESP 18
[2017-05-31] MEDS: BACLOFEN 10 MG TAB PO SCH ×3 (09:26→21:58)
[2017-05-31] MEDS: SENNA TAB PO SCH ×2 (09:26→21:58)
[2017-05-31] MEDS: CHOLECALCIFEROL 2,000 UNIT CAP PO SCH (09:26)
[2017-05-31] MEDS: DIAZEPAM 2 MG TAB PO SCH ×3 (09:27→21:59)
[2017-05-31] MEDS: ENOXAPARIN 40 MG/0.4 ML SYG SC SCH (10:15)
--- NOTE | 2017-05-31 10:55 | PN ---
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 The final diagnosis was theoretically going to be back April 04 but I do not believe that we have received information from [facility] on that. Regardless he will need placement. Qualifiers: Muscle atrophy area: unspecified site Qualified Code: M62.50 - Muscular atrophy, unspecified site (2) Inability to perform activities of daily living Status: Acute Comment: Placement pending. Subjective 24 Hr Interval Summary Free Text/Dictation Pleasant patient who reports he is interested in knowing when he will be able to be placed. No offered complaints Constitutional: no complaints Respiratory: no complaints Cardiovascular: no complaints Gastrointestinal: no complaints Exam/Review of Systems Vital Signs Vitals Vital Signs Date Time Temp Pulse Resp B/P Pulse Ox O2 Delivery O2 Flow Rate FiO2 05/31/17 07:34 97.4 70 18 109/67 97 Intake and Output 05/30/17 05/30/17 05/31/17 15:00 23:00 07:00 Intake Total 1140 ml Balance 1140 ml Exam Constitutional: alert, oriented Neck: non-tender, supple Respiratory: clear to auscultation, normal air movement Extremities: other (Some muscle wasting) Neurological: STEM SETTER II-XII intact, nl mental status, other Results Result Diagram: 05/31/17 0539 05/31/17 0539 Results 24 hrs Laboratory Tests Test 05/31/17 05:39 White Blood Count 6.1 Red Blood Count 4.77 Hemoglobin 13.8 L Hematocrit 40.4 L Mean Corpuscular Volume 84.7 Mean Corpuscular Hemoglobin 28.9 L Mean Corpuscular Hemoglobin Concent 34.2 Red Cell Distribution Width 12.6 Platelet Count 199 Mean Platelet Volume 9.2 Neutrophils % 48.3 Lymphocytes % 38.9 Monocytes % 10.2 Eosinophils % 2.1 Basophils % 0.3 Nucleated Red Blood Cells % 0.0 Neutrophils # 2.9 Lymphocytes # 2.4 Monocytes # 0.6 Eosinophils # 0.1 Basophils # 0.0 Nucleated Red Blood Cells # 0.0 Sodium Level 142 Potassium Level 3.7 Chloride Level 108 Carbon Dioxide Level 27 Anion Gap 11 Blood Urea Nitrogen 13 Creatinine 1.10 Glucose Level 88 Calcium Level 9.9 Magnesium Level 2.2 Medications Medications Current Medications Ondansetron HCl (Zofran Inj) 4 mg Q6H PRN IV NAUSEA AND/OR VOMITING Last administered on 03/20/17 06:00; Admin Dose 4 MG; Start 03/17/17 at 21:30 Acetaminophen (Tylenol Supp) 650 mg Q6H PRN [place] PAIN LEVEL 1-3 OR FEVER; Start 03/17/17 at 21:30 Enoxaparin Sodium (Lovenox) 40 mg DAILY SC Last administered on 05/31/17 10:15 ; Admin Dose 40 MG; Start 03/18/17 at 09:00 Baclofen (Lioresal) 10 mg TID PO Last administered on 05/31/17 09:26; Admin Dose 10 MG; Start 03/18/17 at 09:00 Docusate Sodium (Colace) 100 mg TID PRN PO CONSTIPATION Last administered on 09:00; Admin Dose 100 MG; Start 04/13/17 at 17:30 Lidocaine (Xylocaine (Viscous)) 15 ml QID PRN PO PAIN AND/OR INFLAMMATION Last administered on 04/30/17 01:04; Admin Dose 15 ML; Start 04/16/17 at 18:00 Senna (Senokot) 1 tab BID PO Last administered on 05/31/17 09:26; Admin Dose 1 TAB; Start 04/17/17 at 14:00 Magnesium Hydroxide (Milk Of Mag) 30 ml DAILY PRN PO CONSTIPATION Last administered on 04/17/17 20:29; Admin Dose 30 ML; Start 04/17/17 at 14:00 Morphine Sulfate (morphine) 2 mg Q4H PRN IV SEVERE PAIN LEVEL 7-10; Start at 10:30 Acetaminophen/ Hydrocodone Bitart ([place] (7.5-325)) 1 tab Q6H PRN PO pain Last administered on 05/07/17 14:32; Admin Dose 1 TAB; Start 04/30/17 at 16:00 Cholecalciferol (Vitamin D) 2,000 unit DAILY PO Last administered on 9/16/17at 09:26; Admin Dose 2,000 UNIT; Start 05/12/17 at 13:00 Diazepam (Valium) 2 mg TID PO Last administered on 05/31/17t 09:27; Admin Dose 2 MG; Start 05/30/17 at 21:00 NUZHAT BENAVIDES MD May 31, 2017 10:55
[2017-05-31 13:57] VITALS: BP 112/56; RESP 18
[2017-05-31 20:23] VITALS: BP 106/62; RESP 18
[2017-06-01 01:28] VITALS: BP 108/58; RESP 18
[2017-06-01 08:03] VITALS: BP 99/62; RESP 16
[2017-06-01] MEDS: BACLOFEN 10 MG TAB PO SCH ×4 (09:00→22:52)
[2017-06-01] MEDS: SENNA TAB PO SCH ×3 (09:00→22:52)
[2017-06-01] MEDS: DIAZEPAM 2 MG TAB PO SCH ×4 (09:00→22:52)
[2017-06-01] MEDS: CHOLECALCIFEROL 2,000 UNIT CAP PO SCH ×2 (09:00→11:13)
[2017-06-01] MEDS: ENOXAPARIN 40 MG/0.4 ML SYG SC SCH ×2 (09:00→11:13)
--- NOTE | 2017-06-01 12:47 | PN ---
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 The exact medical diagnosis is not documented in the chart although I suspect our colleagues at [facility] may have a specific diagnosis. For now he is awaiting placement and is otherwise medically stable Qualifiers: Muscle atrophy area: unspecified site Qualified Code: M62.50 - Muscular atrophy, unspecified site (2) Inability to perform activities of daily living Status: Acute Comment: This will require placement Subjective 24 Hr Interval Summary Free Text/Dictation Patient again is curious about when he will have a place to be discharged to. No offered complaints. Constitutional: no complaints Respiratory: no complaints Cardiovascular: no complaints Gastrointestinal: no complaints Genitourinary: no complaints Musculoskeletal: no complaints Neurologic: other (Diffuse weakness) Exam/Review of Systems Vital Signs Vitals Vital Signs Date Time Temp Pulse Resp B/P Pulse Ox O2 Delivery O2 Flow Rate FiO2 06/01/17 08:03 97.7 73 16 99/62 99 Intake and Output 05/31/17 05/31/17 06/01/17 15:00 23:00 07:00 Intake Total 600 ml 1040 ml 600 ml Output Total 950 ml 840 ml Balance -350 ml 1040 ml -240 ml Exam Constitutional: alert, oriented Neck: non-tender, supple Respiratory: clear to auscultation, normal air movement Cardiovascular: nl pulses, regular rate and rhythm Neurological: other (Dysarthric speech motor strength is approximately 4 out of 5) Results Result Diagram: 05/31/17 0539 05/31/17 0539 Medications Medications Current Medications Ondansetron HCl (Zofran Inj) 4 mg Q6H PRN IV NAUSEA AND/OR VOMITING Last administered on 03/20/17 06:00; Admin Dose 4 MG; Start 03/17/17 at 21:30 Acetaminophen (Tylenol Supp) 650 mg Q6H PRN [place] PAIN LEVEL 1-3 OR FEVER; Start 03/17/17 at 21:30 Enoxaparin Sodium (Lovenox) 40 mg DAILY SC Last administered on 06/01/17 11:13 ; Admin Dose 40 MG; Start 03/18/17 at 09:00 Baclofen (Lioresal) 10 mg TID PO Last administered on 06/01/17 11:13; Admin Dose 10 MG; Start 03/18/17 at 09:00 Docusate Sodium (Colace) 100 mg TID PRN PO CONSTIPATION Last administered on 09:00; Admin Dose 100 MG; Start 04/13/17 at 17:30 Lidocaine (Xylocaine (Viscous)) 15 ml QID PRN PO PAIN AND/OR INFLAMMATION Last administered on 04/30/17 01:04; Admin Dose 15 ML; Start 04/16/17 at 18:00 Senna (Senokot) 1 tab BID PO Last administered on 06/01/17 11:13; Admin Dose 1 TAB; Start 04/17/17 at 14:00 Magnesium Hydroxide (Milk Of Mag) 30 ml DAILY PRN PO CONSTIPATION Last administered on 04/17/17 20:29; Admin Dose 30 ML; Start 04/17/17 at 14:00 Morphine Sulfate (morphine) 2 mg Q4H PRN IV SEVERE PAIN LEVEL 7-10; Start at 10:30 Acetaminophen/ Hydrocodone Bitart ([place] (7.5-325)) 1 tab Q6H PRN PO pain Last administered on 05/07/17 14:32; Admin Dose 1 TAB; Start 04/30/17 at 16:00 Cholecalciferol (Vitamin D) 2,000 unit DAILY PO Last administered on 06/01/17 11:13; Admin Dose 2,000 UNIT; Start 05/12/17 at 13:00 Diazepam (Valium) 2 mg TID PO Last administered on 06/01/17 11:13; Admin Dose 2 MG; Start 05/30/17 at 21:00 NUZHAT BENAVIDES MD Jun 01, 2017 12:47
[2017-06-01 14:00] VITALS: BP 107/58; RESP 16
[2017-06-01 20:04] VITALS: BP 106/67; RESP 18
[2017-06-02 01:53] VITALS: BP 112/63; RESP 18
[2017-06-02 07:19] VITALS: BP 102/63; RESP 18
[2017-06-02] MEDS: BACLOFEN 10 MG TAB PO SCH ×3 (08:27→21:52)
[2017-06-02] MEDS: CHOLECALCIFEROL 2,000 UNIT CAP PO SCH (08:27)
[2017-06-02] MEDS: SENNA TAB PO SCH ×2 (08:27→21:52)
[2017-06-02] MEDS: DIAZEPAM 2 MG TAB PO SCH ×3 (08:27→21:52)
[2017-06-02] MEDS: ENOXAPARIN 40 MG/0.4 ML SYG SC SCH (08:39)
--- NOTE | 2017-06-02 09:59 | PN ---
Date/Time of Note Date/Time of Note DATE: 06/02/17 TIME: 09:56 Assessment/Plan VTE Prophylaxis VTE Prophylaxis Intervention: ambulation Lines/Catheters IV [facility] none Urinary Cath still in place: No Assessment/Plan Chief Complaint/Hosp Course 1.Debility with diffuse muscle wasting /Dysarthria 2/2 unclear inherited muscular dystrophy-like illness - Continue with physical therapy - Awaiting placement DVT prophylaxis: Lovenox Patient has been accepted to hospice. He remains full code. Case management working on sending patient to SNF vs congregate living place. Case discussed with Dr. Merrill. Problems: Subjective 24 Hr Interval Summary Free Text/Dictation No acute overnight episodes. Pending placement. Exam/Review of Systems Vital Signs Vitals Vital Signs Date Time Temp Pulse Resp B/P Pulse Ox O2 Delivery O2 Flow Rate FiO2 06/02/17 07:19 98.0 70 18 102/63 96 Intake and Output 06/01/17 06/01/17 06/02/17 15:00 23:00 07:00 Intake Total 960 ml 450 ml Output Total 450 ml Balance 510 ml 450 ml Exam Constitutional: frail, other (cachectic,wasted) Head: normocephalic Eyes: PERRL ENMT: mucosa pink and moist Neck: non-tender, supple Respiratory: clear to auscultation, normal air movement Cardiovascular: nl pulses, regular rate and rhythm Gastrointestinal: non-tender, soft Genitourinary - Male: other (deferred) Musculoskeletal: muscle weakness Extremities: normal pulses Neurological: nl mental status, other (Dysarthria) Results Result Diagram: 05/31/17 0539 05/31/17 0539 Medications Medications Current Medications Ondansetron HCl (Zofran Inj) 4 mg Q6H PRN IV NAUSEA AND/OR VOMITING Last administered on 03/20/17 06:00; Admin Dose 4 MG; Start 03/17/17 at 21:30 Acetaminophen (Tylenol Supp) 650 mg Q6H PRN [place] PAIN LEVEL 1-3 OR FEVER; Start 03/17/17 at 21:30 Enoxaparin Sodium (Lovenox) 40 mg DAILY SC Last administered on 06/02/17 08:39 ; Admin Dose 40 MG; Start 03/18/17 at 09:00 Baclofen (Lioresal) 10 mg TID PO Last administered on 06/02/17 08:27; Admin Dose 10 MG; Start 03/18/17 at 09:00 Docusate Sodium (Colace) 100 mg TID PRN PO CONSTIPATION Last administered on 09:00; Admin Dose 100 MG; Start 04/13/17 at 17:30 Lidocaine (Xylocaine (Viscous)) 15 ml QID PRN PO PAIN AND/OR INFLAMMATION Last administered on 04/30/17 01:04; Admin Dose 15 ML; Start 04/16/17 at 18:00 Senna (Senokot) 1 tab BID PO Last administered on 06/02/17 08:27; Admin Dose 1 TAB; Start 04/17/17 at 14:00 Magnesium Hydroxide (Milk Of Mag) 30 ml DAILY PRN PO CONSTIPATION Last administered on 04/17/17 20:29; Admin Dose 30 ML; Start 04/17/17 at 14:00 Morphine Sulfate (morphine) 2 mg Q4H PRN [place] SEVERE PAIN LEVEL 7-10; Start at 10:30 Acetaminophen/ Hydrocodone Bitart ([place] (7.5-325)) 1 tab Q6H PRN PO pain Last administered on 05/07/17 14:32; Admin Dose 1 TAB; Start 04/30/17 at 16:00 Cholecalciferol (Vitamin D) 2,000 unit DAILY PO Last administered on 06/02/17 08:27; Admin Dose 2,000 UNIT; Start 05/12/17 at 13:00 Diazepam (Valium) 2 mg TID PO Last administered on 06/02/17 08:27; Admin Dose 2 MG; Start 05/30/17 at 21:00 CLARA CHERRY NP Jun 02, 2017 09:59
[2017-06-02 14:50] VITALS: BP 127/82; RESP 18
[2017-06-02 20:07] VITALS: BP 114/62; RESP 18
[2017-06-03 02:18] VITALS: BP 101/59; RESP 18
[2017-06-03 07:30] VITALS: BP 117/69; RESP 20
[2017-06-03] MEDS: BACLOFEN 10 MG TAB PO SCH ×3 (08:01→21:24)
[2017-06-03] MEDS: CHOLECALCIFEROL 2,000 UNIT CAP PO SCH (08:01)
[2017-06-03] MEDS: SENNA TAB PO SCH ×2 (08:01→21:24)
[2017-06-03] MEDS: DIAZEPAM 2 MG TAB PO SCH ×3 (08:03→21:24)
[2017-06-03] MEDS: ENOXAPARIN 40 MG/0.4 ML SYG SC SCH (08:06)
--- NOTE | 2017-06-03 11:16 | PN ---
Date/Time of Note Date/Time of Note DATE: 06/03/17 TIME: 11:15 Assessment/Plan VTE Prophylaxis VTE Prophylaxis Intervention: LMWH Lines/Catheters IV [facility]ter [facility]from [facility]): none Urinary Cath still in place: No Assessment/Plan Chief Complaint/Hosp Course 1.Debility with diffuse muscle wasting /Dysarthria 2/2 unclear inherited muscular dystrophy-like illness - Continue with physical therapy - Awaiting placement DVT prophylaxis: Lovenox Patient has been accepted to hospice. He remains full code. Case management working on sending patient to SNF vs congregate living place. Case discussed with Dr. Merrill. Problems: Cont'd Hospitalization Reason: needs placement Subjective 24 Hr Interval Summary Free Text/Dictation No acute distress. Exam/Review of Systems Vital Signs Vitals Vital Signs Date Time Temp Pulse Resp B/P Pulse Ox O2 Delivery O2 Flow Rate FiO2 06/03/17 07:30 98.7 67 20 117/69 100 Intake and Output 06/02/17 06/02/17 06/03/17 15:00 23:00 07:00 Intake Total 680 ml 650 ml Output Total 720 ml Balance 680 ml -70 ml Exam Constitutional: frail, other (cachectic,wasted) Head: normocephalic Eyes: PERRL ENMT: mucosa pink and moist Neck: non-tender, supple Respiratory: clear to auscultation, normal air movement Cardiovascular: nl pulses, regular rate and rhythm Gastrointestinal: non-tender, soft Genitourinary - Male: other (deferred) Musculoskeletal: muscle weakness Extremities: normal pulses Neurological: nl mental status, other (Dysarthria) Results Result Diagram: 05/31/17 0539 05/31/17 0539 Medications Medications Current Medications Ondansetron HCl (Zofran Inj) 4 mg Q6H PRN IV NAUSEA AND/OR VOMITING Last administered on 03/20/17 06:00; Admin Dose 4 MG; Start 03/17/17 at 21:30 Acetaminophen (Tylenol Supp) 650 mg Q6H PRN [place] PAIN LEVEL 1-3 OR FEVER; Start 03/17/17 at 21:30 Enoxaparin Sodium (Lovenox) 40 mg DAILY SC Last administered on 06/03/17 08:06 ; Admin Dose 40 MG; Start 03/18/17 at 09:00 Baclofen (Lioresal) 10 mg TID PO Last administered on 06/03/17 08:01; Admin Dose 10 MG; Start 03/18/17 at 09:00 Docusate Sodium (Colace) 100 mg TID PRN PO CONSTIPATION Last administered on 09:00; Admin Dose 100 MG; Start 04/13/17 at 17:30 Lidocaine (Xylocaine (Viscous)) 15 ml QID PRN PO PAIN AND/OR INFLAMMATION Last administered on 04/30/17 01:04; Admin Dose 15 ML; Start 04/16/17 at 18:00 Senna (Senokot) 1 tab BID PO Last administered on 06/03/17 08:01; Admin Dose 1 TAB; Start 04/17/17 at 14:00 Magnesium Hydroxide (Milk Of Mag) 30 ml DAILY PRN PO CONSTIPATION Last administered on 04/17/17 20:29; Admin Dose 30 ML; Start 04/17/17 at 14:00 Morphine Sulfate (morphine) 2 mg Q4H PRN IV SEVERE PAIN LEVEL 7-10; Start at 10:30 Acetaminophen/ Hydrocodone Bitart ([place] (7.5-325)) 1 tab Q6H PRN PO pain Last administered on 05/07/17 14:32; Admin Dose 1 TAB; Start 04/30/17 at 16:00 Cholecalciferol (Vitamin D) 2,000 unit DAILY PO Last administered on 06/03/17 08:01; Admin Dose 2,000 UNIT; Start 05/12/17 at 13:00 Diazepam (Valium) 2 mg TID PO Last administered on 06/03/17 08:03; Admin Dose 2 MG; Start 05/30/17 at 21:00 CLARA CHERRY NP Jun 03, 2017 11:16
[2017-06-03 13:04] VITALS: BP 120/81; RESP 20
[2017-06-03 20:26] VITALS: BP 118/79; RESP 20
[2017-06-03 22:12] LABS: BASOPHILS % 0.2 % (0.0-2.0); EOSINOPHILS # 0.1 10^3/ul (0.0-0.5); EOSINOPHILS % 0.9 % (0.0-7.0); HEMATOCRIT 42.6 % (42.0-52.0); HEMOGLOBIN 14.4 g/dl (14.0-18.0); LYMPHOCYTES # 1.6 10^3/ul (0.8-2.9); LYMPHOCYTES % 16.6 % (15.0-51.0); MEAN CORPUSCULAR HEMOGLOBIN 28.8 pg (29.0-33.0); MEAN CORPUSCULAR HGB CONC 33.8 g/dl (32.0-37.0); MEAN CORPUSCULAR VOLUME 85.2 fl (82.0-101.0); MEAN PLATELET VOLUME 9.4 fl (7.4-10.4); MONOCYTE # 0.8 10^3/ul (0.3-0.9); MONOCYTES % 7.9 % (0.0-11.0); NEUTROPHIL # 7.1 10^3/ul (1.6-7.5); NEUTROPHILS % 74.3 % (39.0-77.0); PLATELET COUNT 207 10^3/UL (140-415); RED CELL DISTRIBUTION WIDTH 12.7 % (11.5-14.5); WHITE BLOOD COUNT 9.5 10^3/ul (4.8-10.8)
[2017-06-04 01:39] VITALS: BP 121/73; RESP 20
[2017-06-04 03:53] LABS: BASOPHILS % 0.3 % (0.0-2.0); EOSINOPHILS # 0.1 10^3/ul (0.0-0.5); EOSINOPHILS % 1.4 % (0.0-7.0); HEMOGLOBIN 13.3 g/dl (14.0-18.0); LYMPHOCYTES # 1.8 10^3/ul (0.8-2.9); LYMPHOCYTES % 26.3 % (15.0-51.0); MEAN CORPUSCULAR HGB CONC 34.1 g/dl (32.0-37.0); MEAN CORPUSCULAR VOLUME 85.2 fl (82.0-101.0); MEAN PLATELET VOLUME 9.3 fl (7.4-10.4); MONOCYTE # 0.5 10^3/ul (0.3-0.9); MONOCYTES % 7.1 % (0.0-11.0); NEUTROPHIL # 4.5 10^3/ul (1.6-7.5); NEUTROPHILS % 64.8 % (39.0-77.0); PLATELET COUNT 184 10^3/UL (140-415); RED BLOOD COUNT 4.58 10^6/ul (4.70-6.10); RED CELL DISTRIBUTION WIDTH 12.6 % (11.5-14.5); WHITE BLOOD COUNT 6.9 10^3/ul (4.8-10.8)
[2017-06-04 07:36] VITALS: BP 121/70; RESP 18
[2017-06-04 08:30] VITALS: BP 121/70; RESP 16
[2017-06-04] MEDS: CHOLECALCIFEROL 2,000 UNIT CAP PO SCH (09:26)
[2017-06-04] MEDS: DIAZEPAM 2 MG TAB PO SCH ×3 (09:26→20:49)
[2017-06-04] MEDS: BACLOFEN 10 MG TAB PO SCH ×3 (09:26→20:49)
[2017-06-04] MEDS: SENNA TAB PO SCH ×2 (09:26→20:49)
[2017-06-04] MEDS: DOCUSATE SODIUM 100 MG CAP PO SCH ×2 (09:26→20:49)
--- NOTE | 2017-06-04 09:35 | PN ---
Date/Time of Note Date/Time of Note DATE: 06/04/17 TIME: 09:33 Assessment/Plan VTE Prophylaxis VTE Prophylaxis Intervention: SCD's Lines/Catheters IV [facility]): none Urinary Cath still in place: No Assessment/Plan Chief Complaint/Hosp Course 1.Debility with diffuse muscle wasting /Dysarthria 2/2 unclear inherited muscular dystrophy-like illness - Continue with physical therapy - Awaiting placement 2. Rectal bleedx1 episode, most likely constipation/Hemorrhoid related. Resolved. HH stable. -Bowel regimen -Stop Lovenox -Monitor and will consider GI if indicated DVT prophylaxis: Lovenox Patient has been accepted to hospice. He remains full code. Case management working on sending patient to SNF vs congregate living place. Case discussed with Dr. Merrill. Problems: Subjective 24 Hr Interval Summary Free Text/Dictation Patient had some rectal bleed with bowel movement yesterday x1 episode only. Had BM afterwords and was normal. HH stable. Exam/Review of Systems Vital Signs Vitals Vital Signs Date Time Temp Pulse Resp B/P Pulse Ox O2 Delivery O2 Flow Rate FiO2 06/04/17 08:30 97.6 69 16 121/70 99 Intake and Output 06/03/17 06/03/17 06/04/17 15:00 23:00 07:00 Intake Total 840 ml 240 ml Output Total 700 ml 600 ml Balance 140 ml -360 ml Exam Constitutional: frail, other (cachectic,wasted) Head: normocephalic Eyes: PERRL ENMT: mucosa pink and moist Neck: non-tender, supple Respiratory: clear to auscultation, normal air movement Cardiovascular: nl pulses, regular rate and rhythm Gastrointestinal: non-tender, soft Genitourinary - Male: other (deferred) Musculoskeletal: muscle weakness Extremities: normal pulses Neurological: nl mental status, other (Dysarthria) Results Result Diagram: 06/04/17 0336 05/31/17 0539 Results 24 hrs Laboratory Tests Test 06/03/17 21:38 06/04/17 03:36 White Blood Count 9.5 # 6.9 # Red Blood Count 5.00 4.58 L Hemoglobin 14.4 13.3 L Hematocrit 42.6 39.0 L Mean Corpuscular Volume 85.2 85.2 Mean Corpuscular Hemoglobin 28.8 L 29.0 Mean Corpuscular Hemoglobin Concent 33.8 34.1 Red Cell Distribution Width 12.7 12.6 Platelet Count 207 184 Mean Platelet Volume 9.4 9.3 Neutrophils % 74.3 64.8 Lymphocytes % 16.6 26.3 Monocytes % 7.9 7.1 Eosinophils % 0.9 1.4 Basophils % 0.2 0.3 Nucleated Red Blood Cells % 0.0 0.0 Neutrophils # 7.1 4.5 Lymphocytes # 1.6 1.8 Monocytes # 0.8 0.5 Eosinophils # 0.1 0.1 Basophils # 0.0 0.0 Nucleated Red Blood Cells # 0.0 0.0 Medications Medications Current Medications Ondansetron HCl (Zofran Inj) 4 mg Q6H PRN IV NAUSEA AND/OR VOMITING Last administered on 03/20/17 06:00; Admin Dose 4 MG; Start 03/17/17 at 21:30 Acetaminophen (Tylenol Supp) 650 mg Q6H PRN [place] PAIN LEVEL 1-3 OR FEVER; Start 03/17/17 at 21:30 Enoxaparin Sodium (Lovenox) 40 mg DAILY SC Last administered on 06/03/17 08:06 ; Admin Dose 40 MG; Start 03/18/17 at 09:00; Status Future Hold Baclofen (Lioresal) 10 mg TID PO Last administered on 06/04/17 09:26; Admin Dose 10 MG; Start 03/18/17 at 09:00 Docusate Sodium (Colace) 100 mg TID PRN PO CONSTIPATION Last administered on 09:00; Admin Dose 100 MG; Start 04/13/17 at 17:30 Lidocaine (Xylocaine (Viscous)) 15 ml QID PRN PO PAIN AND/OR INFLAMMATION Last administered on 04/30/17 01:04; Admin Dose 15 ML; Start 04/16/17 at 18:00 Senna (Senokot) 1 tab BID PO Last administered on 06/04/17 09:26; Admin Dose 1 TAB; Start 04/17/17 at 14:00 Magnesium Hydroxide (Milk Of Mag) 30 ml DAILY PRN PO CONSTIPATION Last administered on 04/17/17 20:29; Admin Dose 30 ML; Start 04/17/17 at 14:00 Morphine Sulfate (morphine) 2 mg Q4H PRN IV SEVERE PAIN LEVEL 7-10; Start at 10:30 Acetaminophen/ Hydrocodone Bitart ([place] (7.5-325)) 1 tab Q6H PRN PO pain Last administered on 05/07/17 14:32; Admin Dose 1 TAB; Start 04/30/17 at 16:00 Cholecalciferol (Vitamin D) 2,000 unit DAILY PO Last administered on 06/04/17 09:26; Admin Dose 2,000 UNIT; Start 05/12/17 at 13:00 Diazepam (Valium) 2 mg TID PO Last administered on 06/04/17 09:26; Admin Dose 2 MG; Start 05/30/17 at 21:00 Docusate Sodium (Colace) 100 mg BID PO Last administered on 06/04/17 09:26; Admin Dose 100 MG; Start 06/04/17 at 09:00 CLARA CHERRY NP Jun 04, 2017 09:35
[2017-06-04 10:26] LABS: BASOPHILS % 0.4 % (0.0-2.0); EOSINOPHILS # 0.1 10^3/ul (0.0-0.5); EOSINOPHILS % 1.1 % (0.0-7.0); HEMATOCRIT 40.2 % (42.0-52.0); HEMOGLOBIN 13.7 g/dl (14.0-18.0); LYMPHOCYTES # 0.9 10^3/ul (0.8-2.9); LYMPHOCYTES % 16.5 % (15.0-51.0); MEAN CORPUSCULAR HGB CONC 34.1 g/dl (32.0-37.0); MEAN CORPUSCULAR VOLUME 85.2 fl (82.0-101.0); MEAN PLATELET VOLUME 9.6 fl (7.4-10.4); MONOCYTE # 0.4 10^3/ul (0.3-0.9); MONOCYTES % 6.9 % (0.0-11.0); NEUTROPHILS % 74.9 % (39.0-77.0); PLATELET COUNT 180 10^3/UL (140-415); RED BLOOD COUNT 4.72 10^6/ul (4.70-6.10); RED CELL DISTRIBUTION WIDTH 12.6 % (11.5-14.5); WHITE BLOOD COUNT 5.4 10^3/ul (4.8-10.8)
[2017-06-04 13:54] VITALS: BP 108/65; RESP 20
[2017-06-04 20:01] VITALS: BP 125/78; RESP 20
[2017-06-05 01:40] VITALS: BP 109/61; PULSE 75; RESP 18
[2017-06-05 08:01] VITALS: BP 112/67; RESP 18
[2017-06-05] MEDS: DOCUSATE SODIUM 100 MG CAP PO SCH ×2 (08:46→21:16)
[2017-06-05] MEDS: CHOLECALCIFEROL 2,000 UNIT CAP PO SCH (08:47)
[2017-06-05] MEDS: SENNA TAB PO SCH ×2 (08:47→21:16)
[2017-06-05] MEDS: BACLOFEN 10 MG TAB PO SCH ×3 (08:47→21:16)
[2017-06-05] MEDS: DIAZEPAM 2 MG TAB PO SCH ×3 (08:47→21:16)
--- NOTE | 2017-06-05 10:25 | PN ---
Date/Time of Note Date/Time of Note DATE: 06/05/17 TIME: 10:22 Assessment/Plan VTE Prophylaxis VTE Prophylaxis Intervention: SCD's Lines/Catheters IV Catheter Type (from Nrs): none Urinary Cath still in place: No Assessment/Plan Chief Complaint/Hosp Course 1.Debility with diffuse muscle wasting /Dysarthria 2/2 unclear inherited muscular dystrophy-like illness - Continue with physical therapy - Awaiting placement DVT prophylaxis: SCDs Case management working on sending patient to SNF vs congregate living place. Case discussed with Dr. Swift Problems: Subjective 24 Hr Interval Summary Free Text/Dictation Doing well. No further rectal bleed. HH stable.Denies N/V/Abdominal discomfort. Exam/Review of Systems Vital Signs Vitals Vital Signs Date Time Temp Pulse Resp B/P Pulse Ox O2 Delivery O2 Flow Rate FiO2 06/05/17 08:01 97.9 77 18 112/67 98 06/05/17 01:40 Room Air Intake and Output 06/04/17 06/04/17 06/05/17 15:00 23:00 07:00 Intake Total 960 ml Output Total 800 ml Balance 160 ml Exam Constitutional: frail, other (cachectic,wasted) Head: normocephalic Eyes: PERRL ENMT: mucosa pink and moist Neck: non-tender, supple Respiratory: clear to auscultation, normal air movement Cardiovascular: nl pulses, regular rate and rhythm Gastrointestinal: non-tender, soft Genitourinary - Male: other (deferred) Musculoskeletal: muscle weakness Extremities: normal pulses Neurological: nl mental status, other (Dysarthria) Results Result Diagram: 06/04/17 1011 Medications Medications Current Medications Ondansetron HCl (Zofran Inj) 4 mg Q6H PRN IV NAUSEA AND/OR VOMITING Last administered on 03/20/17 06:00; Admin Dose 4 MG; Start 03/17/17 at 21:30 Acetaminophen (Tylenol Supp) 650 mg Q6H PRN [place] PAIN LEVEL 1-3 OR FEVER; Start 03/17/17 at 21:30 Baclofen (Lioresal) 10 mg TID PO Last administered on 06/05/17 08:47; Admin Dose 10 MG; Start 03/18/17 at 09:00 Docusate Sodium (Colace) 100 mg TID PRN PO CONSTIPATION Last administered on 09:00; Admin Dose 100 MG; Start 04/13/17 at 17:30 Lidocaine (Xylocaine (Viscous)) 15 ml QID PRN PO PAIN AND/OR INFLAMMATION Last administered on 04/30/17 01:04; Admin Dose 15 ML; Start 04/16/17 at 18:00 Senna (Senokot) 1 tab BID PO Last administered on 06/05/17 08:47; Admin Dose 1 TAB; Start 04/17/17 at 14:00 Magnesium Hydroxide (Milk Of Mag) 30 ml DAILY PRN PO CONSTIPATION Last administered on 04/17/17 20:29; Admin Dose 30 ML; Start 04/17/17 at 14:00 Morphine Sulfate (morphine) 2 mg Q4H PRN IV SEVERE PAIN LEVEL 7-10; Start at 10:30 Acetaminophen/ Hydrocodone Bitart ([place] (7.5-325)) 1 tab Q6H PRN PO pain Last administered on 05/07/17 14:32; Admin Dose 1 TAB; Start 04/30/17 at 16:00 Cholecalciferol (Vitamin D) 2,000 unit DAILY PO Last administered on 06/05/17 08:47; Admin Dose 2,000 UNIT; Start 05/12/17 at 13:00 Diazepam (Valium) 2 mg TID PO Last administered on 06/05/17 08:47; Admin Dose 2 MG; Start 05/30/17 at 21:00 Docusate Sodium (Colace) 100 mg BID PO Last administered on 06/05/17 08:46; Admin Dose 100 MG; Start 06/04/17 at 09:00 CLARA CHERRY NP Jun 05, 2017 10:25
[2017-06-05 13:04] VITALS: BP 115/77; RESP 20
[2017-06-05 19:57] VITALS: BP 130/80; RESP 20
[2017-06-06 02:00] VITALS: BP 130/60; RESP 20
[2017-06-06 07:51] VITALS: BP 120/67; RESP 16
[2017-06-06] MEDS: DOCUSATE SODIUM 100 MG CAP PO SCH ×2 (09:24→20:26)
[2017-06-06] MEDS: SENNA TAB PO SCH ×2 (09:24→20:26)
[2017-06-06] MEDS: BACLOFEN 10 MG TAB PO SCH ×3 (09:24→20:26)
[2017-06-06] MEDS: DIAZEPAM 2 MG TAB PO SCH ×3 (09:25→20:27)
[2017-06-06] MEDS: CHOLECALCIFEROL 2,000 UNIT CAP PO SCH (09:25)
--- NOTE | 2017-06-06 13:47 | PN ---
Date/Time of Note Date/Time of Note DATE: 06/06/17 TIME: 13:45 Assessment/Plan VTE Prophylaxis VTE Prophylaxis Intervention: ambulation, SCD's Lines/Catheters IV Catheter Type (from Nrsg): none Urinary Cath still in place: No Assessment/Plan Chief Complaint/Hosp Course 1.Debility with diffuse muscle wasting /Dysarthria 2/2 unclear inherited muscular dystrophy-like illness - Continue with physical therapy - Awaiting placement DVT prophylaxis: SCDs From , note, it is noted that patient has been accepted to [facility]. unclear at this time regarding the process initiation of hospice. Case management working on sending patient to SNF vs congregate living place. Case discussed with Dr. Swift Problems: Subjective 24 Hr Interval Summary Free Text/Dictation No acute distress. Exam/Review of Systems Vital Signs Vitals Vital Signs Date Time Temp Pulse Resp B/P Pulse Ox O2 Delivery O2 Flow Rate FiO2 06/06/17 07:51 98.0 71 16 120/67 97 06/05/17 01:40 Room Air Intake and Output 06/05/17 06/05/17 06/06/17 15:00 23:00 07:00 Intake Total 420 ml 1200 ml Output Total 500 ml 600 ml Balance -80 ml 600 ml Exam Constitutional: frail, other (cachectic,wasted) Head: normocephalic Eyes: PERRL ENMT: mucosa pink and moist Neck: non-tender, supple Respiratory: clear to auscultation, normal air movement Cardiovascular: nl pulses, regular rate and rhythm Gastrointestinal: non-tender, soft Genitourinary - Male: other (deferred) Musculoskeletal: muscle weakness Extremities: normal pulses Neurological: nl mental status, other (Dysarthria) Results Result Diagram: 06/04/17 1011 Results 24 hrs Laboratory Tests Test 06/05/17 17:00 Stool Occult Blood NEGATIVE Medications Medications Current Medications Ondansetron HCl (Zofran Inj) 4 mg Q6H PRN IV NAUSEA AND/OR VOMITING Last administered on 03/20/17 06:00; Admin Dose 4 MG; Start 03/17/17 at 21:30 Acetaminophen (Tylenol Supp) 650 mg Q6H PRN [place] PAIN LEVEL 1-3 OR FEVER; Start 03/17/17 at 21:30 Baclofen (Lioresal) 10 mg TID PO Last administered on 06/06/17 12:34; Admin Dose 10 MG; Start 03/18/17 at 09:00 Docusate Sodium (Colace) 100 mg TID PRN PO CONSTIPATION Last administered on 09:00; Admin Dose 100 MG; Start 04/13/17 at 17:30 Lidocaine (Xylocaine (Viscous)) 15 ml QID PRN PO PAIN AND/OR INFLAMMATION Last administered on 04/30/17 01:04; Admin Dose 15 ML; Start 04/16/17 at 18:00 Senna (Senokot) 1 tab BID PO Last administered on 06/06/17 09:24; Admin Dose 1 TAB; Start 04/17/17 at 14:00 Magnesium Hydroxide (Milk Of Mag) 30 ml DAILY PRN PO CONSTIPATION Last administered on 04/17/17 20:29; Admin Dose 30 ML; Start 04/17/17 at 14:00 Morphine Sulfate (morphine) 2 mg Q4H PRN IV SEVERE PAIN LEVEL 7-10; Start at 10:30 Acetaminophen/ Hydrocodone Bitart ([place] (7.5-325)) 1 tab Q6H PRN PO pain Last administered on 05/07/17 14:32; Admin Dose 1 TAB; Start 04/30/17 at 16:00 Cholecalciferol (Vitamin D) 2,000 unit DAILY PO Last administered on 06/06/17 09:25; Admin Dose 2,000 UNIT; Start 05/12/17 at 13:00 Diazepam (Valium) 2 mg TID PO Last administered on 06/06/17 12:34; Admin Dose 2 MG; Start 05/30/17 at 21:00 Docusate Sodium (Colace) 100 mg BID PO Last administered on 06/06/17 09:24; Admin Dose 100 MG; Start 06/04/17 at 09:00 CLARA CHERRY NP Jun 06, 2017 13:47
[2017-06-06 14:00] VITALS: BP 130/75; RESP 16
[2017-06-06 19:49] VITALS: BP 129/80; RESP 20
[2017-06-07 02:00] VITALS: BP 130/78; RESP 20
[2017-06-07 03:20] VITALS: BP 123/65; PULSE 91; RESP 18
[2017-06-07 07:43] VITALS: BP 108/67; RESP 16
[2017-06-07] MEDS: DIAZEPAM 2 MG TAB PO SCH ×2 (08:08→14:21)
[2017-06-07] MEDS: DOCUSATE SODIUM 100 MG CAP PO SCH ×2 (08:08→20:38)
[2017-06-07] MEDS: BACLOFEN 10 MG TAB PO SCH ×3 (08:08→20:38)
[2017-06-07] MEDS: CHOLECALCIFEROL 2,000 UNIT CAP PO SCH (08:08)
[2017-06-07] MEDS: SENNA TAB PO SCH ×2 (08:08→20:38)
[2017-06-07 14:30] VITALS: BP 119/74; RESP 16
--- NOTE | 2017-06-07 19:31 | PN ---
Date/Time of Note Date/Time of Note DATE: 06/07/17 TIME: 19:30 Assessment/Plan VTE Prophylaxis VTE Prophylaxis Intervention: SCD's Lines/Catheters IV Catheter Type (from Nrsg): none Urinary Cath still in place: No Assessment/Plan Assessment/Plan 1.Debility with diffuse muscle wasting /Dysarthria 2/2 unclear inherited muscular dystrophy-like illness - Continue with physical therapy - Awaiting placement DVT prophylaxis: SCDs Subjective 24 Hr Interval Summary Free Text/Dictation pt had a Fall episode yesterday Exam/Review of Systems Vital Signs Vitals Vital Signs Date Time Temp Pulse Resp B/P Pulse Ox O2 Delivery O2 Flow Rate FiO2 06/07/17 14:30 97.4 74 16 119/74 99 06/07/17 03:20 Room Air Intake and Output 06/06/17 06/06/17 06/07/17 15:00 23:00 07:00 Intake Total 1000 ml Output Total 450 ml Balance 550 ml Exam Constitutional: alert Psych: no complaints Eyes: nl conjunctiva Neck: non-tender, supple Respiratory: clear to auscultation, diminished breath sounds, normal air movement Cardiovascular: nl pulses, regular rate and rhythm Musculoskeletal: nl extremities to inspection Results Result Diagram: 06/04/17 1011 Medications Medications Current Medications Ondansetron HCl (Zofran Inj) 4 mg Q6H PRN IV NAUSEA AND/OR VOMITING Last administered on 03/20/17 06:00; Admin Dose 4 MG; Start 03/17/17 at 21:30 Acetaminophen (Tylenol Supp) 650 mg Q6H PRN [place] PAIN LEVEL 1-3 OR FEVER; Start 03/17/17 at 21:30 Baclofen (Lioresal) 10 mg TID PO Last administered on 06/07/17 14:21; Admin Dose 10 MG; Start 03/18/17 at 09:00 Docusate Sodium (Colace) 100 mg TID PRN PO CONSTIPATION Last administered on 09:00; Admin Dose 100 MG; Start 04/13/17 at 17:30 Lidocaine (Xylocaine (Viscous)) 15 ml QID PRN PO PAIN AND/OR INFLAMMATION Last administered on 04/30/17 01:04; Admin Dose 15 ML; Start 04/16/17 at 18:00 Senna (Senokot) 1 tab BID PO Last administered on 06/07/17 08:08; Admin Dose 1 TAB; Start 04/17/17 at 14:00 Magnesium Hydroxide (Milk Of Mag) 30 ml DAILY PRN PO CONSTIPATION Last administered on 04/17/17 20:29; Admin Dose 30 ML; Start 04/17/17 at 14:00 Morphine Sulfate (morphine) 2 mg Q4H PRN IV SEVERE PAIN LEVEL 7-10; Start at 10:30 Acetaminophen/ Hydrocodone Bitart ([place] (7.5-325)) 1 tab Q6H PRN PO pain Last administered on 05/07/17 14:32; Admin Dose 1 TAB; Start 04/30/17 at 16:00 Cholecalciferol (Vitamin D) 2,000 unit DAILY PO Last administered on 06/07/17 08:08; Admin Dose 2,000 UNIT; Start 05/12/17 at 13:00 Diazepam (Valium) 2 mg TID PO Last administered on 06/07/17 14:21; Admin Dose 2 MG; Start 05/30/17 at 21:00 Docusate Sodium (Colace) 100 mg BID PO Last administered on 06/07/17 08:08; Admin Dose 100 MG; Start 06/04/17 at 09:00 DARION WILSON MD Jun 07, 2017 19:30
[2017-06-07 20:13] VITALS: BP 113/60; RESP 18
[2017-06-08] MEDS: DIAZEPAM 2 MG TAB PO SCH ×4 (00:53→20:56)
[2017-06-08 06:17] LABS: BASOPHILS % 0.6 % (0.0-2.0); EOSINOPHILS # 0.1 10^3/ul (0.0-0.5); EOSINOPHILS % 2.7 % (0.0-7.0); HEMATOCRIT 39.8 % (42.0-52.0); HEMOGLOBIN 13.1 g/dl (14.0-18.0); LYMPHOCYTES # 2.2 10^3/ul (0.8-2.9); LYMPHOCYTES % 42.1 % (15.0-51.0); MEAN CORPUSCULAR HEMOGLOBIN 28.4 pg (29.0-33.0); MEAN CORPUSCULAR HGB CONC 32.9 g/dl (32.0-37.0); MEAN CORPUSCULAR VOLUME 86.3 fl (82.0-101.0); MEAN PLATELET VOLUME 9.6 fl (7.4-10.4); MONOCYTE # 0.4 10^3/ul (0.3-0.9); MONOCYTES % 8.2 % (0.0-11.0); NEUTROPHIL # 2.4 10^3/ul (1.6-7.5); NEUTROPHILS % 46.2 % (39.0-77.0); PLATELET COUNT 205 10^3/UL (140-415); RED BLOOD COUNT 4.61 10^6/ul (4.70-6.10); RED CELL DISTRIBUTION WIDTH 13.4 % (11.5-14.5); WHITE BLOOD COUNT 5.1 10^3/ul (4.8-10.8)
[2017-06-08 06:33] LABS: CALCIUM 9.3 mg/dl (8.4-10.2); CREATININE 0.93 mg/dl (0.61-1.24); POTASSIUM 4.1 mmol/L (3.5-5.1)
[2017-06-08 08:10] VITALS: BP 130/82; RESP 18
[2017-06-08] MEDS: BACLOFEN 10 MG TAB PO SCH ×3 (09:22→20:56)
[2017-06-08] MEDS: CHOLECALCIFEROL 2,000 UNIT CAP PO SCH (09:22)
[2017-06-08] MEDS: DOCUSATE SODIUM 100 MG CAP PO SCH ×2 (09:22→20:56)
[2017-06-08] MEDS: SENNA TAB PO SCH ×2 (09:22→20:56)
--- NOTE | 2017-06-08 13:03 | PN ---
Date/Time of Note Date/Time of Note DATE: 06/08/17 TIME: 13:01 Assessment/Plan VTE Prophylaxis VTE Prophylaxis Intervention: SCD's Lines/Catheters IV Catheter Type (from Nrs): none Urinary Cath still in place: No Assessment/Plan Assessment/Plan 1.Debility with diffuse muscle wasting /Dysarthria 2/2 unclear inherited muscular dystrophy-like illness - Continue with physical therapy - Awaiting placement DVT prophylaxis: SCDs Subjective 24 Hr Interval Summary Free Text/Dictation stable, no chest pain Exam/Review of Systems Vital Signs Vitals Vital Signs Date Time Temp Pulse Resp B/P Pulse Ox O2 Delivery O2 Flow Rate FiO2 06/08/17 08:10 98.0 75 18 130/82 100 06/07/17 03:20 Room Air Intake and Output 06/07/17 06/07/17 06/08/17 15:00 23:00 07:00 Intake Total 960 ml 400 ml Output Total 500 ml Balance -500 ml 960 ml 400 ml Exam Constitutional: alert Psych: no complaints Eyes: nl conjunctiva Neck: non-tender, supple Respiratory: clear to auscultation, diminished breath sounds, normal air movement Cardiovascular: nl pulses, regular rate and rhythm Musculoskeletal: nl extremities to inspection Results Result Diagram: 06/08/17 0517 06/08/17 0517 Results 24 hrs Laboratory Tests Test 06/08/17 05:17 White Blood Count 5.1 Red Blood Count 4.61 L Hemoglobin 13.1 L Hematocrit 39.8 L Mean Corpuscular Volume 86.3 Mean Corpuscular Hemoglobin 28.4 L Mean Corpuscular Hemoglobin Concent 32.9 Red Cell Distribution Width 13.4 Platelet Count 205 Mean Platelet Volume 9.6 Neutrophils % 46.2 Lymphocytes % 42.1 Monocytes % 8.2 Eosinophils % 2.7 Basophils % 0.6 Nucleated Red Blood Cells % 0.0 Neutrophils # 2.4 Lymphocytes # 2.2 Monocytes # 0.4 Eosinophils # 0.1 Basophils # 0.0 Nucleated Red Blood Cells # 0.0 Sodium Level 145 H Potassium Level 4.1 Chloride Level 111 H Carbon Dioxide Level 26 Anion Gap 12 Blood Urea Nitrogen 11 Creatinine 0.93 Glucose Level 84 Calcium Level 9.3 Medications Medications Current Medications Ondansetron HCl (Zofran Inj) 4 mg Q6H PRN IV NAUSEA AND/OR VOMITING Last administered on 03/20/17 06:00; Admin Dose 4 MG; Start 03/17/17 at 21:30 Acetaminophen (Tylenol Supp) 650 mg Q6H PRN [place] PAIN LEVEL 1-3 OR FEVER; Start 03/17/17 at 21:30 Baclofen (Lioresal) 10 mg TID PO Last administered on 06/08/17 12:57; Admin Dose 10 MG; Start 03/18/17 at 09:00 Docusate Sodium (Colace) 100 mg TID PRN PO CONSTIPATION Last administered on 09:00; Admin Dose 100 MG; Start 04/13/17 at 17:30 Lidocaine (Xylocaine (Viscous)) 15 ml QID PRN PO PAIN AND/OR INFLAMMATION Last administered on 04/30/17 01:04; Admin Dose 15 ML; Start 04/16/17 at 18:00 Senna (Senokot) 1 tab BID PO Last administered on 06/08/17 09:22; Admin Dose 1 TAB; Start 04/17/17 at 14:00 Magnesium Hydroxide (Milk Of Mag) 30 ml DAILY PRN PO CONSTIPATION Last administered on 04/17/17 20:29; Admin Dose 30 ML; Start 04/17/17 at 14:00 Morphine Sulfate (morphine) 2 mg Q4H PRN IV SEVERE PAIN LEVEL 7-10; Start at 10:30 Acetaminophen/ Hydrocodone Bitart ([place] (7.5-325)) 1 tab Q6H PRN PO pain Last administered on 05/07/17 14:32; Admin Dose 1 TAB; Start 04/30/17 at 16:00 Cholecalciferol (Vitamin D) 2,000 unit DAILY PO Last administered on 06/08/17 09:22; Admin Dose 2,000 UNIT; Start 05/12/17 at 13:00 Diazepam (Valium) 2 mg TID PO Last administered on 06/08/17 12:57; Admin Dose 2 MG; Start 05/30/17 at 21:00 Docusate Sodium (Colace) 100 mg BID PO Last administered on 06/08/17 09:22; Admin Dose 100 MG; Start 06/04/17 at 09:00 DARION WILSON MD Jun 08, 2017 13:03
[2017-06-08 15:01] VITALS: BP 122/71; RESP 18
[2017-06-08 20:24] VITALS: BP 124/76; RESP 18
[2017-06-09 02:11] VITALS: BP 95/54; RESP 18
[2017-06-09 08:09] VITALS: BP 104/67; RESP 16
[2017-06-09] MEDS: DOCUSATE SODIUM 100 MG CAP PO SCH ×2 (09:46→20:53)
[2017-06-09] MEDS: CHOLECALCIFEROL 2,000 UNIT CAP PO SCH (09:47)
[2017-06-09] MEDS: SENNA TAB PO SCH ×2 (09:47→20:53)
[2017-06-09] MEDS: BACLOFEN 10 MG TAB PO SCH ×3 (09:47→20:53)
[2017-06-09] MEDS: DIAZEPAM 2 MG TAB PO SCH ×3 (09:48→20:57)
--- NOTE | 2017-06-09 09:53 | PN ---
Date/Time of Note Date/Time of Note DATE: 06/09/17 TIME: 09:50 Assessment/Plan VTE Prophylaxis VTE Prophylaxis Intervention: ambulation, SCD's Lines/Catheters IV Catheter Type (from Nrs): none Urinary Cath still in place: No Assessment/Plan Chief Complaint/Hosp Course 1.Debility with diffuse muscle wasting /Dysarthria 2/2 unclear inherited muscular dystrophy-like illness - Continue with physical therapy - Awaiting placement 2. Mild hyponatremia/hypochloremia, likely dehydration. -We will treat with IV fluids and repeat labs in a.m. DVT prophylaxis: SCDs From , note, it is noted that patient has been accepted to [facility]. unclear at this time regarding the process initiation of hospice. Case management working on sending patient to SNF vs congregate living place. Case discussed with Dr. Bowden Problems: Subjective 24 Hr Interval Summary Free Text/Dictation No acute overnight episodes. Exam/Review of Systems Vital Signs Vitals Vital Signs Date Time Temp Pulse Resp B/P Pulse Ox O2 Delivery O2 Flow Rate FiO2 06/09/17 08:09 97.6 68 16 104/67 99 06/07/17 03:20 Room Air Intake and Output 06/08/17 06/08/17 06/09/17 15:00 23:00 07:00 Intake Total 720 ml 850 ml Output Total 500 ml Balance 720 ml 350 ml Exam Constitutional: frail, other (cachectic,wasted) Head: normocephalic Eyes: PERRL ENMT: mucosa pink and moist Neck: non-tender, supple Respiratory: clear to auscultation, normal air movement Cardiovascular: nl pulses, regular rate and rhythm Gastrointestinal: non-tender, soft Genitourinary - Male: other (deferred) Musculoskeletal: muscle weakness Extremities: normal pulses Neurological: nl mental status, other (Dysarthria) Results Result Diagram: 06/08/1751606/08/17516 Medications Medications Current Medications Ondansetron HCl (Zofran Inj) 4 mg Q6H PRN IV NAUSEA AND/OR VOMITING Last administered on 03/20/17 06:00; Admin Dose 4 MG; Start 03/17/17 at 21:30 Acetaminophen (Tylenol Supp) 650 mg Q6H PRN [place] PAIN LEVEL 1-3 OR FEVER; Start 03/17/17 at 21:30 Baclofen (Lioresal) 10 mg TID PO Last administered on 06/08/17 20:56; Admin Dose 10 MG; Start 03/18/17 at 09:00 Docusate Sodium (Colace) 100 mg TID PRN PO CONSTIPATION Last administered on 09:00; Admin Dose 100 MG; Start 04/13/17 at 17:30 Lidocaine (Xylocaine (Viscous)) 15 ml QID PRN PO PAIN AND/OR INFLAMMATION Last administered on 04/30/17 01:04; Admin Dose 15 ML; Start 04/16/17 at 18:00 Senna (Senokot) 1 tab BID PO Last administered on 06/08/17 20:56; Admin Dose 1 TAB; Start 04/17/17 at 14:00 Magnesium Hydroxide (Milk Of Mag) 30 ml DAILY PRN PO CONSTIPATION Last administered on 04/17/17 20:29; Admin Dose 30 ML; Start 04/17/17 at 14:00 Morphine Sulfate (morphine) 2 mg Q4H PRN [place] SEVERE PAIN LEVEL 7-10; Start at 10:30 Acetaminophen/ Hydrocodone Bitart ([place] (7.5-325)) 1 tab Q6H PRN PO pain Last administered on 05/07/17 14:32; Admin Dose 1 TAB; Start 04/30/17 at 16:00 Cholecalciferol (Vitamin D) 2,000 unit DAILY PO Last administered on 06/08/17 09:22; Admin Dose 2,000 UNIT; Start 05/12/17 at 13:00 Diazepam (Valium) 2 mg TID PO Last administered on 06/08/17 20:56; Admin Dose 2 MG; Start 05/30/17 at 21:00 Docusate Sodium (Colace) 100 mg BID PO Last administered on 06/08/17 20:56; Admin Dose 100 MG; Start 06/04/17 at 09:00 CLARA CHERRY V. DIRECTOR HR COMMUNICATIONS Jun 09, 2017 09:53
[2017-06-09] MEDS ORDERED: DEXTROSE 5% 1,000 ML IV SCH (10:00)
[2017-06-09 14:10] VITALS: BP 117/72; RESP 16
[2017-06-09 19:52] VITALS: BP 100/57; RESP 18
[2017-06-10 02:08] VITALS: BP 108/59; RESP 18
[2017-06-10 06:44] LABS: CALCIUM 9.6 mg/dl (8.4-10.2); CREATININE 1.05 mg/dl (0.61-1.24); POTASSIUM 3.8 mmol/L (3.5-5.1)
[2017-06-10 07:48] VITALS: BP 108/68; RESP 20
[2017-06-10] MEDS: BACLOFEN 10 MG TAB PO SCH ×3 (09:56→21:56)
[2017-06-10] MEDS: CHOLECALCIFEROL 2,000 UNIT CAP PO SCH (09:56)
[2017-06-10] MEDS: DOCUSATE SODIUM 100 MG CAP PO SCH ×2 (09:56→21:56)
[2017-06-10] MEDS: DIAZEPAM 2 MG TAB PO SCH ×3 (09:56→21:57)
[2017-06-10] MEDS: SENNA TAB PO SCH ×2 (09:56→21:57)
--- NOTE | 2017-06-10 09:58 | PN ---
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 Mild hypernatremia/hyperchloremia, likely dehydration. Resolved with IV fluids. -We will monitor. DVT prophylaxis: SCDs From , note, it is noted that patient has been accepted to [facility]. unclear at this time regarding the process initiation of hospice. Case management working on sending patient to SNF vs congregate living place. Case discussed with Dr. Bowden Problems: Subjective 24 Hr Interval Summary Free Text/Dictation No acute overnight episodes. Exam/Review of Systems Vital Signs Vitals Vital Signs Date Time Temp Pulse Resp B/P Pulse Ox O2 Delivery O2 Flow Rate FiO2 06/10/17 07:48 97.8 67 20 108/68 98 06/07/17 03:20 Room Air Intake and Output 06/09/17 06/09/17 06/10/17 15:00 23:00 07:00 Intake Total 590 ml 900 ml Output Total 500 ml 500 ml Balance 90 ml 400 ml Exam Constitutional: frail, other (cachectic,wasted) Head: normocephalic Eyes: PERRL ENMT: mucosa pink and moist Neck: non-tender, supple Respiratory: clear to auscultation, normal air movement Cardiovascular: nl pulses, regular rate and rhythm Gastrointestinal: non-tender, soft Genitourinary - Male: other (deferred) Musculoskeletal: muscle weakness Extremities: normal pulses Neurological: nl mental status, other (Dysarthria) Results Result Diagram: 06/08/17 0517 06/10/17 0508 Results 24 hrs Laboratory Tests Test 06/10/17 05:08 Sodium Level 142 Potassium Level 3.8 Chloride Level 107 Carbon Dioxide Level 27 Anion Gap 12 Blood Urea Nitrogen 11 Creatinine 1.05 Glucose Level 83 Calcium Level 9.6 Magnesium Level 2.0 Medications Medications Current Medications Ondansetron HCl (Zofran Inj) 4 mg Q6H PRN IV NAUSEA AND/OR VOMITING Last administered on 03/20/17 06:00; Admin Dose 4 MG; Start 03/17/17 at 21:30 Acetaminophen (Tylenol Supp) 650 mg Q6H PRN [place] PAIN LEVEL 1-3 OR FEVER; Start 03/17/17 at 21:30 Baclofen (Lioresal) 10 mg TID PO Last administered on 06/09/17 20:53; Admin Dose 10 MG; Start 03/18/17 at 09:00 Docusate Sodium (Colace) 100 mg TID PRN PO CONSTIPATION Last administered on 09:00; Admin Dose 100 MG; Start 04/13/17 at 17:30 Lidocaine (Xylocaine (Viscous)) 15 ml QID PRN PO PAIN AND/OR INFLAMMATION Last administered on 04/30/17 01:04; Admin Dose 15 ML; Start 04/16/17 at 18:00 Senna (Senokot) 1 tab BID PO Last administered on 06/09/17 20:53; Admin Dose 1 TAB; Start 04/17/17 at 14:00 Magnesium Hydroxide (Milk Of Mag) 30 ml DAILY PRN PO CONSTIPATION Last administered on 04/17/17 20:29; Admin Dose 30 ML; Start 04/17/17 at 14:00 Morphine Sulfate (morphine) 2 mg Q4H PRN IV SEVERE PAIN LEVEL 7-10; Start at 10:30 Acetaminophen/ Hydrocodone Bitart ([place] (7.5-325)) 1 tab Q6H PRN PO pain Last administered on 05/07/17 14:32; Admin Dose 1 TAB; Start 04/30/17 at 16:00 Cholecalciferol (Vitamin D) 2,000 unit DAILY PO Last administered on 06/09/17 09:47; Admin Dose 2,000 UNIT; Start 05/12/17 at 13:00 Diazepam (Valium) 2 mg TID PO Last administered on 06/09/17 20:57; Admin Dose 2 MG; Start 05/30/17 at 21:00 Docusate Sodium (Colace) 100 mg BID PO Last administered on 06/09/17 20:53; Admin Dose 100 MG; Start 06/04/17 at 09:00 CLARA CHERRY NP Jun 10, 2017 09:58
[2017-06-10 13:23] VITALS: BP 116/75; RESP 20
[2017-06-10 20:02] VITALS: BP 134/74; RESP 18
[2017-06-11 07:48] VITALS: BP 106/66; RESP 16
[2017-06-11] MEDS: BACLOFEN 10 MG TAB PO SCH ×3 (09:11→21:28)
[2017-06-11] MEDS: CHOLECALCIFEROL 2,000 UNIT CAP PO SCH (09:11)
[2017-06-11] MEDS: DOCUSATE SODIUM 100 MG CAP PO SCH ×2 (09:12→21:28)
[2017-06-11] MEDS: DIAZEPAM 2 MG TAB PO SCH ×3 (09:12→21:28)
[2017-06-11] MEDS: SENNA TAB PO SCH ×2 (09:12→21:28)
--- NOTE | 2017-06-11 11:08 | PN ---
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 unclear at this time regarding the process initiation of hospice. Case management working on sending patient to SNF vs congregate living place. Case discussed with Dr. Bowden Problems: Subjective 24 Hr Interval Summary Free Text/Dictation Doing well. No acute overnight episodes. Exam/Review of Systems Vital Signs Vitals Vital Signs Date Time Temp Pulse Resp B/P Pulse Ox O2 Delivery O2 Flow Rate FiO2 06/11/17 07:48 98.2 73 16 106/66 94 Intake and Output 06/10/17 06/10/17 06/11/17 15:00 23:00 07:00 Intake Total 1080 ml 600 ml Output Total 300 ml 500 ml Balance 780 ml 100 ml Exam Constitutional: frail, other (cachectic,wasted) Head: normocephalic Eyes: PERRL ENMT: mucosa pink and moist Neck: non-tender, supple Respiratory: clear to auscultation, normal air movement Cardiovascular: nl pulses, regular rate and rhythm Gastrointestinal: non-tender, soft Genitourinary - Male: other (deferred) Musculoskeletal: muscle weakness Extremities: normal pulses Neurological: nl mental status, other (Dysarthria) Results Result Diagram: 06/08/17 0517 06/10/17 0508 Medications Medications Current Medications Ondansetron HCl (Zofran Inj) 4 mg Q6H PRN IV NAUSEA AND/OR VOMITING Last administered on 03/20/17 06:00; Admin Dose 4 MG; Start 03/17/17 at 21:30 Acetaminophen (Tylenol Supp) 650 mg Q6H PRN [place] PAIN LEVEL 1-3 OR FEVER; Start 03/17/17 at 21:30 Baclofen (Lioresal) 10 mg TID PO Last administered on 06/11/17 09:11; Admin Dose 10 MG; Start 03/18/17 at 09:00 Docusate Sodium (Colace) 100 mg TID PRN PO CONSTIPATION Last administered on 09:00; Admin Dose 100 MG; Start 04/13/17 at 17:30 Lidocaine (Xylocaine (Viscous)) 15 ml QID PRN PO PAIN AND/OR INFLAMMATION Last administered on 04/30/17 01:04; Admin Dose 15 ML; Start 04/16/17 at 18:00 Senna (Senokot) 1 tab BID PO Last administered on 06/11/17 09:12; Admin Dose 1 TAB; Start 04/17/17 at 14:00 Magnesium Hydroxide (Milk Of Mag) 30 ml DAILY PRN PO CONSTIPATION Last administered on 04/17/17 20:29; Admin Dose 30 ML; Start 04/17/17 at 14:00 Morphine Sulfate (morphine) 2 mg Q4H PRN IV SEVERE PAIN LEVEL 7-10; Start at 10:30 Acetaminophen/ Hydrocodone Bitart ([place] (7.5-325)) 1 tab Q6H PRN PO pain Last administered on 05/07/17 14:32; Admin Dose 1 TAB; Start 04/30/17 at 16:00 Cholecalciferol (Vitamin D) 2,000 unit DAILY PO Last administered on 06/11/17 09:11; Admin Dose 2,000 UNIT; Start 05/12/17 at 13:00 Diazepam (Valium) 2 mg TID PO Last administered on 06/11/17 09:12; Admin Dose 2 MG; Start 05/30/17 at 21:00 Docusate Sodium (Colace) 100 mg BID PO Last administered on 06/11/17 09:12; Admin Dose 100 MG; Start 06/04/17 at 09:00 CLARA CHERRY NP Jun 11, 2017 11:08
[2017-06-11 14:18] VITALS: BP 123/72; RESP 16
[2017-06-11 20:10] VITALS: BP 126/78; RESP 18
[2017-06-11 22:00] VITALS: BP 125/74; PULSE 91; RESP 19
[2017-06-12 02:18] VITALS: BP 129/77; RESP 18
[2017-06-12 07:27] VITALS: BP 102/58; RESP 16
[2017-06-12] MEDS: DIAZEPAM 2 MG TAB PO SCH ×4 (09:33→23:37)
[2017-06-12] MEDS: DOCUSATE SODIUM 100 MG CAP PO SCH ×2 (09:33→21:00)
[2017-06-12] MEDS: SENNA TAB PO SCH ×2 (09:34→21:00)
[2017-06-12] MEDS: CHOLECALCIFEROL 2,000 UNIT CAP PO SCH (09:34)
[2017-06-12] MEDS: BACLOFEN 10 MG TAB PO SCH ×3 (09:34→20:58)
--- NOTE | 2017-06-12 11:45 | PN ---
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 unclear at this time regarding the process initiation of hospice. Case management working on sending patient to SNF vs congregate living place. Case discussed with Dr. Bowden Problems: Subjective 24 Hr Interval Summary Free Text/Dictation As per nursing staff, patient had episode of fall while ambulating yesterday without any bruising or resultant pain. Exam/Review of Systems Vital Signs Vitals Vital Signs Date Time Temp Pulse Resp B/P Pulse Ox O2 Delivery O2 Flow Rate FiO2 06/12/17 07:27 98.2 55 16 102/58 98 06/11/17 22:00 Room Air Intake and Output 06/11/17 06/11/17 06/12/17 14:59 22:59 06:59 Intake Total 840 ml 300 ml Output Total 400 ml 600 ml Balance 440 ml -300 ml Exam Constitutional: frail, other (cachectic,wasted) Head: normocephalic Eyes: PERRL ENMT: mucosa pink and moist Neck: non-tender, supple Respiratory: clear to auscultation, normal air movement Cardiovascular: nl pulses, regular rate and rhythm Gastrointestinal: non-tender, soft Genitourinary - Male: other (deferred) Musculoskeletal: muscle weakness Extremities: normal pulses Neurological: nl mental status, other (Dysarthria) Results Result Diagram: 06/08/17 0517 06/10/17 0508 Medications Medications Current Medications Ondansetron HCl (Zofran Inj) 4 mg Q6H PRN IV NAUSEA AND/OR VOMITING Last administered on 03/20/17 06:00; Admin Dose 4 MG; Start 03/17/17 at 21:30 Acetaminophen (Tylenol Supp) 650 mg Q6H PRN [place] PAIN LEVEL 1-3 OR FEVER; Start 03/17/17 at 21:30 Baclofen (Lioresal) 10 mg TID PO Last administered on 06/12/17 09:34; Admin Dose 10 MG; Start 03/18/17 at 09:00 Docusate Sodium (Colace) 100 mg TID PRN PO CONSTIPATION Last administered on 09:00; Admin Dose 100 MG; Start 04/13/17 at 17:30 Lidocaine (Xylocaine (Viscous)) 15 ml QID PRN PO PAIN AND/OR INFLAMMATION Last administered on 04/30/17 01:04; Admin Dose 15 ML; Start 04/16/17 at 18:00 Senna (Senokot) 1 tab BID PO Last administered on 06/12/17 09:34; Admin Dose 1 TAB; Start 04/17/17 at 14:00 Magnesium Hydroxide (Milk Of Mag) 30 ml DAILY PRN PO CONSTIPATION Last administered on 04/17/17 20:29; Admin Dose 30 ML; Start 04/17/17 at 14:00 Morphine Sulfate (morphine) 2 mg Q4H PRN IV SEVERE PAIN LEVEL 7-10; Start at 10:30 Acetaminophen/ Hydrocodone Bitart ([place] (7.5-325)) 1 tab Q6H PRN PO pain Last administered on 05/07/17 14:32; Admin Dose 1 TAB; Start 04/30/17 at 16:00 Cholecalciferol (Vitamin D) 2,000 unit DAILY PO Last administered on 06/12/17 09:34; Admin Dose 2,000 UNIT; Start 05/12/17 at 13:00 Diazepam (Valium) 2 mg TID PO Last administered on 06/12/17 09:33; Admin Dose 2 MG; Start 05/30/17 at 21:00 Docusate Sodium (Colace) 100 mg BID PO Last administered on 06/12/17 09:33; Admin Dose 100 MG; Start 06/04/17 at 09:00 CLARA CHERRY NP Jun 12, 2017 11:45
[2017-06-12 13:51] VITALS: BP 117/81; RESP 16
[2017-06-12 20:21] VITALS: BP 144/79; RESP 20
[2017-06-13 02:58] VITALS: BP 102/58; RESP 16
[2017-06-13 07:55] VITALS: BP 114/66; RESP 16
[2017-06-13] MEDS: DOCUSATE SODIUM 100 MG CAP PO SCH ×2 (09:10→20:59)
[2017-06-13] MEDS: SENNA TAB PO SCH ×2 (09:10→21:00)
[2017-06-13] MEDS: CHOLECALCIFEROL 2,000 UNIT CAP PO SCH (09:10)
[2017-06-13] MEDS: BACLOFEN 10 MG TAB PO SCH ×3 (09:10→20:59)
[2017-06-13] MEDS: DIAZEPAM 2 MG TAB PO SCH ×3 (09:17→21:00)
--- NOTE | 2017-06-13 12:39 | PN ---
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 unclear at this time regarding the process initiation of hospice. Case management working on sending patient to SNF vs congregate living place. Case discussed with Dr. Bowden Problems: Subjective 24 Hr Interval Summary Free Text/Dictation No acute episodes. Exam/Review of Systems Vital Signs Vitals Vital Signs Date Time Temp Pulse Resp B/P Pulse Ox O2 Delivery O2 Flow Rate FiO2 06/13/17 07:55 98.6 70 16 114/66 98 06/11/17 22:00 Room Air Intake and Output 06/12/17 06/12/17 06/13/17 15:00 23:00 07:00 Intake Total 600 ml 840 ml Output Total 400 ml Balance 200 ml 840 ml Exam Constitutional: frail, other (cachectic,wasted) Head: normocephalic Eyes: PERRL ENMT: mucosa pink and moist Neck: non-tender, supple Respiratory: clear to auscultation, normal air movement Cardiovascular: nl pulses, regular rate and rhythm Gastrointestinal: non-tender, soft Genitourinary - Male: other (deferred) Musculoskeletal: muscle weakness Extremities: normal pulses Neurological: nl mental status, other (Dysarthria) Results Result Diagram: 06/10/17 0508 Medications Medications Current Medications Ondansetron HCl (Zofran Inj) 4 mg Q6H PRN IV NAUSEA AND/OR VOMITING Last administered on 03/20/17 06:00; Admin Dose 4 MG; Start 03/17/17 at 21:30 Acetaminophen (Tylenol Supp) 650 mg Q6H PRN [place] PAIN LEVEL 1-3 OR FEVER; Start 03/17/17 at 21:30 Baclofen (Lioresal) 10 mg TID PO Last administered on 06/13/17 09:10; Admin Dose 10 MG; Start 03/18/17 at 09:00 Docusate Sodium (Colace) 100 mg TID PRN PO CONSTIPATION Last administered on 09:00; Admin Dose 100 MG; Start 04/13/17 at 17:30 Lidocaine (Xylocaine (Viscous)) 15 ml QID PRN PO PAIN AND/OR INFLAMMATION Last administered on 04/30/17 01:04; Admin Dose 15 ML; Start 04/16/17 at 18:00 Senna (Senokot) 1 tab BID PO Last administered on 06/13/17 09:10; Admin Dose 1 TAB; Start 04/17/17 at 14:00 Magnesium Hydroxide (Milk Of Mag) 30 ml DAILY PRN PO CONSTIPATION Last administered on 04/17/17 20:29; Admin Dose 30 ML; Start 04/17/17 at 14:00 Morphine Sulfate (morphine) 2 mg Q4H PRN IV SEVERE PAIN LEVEL 7-10; Start at 10:30 Acetaminophen/ Hydrocodone Bitart ([place] (7.5-325)) 1 tab Q6H PRN PO pain Last administered on 05/07/17 14:32; Admin Dose 1 TAB; Start 04/30/17 at 16:00 Cholecalciferol (Vitamin D) 2,000 unit DAILY PO Last administered on 06/13/17 09:10; Admin Dose 2,000 UNIT; Start 05/12/17 at 13:00 Diazepam (Valium) 2 mg TID PO Last administered on 06/13/17 09:17; Admin Dose 2 MG; Start 05/30/17 at 21:00 Docusate Sodium (Colace) 100 mg BID PO Last administered on 06/13/17 09:10; Admin Dose 100 MG; Start 06/04/17 at 09:00 CLARA CHERRY NP Jun 13, 2017 12:39
[2017-06-13 14:00] VITALS: BP 112/78; RESP 16
[2017-06-13 20:07] VITALS: BP 126/58; RESP 18
[2017-06-14 01:13] VITALS: BP 107/57; RESP 20
[2017-06-14 08:06] VITALS: BP 115/68; RESP 18
[2017-06-14] MEDS: DOCUSATE SODIUM 100 MG CAP PO SCH ×2 (08:57→20:56)
[2017-06-14] MEDS: SENNA TAB PO SCH ×2 (08:57→20:56)
[2017-06-14] MEDS: DIAZEPAM 2 MG TAB PO SCH ×3 (08:58→20:56)
[2017-06-14] MEDS: CHOLECALCIFEROL 2,000 UNIT CAP PO SCH (08:58)
[2017-06-14] MEDS: BACLOFEN 10 MG TAB PO SCH ×3 (08:58→20:56)
--- NOTE | 2017-06-14 11:49 | PN ---
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 unclear at this time regarding the process initiation of hospice. Case management working on sending patient to SNF vs congregate living place. Problems: Exam/Review of Systems Vital Signs Vitals Vital Signs Date Time Temp Pulse Resp B/P Pulse Ox O2 Delivery O2 Flow Rate FiO2 06/14/17 08:06 97.8 70 18 115/68 99 06/11/17 22:00 Room Air Intake and Output 06/13/17 06/13/17 06/14/17 14:59 22:59 06:59 Intake Total 1180 ml 600 ml Output Total 1100 ml Balance 80 ml 600 ml Exam Constitutional: frail, other (cachectic,wasted) Head: normocephalic Eyes: PERRL ENMT: mucosa pink and moist Neck: non-tender, supple Respiratory: clear to auscultation, normal air movement Cardiovascular: nl pulses, regular rate and rhythm Gastrointestinal: non-tender, soft Genitourinary - Male: other (deferred) Musculoskeletal: muscle weakness Extremities: normal pulses Neurological: nl mental status, other (Dysarthria) Results Result Diagram: 06/10/17 0508 Medications Medications Current Medications Ondansetron HCl (Zofran Inj) 4 mg Q6H PRN IV NAUSEA AND/OR VOMITING Last administered on 03/20/17 06:00; Admin Dose 4 MG; Start 03/17/17 at 21:30 Acetaminophen (Tylenol Supp) 650 mg Q6H PRN [place] PAIN LEVEL 1-3 OR FEVER; Start 03/17/17 at 21:30 Baclofen (Lioresal) 10 mg TID PO Last administered on 06/14/17 08:58; Admin Dose 10 MG; Start 03/18/17 at 09:00 Docusate Sodium (Colace) 100 mg TID PRN PO CONSTIPATION Last administered on 09:00; Admin Dose 100 MG; Start 04/13/17 at 17:30 Lidocaine (Xylocaine (Viscous)) 15 ml QID PRN PO PAIN AND/OR INFLAMMATION Last administered on 04/30/17 01:04; Admin Dose 15 ML; Start 04/16/17 at 18:00 Senna (Senokot) 1 tab BID PO Last administered on 06/14/17 08:57; Admin Dose 1 TAB; Start 04/17/17 at 14:00 Magnesium Hydroxide (Milk Of Mag) 30 ml DAILY PRN PO CONSTIPATION Last administered on 04/17/17 20:29; Admin Dose 30 ML; Start 04/17/17 at 14:00 Morphine Sulfate (morphine) 2 mg Q4H PRN IV SEVERE PAIN LEVEL 7-10; Start at 10:30 Acetaminophen/ Hydrocodone Bitart ([place] (7.5-325)) 1 tab Q6H PRN PO pain Last administered on 05/07/17 14:32; Admin Dose 1 TAB; Start 04/30/17 at 16:00 Cholecalciferol (Vitamin D) 2,000 unit DAILY PO Last administered on 06/14/17 08:58; Admin Dose 2,000 UNIT; Start 05/12/17 at 13:00 Diazepam (Valium) 2 mg TID PO Last administered on 06/14/17 08:58; Admin Dose 2 MG; Start 05/30/17 at 21:00 Docusate Sodium (Colace) 100 mg BID PO Last administered on 06/14/17 08:57; Admin Dose 100 MG; Start 06/04/17 at 09:00 PHANI ANDERSON Jun 14, 2017 11:49
[2017-06-14 13:22] VITALS: BP 109/64; RESP 16
[2017-06-14 20:40] VITALS: BP 115/78; RESP 20
[2017-06-15 04:23] VITALS: BP 120/68; RESP 18
[2017-06-15 07:26] VITALS: BP 109/72; RESP 16
[2017-06-15] MEDS: DOCUSATE SODIUM 100 MG CAP PO SCH ×2 (09:24→20:20)
[2017-06-15] MEDS: BACLOFEN 10 MG TAB PO SCH ×3 (09:24→20:21)
[2017-06-15] MEDS: SENNA TAB PO SCH ×2 (09:24→20:20)
[2017-06-15] MEDS: CHOLECALCIFEROL 2,000 UNIT CAP PO SCH (09:24)
[2017-06-15] MEDS: DIAZEPAM 2 MG TAB PO SCH ×3 (09:25→20:21)
--- NOTE | 2017-06-15 10:37 | PN ---
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 unclear at this time regarding the process initiation of hospice. Case management working on sending patient to SNF vs congregate living place. Problems: Subjective 24 Hr Interval Summary Free Text/Dictation No acute events overnight. Exam/Review of Systems Vital Signs Vitals Vital Signs Date Time Temp Pulse Resp B/P Pulse Ox O2 Delivery O2 Flow Rate FiO2 06/15/17 07:26 97.6 74 16 109/72 98 06/11/17 22:00 Room Air Intake and Output 06/14/17 06/14/17 06/15/17 15:00 23:00 07:00 Intake Total 840 ml Output Total 400 ml Balance 440 ml Exam Constitutional: frail, other (cachectic,wasted) Head: normocephalic Eyes: PERRL ENMT: mucosa pink and moist Neck: non-tender, supple Respiratory: clear to auscultation, normal air movement Cardiovascular: nl pulses, regular rate and rhythm Gastrointestinal: non-tender, soft Genitourinary - Male: other (deferred) Musculoskeletal: muscle weakness Extremities: normal pulses Neurological: nl mental status, other (Dysarthria) Medications Medications Current Medications Ondansetron HCl (Zofran Inj) 4 mg Q6H PRN IV NAUSEA AND/OR VOMITING Last administered on 03/20/17 06:00; Admin Dose 4 MG; Start 03/17/17 at 21:30 Acetaminophen (Tylenol Supp) 650 mg Q6H PRN [place] PAIN LEVEL 1-3 OR FEVER; Start 03/17/17 at 21:30 Baclofen (Lioresal) 10 mg TID PO Last administered on 06/15/17 09:24; Admin Dose 10 MG; Start 03/18/17 at 09:00 Docusate Sodium (Colace) 100 mg TID PRN PO CONSTIPATION Last administered on 09:00; Admin Dose 100 MG; Start 04/13/17 at 17:30 Lidocaine (Xylocaine (Viscous)) 15 ml QID PRN PO PAIN AND/OR INFLAMMATION Last administered on 04/30/17 01:04; Admin Dose 15 ML; Start 04/16/17 at 18:00 Senna (Senokot) 1 tab BID PO Last administered on 06/15/17 09:24; Admin Dose 1 TAB; Start 04/17/17 at 14:00 Magnesium Hydroxide (Milk Of Mag) 30 ml DAILY PRN PO CONSTIPATION Last administered on 04/17/17 20:29; Admin Dose 30 ML; Start 04/17/17 at 14:00 Morphine Sulfate (morphine) 2 mg Q4H PRN IV SEVERE PAIN LEVEL 7-10; Start at 10:30 Acetaminophen/ Hydrocodone Bitart ([place] (7.5-325)) 1 tab Q6H PRN PO pain Last administered on 05/07/17 14:32; Admin Dose 1 TAB; Start 04/30/17 at 16:00 Cholecalciferol (Vitamin D) 2,000 unit DAILY PO Last administered on 06/15/17 09:24; Admin Dose 2,000 UNIT; Start 05/12/17 at 13:00 Diazepam (Valium) 2 mg TID PO Last administered on 06/15/17 09:25; Admin Dose 2 MG; Start 05/30/17 at 21:00 Docusate Sodium (Colace) 100 mg BID PO Last administered on 06/15/17 09:24; Admin Dose 100 MG; Start 06/04/17 at 09:00 PHANI ANDERSON Jun 15, 2017 10:37
[2017-06-15 13:36] VITALS: BP 111/57; RESP 18
[2017-06-15 20:00] VITALS: BP 115/65; RESP 18
[2017-06-16 02:00] VITALS: BP 110/65; RESP 20
[2017-06-16 08:00] VITALS: BP 127/75; RESP 18
[2017-06-16] MEDS: SENNA TAB PO SCH ×2 (10:56→20:34)
[2017-06-16] MEDS: DOCUSATE SODIUM 100 MG CAP PO SCH ×2 (10:56→20:34)
[2017-06-16] MEDS: CHOLECALCIFEROL 2,000 UNIT CAP PO SCH (10:56)
[2017-06-16] MEDS: BACLOFEN 10 MG TAB PO SCH ×3 (10:56→20:35)
[2017-06-16] MEDS: DIAZEPAM 2 MG TAB PO SCH ×3 (10:57→20:35)
--- NOTE | 2017-06-16 11:40 | PN ---
Date/Time of Note Date/Time of Note DATE: 06/16/17 TIME: 11:39 Assessment/Plan VTE Prophylaxis VTE Prophylaxis Intervention: SCD's Lines/Catheters IV Catheter Type (from Nrsg): Saline Lock Urinary Cath still in place: No Assessment/Plan Assessment/Plan 26 M with unclear inherited muscular dystophy like condition admitted for inability to care for self at home placement pending DVT prophylaxis: SCDs Subjective 24 Hr Interval Summary Free Text/Dictation No complaints. Sitting up in chair holding iPad Exam/Review of Systems Vital Signs Vitals Vital Signs Date Time Temp Pulse Resp B/P Pulse Ox O2 Delivery O2 Flow Rate FiO2 06/16/17 08:00 98.3 79 18 127/75 99 Intake and Output 06/15/17 06/15/17 06/16/17 15:00 23:00 07:00 Intake Total 800 ml 1080 ml 500 ml Output Total 400 ml 300 ml Balance 800 ml 680 ml 200 ml Exam nad no mrg lungs clear abd soft no rashes Medications Medications Current Medications Ondansetron HCl (Zofran Inj) 4 mg Q6H PRN IV NAUSEA AND/OR VOMITING Last administered on 03/20/17 06:00; Admin Dose 4 MG; Start 03/17/17 at 21:30 Acetaminophen (Tylenol Supp) 650 mg Q6H PRN [place] PAIN LEVEL 1-3 OR FEVER; Start 03/17/17 at 21:30 Baclofen (Lioresal) 10 mg TID PO Last administered on 06/16/17 10:56; Admin Dose 10 MG; Start 03/18/17 at 09:00 Docusate Sodium (Colace) 100 mg TID PRN PO CONSTIPATION Last administered on 09:00; Admin Dose 100 MG; Start 04/13/17 at 17:30 Lidocaine (Xylocaine (Viscous)) 15 ml QID PRN PO PAIN AND/OR INFLAMMATION Last administered on 04/30/17 01:04; Admin Dose 15 ML; Start 04/16/17 at 18:00 Senna (Senokot) 1 tab BID PO Last administered on 06/16/17 10:56; Admin Dose 1 TAB; Start 04/17/17 at 14:00 Magnesium Hydroxide (Milk Of Mag) 30 ml DAILY PRN PO CONSTIPATION Last administered on 04/17/17 20:29; Admin Dose 30 ML; Start 04/17/17 at 14:00 Morphine Sulfate (morphine) 2 mg Q4H PRN IV SEVERE PAIN LEVEL 7-10; Start at 10:30 Acetaminophen/ Hydrocodone Bitart ([place] (7.5-325)) 1 tab Q6H PRN PO pain Last administered on 05/07/17 14:32; Admin Dose 1 TAB; Start 04/30/17 at 16:00 Cholecalciferol (Vitamin D) 2,000 unit DAILY PO Last administered on 06/16/17 10:56; Admin Dose 2,000 UNIT; Start 05/12/17 at 13:00 Diazepam (Valium) 2 mg TID PO Last administered on 06/16/17 10:57; Admin Dose 2 MG; Start 05/30/17 at 21:00 Docusate Sodium (Colace) 100 mg BID PO Last administered on 06/16/17 10:56; Admin Dose 100 MG; Start 06/04/17 at 09:00 BRO WOLF MD Jun 16, 2017 11:40
[2017-06-16 13:25] LABS: BASOPHILS % 0.5 % (0.0-2.0); EOSINOPHILS # 0.1 10^3/ul (0.0-0.5); EOSINOPHILS % 1.8 % (0.0-7.0); HEMATOCRIT 44.3 % (42.0-52.0); HEMOGLOBIN 15.1 g/dl (14.0-18.0); LYMPHOCYTES # 1.4 10^3/ul (0.8-2.9); LYMPHOCYTES % 24.4 % (15.0-51.0); MEAN CORPUSCULAR HEMOGLOBIN 29.3 pg (29.0-33.0); MEAN CORPUSCULAR HGB CONC 34.1 g/dl (32.0-37.0); MEAN PLATELET VOLUME 9.7 fl (7.4-10.4); MONOCYTE # 0.4 10^3/ul (0.3-0.9); MONOCYTES % 7.8 % (0.0-11.0); NEUTROPHIL # 3.6 10^3/ul (1.6-7.5); NEUTROPHILS % 65.3 % (39.0-77.0); PLATELET COUNT 204 10^3/UL (140-415); RED BLOOD COUNT 5.15 10^6/ul (4.70-6.10); RED CELL DISTRIBUTION WIDTH 13.3 % (11.5-14.5); WHITE BLOOD COUNT 5.5 10^3/ul (4.8-10.8)
[2017-06-16 13:40] LABS: CREATININE 1.12 mg/dl (0.61-1.24); MAGNESIUM 2.2 mg/dl (1.7-2.5); POTASSIUM 4.5 mmol/L (3.5-5.1)
[2017-06-16 14:00] VITALS: BP 110/71; RESP 18
[2017-06-16 20:01] VITALS: BP 128/81; RESP 18
[2017-06-17 02:03] VITALS: BP 99/55; RESP 18
[2017-06-17 07:33] VITALS: BP 112/61; RESP 18
[2017-06-17] MEDS: SENNA TAB PO SCH ×2 (10:09→21:54)
[2017-06-17] MEDS: CHOLECALCIFEROL 2,000 UNIT CAP PO SCH (10:09)
[2017-06-17] MEDS: BACLOFEN 10 MG TAB PO SCH ×3 (10:09→21:54)
[2017-06-17] MEDS: DOCUSATE SODIUM 100 MG CAP PO SCH ×2 (10:09→21:54)
[2017-06-17] MEDS: DIAZEPAM 2 MG TAB PO SCH ×3 (10:11→23:55)
[2017-06-17 13:50] VITALS: BP 126/74; RESP 18
--- NOTE | 2017-06-17 16:09 | PN ---
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 in bed with iPad Exam/Review of Systems Vital Signs Vitals Vital Signs Date Time Temp Pulse Resp B/P Pulse Ox O2 Delivery O2 Flow Rate FiO2 06/17/17 13:50 98.0 76 18 126/74 100 Intake and Output 06/16/17 06/16/17 06/17/17 15:00 23:00 07:00 Intake Total 1060 ml 500 ml Output Total 700 ml 400 ml Balance 360 ml 100 ml Exam nad resp nonlabored abd nondistended no rashes no edema Results Result Diagram: 06/16/17 1316 06/16/17 1316 Medications Medications Current Medications Ondansetron HCl (Zofran Inj) 4 mg Q6H PRN IV NAUSEA AND/OR VOMITING Last administered on 03/20/17 06:00; Admin Dose 4 MG; Start 03/17/17 at 21:30 Baclofen (Lioresal) 10 mg TID PO Last administered on 06/17/17 14:11; Admin Dose 10 MG; Start 03/18/17 at 09:00 Docusate Sodium (Colace) 100 mg TID PRN PO CONSTIPATION Last administered on 09:00; Admin Dose 100 MG; Start 04/13/17 at 17:30 Senna (Senokot) 1 tab BID PO Last administered on 06/17/17 10:09; Admin Dose 1 TAB; Start 04/17/17 at 14:00 Magnesium Hydroxide (Milk Of Mag) 30 ml DAILY PRN PO CONSTIPATION Last administered on 04/17/17 20:29; Admin Dose 30 ML; Start 04/17/17 at 14:00 Acetaminophen/ Hydrocodone Bitart ([place] (7.5-325)) 1 tab Q6H PRN PO pain Last administered on 05/07/17 14:32; Admin Dose 1 TAB; Start 04/30/17 at 16:00 Cholecalciferol (Vitamin D) 2,000 unit DAILY PO Last administered on 06/17/17 10:09; Admin Dose 2,000 UNIT; Start 05/12/17 at 13:00 Diazepam (Valium) 2 mg TID PO Last administered on 06/17/17 14:11; Admin Dose 2 MG; Start 05/30/17 at 21:00 Docusate Sodium (Colace) 100 mg BID PO Last administered on 06/17/17 10:09; Admin Dose 100 MG; Start 06/04/17 at 09:00 BRO WOLF MD Jun 17, 2017 16:09
[2017-06-17 20:14] VITALS: BP 111/66; RESP 18
[2017-06-18 02:18] VITALS: BP 101/61; RESP 18
[2017-06-18 07:26] VITALS: BP 115/51; RESP 18
[2017-06-18] MEDS: BACLOFEN 10 MG TAB PO SCH ×3 (09:11→20:28)
[2017-06-18] MEDS: CHOLECALCIFEROL 2,000 UNIT CAP PO SCH (09:11)
[2017-06-18] MEDS: DOCUSATE SODIUM 100 MG CAP PO SCH ×2 (09:11→20:28)
[2017-06-18] MEDS: SENNA TAB PO SCH ×2 (09:11→20:28)
[2017-06-18] MEDS: DIAZEPAM 2 MG TAB PO SCH ×3 (09:12→23:35)
[2017-06-18 14:05] VITALS: BP 118/65; RESP 16
--- NOTE | 2017-06-18 14:11 | PN ---
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 admitted for inability to care for self at home placement pending DVT prophylaxis: SCDs Subjective 24 Hr Interval Summary Free Text/Dictation Relaxing in bed this AM Exam/Review of Systems Vital Signs Vitals Vital Signs Date Time Temp Pulse Resp B/P Pulse Ox O2 Delivery O2 Flow Rate FiO2 06/18/17 14:05 98.8 84 16 118/65 100 Intake and Output 06/17/17 06/17/17 06/18/17 15:00 23:00 07:00 Intake Total 1040 ml 400 ml Output Total 950 ml 250 ml Balance 90 ml 150 ml Exam nad resp nonlabored no rashes no edema no abd distension Results Result Diagram: 06/16/17 1316 06/16/17 1316 Medications Medications Current Medications Ondansetron HCl (Zofran Inj) 4 mg Q6H PRN IV NAUSEA AND/OR VOMITING Last administered on 03/20/17 06:00; Admin Dose 4 MG; Start 03/17/17 at 21:30 Baclofen (Lioresal) 10 mg TID PO Last administered on 06/18/17 09:11; Admin Dose 10 MG; Start 03/18/17 at 09:00 Docusate Sodium (Colace) 100 mg TID PRN PO CONSTIPATION Last administered on 09:00; Admin Dose 100 MG; Start 04/13/17 at 17:30 Senna (Senokot) 1 tab BID PO Last administered on 06/18/17 09:11; Admin Dose 1 TAB; Start 04/17/17 at 14:00 Magnesium Hydroxide (Milk Of Mag) 30 ml DAILY PRN PO CONSTIPATION Last administered on 04/17/17 20:29; Admin Dose 30 ML; Start 04/17/17 at 14:00 Acetaminophen/ Hydrocodone Bitart ([place] (7.5-325)) 1 tab Q6H PRN PO pain Last administered on 05/07/17 14:32; Admin Dose 1 TAB; Start 04/30/17 at 16:00 Cholecalciferol (Vitamin D) 2,000 unit DAILY PO Last administered on 06/18/17 09:11; Admin Dose 2,000 UNIT; Start 05/12/17 at 13:00 Diazepam (Valium) 2 mg TID PO Last administered on 06/18/17 09:12; Admin Dose 2 MG; Start 05/30/17 at 21:00 Docusate Sodium (Colace) 100 mg BID PO Last administered on 06/18/17 09:11; Admin Dose 100 MG; Start 06/04/17 at 09:00 BRO WOLF MD Jun 18, 2017 14:11
[2017-06-18 19:46] VITALS: BP 130/78; RESP 20
[2017-06-19 02:00] VITALS: BP 109/62; RESP 20
[2017-06-19 07:47] VITALS: BP 125/73; RESP 18
[2017-06-19] MEDS: BACLOFEN 10 MG TAB PO SCH ×3 (08:55→20:59)
[2017-06-19] MEDS: DIAZEPAM 2 MG TAB PO SCH ×3 (08:55→23:25)
[2017-06-19] MEDS: CHOLECALCIFEROL 2,000 UNIT CAP PO SCH (08:55)
[2017-06-19] MEDS: SENNA TAB PO SCH ×2 (08:55→20:59)
[2017-06-19] MEDS: DOCUSATE SODIUM 100 MG CAP PO SCH ×2 (08:56→21:00)
--- NOTE | 2017-06-19 13:39 | PN ---
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 defer eval pending further data DVT prophylaxis: SCDs Subjective 24 Hr Interval Summary Free Text/Dictation Informed by RN pt possibly having some hematuria overnight. Pt affirms this started just last night. Denies dysuria Exam/Review of Systems Vital Signs Vitals Vital Signs Date Time Temp Pulse Resp B/P Pulse Ox O2 Delivery O2 Flow Rate FiO2 06/19/17 07:47 98.2 88 18 125/73 100 Intake and Output 06/18/17 06/18/17 06/19/17 14:59 22:59 06:59 Intake Total 900 ml 920 ml Output Total 650 ml Balance 900 ml 270 ml Exam nad, sitting in bed, wearing headphones no mrg lungs clear abd nondistended no rashes Results Result Diagram: 06/16/17 1316 06/16/17 1316 Medications Medications Current Medications Ondansetron HCl (Zofran Inj) 4 mg Q6H PRN IV NAUSEA AND/OR VOMITING Last administered on 03/20/17 06:00; Admin Dose 4 MG; Start 03/17/17 at 21:30 Baclofen (Lioresal) 10 mg TID PO Last administered on 06/19/17 12:39; Admin Dose 10 MG; Start 03/18/17 at 09:00 Docusate Sodium (Colace) 100 mg TID PRN PO CONSTIPATION Last administered on 09:00; Admin Dose 100 MG; Start 04/13/17 at 17:30 Senna (Senokot) 1 tab BID PO Last administered on 06/19/17 08:55; Admin Dose 1 TAB; Start 04/17/17 at 14:00 Magnesium Hydroxide (Milk Of Mag) 30 ml DAILY PRN PO CONSTIPATION Last administered on 04/17/17 20:29; Admin Dose 30 ML; Start 04/17/17 at 14:00 Acetaminophen/ Hydrocodone Bitart ([place] (7.5-325)) 1 tab Q6H PRN PO pain Last administered on 05/07/17 14:32; Admin Dose 1 TAB; Start 04/30/17 at 16:00 Cholecalciferol (Vitamin D) 2,000 unit DAILY PO Last administered on 06/19/17 08:55; Admin Dose 2,000 UNIT; Start 05/12/17 at 13:00 Diazepam (Valium) 2 mg TID PO Last administered on 06/19/17 12:39; Admin Dose 2 MG; Start 05/30/17 at 21:00 Docusate Sodium (Colace) 100 mg BID PO Last administered on 06/18/17 20:28; Admin Dose 100 MG; Start 06/04/17 at 09:00 BRO WOLF MD Jun 19, 2017 13:39
[2017-06-19 14:37] VITALS: BP 109/56; RESP 18
[2017-06-19 17:47] LABS: ADD UMIC YES; UR AMORPHOUS CRYSTAL FEW /HPF (NONE SEEN); UR ASCORBIC ACID NEGATIVE (NEGATIVE); UR BILIRUBIN (Dip) NEGATIVE (NEGATIVE); UR BLOOD (Dip) NEGATIVE (NEGATIVE); UR CLARITY CLOUDY (CLEAR); UR COLOR YELLOW (YELLOW); UR GLUCOSE (Dip) NEGATIVE (NEGATIVE); UR KETONES (Dip) NEGATIVE (NEGATIVE); UR LEUKOCYTE ESTERASE (Dip) TRACE Leu/ul (NEGATIVE); UR NITRITE (Dip) NEGATIVE (NEGATIVE); UR RBC 1 /HPF (0-5); UR SPECIFIC GRAVITY (Dip) 1.014 (1.003-1.030); UR TOTAL PROTEIN (Dip) NEGATIVE (NEGATIVE); UR UROBILINOGEN (Dip) NEGATIVE (NEGATIVE)
[2017-06-19 20:23] VITALS: BP 128/76; RESP 20
[2017-06-20 02:00] VITALS: BP 108/61; RESP 20
[2017-06-20 07:33] VITALS: BP 105/69; RESP 18
[2017-06-20] MEDS: SENNA TAB PO SCH (08:39)
[2017-06-20] MEDS: DOCUSATE SODIUM 100 MG CAP PO SCH (08:39)
[2017-06-20] MEDS: CHOLECALCIFEROL 2,000 UNIT CAP PO SCH (08:39)
[2017-06-20] MEDS: BACLOFEN 10 MG TAB PO SCH (08:39)
[2017-06-20] MEDS: DIAZEPAM 2 MG TAB PO SCH (08:39)
--- NOTE | 2017-06-20 09:39 | DS ---
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 Patient Condition: Stable Consults none Procedures CXR 7.3 and CXR 7.10: no infiltrates' Test 06/19/17 17:10 Urine Color YELLOW (YELLOW) Urine Clarity CLOUDY (CLEAR) A Urine pH 7.0 (5.0-9.0) Urine Specific [place] 1.014 (1.003-1.030) Urine Ketones NEGATIVEmg/dL (NEGATIVE) Urine Nitrite NEGATIVEmg/dL (NEGATIVE) Urine Bilirubin NEGATIVEmg/dL (NEGATIVE) Urine Urobilinogen NEGATIVEmg/dL (NEGATIVE) Urine Leukocyte Esterase TRACELeu/ul (NEGATIVE) A Urine Microscopic RBC 1/HPF (0-5) Urine Microscopic WBC 6/HPF (0-5) H Urine Amorphous Crystals FEW/HPF (NONE SEEN) A Urine Hemoglobin NEGATIVEmg/dL (NEGATIVE) Urine Glucose NEGATIVEmg/dL (NEGATIVE) Urine Total Protein NEGATIVEmg/dl (NEGATIVE) urine culture in process Hx of Present Illness Chief complaint: Ambulatory dysfunction This is a very pleasant 26-year-old male with a 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 The following history was obtained via the ED physician documentation who received from the patient's and as the patient himself has difficulty speaking secondary to his unknown disease at this time. This patient is unable to ambulate and has not been eating or drinking at the independent living facility. The patient's family members were at bedside are concerned because they did not feel this patient should be moved to the independent living facility. At the living facility has not been eating. This patient is having genetic testing done at [facility] and the results of his genetic testing for evaluation of this unknown progressively worsening myopathy are not going to be back until the end of March. Family members were obviously concerned about his not being able to take care of himself and brought the patient in for evaluation. Patient does reports that he is able to use a walker to ambulate to the bathroom however at his facility that he was at did not provide him with a walker. His mom apparently has a similar disorder and the patient had a sister who recently after being diagnosed with a disorder as well I was very similar. As per the ED physician patient did have a bedside swallow eval done and was able to tolerate possibly soft diet. 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 Pt without any acute medical issues throughout his stay. Spent 90+ days in acute care setting 2/2 difficulty with dispo. Of note, 10.5 nurse stated pt had an episode of hematuria. Pt denied dysuria. UA results reviewed. Urine culture pending. Advise that facility repeat UA early next week to ensure microhematuria has resolved. If not, pt should be referred for eval. Home Meds Reported Medications Baclofen* (Baclofen*) 10 Mg Tablet, 10 MG PO TID, TAB 03/17/17 Follow-up Plan Pt can get repeat UA with PCP or facility MD early next week to f/u previous complaint of hematuria. If still present, would consider referral Primary Care Provider [facility] Time spent on discharge: > 30 minutes Pending Labs Laboratory Tests Test 06/19/17 17:10 Urine Color YELLOW (YELLOW) Urine Clarity CLOUDY (CLEAR) Urine pH 7.0 (5.0-9.0) Urine Specific [place] 1.014 (1.003-1.030) Urine Ketones NEGATIVEmg/dL (NEGATIVE) Urine Nitrite NEGATIVEmg/dL (NEGATIVE) Urine Bilirubin NEGATIVEmg/dL (NEGATIVE) Urine Urobilinogen NEGATIVEmg/dL (NEGATIVE) Urine Leukocyte Esterase TRACELeu/ul (NEGATIVE) Urine Microscopic RBC 1/HPF (0-5) Urine Microscopic WBC 6/HPF (0-5) Urine Amorphous Crystals FEW/HPF (NONE SEEN) Urine Hemoglobin NEGATIVEmg/dL (NEGATIVE) Urine Glucose NEGATIVEmg/dL (NEGATIVE) Urine Total Protein NEGATIVEmg/dl (NEGATIVE) BRO WOLF MD Jun 20, 2017 09:39
--- NOTE | 2017-06-20 09:44 | PDOCDIS ---
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 If still present, would consider referral BRO WOLF MD Jun 20, 2017 09:43
== END 2017-06-20 10:30 | DRG 92 ==
LOC: E/R 19:24 → EDBD 20:57 → MS2 20:57
PROVIDERS: ADMIT Family Medicine; ATTEND Family Medicine
DX: G71.0 Muscular dystrophy (principal); R64 Cachexia; E87.0 Hyperosmolality and hypernatremia; E87.8 Other disorders of electrolyte and fluid balance, not elsewhere classified; Z68.22 Body mass index [BMI] 22.0-22.9, adult; R47.1 Dysarthria and anarthria; R31.9 Hematuria, unspecified; E55.9 Vitamin D deficiency, unspecified; R62.7 Adult failure to thrive; Z22.322 Carrier or suspected carrier of Methicillin resistant Staphylococcus aureus
CPT/HCPCS: 36415; 71010; 80048; 80053; 81001; 81003; 82270; 82306; 82550; 82565; 82652; 82962; 83036; 83605; 83690; 83735; 84436; 84443; 84479; 84520; 85025; 85610; 85651; 86140; 86850; 86900; 86901; 87081; 87086; 92507; 92526; 92610; 96360; 96361; 97003; 97110; 97116; 97162; 97167; 97530; 97535; A4310; C9113; J1200; J1650; J2405; J7030; J7042; J7070